=== PATIENT | female | born 1935 | race Caucasian/White ===

== ENCOUNTER 2016-07-06 17:25 | Inpatient (IN) | payer OTHER ==
--- NOTE | 2016-07-06 17:42 | PDOC ---
History of Present Illness - General Chief Complaint: Shortness of Breath Stated Complaint: CARDIAC History Source: Patient Exam Limitations: No Limitations - History of Present Illness Timing/Duration: other (today) Severity: moderate Associated Symptoms: reports: shortness of breath, other (palpitations). denies : chest pain, headaches Past History - Travel Traveled outside of the country in the last 30 days: No Close contact w/someone who was outside of country & ill: No - Past Medical History Allergies/Adverse Reactions: Allergies Allergy/AdvReac Type Severity Reaction Status Date / Time cefuroxime axetil Allergy Verified 05/23/16 09:24 [From Ceftin] nitrofurantoin Allergy Verified 05/23/16 09:24 macrocrystalline [From Macrodantin] shellfish derived Allergy Verified 07/06/16 17:44 sulfamethoxazole Allergy Verified 05/23/16 09:24 [From Bactrim] trimethoprim [From Bactrim] Allergy Verified 05/23/16 09:24 Home Medications: Ambulatory Orders Bacitracin 30 gm TP DAILY 07/06/16 Butenafine HCl [Mentax] 30 gm TP DAILY 07/06/16 Cholecalciferol (Vitamin D3) [Vitamin D3 -] 1,000 unit PO DAILY 07/06/16 Enalapril Maleate [Vasotec] 20 mg PO DAILY 07/06/16 Furosemide [Lasix] 20 mg PO DAILY 07/06/16 Metformin HCl [Metformin HCl ER] 500 mg PO DAILY 07/06/16 Multivitamins [Tab-A-Vit -] 1 tab PO DAILY 07/06/16 Mupirocin 1 gm TP DAILY 07/06/16 Potassium Chloride [K-Tab ER] 8 meq PO BID 07/06/16 Simvastatin [Zocor -] 20 mg PO HS 07/06/16 Tiotropium [place] [Spiriva -] 2 puff IH DAILY PRN 07/06/16 Warfarin Sodium [Coumadin] 5 mg PO DAILY 07/06/16 Asthma: Yes (acute resp failure,acute resp myopathy, hx of mech.vent for 4 months) Cardiac Disorders: Yes (a.fib,flutter,core pulmonale) CVA: Yes (tia,vertigo. inner ear nerve degeneration) CHF: Yes Dementia: No Diabetes: Yes (niddm) Dialysis: No GI Disorders: No Disorders: No HTN: Yes Hypercholesterolemia: Yes HIV: No Kidney Stones: No Liver Disease: No Psychiatric Problems: No Suicide Attempt (Hx): No Seizures: No Lung CA: No - Surgical History Cardiac Surgery: Yes (M.Valve replac.) Lung Surgery: Yes (hx rt chest tube,tracheostomy,lt thoracentesis) - Psycho/Social/Smoking Cessation Hx Anxiety: No Suicidal Ideation: No Smoking History: Never smoked Have you smoked in the past 12 months: No Hx Alcohol Use: Yes (Social ) Review of Systems - Review of Systems Able to Perform ROS?: Yes Is the patient limited Korean proficient: No Constitutional: Yes: Chills, Malaise, Unintentional Wgt. Loss, Unexplained wgt Loss. No: Fever, Weakness, Weight Stable HEENTM: Yes: See HPI Respiratory: Yes: Shortness of Breath, SOB at Rest, Wheezing. No: Productive cough, Hemoptysis Cardiac (ROS): Yes: Irregular Heart Rate, Palpitations. No: Chest Pain, Lightheadedness, Syncope, Chest Tightness ABD/GI: Yes: Diarrhea. No: Abdominal Distended, Blood Streaked Bowels : No: Burning, Dysuria, Discharge Musculoskeletal: No: Back Pain, Gout, Joint Pain, Joint Swelling, Muscle Pain Integumentary: No: Bruising, Change in Color Neurological: No: Headache, Numbness, Paresthesia Psychiatric: No: Anxiety, Depression, Frequent Crying, Stressors, Sleep Pattern Change Endocrine: Yes: Unexplained Weight Loss. No: Excessive Sweating, Flushing, Intolerance to Cold, Intolerance to Heat Hematologic/Lymphatic: No: Anemia, Blood Clots, Easy Bleeding *Physical Exam - Physical Exam General Appearance: Yes: Apparent Distress, Mild Distress HEENT: positive: Normal ENT Inspection, Muffled/Hoarse voice. negative: Pharyngeal Erythema Neck: positive: Trachea midline, Normal Thyroid, Supple. negative: Rigid, Decreased range of motion Respiratory/Chest: positive: Respiratory Distress, Rhonchi, Wheezing. negative : Accessory Muscle Use Cardiovascular: positive: Tachycardia, Irregular Gastrointestinal/Abdominal: positive: Normal Bowel Sounds, Flat, Soft. negative : Tender Lymphatic: negative: Adenopathy, Tenderness Musculoskeletal: negative: CVA Tenderness Extremity: positive: Normal Capillary Refill, Normal Inspection, Normal Range of Motion. negative: Tender Integumentary: positive: Dry, Warm, Pale Neurologic: positive: vice president process II-XII NML intact, Fully Oriented, Alert, Normal Mood/ Affect ED Treatment Course - LABORATORY CBC & Chemistry Diagram: 07/06/16 18:00 07/06/16 18:00 *DC/Admit/Observation/Transfer Diagnosis at time of Disposition: Palpitations, Aortic stenosis, Atrial fibrillation with rapid ventricular response - Discharge Dispostion Condition at time of disposition: Guarded Admit: Yes
[2016-07-06] MEDS ORDERED: dilTIAZem HCL 50 MG/10 ML - 10 ML VIAL IVPUSH ONE (17:51)
[2016-07-06] MEDS ORDERED: ALBUTEROL SO4 0.083% IH SOL 2.5 MG/3 ML VIAL.NEB. NEB ONE (17:53)
[2016-07-06] MEDS ORDERED: dilTIAZem HCL 125 MG/25 ML - 25 ML VIAL ONE (17:54)
[2016-07-06] MEDS ORDERED: SODIUM CHLORIDE 1,000 ML IV SCH (18:00)
[2016-07-06 18:06] LABS: MCHC 31.9 g/dl (32.0-36.0); MEAN CELL VOLUME 81.5 fl (80-96); MEAN PLT VOLUME 10.9 fl (7.5-11.1); PLATELET COUNT 148 K/MM3 (134-434); RDW 16.2 % (11.6-15.6); WHITE BLOOD COUNT 14.8 K/mm3 (4.0-10.0)
[2016-07-06 18:19] LABS: INR 2.94 (0.82-1.09); PROTHROMBIN TIME (PATIENT) 33.1 SEC (9.98-11.88)
[2016-07-06 18:22] LABS: ACTIVATED PTT 37.6 SECONDS (26.9-34.4)
[2016-07-06 18:30] LABS: ALBUMIN 4.2 g/dl (3.4-5.0); ANION GAP 15 (8-16); BILIRUBIN,TOTAL 1.6 mg/dL (0.2-1.0); CALCIUM 9.4 mg/dL (8.5-10.1); CO2 27 mmol/L (21-32); GLUCOSE,RANDOM 222 mg/dL (74-106); MAGNESIUM 1.9 mg/dL (1.8-2.4); SGOT/AST 53 U/L (15-37); SGPT/ALT 29 U/L (12-78); TOT PROT 7.1 g/dl (6.4-8.2)
[2016-07-06 18:33] LABS: ALK PHOS 66 U/L (45-117); TROPONIN I < 0.02 ng/ml (0.00-0.05)
[2016-07-06 18:34] LABS: PLATELET COMMENT2 NO CLOTTING DETECTED; PLATELET ESTIMATE DECREASED (NORMAL)
[2016-07-06] MEDS ORDERED: dilTIAZem HCL 60 MG TABLET (FP) PO ONE (19:07)
[2016-07-06] MEDS ORDERED: dilTIAZem HCL 60 MG TABLET (FP) ONE (19:10)
--- NOTE | 2016-07-06 20:19 | HP ---
CHIEF COMPLAINT: SOB, Palpitations PCP: Dr. Geronimo Wisdom HISTORY OF PRESENT ILLNESS: This is a 81 y/o woman with a past medical history of Asthma- Acute Resp Failure , Acute Resp myopathy (hx mech vent for 4 months), Afib (on Coumadin), Mechanical MVR, CHF, DM, HTN, CVA, TIA, Vertigo, Inner Ear Degeneration. Who presents to the emergency department with SOB, palpitations started this morning , became worse in the afternoon. Patient reports having increased palpitations since her cardiac medications were changed from Digoxin due to toxicity to Metoprolol. Patient reports last admission 05/23-05/25 for Afib with RVR. Patient reports having a dry cough with hoarseness and wheezing that started at 0330 this morning. She now reports this afternoon her cough is productive with white phlegm, she took Prednisone 60mg at home per her diagnostic medical sonographer. Patient reports having chills, diarrhea, a decreased appetite, weakness and fatigue. Patient reports weight loss 40lbs in 4 years which she attributes to worrying about her who is chronically ill. Patient reports having had extensive GI workups - wnl. Patient denies fever, AP, constipation, hematochezia , melena, hematuria, dysuria. 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: Allergies cefuroxime axetil [From Ceftin] Allergy (Verified 05/23/16 09:24) nitrofurantoin macrocrystalline [From Macrodantin] Allergy (Verified 05/23/16 09 :24) shellfish derived Allergy (Verified 07/06/16 17:44) sulfamethoxazole [From Bactrim] Allergy (Verified 05/23/16 09:24) trimethoprim [From Bactrim] Allergy (Verified 05/23/16 09:24) HOME MEDICATIONS: Home Medications Medication Instructions Recorded Bacitracin 30 gm TP DAILY 07/06/16 Butenafine HCl [Mentax] 30 gm TP DAILY 07/06/16 Cholecalciferol (Vitamin D3) 1,000 unit PO DAILY 07/06/16 [Vitamin D3 -] Enalapril Maleate [Vasotec] 20 mg PO DAILY 07/06/16 Furosemide [Lasix] 20 mg PO DAILY 07/06/16 Metformin HCl [Metformin HCl ER] 500 mg PO DAILY 07/06/16 Multivitamins [Tab-A-Vit -] 1 tab PO DAILY 07/06/16 Mupirocin 1 gm TP DAILY 07/06/16 Potassium Chloride [K-Tab ER] 8 meq PO BID 07/06/16 Simvastatin [Zocor -] 20 mg PO HS 07/06/16 Tiotropium [place] [Spiriva -] 2 puff IH DAILY PRN 07/06/16 Warfarin Sodium [Coumadin] 5 mg PO DAILY 07/06/16 REVIEW OF SYSTEMS CONSTITUTIONAL: chills, generalized weakness, loss of appetite, weight change Absent: fever, diaphoresis, malaise HEENT: Absent: rhinorrhea, nasal congestion, throat pain, throat swelling, difficulty swallowing, mouth swelling, ear pain, eye pain, visual changes CARDIOVASCULAR: palpitations Absent: chest pain, syncope, irregular heart rate, lightheadedness, peripheral edema RESPIRATORY: shortness of breath, wheezing Absent: cough, dyspnea with exertion, orthopnea, stridor, hemoptysis GASTROINTESTINAL: diarrhea Absent: abdominal pain, abdominal distension, nausea, vomiting, constipation, melena, hematochezia GENITOURINARY: Absent: dysuria, frequency, urgency, hesitancy, hematuria, flank pain, genital pain MUSCULOSKELETAL: Absent: myalgia, arthralgia, joint swelling, back pain, neck pain SKIN: Absent: rash, itching, pallor HEMATOLOGIC/IMMUNOLOGIC: Absent: easy bleeding, easy bruising, lymphadenopathy, frequent infections ENDOCRINE: Absent: unexplained weight gain, heat intolerance, cold intolerance NEUROLOGIC: Absent: headache, focal weakness or paresthesias, dizziness, unsteady gait, seizure, mental status changes, bladder or bowel incontinence PSYCHIATRIC: Absent: anxiety, depression, suicidal or homicidal ideation, hallucinations. PHYSICAL EXAMINATION Vital Signs - 24 hr 07/06/16 07/06/16 17:41 19:10 Temperature 98.6 F 98.6 F Pulse Rate 171 H Pulse Rate [ 102 H Left] Respiratory 20 18 Rate Blood Pressure 107/92 Blood Pressure 105/48 [Right Arm] O2 Sat by Pulse 88 L 97 Oximetry (%) GENERAL: Awake, alert, and fully oriented, cachectic, in no acute distress. HEAD: Normal with no signs of trauma. FACE: Facial wasting EYES: Pupils equal, round and reactive to light, extraocular movements intact, sclera anicteric, conjunctiva clear. No lid lag. EARS, NOSE, THROAT: Ears normal, nares patent, oropharynx clear without exudates. Moist mucous membranes. NECK: Normal range of motion, supple without lymphadenopathy, JVD, or masses. LUNGS: +Rhonchi and wheeze to right apex. No crackles. No accessory muscle use. HEART: Irregular rate and rhythm, Grade 2 systolic murmur. Normal S1 and S2. rub or gallop. ABDOMEN: Soft, nontender, not distended, normoactive bowel sounds, no guarding, no rebound, no masses. No hepatomegaly or splenomegaly. MUSCULOSKELETAL: Normal range of motion at all joints. No bony deformities or tenderness. No CVA tenderness. UPPER EXTREMITIES: 2+ pulses, warm, well-perfused. Decreased subcutaneous adipose tissue, emaciated. No cyanosis. No clubbing. Cap refill <2 seconds. No peripheral edema. LOWER EXTREMITIES: 2+ pulses, warm, well-perfused. Decreased subcutaneous adipose tissue, emaciated. No calf tenderness. No peripheral edema. NEUROLOGICAL: Cranial nerves II-XII intact. Normal speech. Gait not observed. PSYCHIATRIC: Cooperative. Good eye contact. Appropriate mood and affect. SKIN: Warm, dry, normal turgor, no rashes. bruising to right forearm noted. Laboratory Results - last 24 hr 07/06/16 07/06/16 07/06/16 18:00 18:00 18:00 WBC 14.8 H D RBC 4.68 Hgb 12.2 Hct 38.2 MCV 81.5 MCHC 31.9 L RDW 16.2 H Plt Count 148 MPV 10.9 D Neutrophils % 93.0 H D Lymphocytes % 2.0 L D Monocytes % 5.0 Platelet Estimate Decreased Platelet Comment No clotting detected INR 2.94 H PTT (Actin FS) 37.6 H Sodium 135 L Potassium 4.5 Chloride 93 L Carbon Dioxide 27 Anion Gap 15 BUN 21 H D Creatinine 1.0 D Creat Clearance w eGFR 53.21 Random Glucose 222 H D Calcium 9.4 Magnesium 1.9 Total Bilirubin 1.6 H D AST 53 H ALT 29 Alkaline Phosphatase 66 Creatine Kinase 48 Troponin I < 0.02 B-Natriuretic Peptide 4108.15 H Total Protein 7.1 Albumin 4.2 ASSESSMENT/PLAN: This is a 81 y/o woman with a PMHx of: Asthma, Acute Resp Failure, Resp Myopathy (hx mech vent for 4 months), Afib (on Coumadin), Mechanical MVR, CHF, DM, HTN. Who presents to the ED with SOB and palpitations. Placed on Tele Observation for further evaluation of their emergent condition. Plan: 1. Card: Afib with RVR/ Palpitations/CHF/HTN - Likely Paroxysmal - Tele monitoring - [id number] Score 6 - Cardizem IV given in ED- rate 90s-100s - Appreciate Cardiology Consult - Will restart BB - Continue Coumadin, Vasotec - Monitor INR - BNP 4108, patient appears euvolemic - Continue Lasix - Monitor renal function 2. Pulm: SOB/Asthma, Acute Resp Failure - Likely due to Afib - Albuterol neb given in ED - Appreciate Pulm Consult - O2 - Continue Spiriva - Peak Flow BID 3. Endo: Diabetes Mellitus - Not Controlled 2/2 steroid use - Will hold Metformin for tighter glycemic control - BGMs - ISS - HgbA1c done on 05/24/16: 5.7 4. ID:Leukocytosis - Likely secondary to inflammatory response vs viral - Patient is afebrile - Will not start ABX, will wait and watch, if patient's condition worsens will treat accordingly - Monitor CBC 5. GI: Diarrhea vs Malabsorption - Patient report having loose stools which she attributes to taking her BB - Patient reports having GI workup- results WNl - Will obtain Stool Specimens, if condition worsens - Monitor BMP - f/u with GI in outpatient 6. Cachexia - Likely 2/2 poor appetite vs malabsorption - Patients Albumin is within baseline - RD Consult - PO Supplements - Consider B12 studies 7. Mechanical Mitral Valve Replacement - INR 2.94 - Continue Coumadin - Monitor INRs 8. FEN - PO Fluids - Replete lytes prn - High Calorie, Low Na Diet 9. 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 - [place] (6) Diabetes mellitus Code(s): E11.9 - TYPE 2 DIABETES MELLITUS WITHOUT COMPLICATIONS Qualifiers: (7) History of mitral valve replacement with mechanical valve Code(s): Z95.2 - PRESENCE OF PROSTHETIC HEART VALVE (8) Hypercholesteremia Code(s): E78.0 - PURE HYPERCHOLESTEROLEMIA * DO NOT USE * (9) Hypertension Code(s): I10 - ESSENTIAL (PRIMARY) HYPERTENSION Qualifiers: (10) DVT prophylaxis Code(s): [id number] - Visit type - Emergency Visit Emergency Visit: Yes ED Registration Date: 07/06/16 Care time: The patient presented to the Emergency Department on the above date and was hospitalized for further evaluation of their emergent condition. - New Patient This patient is new to me today: Yes Date on this admission: 07/06/16 - Critical Care Critical Care patient: No
[2016-07-06 21:38] LABS: URINE APPEARANCE SLCLOUDY; URINE BILIRUBIN NEGATIVE (NEGATIVE); URINE COLOR YELLOW; URINE GLUCOSE (UA) 1+ (NEGATIVE); URINE KETONE 1+ (NEGATIVE); URINE LEUK ESTERASE NEGATIVE (NEGATIVE); URINE NITRITE NEGATIVE (NEGATIVE); URINE PROTEIN NEGATIVE (NEGATIVE); URINE UROBILINOGEN NEGATIVE E.U./dl (0.2-1.0)
[2016-07-06 21:39] LABS: URINE BLOOD 2+ (NEGATIVE)
[2016-07-06 21:40] LABS: URINE HYALINE CAST 2 /lpf; URINE MUCUS RARE; URINE RBC 9 /hpf (0-3); URINE WBC 7 /hpf (3-5)
[2016-07-07] MEDS ORDERED: ALBUTEROL SO4 0.083% IH SOL 2.5 MG/3 ML VIAL.NEB. NEB PRN (06:51)
[2016-07-07 06:57] LABS: BASOPHIL 0.1 % (0-2.0); MCH 26.3 pg (25.7-33.7); MCHC 32.2 g/dl (32.0-36.0); MEAN CELL VOLUME 81.7 fl (80-96); MEAN PLT VOLUME 10.1 fl (7.5-11.1); PLATELET COUNT 113 K/MM3 (134-434); RDW 16.2 % (11.6-15.6); WHITE BLOOD COUNT 7.4 K/mm3 (4.0-10.0)
[2016-07-07 07:39] LABS: CALCIUM 9.2 mg/dL (8.5-10.1); CREATININE 0.7 mg/dL (0.55-1.02); MAGNESIUM 2.1 mg/dL (1.8-2.4); PHOSPHOROUS 3.2 mg/dL (2.5-4.9)
[2016-07-07 07:43] LABS: TROPONIN I 0.02 ng/ml (0.00-0.05)
[2016-07-07 08:54] LABS: THYROID STIMULATING HORMONE 0.25 uIU/ml (0.358-3.74)
[2016-07-07] MEDS: FUROSEMIDE 20 MG TABLET (FP) PO SCH (10:00)
[2016-07-07] MEDS: MULTIVITAMINS (DAILY MVI) TABLET (FP) PO SCH (10:00)
[2016-07-07] MEDS ORDERED: ACLIDINIUM BROMIDE 400 MCG/INH AERO.POWD IH SCH (10:00)
[2016-07-07] MEDS ORDERED: METOPROLOL TARTRATE 25 MG TABLET (FP) PO SCH (10:00)
[2016-07-07] MEDS ORDERED: dilTIAZem HCL 30 MG TABLET (FP) PO SCH (10:00)
[2016-07-07] MEDS ORDERED: dilTIAZem HCL 30 MG TABLET (FP) ONE (10:05)
[2016-07-07] MEDS ORDERED: FUROSEMIDE 40 MG/4 ML INJECTABLE VIAL ONE (10:06)
[2016-07-07] MEDS ORDERED: FUROSEMIDE 40 MG TABLET (FP) ONE (10:08)
--- NOTE | 2016-07-07 10:14 | CON.PULM ---
Consult Reason for Consultation:: Dyspnea and Tachycardia - History of Present Illness Chief Complaint: Shortnes of breath and weakneass History of Present Illness: URI for about a week followed by dyspnea and wheezing. Pt called me yesterday and Prednisone 40 mg was started. Pt developed a rapid heart rate several hours later and came to the ER. She denies purulent sputum production, hemoptysis, chest pain or syncope. Past history significant for MVR and chronic atrial fibrillation, anticoagulation with Warfarin, aortic stenosis. In addition, she has mild bronchial asthma. PMH NIDDM Underweight (less than 90 lbs for years) MVR Aortic Stenosis Bronchial Asthma Respiratory failure approx. 20 years ago secondary to neuromuscular disease ( the exact etiology never determined)-required respirator support for about 2 months - History Source History Provided By: Patient, Medical Record Limitations to Obtaining History: No Limitations - Past Medical History Cardio/Vascular: Yes: Aortic Stenosis, Mitral Stenosis Pulmonary: Yes: Asthma - Past Surgical History Past Surgical History: Yes: Valve Replacement (mitral) - Alcohol/Substance Use Hx Alcohol Use: Yes (Social ) - Smoking History Smoking history: Never smoked Have you smoked in the past 12 months: No - Social History Usual Living Arrangement: With Spouse 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: No Home Medications - Allergies Allergies/Adverse Reactions: Allergies Allergy/AdvReac Type Severity Reaction Status Date / Time cefuroxime axetil Allergy Verified 05/23/16 09:24 [From Ceftin] nitrofurantoin Allergy Verified 05/23/16 09:24 macrocrystalline [From Macrodantin] shellfish derived Allergy Verified 07/06/16 17:44 sulfamethoxazole Allergy Verified 05/23/16 09:24 [From Bactrim] trimethoprim [From Bactrim] Allergy Verified 05/23/16 09:24 - Home Medications Home Medications: Ambulatory Orders Bacitracin 30 gm TP DAILY 07/06/16 Butenafine HCl [Mentax] 30 gm TP DAILY 07/06/16 Cholecalciferol (Vitamin D3) [Vitamin D3 -] 1,000 unit PO DAILY 07/06/16 Enalapril Maleate [Vasotec] 20 mg PO DAILY 07/06/16 Furosemide [Lasix] 20 mg PO DAILY 07/06/16 Metformin HCl [Metformin HCl ER] 500 mg PO DAILY 07/06/16 Multivitamins [Tab-A-Vit -] 1 tab PO DAILY 07/06/16 Mupirocin 1 gm TP DAILY 07/06/16 Potassium Chloride [K-Tab ER] 8 meq PO BID 07/06/16 Simvastatin [Zocor -] 20 mg PO HS 07/06/16 Tiotropium [place] [Spiriva -] 2 puff IH DAILY PRN 07/06/16 Warfarin Sodium [Coumadin] 5 mg PO DAILY 07/06/16 Review of Systems - Review of Systems Constitutional: denies: Chills, Fever Cardiovascular: reports: Palpitations, Shortness of Breath. denies: Chest Pain , Edema Respiratory: reports: Cough, Exercise Intolerance, SOB on Exertion, Wheezing. denies: Hemoptysis Gastrointestinal: denies: Abdominal Pain, Rectal Bleeding, Vomiting Blood Neurological: reports: No Symptoms Physical Exam Vital Sings: Vital Signs Temperature 97.5 F L 07/07/16 06:09 Pulse Rate 100 H 07/07/16 06:09 Respiratory Rate 16 07/07/16 06:09 Blood Pressure 122/67 07/07/16 06:09 O2 Sat by Pulse Oximetry (%) 97 07/07/16 06:09 Constitutional: Yes: No Distress Eyes: No: Sclera Icterus HENT: Yes: Atraumatic, Normocephalic Neck: Yes: Supple, Trachea Midline Cardiovascular: Yes: Pulse Irregular (ventricular rate about 110-120), JVD Respiratory: Yes: CTA Bilaterally ...Percussion: No: Dullnes, Hyperresonance ...Clubbing: No Gastrointestinal: Yes: Soft. No: Hepatomegaly, Splenomegaly, Tenderness Edema: No Neurological: Yes: Alert, Oriented Labs: CBC, BMP 07/07/16 06:10 07/07/16 06:10 Imaging - Results Chest X-ray: Report Reviewed, Image Reviewed (GEO, Cm, Valve replacement) Problem List - Problems (1) Atrial fibrillation with rapid ventricular response Code(s): I48.91 - UNSPECIFIED ATRIAL FIBRILLATION (2) Bronchial asthma Code(s): J45.909 - UNSPECIFIED ASTHMA, UNCOMPLICATED Qualifiers: Asthma severity: mild intermittent (3) History of mitral valve replacement with mechanical valve Code(s): Z95.2 - PRESENCE OF PROSTHETIC HEART VALVE (4) Aortic stenosis Code(s): I35.0 - NONRHEUMATIC AORTIC (VALVE) STENOSIS Qualifiers: (5) Diabetes mellitus Code(s): E11.9 - TYPE 2 DIABETES MELLITUS WITHOUT COMPLICATIONS Qualifiers: Diabetes mellitus type: type 2 Assessment/Plan Chronic Atrial fibrillation-Vent rate still relatively rapid. Acute Exacerbation of Bronchial Asthma-respiratory status stable. Beta blockers could be contributing to asthma exacerbation. Mechanical MVR-INR therapeutic Aortic Stenosis- cardiology evaluation pending NIDDM-stable. Sugars mildly increased secondary to steroids Suggest: Spiriva Albuterol PRN O2 to maintain SaO2>90 Inhaled corticosteroid Monitor sugars Cardizem Cardiology evaluation in progress Thank you for referring this patient for consultation.
--- NOTE | 2016-07-07 10:27 | CON.CARD ---
Consult Consult Specialty:: Cardiology Referred by:: Geronimo Wisdom MD Reason for Consultation:: Rapid afib - History of Present Illness Chief Complaint: Palpitations, dyspnea History of Present Illness: 81 year old female with pmh of HTN, permanent AFIB, Rheumatic heart disease, aortic valve stenosis, mechanical mitral valve replacement, CVA, diabetes, asthma (spiriva two puffs twice weekly), basal cell carcinoma (left nose), inner ear nerve degeneration, and vertigo presented increased palpitations, non- productive cough and bronchodilator-responsive dyspnea, started on prednisione, she denies true syncope, chest pain, orthopnea, PND or LE edema. She reports medication compliance with Lopressor which she reports has caused her diarrhea, rate-controlled with Cardizem. 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 Home Medications - Allergies Allergies/Adverse Reactions: Allergies Allergy/AdvReac Type Severity Reaction Status Date / Time cefuroxime axetil Allergy Verified 05/23/16 09:24 [From Ceftin] nitrofurantoin Allergy Verified 05/23/16 09:24 macrocrystalline [From Macrodantin] shellfish derived Allergy Verified 07/06/16 17:44 sulfamethoxazole Allergy Verified 05/23/16 09:24 [From Bactrim] trimethoprim [From Bactrim] Allergy Verified 05/23/16 09:24 - Home Medications Home Medications: Ambulatory Orders Bacitracin 30 gm TP DAILY 07/06/16 Butenafine HCl [Mentax] 30 gm TP DAILY 07/06/16 Cholecalciferol (Vitamin D3) [Vitamin D3 -] 1,000 unit PO DAILY 07/06/16 Enalapril Maleate [Vasotec] 20 mg PO DAILY 07/06/16 Furosemide [Lasix] 20 mg PO DAILY 07/06/16 Metformin HCl [Metformin HCl ER] 500 mg PO DAILY 07/06/16 Multivitamins [Tab-A-Vit -] 1 tab PO DAILY 07/06/16 Mupirocin 1 gm TP DAILY 07/06/16 Potassium Chloride [K-Tab ER] 8 meq PO BID 07/06/16 Simvastatin [Zocor -] 20 mg PO HS 07/06/16 Tiotropium [place] [Spiriva -] 2 puff IH DAILY PRN 07/06/16 Warfarin Sodium [Coumadin] 5 mg PO DAILY 07/06/16 Review of Systems - Review of Systems Cardiovascular: reports: Palpitations, Shortness of Breath Vital Signs: Vital Signs Temperature 97.5 F L 07/07/16 06:09 Pulse Rate 100 H 07/07/16 06:09 Respiratory Rate 16 07/07/16 06:09 Blood Pressure 122/67 07/07/16 06:09 O2 Sat by Pulse Oximetry (%) 97 07/07/16 06:09 Constitutional: Yes: No Distress, Calm, Thin Neck: Yes: Supple Respiratory: Yes: Regular, Diminished, SOB Gastrointestinal: Yes: Normal Bowel Sounds, Soft Cardiovascular: Yes: Tachycardia, Pulse Irregular JVD: No Carotid Bruit: No Heart Sounds: Yes: S1, S2 Murmur: Yes: Systolic Murmur, Grade 2 ([place] mechanical valve sounds) Edema: No - Other Data Labs, Other Data: CBC, BMP 07/07/16 06:10 07/07/16 06:10 INR, PTT INR 2.94 (0.82-1.09) H 07/06/16 18:00 Troponin, BNP 07/07/16 07/07/16 00:25 06:10 Troponin I 0.02 0.02 Troponin, BNP 07/07/16 07/07/16 00:25 06:10 Troponin I 0.02 0.02 Rapid afib @ 104 LAD, anteroseptal infarct Echo: Report Reviewed Prior Cardiac Procedures: Valve Surgery Ejection Fraction %: LVEF > or = 40 % Problem List - Problems (1) Atrial fibrillation with rapid ventricular response Code(s): I48.91 - UNSPECIFIED ATRIAL FIBRILLATION (2) Palpitations Code(s): R00.2 - PALPITATIONS (3) Bronchial asthma Code(s): J45.909 - UNSPECIFIED ASTHMA, UNCOMPLICATED Qualifiers: Asthma severity: mild intermittent (4) Diabetes mellitus Code(s): E11.9 - TYPE 2 DIABETES MELLITUS WITHOUT COMPLICATIONS Qualifiers: Diabetes mellitus type: type 2 (5) History of mitral valve replacement with mechanical valve Code(s): Z95.2 - PRESENCE OF PROSTHETIC HEART VALVE (6) Hypercholesteremia Code(s): E78.0 - PURE HYPERCHOLESTEROLEMIA * DO NOT USE * (7) Hypertension Code(s): I10 - ESSENTIAL (PRIMARY) HYPERTENSION Qualifiers: Hypertension type: essential hypertension Qualified Code(s): I10 - Essential (primary) hypertension (8) Premature ventricular contraction Code(s): I49.3 - VENTRICULAR PREMATURE DEPOLARIZATION Assessment/Plan 05/23/2016 Echo: Normal LV size with mildly decreased LV fxn, mech MV replacement, mild TR RVSP 30-40 mmHg, AV not well seen 1. Palpitations referable to rapid atrial fibrillation and PVC 2. Permanent atrial fibrillation with rapid ventricular response 3. Post mechanical MVR, cannot exclude sig aortic stenosis 4. Diastolic dysfunction, euvolemic 5. Bronchial asthma exacerbated by lopressor (with bronchodilator-responsive dyspnea suggestive of bronchospasm) 6. HTN/HCVD 7. Hyperlipidemia 6. Type 2 DM PLAN: 1. Change Lopressor 100 mg BID to Cardizem 30 q6 with uptitration as tolerated 2. Continue Vasotec 20 mg QD, Lipitor 10 mg QHS and Lasix 20 mg QD 3. Resume Coumadin per INR 3.0-3.5 4. BD, short steroid course per Dr. Wisdom 5. Repeat TTE, may benefit from KRISTI as outpatient to assess severity of aortic stenosis 6. Thank you for consultative opportunity
--- NOTE | 2016-07-07 11:10 | EKG ---
Test Reason : Blood Pressure : / mmHG Vent. Rate : 104 BPM Atrial Rate : 085 BPM P-R Int : 000 ms QRS Dur : 084 ms QT Int : 354 ms P-R-T Axes : 000 -53 071 degrees QTc Int : 465 ms ATRIAL FIBRILLATION WITH RAPID VENTRICULAR RESPONSE LEFT AXIS DEVIATION CANNOT RULE OUT ANTEROSEPTAL INFARCT , AGE UNDETERMINED INCOMPLETE RBBB ABNORMAL ECG Confirmed by FARRAH FALK MD ([id number]) on 07/07/2016 11:09:26 AM Referred By: Confirmed By:FARRAH FALK MD
[2016-07-07] MEDS: CHOLECALCIFEROL (VITAMIN D3) 1,000 UNIT TABLET (FP) PO SCH (12:27)
--- NOTE | 2016-07-07 14:32 | PN ---
Physical Exam: SUBJECTIVE: Patient seen and examined. She states her palpitations are gone and SOB improved w/ breathing treatment. She really wants her HR under control, her lopressor aggravates her asthma OBJECTIVE: Vital Signs Period Temp Pulse Resp BP Sys/Gold Pulse Ox Last 24 Hr 97.5 F-98.8 F 84-100 16-16 97-122/59-67 97-100 PE Gen: pleasant, conversational, thin Neuro: alert, awake, cn 2-12intact Pulm: diminished, clear, no SOB CV: s1 s2 irregular rate, rhythm 3/6 systolic murmur, + MV clicking Abd: s nt nd + bs Ext: warm, no le edema Laboratory Results - last 24 hr 07/07/16 07/07/16 06:10 06:10 WBC 7.4 D RBC 4.41 Hgb 11.6 Hct 36.1 MCV 81.7 MCHC 32.2 RDW 16.2 H Plt Count 113 L D MPV 10.1 Neutrophils % 86.0 H Lymphocytes % 5.3 L D Monocytes % 8.6 Eosinophils % 0.0 D Basophils % 0.1 Sodium 137 Potassium 4.1 Chloride 99 Carbon Dioxide 31 Anion Gap 7 L BUN 18 Creatinine 0.7 D Random Glucose 127 H D Calcium 9.2 Phosphorus 3.2 Magnesium 2.1 Troponin I 0.02 TSH 0.25 L D Urine Color Urine Appearance Urine pH Ur Specific [place] Urine Protein Urine Glucose (UA) Urine Ketones Urine Blood Urine Nitrite Urine Bilirubin Urine Urobilinogen Ur Leukocyte Esterase Urine RBC Urine WBC Ur Epithelial Cells Hyaline Casts Urine Mucus Active Medications Generic Name Dose Route Start Last Admin Trade Name Freq PRN Reason Stop Dose Admin Aclidinium [place] 1 puff 07/07/16 10:00 07/07/16 12:27 Tudorza - IH 1 puff BID [facility] Administration Albuterol Sulfate 1 amp 07/07/16 06:51 Ventolin 0.083% Nebulizer Soln - NEB Q6H PRN SHORT OF BREATH/WHEEZING Atorvastatin Calcium 10 mg 07/07/16 22:00 Lipitor - PO HS [facility] Cholecalciferol 1,000 unit 07/07/16 10:00 07/07/16 12:27 Vitamin D3 - PO 1,000 unit DAILY [facility] Administration Diltiazem HCl 120 mg 07/07/16 13:00 Cardizem Cd - PO DAILY [facility] Furosemide 20 mg 07/07/16 10:00 07/07/16 10:00 Lasix - PO 20 mg DAILY [facility] Administration Multivitamins/Minerals/Vitamin C 1 tab 07/07/16 10:00 07/07/16 10:00 Tab-A-Vit - PO 1 tab DAILY [facility] Administration Non-Formulary Medication 20 mg 07/07/16 14:30 Enalapril Maleate [Vasotec] PO DAILY [facility] Warfarin Sodium 5 mg 07/07/16 18:00 Coumadin - PO DAILY@1800 [facility] Imaging: - 05/23/2016 Echo: Normal LV size with mildly decreased LV fxn, mech MV replacement, mild TR RVSP 30-40 mmHg, AV not well seen Assessment: 81 year old female with a PMHx of HTN, permanent A fib, Rheumatic heart disease, aortic valve stenosis, mechanical MV replacement, CVA, DM II, asthma, vertigo, inner ear nerve degeneration, basal cell carcinoma (left nares ) admitted with palpitations and associated SOB and non productive cough. Plan: 1. 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 SOB/Asthma - Exacerbated by BB as per pt - Improved with albuterol nebs, continue PRN - Continue Spiriva - Continue Tudorza 3. DM II - Hold metformin - ISS, BGM ACHS - 5.7 Hgb a1c 04/2016 4. Weight loss - Has been worked up extensively without any findings 5. Mechanical Mitral Valve Replacement - Goal INR 2.5-3.5 - Continue Coumadin 5mg HS - Daily INRs 6. Leukocytosis - Resolved, likely reactive 7. DVT Prophylaxis - Continue Coumadin Visit type - Emergency Visit Emergency Visit: Yes ED Registration Date: 07/06/16 Care time: The patient presented to the Emergency Department on the above date and was hospitalized for further evaluation of their emergent condition. - New Patient This patient is new to me today: Yes Date on this admission: 07/07/16 - Critical Care Critical Care patient: No
[2016-07-07 15:59] LABS: FREE T4 1.34 ng/dl (0.76-1.46)
[2016-07-07] MEDS: ENALAPRIL MALEATE 10 MG TABLET (FP) PO SCH (16:00)
[2016-07-07] MEDS ORDERED: dilTIAZem HCL 60 MG TABLET (FP) ONE (16:15)
[2016-07-07] MEDS ORDERED: dilTIAZem HCL 125 MG/25 ML - 25 ML VIAL ONE (16:20)
[2016-07-07] MEDS ORDERED: dilTIAZem HCL 50 MG/10 ML - 10 ML VIAL IVPUSH PRN (17:14)
[2016-07-07] MEDS: dilTIAZem HCL 60 MG TABLET (FP) PO SCH (18:07)
[2016-07-07] MEDS: ACETAMINOPHEN 325 MG TABLET (FP) PO PRN (18:08)
[2016-07-07] MEDS: WARFARIN NA 5 MG TABLET (UD) PO SCH (18:08)
[2016-07-07] MEDS ORDERED: ACETAMINOPHEN 325 MG TABLET (FP) ONE (18:11)
[2016-07-07] MEDS ORDERED: WARFARIN NA 5 MG TABLET (UD) ONE (18:11)
[2016-07-07] MEDS ORDERED: SODIUM CHLORIDE 1,000 ML IV SCH (20:00)
[2016-07-07] MEDS: ATORVASTATIN CA 10 MG TABLET (FP) PO SCH (21:49)
[2016-07-08] MEDS: dilTIAZem HCL 60 MG TABLET (FP) PO SCH ×4 (00:12→17:20)
[2016-07-08 02:01] VITALS: BMI 12.4
[2016-07-08] MEDS: ACETAMINOPHEN 325 MG TABLET (FP) PO PRN ×2 (06:20→16:21)
[2016-07-08 07:50] LABS: MCHC 33.7 g/dl (32.0-36.0); MEAN CELL VOLUME 80.1 fl (80-96); WHITE BLOOD COUNT 7.8 K/mm3 (4.0-10.0)
[2016-07-08 07:51] LABS: BASOPHIL 0.2 % (0-2.0); MEAN PLT VOLUME 10.1 fl (7.5-11.1); NEUTROPHILS 82.7 % (42.8-82.8); PLATELET COUNT 105 K/MM3 (134-434); RDW 16.3 % (11.6-15.6)
[2016-07-08 08:09] LABS: INR 1.66 (0.82-1.09); PROTHROMBIN TIME (PATIENT) 18.5 SEC (9.98-11.88)
[2016-07-08 08:35] LABS: ALBUMIN 3.4 g/dl (3.4-5.0); ALK PHOS 53 U/L (45-117); ANION GAP 10 (8-16); BILIRUBIN,TOTAL 1.5 mg/dL (0.2-1.0); CALCIUM 8.4 mg/dL (8.5-10.1); CO2 29 mmol/L (21-32); CREATININE 0.5 mg/dL (0.55-1.02); GLUCOSE,RANDOM 94 mg/dL (74-106); SGOT/AST 65 U/L (15-37); SGPT/ALT 29 U/L (12-78); TOT PROT 5.7 g/dl (6.4-8.2)
[2016-07-08] MEDS ORDERED: ENOXAPARIN NA (PORCINE) 30 MG/0.3 ML DISP.SYRIN SQ SCH (09:15)
[2016-07-08] MEDS: ENALAPRIL MALEATE 10 MG TABLET (FP) PO SCH (09:44)
[2016-07-08] MEDS: CHOLECALCIFEROL (VITAMIN D3) 1,000 UNIT TABLET (FP) PO SCH (09:44)
[2016-07-08] MEDS: MULTIVITAMINS (DAILY MVI) TABLET (FP) PO SCH (09:44)
[2016-07-08] MEDS: TIOTROPIUM BROMIDE 18 MCG/INH (DEVICE W/ 5 CAPSULES) IH SCH (09:44)
[2016-07-08] MEDS: FUROSEMIDE 20 MG TABLET (FP) PO SCH (09:44)
[2016-07-08] MEDS ORDERED: BUDESONIDE 0.5 MG/2 ML INH SUSP VIAL NEB SCH (10:00)
[2016-07-08] MEDS: MOMETASONE FUROATE 220 MCG/IH INHALER IH SCH (10:44)
--- NOTE | 2016-07-08 11:37 | PN ---
Physical Exam: SUBJECTIVE: Patient seen and examined on tele. She was coughing all night. She does feel better overall thought. Denies chest tightness, SOB, wheezing. OBJECTIVE: Vital Signs Period Temp Pulse Resp BP Sys/Gold Pulse Ox Last 24 Hr 98.7 F-101.2 F 102-200 17-20 108-153/61-76 96-100 PE Neuro: alert, awake, cn 2-12intact Pulm: diminished, scattered bilateral basilar crackles CV: s1 s2 irregular rate, rhythm 3/6 systolic murmur, + MV clicking Abd: s nt nd + bs Ext: warm, +1pedal edema b/l Laboratory Results - last 24 hr 07/07/16 07/07/16 07/07/16 06:10 18:00 20:40 WBC RBC Hgb Hct MCV MCHC RDW Plt Count MPV Neutrophils % Lymphocytes % Monocytes % Eosinophils % Basophils % INR Sodium Potassium Chloride Carbon Dioxide Anion Gap BUN Creatinine Creat Clearance w eGFR Random Glucose Lactic Acid 2.321 H* 2.111 H* Calcium Total Bilirubin AST ALT Alkaline Phosphatase Total Protein Albumin Free T4 1.34 07/08/16 07/08/16 07/08/16 03:20 06:00 06:00 WBC 7.8 RBC 4.05 Hgb 10.9 Hct 32.4 MCV 80.1 MCHC 33.7 RDW 16.3 H Plt Count 105 L MPV 10.1 Neutrophils % 82.7 Lymphocytes % 7.1 L D Monocytes % 10.0 Eosinophils % 0.0 Basophils % 0.2 INR 1.66 H D Sodium Potassium Chloride Carbon Dioxide Anion Gap BUN Creatinine Creat Clearance w eGFR Random Glucose Lactic Acid 0.856 Calcium Total Bilirubin AST ALT Alkaline Phosphatase Total Protein Albumin Free T4 07/08/16 07/08/16 06:00 06:00 WBC RBC Hgb Hct MCV MCHC RDW Plt Count MPV Neutrophils % Lymphocytes % Monocytes % Eosinophils % Basophils % INR Sodium 136 Potassium 3.6 Chloride 97 L Carbon Dioxide 29 Anion Gap 10 BUN 14 D Creatinine 0.5 L D Creat Clearance w eGFR > 60 Random Glucose 94 D Lactic Acid 0.881 Calcium 8.4 L Total Bilirubin 1.5 H AST 65 H D ALT 29 Alkaline Phosphatase 53 Total Protein 5.7 L Albumin 3.4 Free T4 Active Medications Generic Name Dose Route Start Last Admin Trade Name Freq PRN Reason Stop Dose Admin Acetaminophen 650 mg 02/10/17 17:15 07/08/16 06:20 Tylenol - PO 650 mg Q4H PRN Administration FEVER OR PAIN Albuterol Sulfate 1 amp 07/07/16 06:51 Ventolin 0.083% Nebulizer Soln - NEB Q6H PRN SHORT OF BREATH/WHEEZING Atorvastatin Calcium 10 mg 07/07/16 22:00 07/07/16 21:49 Lipitor - PO 10 mg HS [facility] Administration Cholecalciferol 1,000 unit 07/07/16 10:00 07/08/16 09:44 Vitamin D3 - PO 1,000 unit DAILY [facility] Administration Diltiazem HCl 5 mg 07/07/16 17:14 Cardizem Injection - IVPUSH Q4H PRN TACHYCARDIA Diltiazem HCl 60 mg 07/07/16 18:00 07/08/16 06:21 Cardizem - PO 60 mg Q6HPO [facility] Administration Enalapril Maleate 20 mg 07/07/16 14:30 07/08/16 09:44 Vasotec - PO 20 mg DAILY [facility] Administration Enoxaparin Sodium 30 mg 07/08/16 09:15 07/08/16 09:43 Lovenox - SQ 30 mg Q12H [facility] Administration Furosemide 20 mg 07/07/16 10:00 07/08/16 09:44 Lasix - PO 20 mg DAILY [facility] Administration Mometasone Furoate 1 puff 07/08/16 10:00 07/08/16 10:44 Asmanex 220mcg - IH 1 puff DAILY [facility] Administration Multivitamins/Minerals/Vitamin C 1 tab 07/07/16 10:00 07/08/16 09:44 Tab-A-Vit - PO 1 tab DAILY [facility] Administration Tiotropium [place] 1 puff 07/08/16 10:00 07/08/16 09:44 Spiriva - IH 1 puff DAILY [facility] Administration Warfarin Sodium 5 mg 07/07/16 18:00 07/07/16 18:08 Coumadin - PO 5 mg DAILY@1800 [facility] Administration Imaging: - 05/23/2016 Echo: Normal LV size with mildly decreased LV fxn, mech MV replacement, mild TR RVSP 30-40 mmHg, AV not well seen Assessment: 81 year old female with a PMHx of HTN, permanent A fib, Rheumatic heart disease, aortic valve stenosis, mechanical MV replacement, CVA, DM II, asthma, vertigo, inner ear nerve degeneration, basal cell carcinoma (left nares ) admitted with palpitations and associated SOB and non productive cough. Plan: 1. Rapid A fib with RVR/palpitations - Cardizem changed to 60mg 6h, no further episodes of Rapid Afib - ECHO Sunday for AV measurements - Continue Enalapril 20mg daily - T3 pending for decreased TSH level - D/w above with cardiology 2. SOB/Bronchitis vs possible evolving pna/ hx of Asthma - Currently, no wheezing, or sob, BS are appreciable however diminished with crackles, will observe at this time before starting abx and repeat cxr - Increase albuterol nebs q6 standing - Continue Spiriva - Continue Tudorza - CXR in AM 3. Elevated lactate - Improved s/p 1Lfluids - No fevers overnight - Repeat Urine cx, species c/w contaminate 4. Mechanical Mitral Valve Replacement - INR sub therapeutic - Start full dose lovenox - Continue Coumadin 5mg HS - Goal INR 3-3.5 - Daily INRs 5. DM II - Hold metformin - ISS, BGM ACHS - 5.7 Hgb a1c 04/2016 6. Weight loss - Has been worked up extensively without any findings 7. Leukocytosis - Resolved, likely reactive 8. DVT Prophylaxis - Continue Coumadin Visit type - Emergency Visit Emergency Visit: Yes ED Registration Date: 07/06/16 Care time: The patient presented to the Emergency Department on the above date and was hospitalized for further evaluation of their emergent condition. - New Patient This patient is new to me today: No - Critical Care Critical Care patient: No
--- NOTE | 2016-07-08 12:03 | PN ---
Progress Note (short form) - Note Progress Note: Chief Complaint: Events noted, notes reviewed, continue to report intermittent palpitations, dyspnea persists and reporting cough productive of discolored sputum History of Present Illness: Seen and examined on telemetry. Events noted, notes reviewed, continue to report intermittent palpitations, dyspnea persists and reporting cough productive of discolored sputum Echocardiography performed 05/23/2016 revealed Normal LV size with mildly decreased LV function, mechanical MV replacement, mild TR with RVSP 30-40 mmHg Repeat Echocardiography performed yesterday revealed Normal LV size and function , mechanical MV replacement, mild to moderate TR with RVSP 30-40 mmHg aortic valve not assessed (will attempt to reassess on Sunday) Medications: Current Medications Acetaminophen (Tylenol -) 650 mg PO Q4H PRN PRN Reason: FEVER OR PAIN Last Admin: 07/08/16 06:20 Dose: 650 mg Albuterol Sulfate (Ventolin 0.083% Nebulizer Soln -) 1 amp NEB Q6H PRN PRN Reason: SHORT OF BREATH/WHEEZING Atorvastatin Calcium (Lipitor -) 10 mg PO HS [facility] Last Admin: 07/07/16 21:49 Dose: 10 mg Cholecalciferol (Vitamin D3 -) 1,000 unit PO DAILY [facility] Last Admin: 07/08/16 09:44 Dose: 1,000 unit Diltiazem HCl (Cardizem Injection -) 5 mg IVPUSH Q4H PRN PRN Reason: TACHYCARDIA Diltiazem HCl (Cardizem -) 60 mg PO Q6HPO [facility] Last Admin: 07/08/16 06:21 Dose: 60 mg Enalapril Maleate (Vasotec -) 20 mg PO DAILY [facility] Last Admin: 07/08/16 09:44 Dose: 20 mg Enoxaparin Sodium (Lovenox -) 30 mg SQ Q12H [facility] Last Admin: 07/08/16 09:43 Dose: 30 mg Furosemide (Lasix -) 20 mg PO DAILY [facility] Last Admin: 07/08/16 09:44 Dose: 20 mg Mometasone Furoate (Asmanex 220mcg -) 1 puff IH DAILY [facility] Last Admin: 07/08/16 10:44 Dose: 1 puff Multivitamins/Minerals/Vitamin C (Tab-A-Vit -) 1 tab PO DAILY [facility] Last Admin: 07/08/16 09:44 Dose: 1 tab Tiotropium [place] (Spiriva -) 1 puff IH DAILY [facility] Last Admin: 07/08/16 09:44 Dose: 1 puff Warfarin Sodium (Coumadin -) 5 mg PO DAILY@1800 [facility] Last Admin: 07/07/16 18:08 Dose: 5 mg Review of Systems Cardiovascular: As noted above Respiratory: denies: As noted above Gastrointestinal: denies: Nausea, Vomiting, Diarrhea, Constipation or Abdominal Discomfort Musculoskeletal: No Symptoms Reported Endocrine: No Symptoms Reported - Objective Vital Signs: Last Vital Signs Temp Pulse Resp BP Pulse Ox 100.4 F H 120 H 20 153/76 96 07/08/16 06:00 07/08/16 06:00 07/08/16 06:00 07/08/16 06:00 07/08/16 04:05 Constitutional: No Distress, Calm, Thin Neck: Supple Negative JVD No Bruit Cardiovascular: Mechanical Click Irregularly Irregular Grade 3/6 HETAL Respiratory: Diminished Breath sounds at the Bases with Bilateral Scattered Rhonchi Gastrointestinal: Soft Benign Normal Bowel Sounds Ext: No Edema Labs: INR, PTT INR 1.66 (0.82-1.09) H D 07/08/16 06:00 CBC, BMP 07/08/16 06:00 07/08/16 06:00 Assessment/Plan ASSESSMENT: 1. Palpitations referable to rapid atrial fibrillation in a patient with known history of permanent atrial fibrillation on A/C therapy 2. Post mechanical MVR 3. Probable significant aortic valve stenosis cannot be excluded (repeat study on Sunday) 4. Diastolic LV dysfunction with chronic class I NYHA classification LV failure , euvolemic 5. Probable bronchitis, possible broncho-pneumonia 6. HTN 7. DM 8. Hyperlipidemia PLAN: 1. Continue Cardizem 2. Continue Vasotec 3. Continue Lipitor 4. Continue Lasix 5. Continue Coumadin as per INR maintain 3.0-3.5 6. Antibiotics, bronchodilators and steroids as per the primary and pulmonary teams 7. Repeat TTE Sunday to assess AV pathology Adithya Evans MD
[2016-07-08] MEDS ORDERED: guaiFENesin/D-M SUGAR-FREE/ACLHOL-FREE 118 ML BOTTLE PO PRN (13:17)
[2016-07-08] MEDS ORDERED: ALBUTEROL SO4 2.5/IPRATROPIUM 0.5 INH SOL 3 ML VIAL.NEB. NEB ONE (13:57)
[2016-07-08] MEDS ORDERED: IPRATROPIUM BR 0.02% 0.5 MG/2.5 ML VIAL.NEB. NEB ONE (13:57)
[2016-07-08] MEDS: ALBUTEROL SO4 0.083% IH SOL 2.5 MG/3 ML VIAL.NEB. NEB SCH ×3 (14:08→23:15)
[2016-07-08] MEDS ORDERED: HEPARIN NA (PORCINE) 5,000 UNITS/ML 1ML VIAL IVPUSH PRN ×4 (16:22→16:59)
[2016-07-08] MEDS ORDERED: AZITHROMYCIN 250 MG TABLET (FP) PO SCH (16:30)
[2016-07-08] MEDS ORDERED: HEPARIN - 25,000 UNIT in SODIUM CHLORIDE 495 ML IV SCH (16:30)
[2016-07-08] MEDS ORDERED: HEPARIN INFUSION - 500 ML IVPB SCH (17:00)
[2016-07-08] MEDS: WARFARIN NA 5 MG TABLET (UD) PO SCH (17:20)
[2016-07-08] MEDS ORDERED: AZTREONAM 2 GM in DEXTROSE 5%-WATER - 50 ML IVPB ONE (18:00)
[2016-07-08] MEDS ORDERED: VANCOMYCIN 1 GRAM (PRE-DOCKED) 1,000 MG/250 ML BAG IVPB ONE (18:15)
[2016-07-08] MEDS: ATORVASTATIN CA 10 MG TABLET (FP) PO SCH (22:14)
[2016-07-09] MEDS: dilTIAZem HCL 60 MG TABLET (FP) PO SCH ×4 (00:08→17:35)
--- NOTE | 2016-07-09 01:10 | HOSP ---
Subjective - Review of Symptoms Subjective: Asked to see patient for thrush in mouth Patient states her mouth is dry and she feels like it is thrush. She also reports having constipation x 2 days General- in nad, alert Hent- at/nc, lazaro, small white plaque in back of mouth, mild pharyngeal erythema RESP- +cough, no accessory muscle use Psych- Alert and oriented A/P 81 year old female with a PMHx of HTN, permanent A fib, Rheumatic heart disease , aortic valve stenosis, mechanical MV replacement, CVA, DM II, asthma, vertigo , inner ear nerve degeneration, basal cell carcinoma (left nares) seen for dry mouth and suspected elke. 1. ?Oral elke Will give Nystatin suspension 2. Constipation Prn Colace Physical Examination Vital Signs: Vital Signs Temperature 99 F 07/08/16 10:00 Pulse Rate 114 H 07/08/16 14:10 Respiratory Rate 20 07/08/16 14:10 Blood Pressure 111/69 07/08/16 14:10 O2 Sat by Pulse Oximetry (%) 98 07/08/16 13:23 Constitutional: Yes: Well Nourished, No Distress, Calm Eyes: Yes: WNL, Conjunctiva Clear, EOM Intact HENT: Yes: WNL, Atraumatic, Normocephalic Neck: Yes: WNL, Supple, Trachea Midline Labs: CBC, BMP 07/08/16 06:00 07/08/16 06:00
[2016-07-09] MEDS: NYSTATIN 500,000 UNITS/5 ML SUSPENSION PO SCH ×4 (02:15→17:35)
[2016-07-09] MEDS: ALBUTEROL SO4 0.083% IH SOL 2.5 MG/3 ML VIAL.NEB. NEB SCH (06:30)
[2016-07-09 07:34] LABS: BASOPHIL 0.3 % (0-2.0); MCH 26.3 pg (25.7-33.7); MCHC 32.8 g/dl (32.0-36.0); MEAN CELL VOLUME 80.1 fl (80-96); MEAN PLT VOLUME 9.8 fl (7.5-11.1); NEUTROPHILS 83.8 % (42.8-82.8); PLATELET COUNT 98 K/MM3 (134-434); WHITE BLOOD COUNT 9.8 K/mm3 (4.0-10.0)
--- NOTE | 2016-07-09 07:47 | PN ---
Progress Note (short form) - Note Progress Note: ID Full note dictated Intermittent fever chills couph productive sputum several days Selected Entries 07/07/16 07/07/16 07/08/16 17:26 22:00 06:00 Temperature 101.2 F H 100.2 F H 100.4 F H Pulse Rate Respiratory Rate Blood Pressure 07/09/16 07/09/16 02:00 05:44 Temperature 100.2 F H 99.4 F Pulse Rate 118 H Respiratory 20 Rate Blood Pressure 113/68 HEENT no petechiae Lung Rales LLL Cor Tachycardic Grad 4/6 systolic murmum LSB apex Irreg Abd Soft Ext Pedal edema Microbiology 07/08/16 17:00 Nasopharyngeal Swab Influenza Types A,B Antigen (WINNIE) - Final 07/08/16 17:00 Nasopharyngeal Swab - Final 07/08/16 12:00 Sputum - Expectorated Gram Stain - Final 07/06/16 21:33 Urine - Urine Clean Catch Urine Culture - Final Lactobacillus Species 07/07/16 17:30 Blood - Peripheral Venous Blood Culture - Preliminary NO GROWTH OBTAINED AFTER 24 HOURS, INCUBATION TO CONTINUE FOR 4 DAYS. 07/07/16 17:30 Blood - Peripheral Venous Blood Culture - Preliminary NO GROWTH OBTAINED AFTER 24 HOURS, INCUBATION TO CONTINUE FOR 4 DAYS. Laboratory Tests 07/06/16 07/06/16 07/07/16 18:00 21:33 20:40 WBC 14.8 H D Hgb Hct Plt Count INR BUN Creatinine Creat Clearance w eGFR Lactic Acid 2.111 H* Total Bilirubin AST ALT Alkaline Phosphatase Ur Leukocyte Esterase Negative Urine RBC 9 Urine WBC 7 07/08/16 07/08/16 07/08/16 03:20 06:00 06:00 WBC Hgb Hct Plt Count INR BUN 14 D Creatinine 0.5 L D Creat Clearance w eGFR > 60 Lactic Acid 0.856 0.881 Total Bilirubin 1.5 H AST 65 H D ALT 29 Alkaline Phosphatase 53 Ur Leukocyte Esterase Urine RBC Urine WBC 07/09/16 07/09/16 05:35 05:35 WBC 9.8 Hgb 10.4 L Hct 31.6 L Plt Count 98 L INR Pending BUN Creatinine Creat Clearance w eGFR Lactic Acid Total Bilirubin AST ALT Alkaline Phosphatase Ur Leukocyte Esterase Urine RBC Urine WBC Assessment Most likely fever and chills related influenza Sounds like could have a pneumonia She is frail and I would cover her with antibiotics in addition to Tamiflu at least until we repeat the chest xray IF chest xray neg can stop antibiotics Vanco and Aztreonam Nystatin for thrus glossal Isolate [facility] Problem List - Problems (1) Atrial fibrillation with rapid ventricular response Code(s): I48.91 - UNSPECIFIED ATRIAL FIBRILLATION (2) Pneumonia due to virus Code(s): J12.9 - VIRAL PNEUMONIA, UNSPECIFIED (3) Influenza A Code(s): J10.1 - FLU DUE TO OTH IDENT INFLUENZA VIRUS W OTH RESP MANIFEST
[2016-07-09 08:05] LABS: INR 2.3 (0.82-1.09); PROTHROMBIN TIME (PATIENT) 25.7 SEC (9.98-11.88)
[2016-07-09 08:31] LABS: CREATININE 0.5 mg/dL (0.55-1.02)
--- NOTE | 2016-07-09 08:40 | PN ---
Progress Note (short form) - Note Progress Note: David Blackwell's note appreciated (pt positive for influenza A) and plans for: isolation, repeat CXR, Tamiflu and antibiotics-till pneumonia ruled out-agreed with. Problem List - Problems (1) Atrial fibrillation with rapid ventricular response Code(s): I48.91 - UNSPECIFIED ATRIAL FIBRILLATION (2) Bronchial asthma Code(s): J45.909 - UNSPECIFIED ASTHMA, UNCOMPLICATED Qualifiers: Asthma severity: mild intermittent (3) History of mitral valve replacement with mechanical valve Code(s): Z95.2 - PRESENCE OF PROSTHETIC HEART VALVE (4) Aortic stenosis Code(s): I35.0 - NONRHEUMATIC AORTIC (VALVE) STENOSIS Qualifiers: (5) Diabetes mellitus Code(s): E11.9 - TYPE 2 DIABETES MELLITUS WITHOUT COMPLICATIONS Qualifiers: Diabetes mellitus type: type 2
[2016-07-09] MEDS ORDERED: PT OWN MED DRAWER 7, Y5N ONE (08:46)
--- NOTE | 2016-07-09 09:52 | PN ---
Progress Note (short form) - Note Progress Note: Chief Complaint: Events noted, notes reviewed, continue to report intermittent palpitations, dyspnea persists and continues to report cough productive of discolored sputum, diagnosed with Influenza A and being transferred to an isolation room History of Present Illness: Seen and examined on telemetry. Events noted, notes reviewed, continue to report intermittent palpitations, dyspnea persists and continues to report cough productive of discolored sputum, diagnosed with Influenza A and being transferred to an isolation room Echocardiography performed 05/23/2016 revealed Normal LV size with mildly decreased LV function, mechanical MV replacement, mild TR with RVSP 30-40 mmHg Repeat Echocardiography performed 07/07/16 revealed Normal LV size and function, mechanical MV replacement, mild to moderate TR with RVSP 30-40 mmHg, aortic valve not assessed (will attempt to reassess on Sunday) Medications: Current Medications Acetaminophen (Tylenol -) 650 mg PO Q4H PRN PRN Reason: FEVER OR PAIN Last Admin: 07/08/16 16:21 Dose: 650 mg Albuterol Sulfate (Ventolin 0.083% Nebulizer Soln -) 1 amp NEB Q6HPO [facility] Last Admin: 07/09/16 06:30 Dose: 1 amp Atorvastatin Calcium (Lipitor -) 10 mg PO HS [facility] Last Admin: 07/08/16 22:14 Dose: 10 mg Cholecalciferol (Vitamin D3 -) 1,000 unit PO DAILY [facility] Last Admin: 07/08/16 09:44 Dose: 1,000 unit Diltiazem HCl (Cardizem Injection -) 5 mg IVPUSH Q4H PRN PRN Reason: TACHYCARDIA Diltiazem HCl (Cardizem -) 60 mg PO Q6HPO [facility] Last Admin: 07/09/16 05:42 Dose: 60 mg Docusate Sodium (Colace -) 100 mg PO BID PRN PRN Reason: CONSTIPATION Enalapril Maleate (Vasotec -) 20 mg PO DAILY [facility] Last Admin: 07/08/16 09:44 Dose: 20 mg Furosemide (Lasix -) 20 mg PO DAILY [facility] Last Admin: 07/08/16 09:44 Dose: 20 mg Guaifenesin (Diabetic Tussin Dm -) 5 ml PO Q6H PRN PRN Reason: COUGH Heparin Sodium (Porcine) (Heparin -) 1,000 unit IVPUSH PRN PRN PRN Reason: Heparin Heparin Sodium (Porcine) (Heparin -) 5,000 unit IVPUSH PRN PRN PRN Reason: Heparin Heparin Sodium/Dextrose (Heparin Infusion -) 500 mls @ 16 mls/hr IVPB TITR [facility] ; 800 UNITS/HR PRN Reason: Protocol Last Titration: 07/09/16 01:15 Dose: 650 units/hr Vancomycin HCl (Vancomycin (Pre-Docked)) 250 mls @ 166.667 mls/hr IVPB DAILY@ 1800 [facility] Aztreonam 1 gm/ Dextrose 50 mls @ 100 mls/hr IVPB Q8H-IV [facility] PRN Reason: Protocol Mometasone Furoate (Asmanex 220mcg -) 1 puff IH DAILY [facility] Last Admin: 07/08/16 10:44 Dose: 1 puff Multivitamins/Minerals/Vitamin C (Tab-A-Vit -) 1 tab PO DAILY [facility] Last Admin: 07/08/16 09:44 Dose: 1 tab Nystatin (Nystatin Oral Suspension -) 500,000 units PO Q6HPO [facility] Stop: 07/14/16 23:59 Last Admin: 07/09/16 05:42 Dose: Not Given Oseltamivir Phosphate (Tamiflu -) 30 mg PO BID [facility] Stop: 07/14/16 09:59 Tiotropium [place] (Spiriva -) 1 puff IH DAILY [facility] Last Admin: 07/08/16 09:44 Dose: 1 puff Warfarin Sodium (Coumadin -) 5 mg PO DAILY@1800 [facility] Last Admin: 07/08/16 17:20 Dose: 5 mg Review of Systems Cardiovascular: As noted above Respiratory: denies: As noted above Gastrointestinal: denies: Nausea, Vomiting, Diarrhea, Constipation or Abdominal Discomfort Musculoskeletal: No Symptoms Reported Endocrine: No Symptoms Reported - Objective Vital Signs: Last Vital Signs Temp Pulse Resp BP Pulse Ox 99.4 F 118 H 20 113/68 97 07/09/16 05:44 07/09/16 05:44 07/09/16 05:44 07/09/16 05:44 07/08/16 21:00 Constitutional: No Distress, Calm, Thin Neck: Supple Negative JVD No Bruit Cardiovascular: Mechanical Click Irregularly Irregular Grade 3/6 HETAL Respiratory: Diminished Breath sounds at the Bases with Bilateral Scattered Rhonchi Gastrointestinal: Soft Benign Normal Bowel Sounds Ext: No Edema Labs: CBC, BMP 07/09/16 05:35 07/09/16 05:35 Assessment/Plan ASSESSMENT: 1. Palpitations referable to rapid atrial fibrillation in a patient with known history of permanent atrial fibrillation on A/C therapy 2. Post mechanical MVR 3. Probable significant aortic valve stenosis cannot be excluded (repeat study on Sunday) 4. Diastolic LV dysfunction with chronic class I NYHA classification LV failure , euvolemic 5. Probable bronchitis, possible broncho-pneumonia, Influenza A 6. HTN 7. DM 8. Hyperlipidemia 9. Anemia & Thrombocytopenia PLAN: 1. Continue Cardizem 2. Continue Vasotec 3. Continue Lipitor 4. Continue Lasix 5. Continue Coumadin as per INR maintain 3.0-3.5, with caution considering the above noted Anemia and Thrombocytopenia 6. Antibiotics, bronchodilators and steroids as per the primary and pulmonary teams 7. Tamiflu as per ID service 8. Repeat TTE Sunday to assess AV pathology Above was reviewed in detail with the patient Adithya Evans MD
[2016-07-09] MEDS ORDERED: AZTREONAM 1 GM in DEXTROSE 5%-WATER - 50 ML IVPB SCH (10:00)
[2016-07-09] MEDS ORDERED: OSELTAMIVIR PHOSPHATE 75 MG CAPSULE PO SCH (10:00)
[2016-07-09] MEDS ORDERED: HEPARIN NA (PORCINE) 5,000 UNITS/ML 1ML VIAL IVPUSH PRN ×2 (10:14)
[2016-07-09] MEDS: HEPARIN - 25,000 UNIT in SODIUM CHLORIDE 495 ML IV SCH (10:15)
--- NOTE | 2016-07-09 10:27 | EKG ---
Test Reason : Blood Pressure : / mmHG Vent. Rate : 083 BPM Atrial Rate : 082 BPM P-R Int : 000 ms QRS Dur : 084 ms QT Int : 392 ms P-R-T Axes : 000 -51 074 degrees QTc Int : 460 ms ATRIAL FIBRILLATION LEFT AXIS DEVIATION ANTEROSEPTAL INFARCT (CITED ON OR BEFORE 06-JUL-2016) NONSPECIFIC ST ABNORMALITY ABNORMAL ECG WHEN COMPARED WITH ECG OF 06-JUL-2016 18:58, NO SIGNIFICANT CHANGE WAS FOUND Confirmed by FARRAH FALK MD ([id number]) on 07/09/2016 10:26:51 AM Referred By: Confirmed By:FARRAH FALK MD
[2016-07-09] MEDS: MULTIVITAMINS (DAILY MVI) TABLET (FP) PO SCH (10:38)
[2016-07-09] MEDS: FUROSEMIDE 20 MG TABLET (FP) PO SCH (10:38)
[2016-07-09] MEDS: CHOLECALCIFEROL (VITAMIN D3) 1,000 UNIT TABLET (FP) PO SCH (10:38)
[2016-07-09] MEDS: ENALAPRIL MALEATE 10 MG TABLET (FP) PO SCH (10:39)
[2016-07-09] MEDS: MOMETASONE FUROATE 220 MCG/IH INHALER IH SCH (10:41)
[2016-07-09] MEDS: TIOTROPIUM BROMIDE 18 MCG/INH (DEVICE W/ 5 CAPSULES) IH SCH (10:41)
[2016-07-09] MEDS: OSELTAMIVIR PHOSPHATE 30 MG CAPSULE PO SCH ×2 (10:50→21:19)
--- NOTE | 2016-07-09 10:59 | PN ---
Physical Exam: SUBJECTIVE: Patient seen and examined on tele. Overall she states she is feeling much better, she does not have an overwhelming sense of "oppression" anymore. Events: low grade fever overnight Rapid A fib w/ ambulation + influenza A, transferred to isolation room OBJECTIVE: Last Vital Signs Temp Pulse Resp BP Pulse Ox 99.4 F 118 H 20 113/68 97 07/09/16 05:44 07/09/16 05:44 07/09/16 05:44 07/09/16 05:44 07/08/16 21:00 PE Neuro: alert, awake, cn 2-12intact HEENT: oral thrush Pulm: diminished, scattered bilateral basilar crackles CV: s1 s2 irregular rate, rhythm 3/6 systolic murmur, + MV clicking Abd: s nt nd + bs Ext: warm, no le edema CBCD WBC 9.8 K/mm3 (4.0-10.0) 07/09/16 05:35 RBC 3.95 M/mm3 (3.60-5.2) 07/09/16 05:35 Hgb 10.4 GM/dL (10.7-15.3) L 07/09/16 05:35 Hct 31.6 % (32.4-45.2) L 07/09/16 05:35 MCV 80.1 fl (80-96) 07/09/16 05:35 MCHC 32.8 g/dl (32.0-36.0) 07/09/16 05:35 RDW 16.0 % (11.6-15.6) H 07/09/16 05:35 Plt Count 98 K/MM3 (134-434) L 07/09/16 05:35 MPV 9.8 fl (7.5-11.1) 07/09/16 05:35 CMP Sodium 135 mmol/L (136-145) L 07/09/16 05:35 Potassium 3.4 mmol/L (3.5-5.1) L 07/09/16 05:35 Chloride 94 mmol/L (98-107) L 07/09/16 05:35 Carbon Dioxide 29 mmol/L (21-32) 07/09/16 05:35 Anion Gap 12 (8-16) 07/09/16 05:35 BUN 9 mg/dL (7-18) D 07/09/16 05:35 Creatinine 0.5 mg/dL (0.55-1.02) L 07/09/16 05:35 Creat Clearance w eGFR > 60 (>60) 07/08/16 06:00 Calcium 8.0 mg/dL (8.5-10.1) L 07/09/16 05:35 Total Bilirubin 1.5 mg/dL (0.2-1.0) H 07/08/16 06:00 AST 65 U/L (15-37) H D 07/08/16 06:00 ALT 29 U/L (12-78) 07/08/16 06:00 Alkaline Phosphatase 53 U/L (45-117) 07/08/16 06:00 Total Protein 5.7 g/dl (6.4-8.2) L 07/08/16 06:00 Albumin 3.4 g/dl (3.4-5.0) 07/08/16 06:00 07/07/16 07/09/16 07/09/16 20:40 05:35 08:01 ESR INR 2.30 H D PTT (Actin FS) 111.3 H Lactic Acid Free T3 1.8 L 07/09/16 07/09/16 08:15 08:15 ESR 15 INR PTT (Actin FS) Lactic Acid 1.863 Free T3 Active Medications Generic Name Dose Route Start Last Admin Trade Name Freq PRN Reason Stop Dose Admin Acetaminophen 650 mg 07/07/16 17:15 07/08/16 16:21 Tylenol - PO 650 mg Q4H PRN Administration FEVER OR PAIN Albuterol Sulfate 1 amp 07/08/16 13:30 07/09/16 06:30 Ventolin 0.083% Nebulizer Soln - NEB 1 amp Q6HPO DARWIN Administration Atorvastatin Calcium 10 mg 07/07/16 22:00 07/08/16 22:14 Lipitor - PO 10 mg HS DARWIN Administration Cholecalciferol 1,000 unit 07/07/16 10:00 07/09/16 10:38 Vitamin D3 - PO 1,000 unit DAILY DARWIN Administration Diltiazem HCl 5 mg 07/07/16 17:14 Cardizem Injection - IVPUSH Q4H PRN TACHYCARDIA Diltiazem HCl 60 mg 07/07/16 18:00 07/09/16 05:42 Cardizem - PO 60 mg Q6HPO DARWIN Administration Docusate Sodium 100 mg 07/09/16 01:05 Colace - PO BID PRN CONSTIPATION Enalapril Maleate 20 mg 07/07/16 14:30 07/09/16 10:39 Vasotec - PO 20 mg DAILY DARWIN Administration Furosemide 20 mg 07/07/16 10:00 07/09/16 10:38 Lasix - PO 20 mg DAILY DARWIN Administration Guaifenesin 5 ml 07/08/16 13:17 Diabetic Tussin Dm - PO Q6H PRN COUGH Heparin Sodium (Porcine) 1,000 unit 07/09/16 10:14 Heparin - IVPUSH PRN PRN Heparin Heparin Sodium (Porcine) 5,000 unit 07/09/16 10:14 Heparin - IVPUSH PRN PRN Heparin Heparin Sodium (Porcine) 25, 500 mls @ 16 mls/hr 07/09/16 10:15 000 unit/ Sodium Chloride IV TITR DARWIN Protocol 800 UNIT/HR Mometasone Furoate 1 puff 07/08/16 10:00 07/09/16 10:41 Asmanex 220mcg - IH 1 puff DAILY DARWIN Administration Multivitamins/Minerals/Vitamin C 1 tab 07/07/16 10:00 07/09/16 10:38 Tab-A-Vit - PO 1 tab DAILY DARWIN Administration Nystatin 500,000 units 07/09/16 02:00 07/09/16 05:42 Nystatin Oral Suspension - PO 07/14/16 23:59 Not Given Q6HPO DARWIN Oseltamivir Phosphate 30 mg 07/09/16 10:00 07/09/16 10:50 Tamiflu - PO 07/14/16 09:59 30 mg BID DARWIN Administration Potassium Chloride 40 meq 07/09/16 11:00 Kcl Oral Solution - PO 07/09/16 11:01 ONCE ONE Tiotropium [place] 1 puff 07/08/16 10:00 07/09/16 10:41 Spiriva - IH 1 puff DAILY DARWIN Administration Warfarin Sodium 5 mg 07/07/16 18:00 07/08/16 17:20 Coumadin - PO 5 mg DAILY@1800 DARWIN Administration Microbiology 07/08/16 12:00 Gram Stain - Final Sputum - Expectorated Sputum Culture - Preliminary NORMAL RESPIRATORY NOAH 07/08/16 10:45 Urine Culture - Final Urine - Urine Clean Catch NO GROWTH OBTAINED 07/08/16 17:00 Influenza Types A,B Antigen (WINNIE) - Final Nasopharyngeal Swab - Final 07/07/16 17:30 Blood Culture - Preliminary Blood - Peripheral Venous NO GROWTH OBTAINED AFTER 24 HOURS, INCUBATION TO CONTINUE FOR 4 DAYS. 07/07/16 17:30 Blood Culture - Preliminary Blood - Peripheral Venous NO GROWTH OBTAINED AFTER 24 HOURS, INCUBATION TO CONTINUE FOR 4 DAYS. 07/06/16 21:33 Urine Culture - Final Urine - Urine Clean Catch Lactobacillus Species Imaging: - 05/23/2016 ECHO: Normal LV size with mildly decreased LV fxn, mech MV replacement, mild TR RVSP 30-40 mmHg, AV not well seen Assessment: 81 year old female with a PMHx of HTN, permanent A fib, Rheumatic heart disease, aortic valve stenosis, mechanical MV replacement, CVA, DM II, asthma, vertigo, inner ear nerve degeneration, basal cell carcinoma (left nares ) admitted with palpitations and associated SOB and non productive cough. Plan: 1. Rapid A fib with RVR/palpitations and SOB (BB induced) - Continue current dose cardizem 60mg q6 - ECHO tomorrow for AV measurements, may be difficult d/t body habits - Continue Enalapril 20mg daily 2. Influenza A - Start Tamiflu 30mg BID (renally dosed cr cl 45) - Will stop aztreonam and vanco cxr negative for infiltrate - Discussed above with ID, appreciate consult 3. Asthma - Continue Spiriva - Continue Tudorza - Will change albuterol nebs prn 4. Elevated lactate - WNL - BC and urine cx NGTD 5. Mechanical Mitral Valve Replacement - INR sub therapeutic - Will change heparin gtt solution to NS for hyponatremia - Coumadin 5mg HS - Goal INR 3-3.5 - Daily INRs 6. DM II - Hold metformin - ISS, BGM ACHS - 5.7 Hgb a1c 04/2016 7. Weight loss - Has been worked up extensively without any findings 8. Leukocytosis - Resolved, likely reactive 9. Hypokalemia - Replete 40meq x1 potassium 10. DVT Prophylaxis - Continue Coumadin Visit type - Emergency Visit Emergency Visit: Yes ED Registration Date: 07/09/16 Care time: The patient presented to the Emergency Department on the above date and was hospitalized for further evaluation of their emergent condition. - New Patient This patient is new to me today: No - Critical Care Critical Care patient: No
[2016-07-09] MEDS ORDERED: POTASSIUM CHLORIDE 40 MEQ/30 ML UNIT DOSE CUP PO ONE (11:00)
--- NOTE | 2016-07-09 11:12 | CONS ---
DATE OF CONSULTATION: DATE OF DICTATION: 07/09/2016 This is one of several admissions for this 81-year-old female initially admitted through the emergency room because of a rapid heart rate. The patient notes that, for several days, she has had cough productive of purulent sputum associated with fever and chills. She has a history of multiple comorbidities, including a mitral valve replacement, malnutrition, severe aortic stenosis, endobronchial asthma, and noninsulin-dependent diabetes mellitus. Cultures were obtained of blood and these were found to be no growth. Yesterday, I was notified by the Hospitalist that the patient, once again, was having fever and chills. I suggested that she be empirically treated for the possibility of bacterial endocarditis and, given multiple drug allergies, we elected to use vancomycin and aztreonam, which she has tolerated in the past. She states she has had pneumonia in the past. She does not smoke and lives at home with her , leading a somewhat active life involved around [place] and home. There is no history of travel, exposure to pets, or unusual hobbies. She has not had any dental work recently. Simultaneous with the time I finished evaluating her, I was notified of a positive influenza A screen, which had been suggested yesterday when I spoke to the Hospitalist. The patient has been vaccinated for the flu this season. The patient has been recently treated by Dr. Wisdom with a short course of steroids. PAST MEDICAL HISTORY: As noted above. MEDICATIONS: Vasotec, Lasix, metformin, simvastatin, Spiriva, and Coumadin. ALLERGIES: CEFUROXIME, NITROFURANTOIN, and BACTRIM. SOCIAL HISTORY: Nonsmoker, living at home. No alcohol use. Retired RN. FAMILY HISTORY: Reviewed and noncontributory. REVIEW OF SYSTEMS: Respiratory: No shortness of breath, but cough with sputum production. No hemoptysis. Cardiac: No chest pain, palpitations, syncope. Rapid atrial fibrillation by history. Gastrointestinal: No nausea, vomiting, abdominal pain. Low weight, appetite poor. Genitourinary: No dysuria, hematuria, urinary frequency. PHYSICAL EXAMINATION: General: She was a thin-appearing woman, weighing approximately 72 pounds. Vital Signs: The temperature was 99.4, pulse 118, blood pressure 113/68, respirations 20. HEENT: Temporal wasting, glossal thrush. Neck: Supple. No adenopathy. Lungs: Rales noted in the left lower lobe. Heart: S1, S2, tachycardic, loud 4/6 systolic murmur heard across the precordium. Abdomen: Soft, nontender without organomegaly. Extremities: Without cyanosis. Positive pedal edema. The white count was 9.8, hemoglobin 10.4, platelets of 98,000. INR 1.66. BUN 14, creatinine 0.5, lactic acid on admission 2.1. Liver enzymes normal. Urinalysis with 9 RBCs, 7 WBCs. Two sets of blood cultures dated July 07 negative. Urine culture with lactobacillus. Repeat blood cultures pending. ASSESSMENT: An 81-year-old female with respiratory complaints and history of asthma presents with fever and rapid atrial fibrillation, now noted to have an influenza A. Possibility of pneumonia considered based on her physical examination. She has glossal thrush, possibly related to recent steroids and malnutrition. PLAN: Await final cultures of blood and sputum. Would, given her frail clinical status, empirically treat her for possible secondary bacterial pneumonia vancomycin and aztreonam based on history of multiple drug allergies. We will start Tamiflu 75 mg p.o. b.i.d. Await blood and sputum cultures, CRP. Repeat chest x-ray pending from today. Nystatin for thrush. Case was discussed with nurse practitioner at length. ARMEN GAVIRIA M.D. [id number]
[2016-07-09] MEDS: WARFARIN NA 5 MG TABLET (UD) PO SCH (17:34)
[2016-07-09] MEDS ORDERED: VANCOMYCIN 1 GRAM (PRE-DOCKED) 250 ML IVPB SCH (18:00)
[2016-07-09] MEDS: MAG HYDROX/AL HYDROX/SIMETH 30 ML UNIT-DOSE CUP PO PRN (21:19)
[2016-07-09] MEDS: ATORVASTATIN CA 10 MG TABLET (FP) PO SCH (21:19)
[2016-07-09] MEDS: ALBUTEROL SO4 0.083% IH SOL 2.5 MG/3 ML VIAL.NEB. NEB PRN (21:55)
[2016-07-10] MEDS: NYSTATIN 500,000 UNITS/5 ML SUSPENSION PO SCH ×4 (00:27→17:18)
[2016-07-10] MEDS: dilTIAZem HCL 60 MG TABLET (FP) PO SCH ×5 (00:27→23:15)
[2016-07-10] MEDS: ALBUTEROL SO4 0.083% IH SOL 2.5 MG/3 ML VIAL.NEB. NEB PRN (05:40)
[2016-07-10 07:21] LABS: MCH 26.4 pg (25.7-33.7); MCHC 32.9 g/dl (32.0-36.0); MEAN CELL VOLUME 80.2 fl (80-96); MEAN PLT VOLUME 9.9 fl (7.5-11.1); PLATELET COUNT 115 K/MM3 (134-434); RDW 16.3 % (11.6-15.6); WHITE BLOOD COUNT 12.3 K/mm3 (4.0-10.0)
--- NOTE | 2016-07-10 07:33 | PN ---
Physical Exam: SUBJECTIVE: Patient seen and examined OBJECTIVE: Vital Signs Period Temp Pulse Resp BP Sys/Gold Pulse Ox Last 24 Hr 98.2 F-100.8 F 110-120 18-20 102-125/54-72 98 GENERAL: The patient is awake, alert, and fully oriented, in no acute distress. HEAD: Normal with no signs of trauma. EYES: PERRL, extraocular movements intact, sclera anicteric, conjunctiva clear. No ptosis. LUNGS: Diffuse rhonchi, wheezing HEART: Irregular, S1, S2 ABDOMEN: Soft, nontender, nondistended, normoactive bowel sounds, no guarding, no rebound EXTREMITIES: 2+ pulses, warm, well-perfused, no edema. NEUROLOGICAL: Cranial nerves II through XII grossly intact. Normal speech, gait not observed. Laboratory Results - last 24 hr 07/09/16 07/10/16 16:30 05:35 WBC 12.3 H RBC 4.01 Hgb 10.6 L Hct 32.1 L MCV 80.2 MCHC 32.9 RDW 16.3 H Plt Count 115 L MPV 9.9 PTT (Actin FS) 85.5 H Active Medications Generic Name Dose Route Start Last Admin Trade Name Freq PRN Reason Stop Dose Admin Acetaminophen 650 mg 07/07/16 17:15 07/08/16 16:21 Tylenol - PO 650 mg Q4H PRN Administration FEVER OR PAIN Al Hydroxide/Mg Hydroxide 30 ml 07/09/16 20:39 07/09/16 21:19 Mylanta Oral Suspension - PO 30 ml Q12H PRN Administration DYSPEPSIA Albuterol Sulfate 1 amp 07/09/16 11:40 07/10/16 05:40 Ventolin 0.083% Nebulizer Soln - NEB 1 amp Q6HPO PRN Administration SHORT OF BREATH/WHEEZING Atorvastatin Calcium 10 mg 07/07/16 22:00 07/09/16 21:19 Lipitor - PO 10 mg HS DARWIN Administration Cholecalciferol 1,000 unit 07/07/16 10:00 07/09/16 10:38 Vitamin D3 - PO 1,000 unit DAILY DARWIN Administration Diltiazem HCl 5 mg 07/07/16 17:14 Cardizem Injection - IVPUSH Q4H PRN TACHYCARDIA Diltiazem HCl 60 mg 07/07/16 18:00 07/10/16 06:28 Cardizem - PO 60 mg Q6HPO DARWIN Administration Docusate Sodium 100 mg 07/09/16 01:05 Colace - PO BID PRN CONSTIPATION Enalapril Maleate 20 mg 07/07/16 14:30 07/09/16 10:39 Vasotec - PO 20 mg DAILY DARWIN Administration Furosemide 20 mg 07/07/16 10:00 07/09/16 10:38 Lasix - PO 20 mg DAILY DARWIN Administration Guaifenesin 5 ml 07/08/16 13:17 07/09/16 16:33 Diabetic Tussin Dm - PO 5 unit Q6H PRN Administration COUGH Heparin Sodium (Porcine) 1,000 unit 07/09/16 10:14 Heparin - IVPUSH PRN PRN Heparin Heparin Sodium (Porcine) 5,000 unit 07/09/16 10:14 Heparin - IVPUSH PRN PRN Heparin Heparin Sodium (Porcine) 25, 500 mls @ 16 mls/hr 07/09/16 10:15 07/09/16 10:15 000 unit/ Sodium Chloride IV 10 mls/hr TITR DARWIN Administration Protocol 800 UNIT/HR Mometasone Furoate 1 puff 07/08/16 10:00 07/09/16 10:41 Asmanex 220mcg - IH 1 puff DAILY DARWIN Administration Multivitamins/Minerals/Vitamin C 1 tab 07/07/16 10:00 07/09/16 10:38 Tab-A-Vit - PO 1 tab DAILY DARWIN Administration Nystatin 500,000 units 07/09/16 02:00 07/10/16 06:28 Nystatin Oral Suspension - PO 07/14/16 23:59 500,000 units Q6HPO DARWIN Administration Oseltamivir Phosphate 30 mg 07/09/16 10:00 07/09/16 21:19 Tamiflu - PO 07/14/16 09:59 30 mg BID DARWIN Administration Tiotropium [place] 1 puff 07/08/16 10:00 07/09/16 10:41 Spiriva - IH 1 puff DAILY DARWIN Administration Warfarin Sodium 5 mg 07/07/16 18:00 07/09/16 17:34 Coumadin - PO 5 mg DAILY@1800 DARWIN Administration Imagin05/23/2016 Echo: Normal LV size with mildly decreased LV fxn, mech MV replacement, mild TR, RVSP 30-40 mmHg, AV not well seen 07/07/2016 Echo: Normal LV size and function, mechanical MV replacement, mild to moderate TR, RSVP 30-40mmHg, aortic valve not assessed ASSESSMENT/PLAN: 81 year-old female with a PMH of HTN, permanent A fib, rheumatic heart disease, aortic valve stenosis, mechanical MV replacement, CVA, DM II, asthma, vertigo, inner ear nerve degeneration, and basal cell carcinoma (left nares) admitted for afib with RVR and found to have Influenza A. Afib with RVR --rate in 100s, BP stable --continue cardizem --INR 2.99, heparin d/c'd by Dr. Mejia; dose coumadin 5mg tonight --will need outpatient followup KRISTI to assess AV pathology Diastolic heart failure --continue enalapril, cardizem, lasix Influenza A --continue Tamiflu (day #2) renally dosed --per ID, antibiotics stopped 07/09 Asthma --continue nebs, inhalers Lactic acidosis, resolved NIDDM --insulin sliding scale coverage Oral thrush --nystatin s&s F/E/N Fluids: PO intake adequate Electrolytes: replete as indicated Nutrition: low sodium, diabetic, lactose free + Ensure BID DVT Prophylaxis: INR therapeutic on coumadin Rehab PT eval Daily PT Dispo: continues to require inpatient care. Full Code. Visit type - Emergency Visit Emergency Visit: Yes ED Registration Date: 07/09/16 Care time: The patient presented to the Emergency Department on the above date and was hospitalized for further evaluation of their emergent condition. - New Patient This patient is new to me today: Yes Date on this admission: 07/10/16 - Critical Care Critical Care patient: No
[2016-07-10 07:41] LABS: INR 2.99 (0.82-1.09); PROTHROMBIN TIME (PATIENT) 33.6 SEC (9.98-11.88)
[2016-07-10 07:45] LABS: CALCIUM 8.4 mg/dL (8.5-10.1); CREATININE 0.5 mg/dL (0.55-1.02)
[2016-07-10] MEDS ORDERED: PT OWN MED DRAWER 7, Y5N ONE ×2 (08:32→22:39)
[2016-07-10] MEDS: MULTIVITAMINS (DAILY MVI) TABLET (FP) PO SCH (09:06)
[2016-07-10] MEDS: ENALAPRIL MALEATE 10 MG TABLET (FP) PO SCH (09:06)
[2016-07-10] MEDS: OSELTAMIVIR PHOSPHATE 30 MG CAPSULE PO SCH ×3 (09:07→23:05)
[2016-07-10] MEDS: TIOTROPIUM BROMIDE 18 MCG/INH (DEVICE W/ 5 CAPSULES) IH SCH ×2 (09:07→09:53)
[2016-07-10] MEDS: FUROSEMIDE 20 MG TABLET (FP) PO SCH (09:07)
[2016-07-10] MEDS: MOMETASONE FUROATE 220 MCG/IH INHALER IH SCH ×2 (09:07→09:53)
[2016-07-10] MEDS: CHOLECALCIFEROL (VITAMIN D3) 1,000 UNIT TABLET (FP) PO SCH (09:07)
[2016-07-10] MEDS: HEPARIN - 25,000 UNIT in SODIUM CHLORIDE 495 ML IV SCH (09:08)
--- NOTE | 2016-07-10 09:58 | PN ---
Progress Note, Physician History of Present Illness: No further palpitations, dyspnea persists and continues to report cough productive of discolored sputum, diagnosed with Influenza A and treated with Tamiflu and abx. Now afebrile. - Current Medication List Current Medications: Active Medications Acetaminophen (Tylenol -) 650 mg PO Q4H PRN PRN Reason: FEVER OR PAIN Last Admin: 07/08/16 16:21 Dose: 650 mg Al Hydroxide/Mg Hydroxide (Mylanta Oral Suspension -) 30 ml PO Q12H PRN PRN Reason: DYSPEPSIA Last Admin: 07/09/16 21:19 Dose: 30 ml Albuterol Sulfate (Ventolin 0.083% Nebulizer Soln -) 1 amp NEB Q6HPO PRN PRN Reason: SHORT OF BREATH/WHEEZING Last Admin: 07/10/16 05:40 Dose: 1 amp Atorvastatin Calcium (Lipitor -) 10 mg PO HS DARWIN Last Admin: 07/09/16 21:19 Dose: 10 mg Cholecalciferol (Vitamin D3 -) 1,000 unit PO DAILY DARWIN Last Admin: 07/10/16 09:07 Dose: 1,000 unit Diltiazem HCl (Cardizem Injection -) 5 mg IVPUSH Q4H PRN PRN Reason: TACHYCARDIA Diltiazem HCl (Cardizem -) 60 mg PO Q6HPO DARWIN Last Admin: 07/10/16 06:28 Dose: 60 mg Docusate Sodium (Colace -) 100 mg PO BID PRN PRN Reason: CONSTIPATION Enalapril Maleate (Vasotec -) 20 mg PO DAILY [facility] Last Admin: 07/10/16 09:06 Dose: 20 mg Furosemide (Lasix -) 20 mg PO DAILY DARWIN Last Admin: 07/10/16 09:07 Dose: 20 mg Guaifenesin (Diabetic Tussin Dm -) 5 ml PO Q6H PRN PRN Reason: COUGH Last Admin: 07/09/16 16:33 Dose: 5 unit Heparin Sodium (Porcine) (Heparin -) 1,000 unit IVPUSH PRN PRN PRN Reason: Heparin Heparin Sodium (Porcine) (Heparin -) 5,000 unit IVPUSH PRN PRN PRN Reason: Heparin Heparin Sodium (Porcine) 25, (000 unit/ Sodium Chloride) 500 mls @ 16 mls/hr IV TITR DARWIN; 800 UNIT/HR PRN Reason: Protocol Last Admin: 07/10/16 09:08 Dose: 8 mls/hr Mometasone Furoate (Asmanex 220mcg -) 1 puff IH DAILY [facility] Last Admin: 07/10/16 09:53 Dose: 1 puff Multivitamins/Minerals/Vitamin C (Tab-A-Vit -) 1 tab PO DAILY [facility] Last Admin: 07/10/16 09:06 Dose: 1 tab Nystatin (Nystatin Oral Suspension -) 500,000 units PO Q6HPO [facility] Stop: 07/14/16 23:59 Last Admin: 07/10/16 06:28 Dose: 500,000 units Oseltamivir Phosphate (Tamiflu -) 30 mg PO BID [facility] Stop: 07/14/16 09:59 Last Admin: 07/10/16 09:07 Dose: Not Given Tiotropium [place] (Spiriva -) 1 puff IH DAILY [facility] Last Admin: 07/10/16 09:53 Dose: 1 puff Warfarin Sodium (Coumadin -) 5 mg PO DAILY@1800 [facility] Last Admin: 07/09/16 17:34 Dose: 5 mg - Objective Vital Signs: Vital Signs Temperature 98.4 F 07/10/16 06:00 Pulse Rate 116 H 07/10/16 06:00 Respiratory Rate 18 07/10/16 06:00 Blood Pressure 120/72 07/10/16 06:00 O2 Sat by Pulse Oximetry (%) 98 07/09/16 21:00 Constitutional: Yes: No Distress, Calm Neck: Yes: Supple Cardiovascular: Yes: Pulse Irregular, Murmur (3/6 SM), Other ([place] mechanical valve sounds) Respiratory: Yes: Regular, Diminished Gastrointestinal: Yes: Normal Bowel Sounds, Soft Edema: No Labs: CBC, BMP 07/10/16 05:35 07/10/16 05:35 INR, PTT INR 2.99 (0.82-1.09) H 07/10/16 05:35 - ....Imaging EKG: Report Reviewed (Tele: Afib with RVR) Problem List - Problems (1) Atrial fibrillation with rapid ventricular response Code(s): I48.91 - UNSPECIFIED ATRIAL FIBRILLATION (2) Palpitations Code(s): R00.2 - PALPITATIONS (3) Bronchial asthma Code(s): J45.909 - UNSPECIFIED ASTHMA, UNCOMPLICATED Qualifiers: Asthma severity: mild intermittent (4) Diabetes mellitus Code(s): E11.9 - TYPE 2 DIABETES MELLITUS WITHOUT COMPLICATIONS Qualifiers: Diabetes mellitus type: type 2 (5) History of mitral valve replacement with mechanical valve Code(s): Z95.2 - PRESENCE OF PROSTHETIC HEART VALVE (6) Hypercholesteremia Code(s): E78.0 - PURE HYPERCHOLESTEROLEMIA * DO NOT USE * (7) Hypertension Code(s): I10 - ESSENTIAL (PRIMARY) HYPERTENSION Qualifiers: Hypertension type: essential hypertension Qualified Code(s): I10 - Essential (primary) hypertension (8) Premature ventricular contraction Code(s): I49.3 - VENTRICULAR PREMATURE DEPOLARIZATION Assessment/Plan 05/23/2016 Echo: Normal LV size with mildly decreased LV fxn, mech MV replacement, mild TR RVSP 30-40 mmHg, AV not well seen Repeat Echocardiography performed 07/07/16 revealed Normal LV size and function, mechanical MV replacement, mild to moderate TR with RVSP 30-40 mmHg, aortic valve not assessed 1. Palpitations referable to rapid atrial fibrillation and PVC 2. Permanent atrial fibrillation with rapid ventricular response 3. Post mechanical MVR, cannot exclude sig aortic stenosis 4. Diastolic dysfunction, euvolemic 5. Acute on chronic bronchitis, possible broncho-pneumonia, Influenza A 6. HTN/HCVD 7. Hyperlipidemia 8. Type 2 DM 9. Anemia. thrombocytopenia PLAN: 1. Continue Cardizem 60 q6 with uptitration as tolerated 2. Continue Vasotec 20 mg QD, Lipitor 10 mg QHS and Lasix 20 mg QD 3. Continue Coumadin per INR 3.0-3.5, d/c heparin gtt 4. BD, IV steroid, abx, Tamiflu and O2 5. May benefit from KRISTI as outpatient to assess severity of aortic stenosis
--- NOTE | 2016-07-10 10:08 | PN ---
Progress Note, Physician History of Present Illness: Pt has cough and wheezing-especially at night - Current Medication List Current Medications: Active Medications Acetaminophen (Tylenol -) 650 mg PO Q4H PRN PRN Reason: FEVER OR PAIN Last Admin: 07/08/16 16:21 Dose: 650 mg Al Hydroxide/Mg Hydroxide (Mylanta Oral Suspension -) 30 ml PO Q12H PRN PRN Reason: DYSPEPSIA Last Admin: 07/09/16 21:19 Dose: 30 ml Albuterol Sulfate (Ventolin 0.083% Nebulizer Soln -) 1 amp NEB Q6HPO PRN PRN Reason: SHORT OF BREATH/WHEEZING Last Admin: 07/10/16 05:40 Dose: 1 amp Atorvastatin Calcium (Lipitor -) 10 mg PO HS [facility] Last Admin: 07/09/16 21:19 Dose: 10 mg Cholecalciferol (Vitamin D3 -) 1,000 unit PO DAILY [facility] Last Admin: 07/10/16 09:07 Dose: 1,000 unit Diltiazem HCl (Cardizem Injection -) 5 mg IVPUSH Q4H PRN PRN Reason: TACHYCARDIA Diltiazem HCl (Cardizem -) 60 mg PO Q6HPO [facility] Last Admin: 07/10/16 06:28 Dose: 60 mg Docusate Sodium (Colace -) 100 mg PO BID PRN PRN Reason: CONSTIPATION Enalapril Maleate (Vasotec -) 20 mg PO DAILY [facility] Last Admin: 07/10/16 09:06 Dose: 20 mg Furosemide (Lasix -) 20 mg PO DAILY [facility] Last Admin: 07/10/16 09:07 Dose: 20 mg Guaifenesin (Diabetic Tussin Dm -) 5 ml PO Q6H PRN PRN Reason: COUGH Last Admin: 07/09/16 16:33 Dose: 5 unit Heparin Sodium (Porcine) (Heparin -) 1,000 unit IVPUSH PRN PRN PRN Reason: Heparin Heparin Sodium (Porcine) (Heparin -) 5,000 unit IVPUSH PRN PRN PRN Reason: Heparin Heparin Sodium (Porcine) 25, (000 unit/ Sodium Chloride) 500 mls @ 16 mls/hr IV TITR DARWIN; 800 UNIT/HR PRN Reason: Protocol Last Admin: 07/10/16 09:08 Dose: 8 mls/hr Mometasone Furoate (Asmanex 220mcg -) 1 puff IH DAILY [facility] Last Admin: 07/10/16 09:53 Dose: 1 puff Multivitamins/Minerals/Vitamin C (Tab-A-Vit -) 1 tab PO DAILY [facility] Last Admin: 07/10/16 09:06 Dose: 1 tab Nystatin (Nystatin Oral Suspension -) 500,000 units PO Q6HPO [facility] Stop: 07/14/16 23:59 Last Admin: 07/10/16 06:28 Dose: 500,000 units Oseltamivir Phosphate (Tamiflu -) 30 mg PO BID [facility] Stop: 07/14/16 09:59 Last Admin: 07/10/16 09:07 Dose: Not Given Tiotropium [place] (Spiriva -) 1 puff IH DAILY [facility] Last Admin: 07/10/16 09:53 Dose: 1 puff Warfarin Sodium (Coumadin -) 5 mg PO DAILY@1800 [facility] Last Admin: 07/09/16 17:34 Dose: 5 mg - Objective Vital Signs: Vital Signs Temperature 98.4 F 07/10/16 06:00 Pulse Rate 116 H 07/10/16 06:00 Respiratory Rate 18 07/10/16 06:00 Blood Pressure 120/72 07/10/16 06:00 O2 Sat by Pulse Oximetry (%) 98 07/09/16 21:00 Constitutional: Yes: No Distress Eyes: No: Sclera Icterus HENT: Yes: Atraumatic, Normocephalic Neck: Yes: Supple, Trachea Midline Cardiovascular: Yes: Pulse Irregular, JVD, Murmur Respiratory: Yes: Rhonchi, Wheezes Gastrointestinal: Yes: Soft. No: Tenderness Extremities: No: Calf Tenderness Edema: No Neurological: Yes: Alert, Oriented Labs: CBC, BMP 07/10/16 05:35 07/10/16 05:35 INR, PTT INR 2.99 (0.82-1.09) H 07/10/16 05:35 - ....Imaging Chest X-ray: Report Reviewed, Image Reviewed (CM. Mechanical heart valve. GEO) Problem List - Problems (1) Atrial fibrillation with rapid ventricular response Code(s): I48.91 - UNSPECIFIED ATRIAL FIBRILLATION (2) Bronchial asthma Code(s): J45.909 - UNSPECIFIED ASTHMA, UNCOMPLICATED Qualifiers: Asthma severity: mild intermittent (3) History of mitral valve replacement with mechanical valve Code(s): Z95.2 - PRESENCE OF PROSTHETIC HEART VALVE (4) Aortic stenosis Code(s): I35.0 - NONRHEUMATIC AORTIC (VALVE) STENOSIS Qualifiers: (5) Diabetes mellitus Code(s): E11.9 - TYPE 2 DIABETES MELLITUS WITHOUT COMPLICATIONS Qualifiers: Diabetes mellitus type: type 2 Assessment/Plan Influenza A Chronic Atrial fibrillation-Vent rate still relatively rapid at times Acute Exacerbation of Bronchial Asthma-still has dyspnea and wheezing:will add brief course IV steroids Mechanical MVR-INR therapeutic Aortic Stenosis- would hold off KRISTI for several days till respiratory status more stable NIDDM-stable. Suggest: Solumedrol 40 mg Q 24 hours Spiriva Albuterol PRN O2 to maintain SaO2>90 Inhaled corticosteroid Monitor sugars Cardizem Cardiology evaluation in progress-case was discussed with DR. Mejia
--- NOTE | 2016-07-10 11:23 | PN ---
Progress Note, Physician Chief Complaint: ID Still couphing but no acute distress Tamiflu day 1 - Current Medication List Current Medications: Active Medications Acetaminophen (Tylenol -) 650 mg PO Q4H PRN PRN Reason: FEVER OR PAIN Last Admin: 07/08/16 16:21 Dose: 650 mg Al Hydroxide/Mg Hydroxide (Mylanta Oral Suspension -) 30 ml PO Q12H PRN PRN Reason: DYSPEPSIA Last Admin: 07/09/16 21:19 Dose: 30 ml Albuterol Sulfate (Ventolin 0.083% Nebulizer Soln -) 1 amp NEB Q6HPO PRN PRN Reason: SHORT OF BREATH/WHEEZING Last Admin: 07/10/16 05:40 Dose: 1 amp Atorvastatin Calcium (Lipitor -) 10 mg PO HS [facility] Last Admin: 07/09/16 21:19 Dose: 10 mg Cholecalciferol (Vitamin D3 -) 1,000 unit PO DAILY [facility] Last Admin: 07/10/16 09:07 Dose: 1,000 unit Diltiazem HCl (Cardizem Injection -) 5 mg IVPUSH Q4H PRN PRN Reason: TACHYCARDIA Diltiazem HCl (Cardizem -) 60 mg PO Q6HPO [facility] Last Admin: 07/10/16 06:28 Dose: 60 mg Docusate Sodium (Colace -) 100 mg PO BID PRN PRN Reason: CONSTIPATION Enalapril Maleate (Vasotec -) 20 mg PO DAILY [facility] Last Admin: 07/10/16 09:06 Dose: 20 mg Furosemide (Lasix -) 20 mg PO DAILY [facility] Last Admin: 07/10/16 09:07 Dose: 20 mg Guaifenesin (Diabetic Tussin Dm -) 5 ml PO Q6H PRN PRN Reason: COUGH Last Admin: 07/09/16 16:33 Dose: 5 unit Methylprednisolone Sodium Succinate (Solu-Medrol -) 40 mg IVPB DAILY [facility] Mometasone Furoate (Asmanex 220mcg -) 1 puff IH DAILY [facility] Last Admin: 07/10/16 09:53 Dose: 1 puff Multivitamins/Minerals/Vitamin C (Tab-A-Vit -) 1 tab PO DAILY [facility] Last Admin: 07/10/16 09:06 Dose: 1 tab Nystatin (Nystatin Oral Suspension -) 500,000 units PO Q6HPO [facility] Stop: 07/14/16 23:59 Last Admin: 07/10/16 06:28 Dose: 500,000 units Oseltamivir Phosphate (Tamiflu -) 30 mg PO BID [facility] Stop: 07/14/16 09:59 Last Admin: 07/10/16 09:07 Dose: Not Given Tiotropium [place] (Spiriva -) 1 puff IH DAILY [facility] Last Admin: 07/10/16 09:53 Dose: 1 puff Warfarin Sodium (Coumadin -) 5 mg PO DAILY@1800 [facility] Last Admin: 07/09/16 17:34 Dose: 5 mg - Objective Vital Signs: Vital Signs Temperature 98.4 F 07/10/16 06:00 Pulse Rate 116 H 07/10/16 06:00 Respiratory Rate 18 07/10/16 06:00 Blood Pressure 120/72 07/10/16 06:00 O2 Sat by Pulse Oximetry (%) 98 07/09/16 21:00 Constitutional: Yes: Thin Neck: Yes: WNL, Supple Cardiovascular: Yes: Tachycardia, S1, S2 Respiratory: Yes: Rales Gastrointestinal: Yes: Soft. No: Tenderness Edema: No Labs: CBC, BMP 07/10/16 05:35 07/10/16 05:35 INR, PTT INR 2.99 (0.82-1.09) H 07/10/16 05:35 Problem List - Problems (1) Atrial fibrillation with rapid ventricular response Code(s): I48.91 - UNSPECIFIED ATRIAL FIBRILLATION (2) Pneumonia due to virus Code(s): J12.9 - VIRAL PNEUMONIA, UNSPECIFIED (3) Influenza A Code(s): J10.1 - FLU DUE TO OTH IDENT INFLUENZA VIRUS W OTH RESP MANIFEST Assessment/Plan Laboratory Tests 07/10/16 07/10/16 05:35 05:35 WBC 12.3 H Hgb 10.6 L Hct 32.1 L Plt Count 115 L BUN 10 Microbiology 07/08/16 17:00 Nasopharyngeal Swab Influenza Types A,B Antigen (WINNIE) - Final 07/08/16 17:00 Nasopharyngeal Swab - Final 07/08/16 17:10 Blood - Peripheral Venous Blood Culture - Preliminary NO GROWTH OBTAINED AFTER 24 HOURS, INCUBATION TO CONTINUE FOR 4 DAYS. 07/08/16 17:10 Blood - Peripheral Venous Blood Culture - Preliminary NO GROWTH OBTAINED AFTER 24 HOURS, INCUBATION TO CONTINUE FOR 4 DAYS. Assessment Influenza A Plan Isolate Oseltamavir x 5 days Antibiotics stopped as chest xray was negative
[2016-07-10] MEDS: MAG HYDROX/AL HYDROX/SIMETH 30 ML UNIT-DOSE CUP PO PRN (13:09)
[2016-07-10] MEDS: WARFARIN NA 5 MG TABLET (UD) PO SCH (17:18)
[2016-07-10] MEDS: ALBUTEROL SO4 0.083% IH SOL 2.5 MG/3 ML VIAL.NEB. NEB SCH (19:03)
[2016-07-10] MEDS: ATORVASTATIN CA 10 MG TABLET (FP) PO SCH (23:05)
[2016-07-11] MEDS: ALBUTEROL SO4 0.083% IH SOL 2.5 MG/3 ML VIAL.NEB. NEB SCH ×4 (00:16→17:12)
[2016-07-11] MEDS: NYSTATIN 500,000 UNITS/5 ML SUSPENSION PO SCH ×5 (00:56→23:23)
[2016-07-11] MEDS: dilTIAZem HCL 60 MG TABLET (FP) PO SCH (07:04)
[2016-07-11 08:27] LABS: BASOPHIL 0.1 % (0-2.0); EOSINOPHIL 0.1 % (0-4.5); MCH 26.5 pg (25.7-33.7); MCHC 32.8 g/dl (32.0-36.0); MEAN CELL VOLUME 80.9 fl (80-96); MEAN PLT VOLUME 9.2 fl (7.5-11.1); NEUTROPHILS 84.7 % (42.8-82.8); PLATELET COUNT 117 K/MM3 (134-434); RDW 16.8 % (11.6-15.6); WHITE BLOOD COUNT 10.9 K/mm3 (4.0-10.0)
[2016-07-11 08:43] LABS: ALBUMIN 3.3 g/dl (3.4-5.0); ANION GAP 8 (8-16); CALCIUM 8.6 mg/dL (8.5-10.1); CO2 33 mmol/L (21-32); CREATININE 0.4 mg/dL (0.55-1.02); GLUCOSE,RANDOM 133 mg/dL (74-106); MAGNESIUM 2.2 mg/dL (1.8-2.4); SGOT/AST 84 U/L (15-37); SGPT/ALT 40 U/L (12-78)
[2016-07-11 08:44] LABS: ALK PHOS 70 U/L (45-117); BILIRUBIN,TOTAL 1.2 mg/dL (0.2-1.0); TOT PROT 5.8 g/dl (6.4-8.2)
[2016-07-11 08:56] LABS: PROTHROMBIN TIME (PATIENT) 48.5 SEC (9.98-11.88)
[2016-07-11 09:01] LABS: INR 4.28 (0.82-1.09)
[2016-07-11] MEDS ORDERED: PT OWN MED DRAWER 7, Y5N ONE (10:14)
[2016-07-11] MEDS: FUROSEMIDE 20 MG TABLET (FP) PO SCH (10:17)
[2016-07-11] MEDS: MULTIVITAMINS (DAILY MVI) TABLET (FP) PO SCH (10:17)
[2016-07-11] MEDS: CHOLECALCIFEROL (VITAMIN D3) 1,000 UNIT TABLET (FP) PO SCH (10:17)
[2016-07-11] MEDS: ENALAPRIL MALEATE 10 MG TABLET (FP) PO SCH (10:17)
[2016-07-11] MEDS: OSELTAMIVIR PHOSPHATE 30 MG CAPSULE PO SCH ×2 (10:17→23:22)
[2016-07-11] MEDS: MOMETASONE FUROATE 220 MCG/IH INHALER IH SCH (10:18)
[2016-07-11] MEDS: TIOTROPIUM BROMIDE 18 MCG/INH (DEVICE W/ 5 CAPSULES) IH SCH (10:18)
[2016-07-11] MEDS: methylPREDNISolone NA SUCC 40 MG/1 ML VIAL IVPB SCH ×2 (10:30→13:47)
--- NOTE | 2016-07-11 11:41 | PN ---
Progress Note (short form) - Note Progress Note: Chief Complaint: Events noted, notes reviewed, continue to report persistent dyspnea productive of discolored sputum, intermittent palpitations persists History of Present Illness: Seen and examined on telemetry. Events noted, notes reviewed, continue to report persistent dyspnea productive of discolored sputum, intermittent palpitations persists Atrial fibrillation is persistent with periods of rapid ventricular response Echocardiography performed 05/23/2016 revealed Normal LV size with mildly decreased LV function, mechanical MV replacement, mild TR with RVSP 30-40 mmHg Repeat Echocardiography performed 07/07/16 revealed Normal LV size and function, mechanical MV replacement, mild to moderate TR with RVSP 30-40 mmHg, aortic valve not assessed (will attempt to reassess on Sunday) Medications: Current Medications Acetaminophen (Tylenol -) 650 mg PO Q4H PRN PRN Reason: FEVER OR PAIN Last Admin: 07/08/16 16:21 Dose: 650 mg Al Hydroxide/Mg Hydroxide (Mylanta Oral Suspension -) 30 ml PO Q12H PRN PRN Reason: DYSPEPSIA Last Admin: 07/10/16 13:09 Dose: 30 ml Albuterol Sulfate (Ventolin 0.083% Nebulizer Soln -) 1 amp NEB QIDR [facility] Last Admin: 07/11/16 11:07 Dose: 1 amp Atorvastatin Calcium (Lipitor -) 10 mg PO HS [facility] Last Admin: 07/10/16 23:05 Dose: 10 mg Cholecalciferol (Vitamin D3 -) 1,000 unit PO DAILY [facility] Last Admin: 07/11/16 10:17 Dose: 1,000 unit Diltiazem HCl (Cardizem Injection -) 5 mg IVPUSH Q4H PRN PRN Reason: TACHYCARDIA Diltiazem HCl (Cardizem -) 60 mg PO Q6HPO [facility] Last Admin: 07/11/16 07:04 Dose: 60 mg Docusate Sodium (Colace -) 100 mg PO BID PRN PRN Reason: CONSTIPATION Enalapril Maleate (Vasotec -) 20 mg PO DAILY [facility] Last Admin: 07/11/16 10:17 Dose: 20 mg Furosemide (Lasix -) 20 mg PO DAILY [facility] Last Admin: 07/11/16 10:17 Dose: 20 mg Guaifenesin (Diabetic Tussin Dm -) 5 ml PO Q6H PRN PRN Reason: COUGH Last Admin: 07/09/16 16:33 Dose: 5 unit Methylprednisolone Sodium Succinate (Solu-Medrol -) 40 mg IVPB DAILY [facility] Last Admin: 07/11/16 10:30 Dose: Not Given Mometasone Furoate (Asmanex 220mcg -) 1 puff IH DAILY [facility] Last Admin: 07/11/16 10:18 Dose: 1 puff Multivitamins/Minerals/Vitamin C (Tab-A-Vit -) 1 tab PO DAILY [facility] Last Admin: 07/11/16 10:17 Dose: 1 tab Nystatin (Nystatin Oral Suspension -) 500,000 units PO Q6HPO [facility] Stop: 07/14/16 23:59 Last Admin: 07/11/16 07:04 Dose: 500,000 units Oseltamivir Phosphate (Tamiflu -) 30 mg PO BID [facility] Stop: 07/14/16 09:59 Last Admin: 07/11/16 10:17 Dose: 30 mg Tiotropium [place] (Spiriva -) 1 puff IH DAILY [facility] Last Admin: 07/11/16 10:18 Dose: 1 puff Warfarin Sodium (Coumadin -) 5 mg PO DAILY@1800 [facility] Last Admin: 07/10/16 17:18 Dose: 5 mg Review of Systems Cardiovascular: As noted above Respiratory: denies: As noted above Gastrointestinal: denies: Nausea, Vomiting, Diarrhea, Constipation or Abdominal Discomfort Musculoskeletal: No Symptoms Reported Endocrine: No Symptoms Reported - Objective Vital Signs: Last Vital Signs Temp Pulse Resp BP Pulse Ox 98.2 F 111 H 18 122/62 98 07/11/16 09:54 07/11/16 11:07 07/11/16 09:54 07/11/16 09:54 07/11/16 11:07 Constitutional: No Distress, Calm, Thin Neck: Supple Negative JVD No Bruit Cardiovascular: Mechanical Click Irregularly Irregular Grade 3/6 HETAL Respiratory: Diminished Breath sounds at the Bases with Bilateral Scattered Rhonchi Gastrointestinal: Soft Benign Normal Bowel Sounds Ext: No Edema Labs: CBC, BMP 07/11/16 05:45 07/11/16 05:45 INR, PTT INR 4.28 (0.82-1.09) H* D 07/11/16 05:45 Assessment/Plan ASSESSMENT: 1. Palpitations referable to rapid atrial fibrillation in a patient with known history of permanent atrial fibrillation on A/C therapy, supra-therapeutic INR 2. Post mechanical MVR 3. Probable significant aortic valve stenosis cannot be excluded (repeat study on Sunday) 4. Diastolic LV dysfunction with chronic class I NYHA classification LV failure , euvolemic 5. Probable bronchitis, possible broncho-pneumonia, Influenza A 6. HTN 7. DM 8. Hyperlipidemia 9. Anemia & Thrombocytopenia PLAN: 1. Continue Cardizem and titrate dosage 2. Continue Vasotec 3. Continue Lipitor 4. Continue Lasix 5. Continue Coumadin as per INR maintain 3.0-3.5, with caution considering the above noted Anemia and Thrombocytopenia 6. Antibiotics, bronchodilators and steroids as per the primary and pulmonary teams Adithya Evans MD
[2016-07-11] MEDS: dilTIAZem HCL 30 MG TABLET (FP) PO SCH ×3 (12:09→23:22)
[2016-07-11] MEDS: MAG HYDROX/AL HYDROX/SIMETH 30 ML UNIT-DOSE CUP PO PRN (12:09)
--- NOTE | 2016-07-11 13:22 | PN ---
Progress Note, Physician History of Present Illness: Pt has cough and wheezing-still SOB with minimal exertion - Current Medication List Current Medications: Active Medications Acetaminophen (Tylenol -) 650 mg PO Q4H PRN PRN Reason: FEVER OR PAIN Last Admin: 07/08/16 16:21 Dose: 650 mg Al Hydroxide/Mg Hydroxide (Mylanta Oral Suspension -) 30 ml PO Q12H PRN PRN Reason: DYSPEPSIA Last Admin: 07/11/16 12:09 Dose: 30 ml Albuterol Sulfate (Ventolin 0.083% Nebulizer Soln -) 1 amp NEB QIDR [facility] Last Admin: 07/11/16 11:07 Dose: 1 amp Atorvastatin Calcium (Lipitor -) 10 mg PO HS [facility] Last Admin: 07/10/16 23:05 Dose: 10 mg Cholecalciferol (Vitamin D3 -) 1,000 unit PO DAILY [facility] Last Admin: 07/11/16 10:17 Dose: 1,000 unit Diltiazem HCl (Cardizem Injection -) 5 mg IVPUSH Q4H PRN PRN Reason: TACHYCARDIA Diltiazem HCl (Cardizem -) 90 mg PO Q6HPO [facility] Last Admin: 07/11/16 12:09 Dose: 90 mg Docusate Sodium (Colace -) 100 mg PO BID PRN PRN Reason: CONSTIPATION Enalapril Maleate (Vasotec -) 20 mg PO DAILY [facility] Last Admin: 07/11/16 10:17 Dose: 20 mg Furosemide (Lasix -) 20 mg PO DAILY [facility] Last Admin: 07/11/16 10:17 Dose: 20 mg Guaifenesin (Diabetic Tussin Dm -) 5 ml PO Q6H PRN PRN Reason: COUGH Last Admin: 07/09/16 16:33 Dose: 5 unit Methylprednisolone Sodium Succinate (Solu-Medrol -) 40 mg IVPB DAILY [facility] Last Admin: 07/11/16 10:30 Dose: Not Given Mometasone Furoate (Asmanex 220mcg -) 1 puff IH DAILY [facility] Last Admin: 07/11/16 10:18 Dose: 1 puff Multivitamins/Minerals/Vitamin C (Tab-A-Vit -) 1 tab PO DAILY [facility] Last Admin: 07/11/16 10:17 Dose: 1 tab Nystatin (Nystatin Oral Suspension -) 500,000 units PO Q6HPO [facility] Stop: 07/14/16 23:59 Last Admin: 07/11/16 12:09 Dose: 500,000 units Oseltamivir Phosphate (Tamiflu -) 30 mg PO BID [facility] Stop: 07/14/16 09:59 Last Admin: 07/11/16 10:17 Dose: 30 mg Tiotropium [place] (Spiriva -) 1 puff IH DAILY [facility] Last Admin: 07/11/16 10:18 Dose: 1 puff Warfarin Sodium (Coumadin -) 5 mg PO DAILY@1800 [facility] Last Admin: 07/10/16 17:18 Dose: 5 mg - Objective Vital Signs: Vital Signs Temperature 98.2 F 07/11/16 09:54 Pulse Rate 111 H 07/11/16 11:07 Respiratory Rate 18 07/11/16 09:54 Blood Pressure 122/62 07/11/16 09:54 O2 Sat by Pulse Oximetry (%) 98 07/11/16 11:07 Constitutional: Yes: No Distress Eyes: No: Sclera Icterus HENT: Yes: Atraumatic, Normocephalic, Other Neck: Yes: Supple Cardiovascular: Yes: Pulse Irregular. No: JVD Respiratory: Yes: Rhonchi (bilateral), Wheezes Gastrointestinal: Yes: Soft Edema: Yes Edema: LLE: 2+, RLE: 2+ Neurological: Yes: Alert, Oriented Labs: CBC, BMP 07/11/16 05:45 07/11/16 05:45 INR, PTT INR 4.28 (0.82-1.09) H* D 07/11/16 05:45 Problem List - Problems (1) Atrial fibrillation with rapid ventricular response Code(s): I48.91 - UNSPECIFIED ATRIAL FIBRILLATION (2) Bronchial asthma Code(s): J45.909 - UNSPECIFIED ASTHMA, UNCOMPLICATED Qualifiers: Asthma severity: mild intermittent (3) History of mitral valve replacement with mechanical valve Code(s): Z95.2 - PRESENCE OF PROSTHETIC HEART VALVE (4) Aortic stenosis Code(s): I35.0 - NONRHEUMATIC AORTIC (VALVE) STENOSIS Qualifiers: (5) Diabetes mellitus Code(s): E11.9 - TYPE 2 DIABETES MELLITUS WITHOUT COMPLICATIONS Qualifiers: Diabetes mellitus type: type 2 Assessment/Plan Influenza A- on Tamiflu Chronic Atrial fibrillation-Vent rate still relatively rapid at times Acute Exacerbation of Bronchial Asthma:wheezing, and shortness of breath on minimal exertion-walking 10 feet to bathroom-will continue systemic steroids and try to switch to oral Prednisone tomorrow. Mechanical MVR-INR therapeutic Aortic Stenosis- would hold off KRISTI for several days till respiratory status more stable NIDDM-stable. Suggest: Solumedrol 40 mg Q 24 hours Spiriva Albuterol PRN O2 to maintain SaO2>90 Inhaled corticosteroid Monitor sugars Cardizem
--- NOTE | 2016-07-11 15:09 | PN ---
Physical Exam: SUBJECTIVE: Patient seen and examined at bedside. OBJECTIVE: Vital Signs Period Temp Pulse Resp BP Sys/Gold Pulse Ox Last 24 Hr 97.0 F-98.2 F 111-122 18-22 120-133/53-74 95-99 GENERAL: The patient is awake, alert, and fully oriented, in no acute distress. HEAD: Normal with no signs of trauma. EYES: PERRL, extraocular movements intact, sclera anicteric, conjunctiva clear. No ptosis. LUNGS: Diffuse rhonchi, wheezing HEART: Irregular, S1, S2 ABDOMEN: Soft, nontender, nondistended, normoactive bowel sounds, no guarding, no rebound EXTREMITIES: 2+ pulses, warm, well-perfused, no edema. NEUROLOGICAL: Cranial nerves II through XII grossly intact. Normal speech, gait not observed. Laboratory Results - last 24 hr 07/11/16 07/11/16 07/11/16 05:45 05:45 05:45 WBC 10.9 H RBC 3.91 Hgb 10.4 L Hct 31.6 L MCV 80.9 MCHC 32.8 RDW 16.8 H Plt Count 117 L MPV 9.2 Neutrophils % 84.7 H Lymphocytes % 6.1 L Monocytes % 9.0 Eosinophils % 0.1 D Basophils % 0.1 INR 4.28 H* D Sodium 133 L Potassium 4.6 Chloride 92 L Carbon Dioxide 33 H Anion Gap 8 BUN 12 Creatinine 0.4 L Creat Clearance w eGFR > 60 Random Glucose 133 H Calcium 8.6 Magnesium 2.2 Total Bilirubin 1.2 H AST 84 H D ALT 40 D Alkaline Phosphatase 70 D Total Protein 5.8 L Albumin 3.3 L Active Medications Generic Name Dose Route Start Last Admin Trade Name Freq PRN Reason Stop Dose Admin Acetaminophen 650 mg 07/07/16 17:15 07/08/16 16:21 Tylenol - PO 650 mg Q4H PRN Administration FEVER OR PAIN Al Hydroxide/Mg Hydroxide 30 ml 07/09/16 20:39 07/11/16 12:09 Mylanta Oral Suspension - PO 30 ml Q12H PRN Administration DYSPEPSIA Albuterol Sulfate 1 amp 07/10/16 18:00 07/11/16 11:07 Ventolin 0.083% Nebulizer Soln - NEB 1 amp QIDR [facility] Administration Atorvastatin Calcium 10 mg 07/07/16 22:00 07/10/16 23:05 Lipitor - PO 10 mg HS [facility] Administration Cholecalciferol 1,000 unit 07/07/16 10:00 07/11/16 10:17 Vitamin D3 - PO 1,000 unit DAILY [facility] Administration Diltiazem HCl 5 mg 07/07/16 17:14 Cardizem Injection - IVPUSH Q4H PRN TACHYCARDIA Diltiazem HCl 90 mg 07/11/16 12:00 07/11/16 12:09 Cardizem - PO 90 mg Q6HPO [facility] Administration Docusate Sodium 100 mg 07/09/16 01:05 Colace - PO BID PRN CONSTIPATION Enalapril Maleate 20 mg 07/07/16 14:30 07/11/16 10:17 Vasotec - PO 20 mg DAILY [facility] Administration Furosemide 20 mg 07/07/16 10:00 07/11/16 10:17 Lasix - PO 20 mg DAILY [facility] Administration Guaifenesin 5 ml 07/08/16 13:17 07/09/16 16:33 Diabetic Tussin Dm - PO 5 unit Q6H PRN Administration COUGH Methylprednisolone Sodium Succinate 40 mg 07/11/16 10:00 07/11/16 13:47 Solu-Medrol - IVPB 40 mg DAILY [facility] Administration Mometasone Furoate 1 puff 07/08/16 10:00 07/11/16 10:18 Asmanex 220mcg - IH 1 puff DAILY [facility] Administration Multivitamins/Minerals/Vitamin C 1 tab 07/07/16 10:00 07/11/16 10:17 Tab-A-Vit - PO 1 tab DAILY [facility] Administration Nystatin 500,000 units 07/09/16 02:00 07/11/16 12:09 Nystatin Oral Suspension - PO 07/14/16 23:59 500,000 units Q6HPO [facility] Administration Oseltamivir Phosphate 30 mg 07/09/16 10:00 07/11/16 10:17 Tamiflu - PO 07/14/16 09:59 30 mg BID [facility] Administration Tiotropium [place] 1 puff 07/08/16 10:00 07/11/16 10:18 Spiriva - IH 1 puff DAILY [facility] Administration Warfarin Sodium 5 mg 07/07/16 18:00 07/10/16 17:18 Coumadin - PO 5 mg DAILY@1800 [facility] Administration Imagin05/23/2016 Echo: Normal LV size with mildly decreased LV fxn, mech MV replacement, mild TR, RVSP 30-40 mmHg, AV not well seen 07/07/2016 Echo: Normal LV size and function, mechanical MV replacement, mild to moderate TR, RSVP 30-40mmHg, aortic valve not assessed ASSESSMENT/PLAN: 81 year-old female with a PMH of HTN, permanent A fib, rheumatic heart disease, aortic valve stenosis, mechanical MV replacement, CVA, DM II, asthma, vertigo, inner ear nerve degeneration, and basal cell carcinoma (left nares) admitted for afib with RVR and found to have Influenza A. Afib with RVR Mechanical MV --rate to 120s with ambulation, BP stable --increase cardizem to 90mg q6h --INR supratherapeutic 4.28 today; hold coumadin dose tonight; goal 3.0-->3.5 --will need outpatient followup KRISTI to assess AV pathology Diastolic heart failure --continue enalapril, cardizem, lasix Influenza A --continue Tamiflu (day #3) renally dosed --per ID, antibiotics stopped 07/09 Asthma --continue nebs, inhalers --per pulm, IV steroids started today Lactic acidosis, resolved NIDDM --insulin sliding scale coverage Oral thrush --nystatin s&s F/E/N Fluids: PO intake adequate Electrolytes: replete as indicated Nutrition: low sodium, diabetic, lactose free + Ensure BID DVT Prophylaxis: INR supratherapeutic, hold coumadin tonight Rehab PT eval Daily PT Dispo: continues to require inpatient care. Full Code. Visit type - Emergency Visit Emergency Visit: Yes ED Registration Date: 07/09/16 Care time: The patient presented to the Emergency Department on the above date and was hospitalized for further evaluation of their emergent condition. - New Patient This patient is new to me today: No - Critical Care Critical Care patient: No
[2016-07-11] MEDS: DOCUSATE SODIUM 100 MG CAPSULE (FP) PO PRN (18:38)
[2016-07-11] MEDS: ATORVASTATIN CA 10 MG TABLET (FP) PO SCH (23:22)
[2016-07-12] MEDS: ALBUTEROL SO4 0.083% IH SOL 2.5 MG/3 ML VIAL.NEB. NEB SCH ×4 (00:05→17:20)
[2016-07-12] MEDS: dilTIAZem HCL 30 MG TABLET (FP) PO SCH ×3 (06:21→18:24)
[2016-07-12] MEDS: NYSTATIN 500,000 UNITS/5 ML SUSPENSION PO SCH ×3 (06:22→18:24)
[2016-07-12 07:21] LABS: MCH 26.4 pg (25.7-33.7); MCHC 32.7 g/dl (32.0-36.0); MEAN CELL VOLUME 80.6 fl (80-96); MEAN PLT VOLUME 9.4 fl (7.5-11.1); NEUTROPHILS 91.5 % (42.8-82.8); PLATELET COUNT 153 K/MM3 (134-434); RDW 16.3 % (11.6-15.6); WHITE BLOOD COUNT 13.1 K/mm3 (4.0-10.0)
[2016-07-12 07:43] LABS: PROTHROMBIN TIME (PATIENT) 69.6 SEC (9.98-11.88)
[2016-07-12] MEDS ORDERED: PT OWN MED DRAWER 7, Y5N ONE ×2 (07:53→21:40)
[2016-07-12 08:02] LABS: INR 6.1 (0.82-1.09)
[2016-07-12 08:05] LABS: ALBUMIN 3.5 g/dl (3.4-5.0); ALK PHOS 80 U/L (45-117); ANION GAP 13 (8-16); BILIRUBIN,TOTAL 1.4 mg/dL (0.2-1.0); CALCIUM 8.7 mg/dL (8.5-10.1); CO2 30 mmol/L (21-32); CREATININE 0.5 mg/dL (0.55-1.02); GLUCOSE,RANDOM 204 mg/dL (74-106); MAGNESIUM 2.4 mg/dL (1.8-2.4); SGOT/AST 98 U/L (15-37); SGPT/ALT 57 U/L (12-78); TOT PROT 6.2 g/dl (6.4-8.2)
[2016-07-12] MEDS: MOMETASONE FUROATE 220 MCG/IH INHALER IH SCH (10:01)
[2016-07-12] MEDS: ENALAPRIL MALEATE 10 MG TABLET (FP) PO SCH (10:02)
[2016-07-12] MEDS: CHOLECALCIFEROL (VITAMIN D3) 1,000 UNIT TABLET (FP) PO SCH (10:02)
[2016-07-12] MEDS: MULTIVITAMINS (DAILY MVI) TABLET (FP) PO SCH (10:02)
[2016-07-12] MEDS: OSELTAMIVIR PHOSPHATE 30 MG CAPSULE PO SCH ×2 (10:03→21:56)
[2016-07-12] MEDS: FUROSEMIDE 20 MG TABLET (FP) PO SCH (10:03)
[2016-07-12] MEDS: TIOTROPIUM BROMIDE 18 MCG/INH (DEVICE W/ 5 CAPSULES) IH SCH (10:04)
--- NOTE | 2016-07-12 10:07 | PN ---
Progress Note (short form) - Note Progress Note: S: 81 year old female, with history of rheumatic heart disease with mitral stenosis, s/p mechanical mitral valve replacement, permanent atrial fibrillation , diabetes mellitus, bronchial asthma, hypertension, hypercholesterolemia and recent influenza. Patient still has dyspnea and intermittent cough, also has recurrent palpitations, related to atrial fibrillation with rapid ventricular response. No chills or fever reported. No history of lightheadedness or dizziness. Active Medications Generic Name Dose Route Start Last Admin Trade Name Freq PRN Reason Stop Dose Admin Acetaminophen 650 mg 07/07/16 17:15 07/08/16 16:21 Tylenol - PO 650 mg Q4H PRN Administration FEVER OR PAIN Al Hydroxide/Mg Hydroxide 30 ml 07/09/16 20:39 07/11/16 12:09 Mylanta Oral Suspension - PO 30 ml Q12H PRN Administration DYSPEPSIA Albuterol Sulfate 1 amp 07/10/16 18:00 07/12/16 06:57 Ventolin 0.083% Nebulizer Soln - NEB 1 amp QIDR DARWIN Administration Atorvastatin Calcium 10 mg 07/07/16 22:00 07/11/16 23:22 Lipitor - PO 10 mg HS DARWIN Administration Cholecalciferol 1,000 unit 07/07/16 10:00 07/11/16 10:17 Vitamin D3 - PO 1,000 unit DAILY DARWIN Administration Diltiazem HCl 5 mg 07/07/16 17:14 Cardizem Injection - IVPUSH Q4H PRN TACHYCARDIA Diltiazem HCl 90 mg 07/11/16 12:00 07/12/16 06:21 Cardizem - PO 90 mg Q6HPO DARWIN Administration Docusate Sodium 100 mg 07/09/16 01:05 07/11/16 18:38 Colace - PO 100 mg BID PRN Administration CONSTIPATION Enalapril Maleate 20 mg 07/07/16 14:30 07/11/16 10:17 Vasotec - PO 20 mg DAILY DARWIN Administration Furosemide 20 mg 07/07/16 10:00 07/11/16 10:17 Lasix - PO 20 mg DAILY DARWIN Administration Guaifenesin 5 ml 07/08/16 13:17 07/09/16 16:33 Diabetic Tussin Dm - PO 5 unit Q6H PRN Administration COUGH Methylprednisolone Sodium Succinate 40 mg 07/11/16 10:00 07/11/16 13:47 Solu-Medrol - IVPB 40 mg DAILY DARWIN Administration Mometasone Furoate 1 puff 07/08/16 10:00 07/11/16 10:18 Asmanex 220mcg - IH 1 puff DAILY DARWIN Administration Multivitamins/Minerals/Vitamin C 1 tab 07/07/16 10:00 07/11/16 10:17 Tab-A-Vit - PO 1 tab DAILY DARWIN Administration Nystatin 500,000 units 07/09/16 02:00 07/12/16 06:22 Nystatin Oral Suspension - PO 07/14/16 23:59 500,000 units Q6HPO DARWIN Administration Oseltamivir Phosphate 30 mg 07/09/16 10:00 07/11/16 23:22 Tamiflu - PO 07/14/16 09:59 30 mg BID DARWIN Administration Tiotropium [place] 1 puff 07/08/16 10:00 07/11/16 10:18 Spiriva - IH 1 puff DAILY DARWIN Administration O: 81 year old cachectic female, was in no acute distress, no pallor, cyanosis, clubbing, or jaundice. Last Vital Signs Temp Pulse Resp BP Pulse Ox 98.4 F 100 Irregularly irregular 20 120/65 99 07/12/16 09:34 07/12/16 09:34 07/12/16 09:34 07/12/16 09:34 07/12/16 09:00 Neck: Supple, no JVD, positive HJR, carotids were equal and upstrokes were normal, bilateral radiation of murmur versus bruits, no thyromegaly appreciated. Heart: PMI was in the 5th intercostal space, apical heave, no thrills, crisp prosthetic sounds, ejection systolic murmur grade II-III/ heard at the secoind right intercoastal space ending in late systole. Murmur was also heard over the left sternal wall and apex. No diastolic murmur or gallops were appreciated. Lungs: Bibasilar crepitations and scattered expiratory wheezing. Abdomen: Soft, nontender, no hepatosplenomegaly appreciated, and no palpable masses were felt. Extremities: No calf tenderness. 2+ bilateral pedal edema. CBC, BMP 07/12/16 05:35 07/12/16 05:35 Laboratory Results - last 24 hr 07/12/16 07/12/16 07/12/16 05:35 05:35 05:35 WBC 13.1 H RBC 4.01 Hgb 10.6 L Hct 32.3 L MCV 80.6 MCHC 32.7 RDW 16.3 H Plt Count 153 D MPV 9.4 Neutrophils % 91.5 H Lymphocytes % 2.8 L D Monocytes % 5.7 Eosinophils % 0.0 D Basophils % 0.0 INR 6.10 H* D Sodium 131 L Potassium 4.5 Chloride 88 L Carbon Dioxide 30 Anion Gap 13 BUN 17 D Creatinine 0.5 L D Creat Clearance w eGFR > 60 Random Glucose 204 H D Calcium 8.7 Magnesium 2.4 Total Bilirubin 1.4 H AST 98 H ALT 57 D Alkaline Phosphatase 80 Total Protein 6.2 L Albumin 3.5 Impression: (1) Rheumatic heart disease s/p mechanical mitral valve replacement for mitral stenosis Code(s): Z95.2 - PRESENCE OF PROSTHETIC HEART VALVE (2) Ausculatory findings consistent with aortic stenosis (severe) Code(s): I35.0 - NONRHEUMATIC AORTIC (VALVE) STENOSIS Qualifiers: (3) Atrial fibrillation with rapid ventricular response Code(s): I48.91 - UNSPECIFIED ATRIAL FIBRILLATION (4) Palpitations secondary to #3 Code(s): R00.2 - PALPITATIONS (5) Bronchial asthma Code(s): J45.909 - UNSPECIFIED ASTHMA, UNCOMPLICATED Qualifiers: Asthma severity: mild intermittent (6) Diabetes mellitus Code(s): E11.9 - TYPE 2 DIABETES MELLITUS WITHOUT COMPLICATIONS Qualifiers: Diabetes mellitus type: type 2 (7) Hypercholesteremia Code(s): E78.0 - PURE HYPERCHOLESTEROLEMIA * DO NOT USE * (8) Hypertension Code(s): I10 - ESSENTIAL (PRIMARY) HYPERTENSION Qualifiers: Hypertension type: essential hypertension Qualified Code(s): I10 - Essential (primary) hypertension (9) History of Premature ventricular contraction Code(s): I49.3 - VENTRICULAR PREMATURE DEPOLARIZATION (10) Tricuspid regurgitation Code(s): I07.1 - RHEUMATIC TRICUSPID INSUFFICIENCY (11) Congestive heart failure Code(s): I50.9 - HEART FAILURE, UNSPECIFIED Recommendations: 1. Continue current treatment. 2. Control of blood sugar. 3. Close follow up of INR. 4. Dose of Lasix may need to be increased if edema and shortness of breath persist. 5. Once patient has fully recovered she will need further evaluation of aortic stenosis and if necessary TAVR. Prognosis: Critical Attestation: Documentation prepared by Danilo Breen, acting as medical affairs leader for Morris Murray MD.
[2016-07-12] MEDS ORDERED: FUROSEMIDE 40 MG/4 ML INJECTABLE VIAL IVPUSH ONE (14:40)
--- NOTE | 2016-07-12 15:04 | PN ---
Physical Exam: SUBJECTIVE: Patient seen and examined. She is very overwhelmed, she gags when she swallows her medication. She is very dyspnic at rest with frequent cough OBJECTIVE: Vital Signs Period Temp Pulse Resp BP Sys/Gold Pulse Ox Last 24 Hr 96.6 F-98.8 F 89-122 18-20 110-134/59-83 96-99 PE Gen: appears anxious HEENT: no thrush noted Pulm: Bi basilar crackles, + wet cough + NC, + dyspnea CV: irregular rhythm 3/6 systolic murmur, + MV clicking Abd: s nt nd + bs Ext: + 3 b/l pitting edema Laboratory Results - last 24 hr 07/12/16 07/12/16 07/12/16 05:35 05:35 05:35 WBC 13.1 H RBC 4.01 Hgb 10.6 L Hct 32.3 L MCV 80.6 MCHC 32.7 RDW 16.3 H Plt Count 153 D MPV 9.4 Neutrophils % 91.5 H Lymphocytes % 2.8 L D Monocytes % 5.7 Eosinophils % 0.0 D Basophils % 0.0 INR 6.10 H* D Sodium 131 L Potassium 4.5 Chloride 88 L Carbon Dioxide 30 Anion Gap 13 BUN 17 D Creatinine 0.5 L D Creat Clearance w eGFR > 60 Random Glucose 204 H D Calcium 8.7 Magnesium 2.4 Total Bilirubin 1.4 H AST 98 H ALT 57 D Alkaline Phosphatase 80 Total Protein 6.2 L Albumin 3.5 Active Medications Generic Name Dose Route Start Last Admin Trade Name Freq PRN Reason Stop Dose Admin Acetaminophen 650 mg 07/07/16 17:15 07/08/16 16:21 Tylenol - PO 650 mg Q4H PRN Administration FEVER OR PAIN Al Hydroxide/Mg Hydroxide 30 ml 07/09/16 20:39 07/11/16 12:09 Mylanta Oral Suspension - PO 30 ml Q12H PRN Administration DYSPEPSIA Albuterol Sulfate 1 amp 07/10/16 18:00 07/12/16 11:14 Ventolin 0.083% Nebulizer Soln - NEB 1 amp QIDR DARWIN Administration Atorvastatin Calcium 10 mg 07/07/16 22:00 07/11/16 23:22 Lipitor - PO 10 mg HS DARWIN Administration Cholecalciferol 1,000 unit 07/07/16 10:00 07/12/16 10:02 Vitamin D3 - PO 1,000 unit DAILY DARWIN Administration Diltiazem HCl 5 mg 07/07/16 17:14 Cardizem Injection - IVPUSH Q4H PRN TACHYCARDIA Diltiazem HCl 90 mg 07/11/16 12:00 07/12/16 12:06 Cardizem - PO 90 mg Q6HPO DARWIN Administration Docusate Sodium 100 mg 07/09/16 01:05 07/11/16 18:38 Colace - PO 100 mg BID PRN Administration CONSTIPATION Enalapril Maleate 20 mg 07/07/16 14:30 07/12/16 10:02 Vasotec - PO 20 mg DAILY DARWIN Administration Furosemide 20 mg 07/07/16 10:00 07/12/16 10:03 Lasix - PO 20 mg DAILY DARWIN Administration Furosemide 40 mg 07/12/16 14:40 Lasix Injection - IVPUSH 07/12/16 14:41 ONCE ONE Guaifenesin 5 ml 07/08/16 13:17 07/09/16 16:33 Diabetic Tussin Dm - PO 5 unit Q6H PRN Administration COUGH Methylprednisolone Sodium Succinate 40 mg 07/11/16 10:00 07/11/16 13:47 Solu-Medrol - IVPB 40 mg DAILY DARWIN Administration Mometasone Furoate 1 puff 07/08/16 10:00 07/12/16 10:01 Asmanex 220mcg - IH 1 puff DAILY DARWIN Administration Multivitamins/Minerals/Vitamin C 1 tab 07/07/16 10:00 07/12/16 10:02 Tab-A-Vit - PO 1 tab DAILY DARWIN Administration Nystatin 500,000 units 07/09/16 02:00 07/12/16 06:22 Nystatin Oral Suspension - PO 07/14/16 23:59 500,000 units Q6HPO DARWIN Administration Oseltamivir Phosphate 30 mg 07/09/16 10:00 07/12/16 10:03 Tamiflu - PO 07/14/16 09:59 30 mg BID DARWIN Administration Tiotropium [place] 1 puff 07/08/16 10:00 07/12/16 10:04 Spiriva - IH 1 puff DAILY DARWIN Administration Imagin05/23/2016 Echo: Normal LV size with mildly decreased LV fxn, mech MV replacement, mild TR, RVSP 30-40 mmHg, AV not well seen 07/07/2016 Echo: Normal LV size and function, mechanical MV replacement, mild to moderate TR, RSVP 30-40mmHg, aortic valve not assessed Assessment: 81 year old female with a PMH of HTN, permanent A fib, rheumatic heart disease, aortic valve stenosis, mechanical MV replacement, CVA, DM II, asthma, vertigo, inner ear nerve degeneration, and basal cell carcinoma (left nares) admitted for A fib with RVR and found to have Influenza A. Plan: 1. A Fib with RVR - Supra therapeutic today - Hold coumadin tonight - Continue Cardizem 90mg q6hr - Will need outpatient followup KRISTI to assess AV pathology 2. Acute Diastolic heart failure - Lasix 40mg IV x1 - CXR now, will follow - Continue Enalapril 20mg daily - Caution with over diuresis, pt with severe 3. Influenza A - Continue Tamiflu (day 4) renally dosed - Per ID, antibiotics stopped 07/09 4. Asthma - Continue spirivia - Continue albuterol nebs - Stop Steroids cause can potentiate INR - Discussed with Pulm, may start low dose oral steroids 5. DM II - ISS, BGM ACHS 6. Oral Thrush - Will change nystatin to swish and swallow (started 07/09) - Re eval throat pain tomorrow 7. Lactic acidosis, resolved 8. DVT PPX - INR supratherapeutic, hold coumadin tonight Visit type - Emergency Visit Emergency Visit: Yes ED Registration Date: 07/09/16 Care time: The patient presented to the Emergency Department on the above date and was hospitalized for further evaluation of their emergent condition. - New Patient This patient is new to me today: No - Critical Care Critical Care patient: No
--- NOTE | 2016-07-12 16:57 | PN ---
Progress Note, Physician History of Present Illness: Pt developed increased dyspnea today-now better after dose of Furosemide. - Current Medication List Current Medications: Active Medications Acetaminophen (Tylenol -) 650 mg PO Q4H PRN PRN Reason: FEVER OR PAIN Last Admin: 07/08/16 16:21 Dose: 650 mg Al Hydroxide/Mg Hydroxide (Mylanta Oral Suspension -) 30 ml PO Q12H PRN PRN Reason: DYSPEPSIA Last Admin: 07/11/16 12:09 Dose: 30 ml Albuterol Sulfate (Ventolin 0.083% Nebulizer Soln -) 1 amp NEB QIDR [facility] Last Admin: 07/12/16 11:14 Dose: 1 amp Atorvastatin Calcium (Lipitor -) 10 mg PO HS [facility] Last Admin: 07/11/16 23:22 Dose: 10 mg Cholecalciferol (Vitamin D3 -) 1,000 unit PO DAILY [facility] Last Admin: 07/12/16 10:02 Dose: 1,000 unit Diltiazem HCl (Cardizem Injection -) 5 mg IVPUSH Q4H PRN PRN Reason: TACHYCARDIA Diltiazem HCl (Cardizem -) 90 mg PO Q6HPO [facility] Last Admin: 07/12/16 12:06 Dose: 90 mg Docusate Sodium (Colace -) 100 mg PO BID PRN PRN Reason: CONSTIPATION Last Admin: 07/11/16 18:38 Dose: 100 mg Enalapril Maleate (Vasotec -) 20 mg PO DAILY [facility] Last Admin: 07/12/16 10:02 Dose: 20 mg Furosemide (Lasix -) 20 mg PO DAILY [facility] Last Admin: 07/12/16 10:03 Dose: 20 mg Guaifenesin (Diabetic Tussin Dm -) 5 ml PO Q6H PRN PRN Reason: COUGH Last Admin: 07/09/16 16:33 Dose: 5 unit Mometasone Furoate (Asmanex 220mcg -) 1 puff IH DAILY [facility] Last Admin: 07/12/16 10:01 Dose: 1 puff Multivitamins/Minerals/Vitamin C (Tab-A-Vit -) 1 tab PO DAILY [facility] Last Admin: 07/12/16 10:02 Dose: 1 tab Nystatin (Nystatin Oral Suspension -) 500,000 units PO Q6HPO [facility] Stop: 07/14/16 23:59 Oseltamivir Phosphate (Tamiflu -) 30 mg PO BID [facility] Stop: 07/14/16 09:59 Last Admin: 07/12/16 10:03 Dose: 30 mg Ranitidine HCl (Zantac -) 150 mg PO BID [facility] Tiotropium [place] (Spiriva -) 1 puff IH DAILY [facility] Last Admin: 07/12/16 10:04 Dose: 1 puff - Objective Vital Signs: Vital Signs Temperature 96.8 F L 07/12/16 15:29 Pulse Rate 84 07/12/16 15:29 Respiratory Rate 20 07/12/16 15:29 Blood Pressure 115/63 07/12/16 15:29 O2 Sat by Pulse Oximetry (%) 96 07/12/16 11:13 Constitutional: No: No Distress Eyes: No: Sclera Icterus HENT: Yes: Atraumatic, Normocephalic Neck: Yes: Trachea Midline Cardiovascular: Yes: Pulse Irregular. No: JVD Respiratory: Yes: CTA Bilaterally Gastrointestinal: Yes: Soft. No: Tenderness Edema: No Neurological: Yes: Alert, Oriented Labs: CBC, BMP 07/12/16 05:35 07/12/16 05:35 INR, PTT INR 6.10 (0.82-1.09) H* D 07/12/16 05:35 - ....Imaging Chest X-ray: Report Reviewed, Image Reviewed (CM, increased bibasilar markings, especially right lower lung field compared to cxr 07/07/16) Problem List - Problems (1) Atrial fibrillation with rapid ventricular response Code(s): I48.91 - UNSPECIFIED ATRIAL FIBRILLATION (2) Bronchial asthma Code(s): J45.909 - UNSPECIFIED ASTHMA, UNCOMPLICATED (3) History of mitral valve replacement with mechanical valve Code(s): Z95.2 - PRESENCE OF PROSTHETIC HEART VALVE (4) Aortic stenosis Code(s): I35.0 - NONRHEUMATIC AORTIC (VALVE) STENOSIS Qualifiers: (5) Diabetes mellitus Code(s): E11.9 - TYPE 2 DIABETES MELLITUS WITHOUT COMPLICATIONS Assessment/Plan Influenza A- on Tamiflu CHF- pt developed increased dyspnea and pedal edema and CXR with increased congestion. Pt improved post tx with Furosemide. Cased discussed with VAIBHAV Jean and her evaluation and tx agreed with and appreciated. Chronic Atrial fibrillation-Vent rate still relatively rapid at times Acute Exacerbation of Bronchial Asthma:improved Mechanical MVR-INR 6- Warfarin being held. Aortic Stenosis- would hold off KRISTI till patient is out of hospital NIDDM-stable. Difficulty swallowing: developed recently-pt had similar symptoms post pneumonia two years ago that responded to Zantac and Nystatin Suggest: Spiriva Albuterol PRN O2 to maintain SaO2>90 Inhaled corticosteroid Monitor sugars Cardizem Nystatin Ranitidine
[2016-07-12] MEDS ORDERED: PANTOPRAZOLE 20 MG TABLET (FP) PO SCH (17:00)
[2016-07-12] MEDS: ATORVASTATIN CA 10 MG TABLET (FP) PO SCH (21:56)
[2016-07-12] MEDS: RANITIDINE HCL 150 MG TABLET (FP) PO SCH (21:56)
[2016-07-13] MEDS: ALBUTEROL SO4 0.083% IH SOL 2.5 MG/3 ML VIAL.NEB. NEB SCH ×2 (00:04→07:29)
[2016-07-13] MEDS: dilTIAZem HCL 30 MG TABLET (FP) PO SCH ×4 (00:30→17:22)
[2016-07-13] MEDS: NYSTATIN 500,000 UNITS/5 ML SUSPENSION PO SCH ×4 (00:30→17:22)
[2016-07-13 06:56] LABS: BASOPHIL 0.1 % (0-2.0); MCH 26.2 pg (25.7-33.7); MCHC 32.9 g/dl (32.0-36.0); MEAN CELL VOLUME 79.8 fl (80-96); NEUTROPHILS 90.2 % (42.8-82.8); PLATELET COUNT 182 K/MM3 (134-434); WHITE BLOOD COUNT 15.8 K/mm3 (4.0-10.0)
[2016-07-13 07:24] LABS: ALBUMIN 3.2 g/dl (3.4-5.0); ANION GAP 10 (8-16); CALCIUM 8.8 mg/dL (8.5-10.1); CO2 34 mmol/L (21-32); GLUCOSE,RANDOM 216 mg/dL (74-106); MAGNESIUM 2.3 mg/dL (1.8-2.4)
[2016-07-13 07:27] LABS: ALK PHOS 72 U/L (45-117); BILIRUBIN,TOTAL 1.4 mg/dL (0.2-1.0); CREATININE 0.5 mg/dL (0.55-1.02); PHOSPHOROUS 2.3 mg/dL (2.5-4.9); SGOT/AST 61 U/L (15-37); SGPT/ALT 50 U/L (12-78); TOT PROT 5.9 g/dl (6.4-8.2)
[2016-07-13] MEDS: ENALAPRIL MALEATE 10 MG TABLET (FP) PO SCH (10:03)
[2016-07-13] MEDS: MULTIVITAMINS (DAILY MVI) TABLET (FP) PO SCH (10:03)
[2016-07-13] MEDS: RANITIDINE HCL 150 MG TABLET (FP) PO SCH ×2 (10:04→21:37)
[2016-07-13] MEDS: CHOLECALCIFEROL (VITAMIN D3) 1,000 UNIT TABLET (FP) PO SCH (10:04)
[2016-07-13] MEDS: FUROSEMIDE 20 MG TABLET (FP) PO SCH (10:04)
[2016-07-13] MEDS: OSELTAMIVIR PHOSPHATE 30 MG CAPSULE PO SCH ×2 (10:04→21:36)
[2016-07-13] MEDS: TIOTROPIUM BROMIDE 18 MCG/INH (DEVICE W/ 5 CAPSULES) IH SCH (10:05)
[2016-07-13] MEDS: MOMETASONE FUROATE 220 MCG/IH INHALER IH SCH (10:05)
[2016-07-13] MEDS: DOCUSATE SODIUM 100 MG CAPSULE (FP) PO PRN (10:08)
[2016-07-13] MEDS: MAG HYDROX/AL HYDROX/SIMETH 30 ML UNIT-DOSE CUP PO PRN (10:08)
[2016-07-13] MEDS ORDERED: BISACODYL 10 MG SUPP.RECT RC ONE (11:11)
[2016-07-13] MEDS ORDERED: FUROSEMIDE 40 MG/4 ML INJECTABLE VIAL IVPUSH ONE ×2 (11:15→12:23)
--- NOTE | 2016-07-13 11:29 | CONSULT ---
Admitting History and Physical - Primary Care Physician PCP: Jillian Jean - Admission History of Present Illness: Influenza (+). Cough,congestion. o x 3. Anxious "I'm dying. They are going to move me to ICU and put me on the ventilator. I have heart failure." Reports that her swallowing requires more effort to generate at this time. She is being treated for oral/ esophageal(?) candidiasis. Knowns to me from tx 20 years ago following intubation. O x 3. Speaking fast. o2 sat 89-90. On nasal o2. 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[employer] History of Recent Travel: No History - Admission Reason For Visit: ATRIAL FIRILATION - Diagnostics X-ray: Report Reviewed - General Mental Status: Alert and Oriented, Awake and Alert, Able to Follow Commands, Anxious Attention: Intact Ability to Follow Directions: Excellent Head/Neck Control: WFL - Hearing Hearing: Normal Hearing Aide: No With Patient: No Speech Evaluation - Communication Primary Language: JORDANIAN Communication: Yes: Within Normal Limits - Speech Production Able to Make Needs Known: Yes: WNL Intelligibility: Yes: WNL - Speech Characteristics Voice Loudness: Mildly Soft/Quiet Voice Pitch: Yes: Normal Voice Phonatory-based Quality: Yes: Hoarse (mild) Speech Clarity: < 100% Nasal Resonance: Normal Articulation: Yes: Precise Rate of Speech: Too Fast Voice, Other Observations: Yes: Progressively Weak Voice - Language/Auditory Comprehension Follows: Yes: 2 Stage Simple Commands - Language/Verbal Expression Able to Respond to Simple Queries: Yes: WNL Able to Communicate Wants and Needs: Yes: WNL Functional Communication Status: Yes: WNL - Memory/Perception joint terminal attack controller Memory: Yes: WNL Short Term Memory: Yes: WNL - Swallow Evaluation/Bedside Assessment Current Nutritional Intake: Regular, Thin Liquids Oral Secretions: Yes: Dryness Dentition: Yes: Adequate Facial Symmetry at Rest: Symmetrical Facial Symmetry on Retraction: Symmetrical Facial Movement: Controlled Sensation: Normal Jaw Position: Open at Rest Against Resistance Opening: Normal Against Resistance Closing: Normal Pucker Lips: Normal Smile: Normal Lingual Movement: Normal, Symmetric Lingual Speed of Movement: Normal Lingual Movement Strgth Against Opposition: Normal Lingual Movement Characteristics: Normal Velopharyngeal Movement: Normal Laryngeal Movement: Labored,delay initiation, Reduced Velocity Rate of Intake: WFL Bolus Size: Small Labial Seal: WFL Oral Prep Time: WFL A-P Transit: WFL Pocketing: None Timing of Swallow: Delayed Coughing/Throat Clear: Yes (with and without po intake) Recommendations - Speech Evaluation, Impression/Plan Impression: pt reports labored swallow initiation, needing to be very careful with thin liquids. Tolerated ensure compact well for. Seemed more comfortable with it's nectar thickness. Readily agreed to nectar thick liquids. Pt reports limited appetite, feeling "awful." - Dysphagia Impressions/Plan Swallowing Skills: Impaired Dysphagia Impressions: Mild Impairment, Risk of Aspiration, Ongoing Evaluation *Silent aspiration: cannot be R/O at bedside Dysphagia Treatment Plan: Small Bites, Chin Tuck/Down, 1/2 tsp. at a time, Elevate HOB during feed Recommendations: Modified Barium Swallow (if difficulty persists or aspiration is suspected.), Other (mouth care.) - Recommendations Diet Consistency: Other (Regular, chopped, moist cohesive foods :pureed soups, lasagne, icecream,quiche,mac and cheese,fish with gravy.) Medication Administration: Crushed with applesauce (followed by nectar thick liquid) Liquids: [place] Thick, Other (allow careful sips of water b/n meals, as desired. ) Supplement: Magic Cup, Other (Ensure compact)
[2016-07-13] MEDS ORDERED: morphine CARPU-JECT 2 MG/1 ML DISP.SYRIN IVPUSH ONE ×2 (11:31→13:19)
--- NOTE | 2016-07-13 11:52 | PN ---
Physical Exam: SUBJECTIVE: Patient seen and examined. She is acutely sob, with wet cough, states herself she feels air hunger, however able to maintain conversation. OBJECTIVE: Vital Signs Period Temp Pulse Resp BP Sys/Gold Pulse Ox Last 24 Hr 96.8 F-98.6 F 84-118 18-20 110-142/60-86 94 PE Gen: appears anxious HEENT: no thrush noted Pulm: Bi basilar crackles, + wet cough + NC, + dyspnea CV: irregular rhythm 3/6 systolic murmur, + MV clicking Abd: s nt nd + bs Ext: + 3 R, L +2 pitting edema- overall improved from yesterday Laboratory Results - last 24 hr 07/13/16 07/13/16 05:35 05:35 WBC 15.8 H RBC 3.89 Hgb 10.2 L Hct 31.0 L MCV 79.8 L MCHC 32.9 RDW 16.0 H Plt Count 182 MPV 9.0 Neutrophils % 90.2 H Lymphocytes % 2.4 L Monocytes % 7.3 Eosinophils % 0.0 Basophils % 0.1 D Sodium 131 L Potassium 4.6 Chloride 87 L Carbon Dioxide 34 H Anion Gap 10 BUN 20 H Creatinine 0.5 L Creat Clearance w eGFR > 60 Random Glucose 216 H Calcium 8.8 Phosphorus 2.3 L D Magnesium 2.3 Total Bilirubin 1.4 H AST 61 H D ALT 50 Alkaline Phosphatase 72 Total Protein 5.9 L Albumin 3.2 L Active Medications Generic Name Dose Route Start Last Admin Trade Name Freq PRN Reason Stop Dose Admin Acetaminophen 650 mg 07/07/16 17:15 07/08/16 16:21 Tylenol - PO 650 mg Q4H PRN Administration FEVER OR PAIN Al Hydroxide/Mg Hydroxide 30 ml 07/09/16 20:39 07/13/16 10:08 Mylanta Oral Suspension - PO 30 ml Q12H PRN Administration DYSPEPSIA Albuterol Sulfate 1 amp 07/10/16 18:00 07/13/16 07:29 Ventolin 0.083% Nebulizer Soln - NEB 1 amp QIDR DARWIN Administration Atorvastatin Calcium 10 mg 07/07/16 22:00 07/12/16 21:56 Lipitor - PO 10 mg HS DARWIN Administration Cholecalciferol 1,000 unit 07/07/16 10:00 07/13/16 10:04 Vitamin D3 - PO 1,000 unit DAILY D[facility]WIN Administration Diltiazem HCl 5 mg 07/07/16 17:14 Cardizem Injection - IVPUSH Q4H PRN TACHYCARDIA Diltiazem HCl 90 mg 07/11/16 12:00 07/13/16 05:51 Cardizem - PO 90 mg Q6HPO DARWIN Administration Enalapril Maleate 20 mg 07/07/16 14:30 07/13/16 10:03 Vasotec - PO 20 mg DAILY DARWIN Administration Guaifenesin 5 ml 07/08/16 13:17 07/09/16 16:33 Diabetic Tussin Dm - PO 5 unit Q6H PRN Administration COUGH Mometasone Furoate 1 puff 07/08/16 10:00 07/13/16 10:05 Asmanex 220mcg - IH 1 puff DAILY [facility] Administration Multivitamins/Minerals/Vitamin C 1 tab 07/07/16 10:00 07/13/16 10:03 Tab-A-Vit - PO 1 tab DAILY [facility] Administration Nystatin 500,000 units 07/12/16 16:31 07/13/16 05:51 Nystatin Oral Suspension - PO 07/14/16 23:59 500,000 units Q6HPO DARWIN Administration Oseltamivir Phosphate 30 mg 07/09/16 10:00 07/13/16 10:04 Tamiflu - PO 07/14/16 09:59 30 mg BID DARWIN Administration Ranitidine HCl 150 mg 07/12/16 22:00 07/13/16 10:04 Zantac - PO 150 mg BID DARWIN Administration Tiotropium [place] 1 puff 07/08/16 10:00 07/13/16 10:05 Spiriva - IH 1 puff DAILY [facility] Administration Imagin07/07/2016 Echo: Normal LV size and function, mechanical MV replacement, mild to moderate TR, RSVP 30-40mmHg, aortic valve not assessed Assessment: 81 year old female with a PMH of HTN, permanent A fib, rheumatic heart disease, aortic valve stenosis, mechanical MV replacement, CVA, DM II, asthma, vertigo, inner ear nerve degeneration, and basal cell carcinoma (left nares) admitted for A fib with RVR and found to have Influenza A. Plan: 1. Dyspnea 2/2 acute on chronic exacerbation of diastolic HF and acute exacerbation of COPD - Additional lasix 40mg IV now, received daily 20mg this AM - Repeat CXR now - Continue Enalapril 20mg daily - Continue Spirivia - Continue Albuterol nebs - If worsens will give Medrol 60mg - Start venti mask 2. A Fib with RVR - Awaiting AM INR for Coumadin dose - Continue Cardizem 90mg q6hr - Will need outpatient followup KRISTI to assess AV pathology 4. Influenza A - Continue Tamiflu (day 5) final dose tonight - CXR negative for acute infectious pathology 5. Hyponatremia - Corrected sodium 132.9 6. DM II - Elevated sugars, will consider levemir, hgb a1c 05/11 ~5 - ISS, BGM ACHS 7. Unspecified severe protein calorie malnutrition - Previous work up with undeterminable etiology - Ensure compact cups 8. Oral Thrush - Will change nystatin to swish and swallow (started 07/09) - Deysi Rich notes mild impairment, possible risk of aspiration if worsens changed diet to chopped 9. Lactic acidosis, resolved 10. DVT PPX - On Coumadin Visit type - Emergency Visit Emergency Visit: Yes ED Registration Date: 07/09/16 Care time: The patient presented to the Emergency Department on the above date and was hospitalized for further evaluation of their emergent condition. - New Patient This patient is new to me today: No - Critical Care Critical Care patient: No
[2016-07-13 12:19] LABS: PROTHROMBIN TIME (PATIENT) 75.4 SEC (9.98-11.88)
[2016-07-13] MEDS ORDERED: NITROGLYCERIN SUBLINGUAL 1/150 0.4 MG TAB SL ONE (12:23)
--- NOTE | 2016-07-13 12:36 | PN ---
Progress Note, Physician History of Present Illness: Transferred to ICU for acute hypoxic respiratory failure requiring NIPPV. - Current Medication List Current Medications: Active Medications Acetaminophen (Tylenol -) 650 mg PO Q4H PRN PRN Reason: FEVER OR PAIN Last Admin: 07/08/16 16:21 Dose: 650 mg Al Hydroxide/Mg Hydroxide (Mylanta Oral Suspension -) 30 ml PO Q12H PRN PRN Reason: DYSPEPSIA Last Admin: 07/13/16 10:08 Dose: 30 ml Albuterol Sulfate (Ventolin 0.083% Nebulizer Soln -) 1 amp NEB QIDR [facility] Last Admin: 07/13/16 07:29 Dose: 1 amp Atorvastatin Calcium (Lipitor -) 10 mg PO HS [facility] Last Admin: 07/12/16 21:56 Dose: 10 mg Cholecalciferol (Vitamin D3 -) 1,000 unit PO DAILY [facility] Last Admin: 07/13/16 10:04 Dose: 1,000 unit Diltiazem HCl (Cardizem Injection -) 5 mg IVPUSH Q4H PRN PRN Reason: TACHYCARDIA Diltiazem HCl (Cardizem -) 90 mg PO Q6HPO [facility] Last Admin: 07/13/16 05:51 Dose: 90 mg Enalapril Maleate (Vasotec -) 20 mg PO DAILY [facility] Last Admin: 07/13/16 10:03 Dose: 20 mg Furosemide (Lasix Injection -) 80 mg IVPUSH ONCE ONE Stop: 07/13/16 12:24 Guaifenesin (Diabetic Tussin Dm -) 5 ml PO Q6H PRN PRN Reason: COUGH Last Admin: 07/09/16 16:33 Dose: 5 unit Insulin Aspart (Novolog Vial Sliding Scale -) 1 vial SQ ACHS [facility] PRN Reason: Protocol Mometasone Furoate (Asmanex 220mcg -) 1 puff IH DAILY [facility] Last Admin: 07/13/16 10:05 Dose: 1 puff Multivitamins/Minerals/Vitamin C (Tab-A-Vit -) 1 tab PO DAILY [facility] Last Admin: 07/13/16 10:03 Dose: 1 tab Nitroglycerin (Nitrostat -) 0.4 mg SL ONCE ONE Stop: 07/13/16 12:24 Nystatin (Nystatin Oral Suspension -) 500,000 units PO Q6HPO [facility] Stop: 07/14/16 23:59 Last Admin: 07/13/16 05:51 Dose: 500,000 units Oseltamivir Phosphate (Tamiflu -) 30 mg PO BID [facility] Stop: 07/14/16 09:59 Last Admin: 07/13/16 10:04 Dose: 30 mg Ranitidine HCl (Zantac -) 150 mg PO BID [facility] Last Admin: 07/13/16 10:04 Dose: 150 mg Tiotropium [place] (Spiriva -) 1 puff IH DAILY [facility] Last Admin: 07/13/16 10:05 Dose: 1 puff - Objective Vital Signs: Vital Signs Temperature 97.9 F 07/13/16 02:00 Pulse Rate 118 H 07/13/16 06:00 Respiratory Rate 20 07/13/16 06:00 Blood Pressure 142/64 07/13/16 06:00 O2 Sat by Pulse Oximetry (%) 94 L 07/12/16 21:00 Constitutional: Yes: Moderate Distress Cardiovascular: Yes: Tachycardia, Pulse Irregular, Murmur (2/6 SM), Other ( [place] mechanical valve sounds) Respiratory: Yes: Regular, Diminished, On BiPap Gastrointestinal: Yes: Normal Bowel Sounds, Soft Edema: No Labs: CBC, BMP 07/13/16 05:35 07/13/16 05:35 INR, PTT INR 6.10 (0.82-1.09) H* D 07/12/16 05:35 - ....Imaging Chest X-ray: Report Reviewed (Right sided infiltrate with effusion, COPD) EKG: Report Reviewed (Tele: Rapid afib) Problem List - Problems (1) Atrial fibrillation with rapid ventricular response Code(s): I48.91 - UNSPECIFIED ATRIAL FIBRILLATION (2) Palpitations Code(s): R00.2 - PALPITATIONS (3) Bronchial asthma Code(s): J45.909 - UNSPECIFIED ASTHMA, UNCOMPLICATED Qualifiers: Asthma severity: mild intermittent (4) Diabetes mellitus Code(s): E11.9 - TYPE 2 DIABETES MELLITUS WITHOUT COMPLICATIONS Qualifiers: Diabetes mellitus type: type 2 (5) History of mitral valve replacement with mechanical valve Code(s): Z95.2 - PRESENCE OF PROSTHETIC HEART VALVE (6) Hypercholesteremia Code(s): E78.0 - PURE HYPERCHOLESTEROLEMIA * DO NOT USE * (7) Hypertension Code(s): I10 - ESSENTIAL (PRIMARY) HYPERTENSION Qualifiers: Hypertension type: essential hypertension Qualified Code(s): I10 - Essential (primary) hypertension (8) Premature ventricular contraction Code(s): I49.3 - VENTRICULAR PREMATURE DEPOLARIZATION (9) Acute on chronic diastolic (congestive) heart failure Code(s): I50.33 - ACUTE ON CHRONIC DIASTOLIC (CONGESTIVE) HEART FAILURE Assessment/Plan 05/23/2016 Echo: Normal LV size with mildly decreased LV fxn, mech MV replacement, mild TR RVSP 30-40 mmHg, AV not well seen Repeat Echocardiography performed 07/07/16 revealed Normal LV size and function, mechanical MV replacement, mild to moderate TR with RVSP 30-40 mmHg, aortic valve not assessed 1. Acute on chronic diastolic failure 2. Influenza A, RLL PNA 3. Palpitations referable to rapid atrial fibrillation in a patient with known history of permanent atrial fibrillation on A/C therapy, supratherapeutic INR 4. Post mechanical MVR 5. Probable significant aortic valve stenosis cannot be excluded 7. DM 8. Hyperlipidemia 9. Anemia & Thrombocytopenia PLAN: 1. Continue Cardizem with uptitrate dosage as tolerated 2. Continue Vasotec 20 qd 3. Continue Lipitor 10 qhs 4. Continue Lasix with monitor diuretic response, renal fxn and electrolytes 5. Continue Coumadin as per INR maintain 3.0-3.5, with caution considering the above noted Anemia and Thrombocytopenia 6. Bipap, Antibiotics, Tamiflu and bronchodilators as per the primary and pulmonary teams
[2016-07-13 12:40] LABS: INR 6.6 (0.82-1.09)
[2016-07-13] MEDS ORDERED: dilTIAZem HCL 125 MG/25 ML - 5 ML VIAL ONE (13:17)
[2016-07-13] MEDS ORDERED: dilTIAZem HCL 50 MG/10 ML - 10 ML VIAL IVPUSH ONE ×2 (13:19)
[2016-07-13] MEDS: DILTIAZEM INJECTION 125 MG in DEXTROSE 5%-WATER - 100 ML IVPB SCH (13:36)
--- NOTE | 2016-07-13 13:41 | CONSULT ---
Consultation: HISTORY OF PRESENT ILLNESS: Patient is an 81 year old with PMH of HTN, permanent A fib, rheumatic heart disease, aortic valve stenosis, mechanical MV replacement, CVA, DM II, asthma, vertigo, inner ear nerve degeneration, and basal cell carcinoma (left nares) who was admitted from ED 1 week ago for Atrial Fibrillation with RVR. She was also found to be dyspneic, attributed to exacerbation of chronic diastolic heart failure & COPD. Patient was started on Cardizem, as per cardiology & was treated for COPD exacerbation, alongside (+) Influenza A, by pulmonology. Today, patient reported shortness of breath, stating she felt "hungry for air". Her ooxygen saturation was found to be 81% on nonrebreather mask. CXR was ordered and showed: increased pleural disease/atelectasis in LLL & increased RLL infiltrate/pleural effusion. Patient was given Lasix IV 80mg bolus, SL Nitro & transferred to ICU for NIPPV. REVIEW OF SYSTEMS: CONSTITUTIONAL: (+)chills, diaphoresis, generalized weakness, Absent: fever, malaise, loss of appetite, weight change HEENT: Absent: rhinorrhea, nasal congestion, throat pain, throat swelling, difficulty swallowing, mouth swelling, ear pain, eye pain, visual changes CARDIOVASCULAR: (+)palpitations, Absent: chest pain, syncope, irregular heart rate, lightheadedness, peripheral edema RESPIRATORY: (+)shortness of breath, dyspnea with exertion, Absent: cough, stridor, hemoptysis GASTROINTESTINAL: Absent: abdominal pain, abdominal distension, nausea, vomiting, diarrhea, constipation, melena, hematochezia GENITOURINARY: Absent: dysuria, frequency, urgency, hesitancy, hematuria, flank pain, genital pain MUSCULOSKELETAL: Absent: myalgia, arthralgia, joint swelling, back pain, neck pain SKIN: Absent: rash, itching, pallor HEMATOLOGIC/IMMUNOLOGIC: Absent: easy bleeding, easy bruising, lymphadenopathy, frequent infections ENDOCRINE: Absent: unexplained weight gain, unexplained weight loss, heat intolerance, cold intolerance NEUROLOGIC: Absent: headache, focal weakness or paresthesias, dizziness, unsteady gait, seizure, mental status changes, bladder or bowel incontinence PSYCHIATRIC: Absent: anxiety, depression, suicidal or homicidal ideation, hallucinations. PHYSICAL EXAMINATION Vital Signs - 24 hr 07/12/16 07/12/16 07/12/16 15:29 17:00 21:00 Temperature 96.8 F L 97.0 F L Pulse Rate 84 90 Respiratory 20 18 Rate Blood Pressure 115/63 110/60 O2 Sat by Pulse 94 L Oximetry (%) 07/12/16 07/13/16 07/13/16 22:00 02:00 06:00 Temperature 98.6 F 97.9 F Pulse Rate 88 106 H 118 H Respiratory 20 18 20 Rate Blood Pressure 131/78 127/86 142/64 O2 Sat by Pulse Oximetry (%) 07/13/16 07/13/16 08:00 13:36 Temperature 98.1 F Pulse Rate 115 H 125 H Respiratory 20 Rate Blood Pressure 133/66 122/45 O2 Sat by Pulse 88 L Oximetry (%) GENERAL: Awake, alert, and fully oriented, in no acute distress but mildly anxious. Cachectic. HEENT: Atraumatic, EOMI, PERRLA, No lymphadenopathy noted. Dry mucous membranes. LUNGS: Crackles noted at bilateral lung bases. No wheezing or stridor noted. HEART: Irregular, tachycardic to 130, Grade 3/6 systolic murmur. Notable MV "Click". ABDOMEN: Soft, nontender, not distended, normoactive bowel sounds EXTREMITIES: 2+ pulses, warm, well-perfused. No peripheral edema. Moderate upper and lower extremity muscle atrophy. NEUROLOGICAL: Cranial nerves II-XII intact. Normal speech, but dyspneic. Normal gait. PSYCHIATRIC: Cooperative. Good eye contact. Appropriate mood and affect. SKIN: Warm, dry, normal turgor, no rashes or lesions noted. Laboratory Results - last 24 hr 07/13/16 07/13/16 07/13/16 05:35 05:35 11:15 WBC 15.8 H RBC 3.89 Hgb 10.2 L Hct 31.0 L MCV 79.8 L MCHC 32.9 RDW 16.0 H Plt Count 182 MPV 9.0 Neutrophils % 90.2 H Lymphocytes % 2.4 L Monocytes % 7.3 Eosinophils % 0.0 Basophils % 0.1 D INR 6.60 H* Sodium 131 L Potassium 4.6 Chloride 87 L Carbon Dioxide 34 H Anion Gap 10 BUN 20 H Creatinine 0.5 L Creat Clearance w eGFR > 60 Random Glucose 216 H Calcium 8.8 Phosphorus 2.3 L D Magnesium 2.3 Total Bilirubin 1.4 H AST 61 H D ALT 50 Alkaline Phosphatase 72 Total Protein 5.9 L Albumin 3.2 L Active Medications Generic Name Dose Route Start Last Admin Trade Name Corrina PRN Reason Stop Dose Admin Acetaminophen 650 mg 07/07/16 17:15 07/08/16 16:21 Tylenol - PO 650 mg Q4H PRN Administration FEVER OR PAIN Al Hydroxide/Mg Hydroxide 30 ml 07/09/16 20:39 07/13/16 10:08 Mylanta Oral Suspension - PO 30 ml Q12H PRN Administration DYSPEPSIA Albuterol Sulfate 1 amp 07/10/16 18:00 07/13/16 07:29 Ventolin 0.083% Nebulizer Soln - NEB 1 amp QIDR [facility] Administration Atorvastatin Calcium 10 mg 07/07/16 22:00 07/12/16 21:56 Lipitor - PO 10 mg HS [facility] Administration Cholecalciferol 1,000 unit 07/07/16 10:00 07/13/16 10:04 Vitamin D3 - PO 1,000 unit DAILY [facility] Administration Diltiazem HCl 5 mg 07/07/16 17:14 Cardizem Injection - IVPUSH Q4H PRN TACHYCARDIA Diltiazem HCl 90 mg 07/11/16 12:00 07/13/16 12:15 Cardizem - PO 90 mg Q6HPO [facility] Administration Diltiazem HCl 10 mg 07/13/16 13:19 07/13/16 13:00 Cardizem Injection - IVPUSH 07/13/16 13:20 10 mg ONCE ONE Administration Diltiazem HCl 10 mg 07/13/16 13:19 07/13/16 13:20 Cardizem Injection - IVPUSH 07/13/16 13:20 10 mg ONCE ONE Administration Enalapril Maleate 20 mg 07/07/16 14:30 07/13/16 10:03 Vasotec - PO 20 mg DAILY [facility] Administration Guaifenesin 5 ml 07/08/16 13:17 07/09/16 16:33 Diabetic Tussin Dm - PO 5 unit Q6H PRN Administration COUGH Diltiazem HCl 125 mg/ Dextrose 125 mls @ 5 mls/hr 07/13/16 13:30 07/13/16 13:36 IVPB 10 mls/hr TITR [facility] Administration Protocol 5 MG/HR Insulin Aspart 1 vial 07/13/16 16:30 Novolog Vial Sliding Scale - SQ ACHS [facility] Protocol Mometasone Furoate 1 puff 07/08/16 10:00 07/13/16 10:05 Asmanex 220mcg - IH 1 puff DAILY [facility] Administration Morphine Sulfate 2 mg 07/13/16 13:19 Morphine Injection - IVPUSH 07/13/16 13:20 ONCE ONE Multivitamins/Minerals/Vitamin C 1 tab 07/07/16 10:00 07/13/16 10:03 Tab-A-Vit - PO 1 tab DAILY [facility] Administration Nystatin 500,000 units 07/12/16 16:31 07/13/16 12:55 Nystatin Oral Suspension - PO 07/14/16 23:59 Not Given Q6HPO [facility] Oseltamivir Phosphate 30 mg 07/09/16 10:00 07/13/16 10:04 Tamiflu - PO 07/14/16 09:59 30 mg BID [facility] Administration Ranitidine HCl 150 mg 07/12/16 22:00 07/13/16 10:04 Zantac - PO 150 mg BID [facility] Administration Tiotropium [place] 1 puff 07/08/16 10:00 07/13/16 10:05 Spiriva - IH 1 puff DAILY [facility] Administration Echocardiography performed 07/07/16 revealed Normal LV size and function, mechanical MV replacement, mild to moderate TR with RVSP 30-40 mmHg, aortic valve not assessed ASSESSMENT/PLAN: 81 year old female with significant PMH of A-Fib, HTN, Rheumatic HD, Aortic stenosis, MV replacement, CVA, COPD who was admitted for A-Fib with RVR. Also found in have (+) Influenza A in setting of Acute COPD exacerbation. Presented to ICU for acute hypoxic respiratory failure requiring BiPAP. #Acute Hypoxic Respiratory Failure in setting of Influenza A, COPD exacerbation , Acute on Chronic diastolic CHF exacerbation -started on BiPAP in ICU. ABG shows respiratory acidosis with increasing fatigue. Discussed elective intubation, patient consented. Also discussed case with her son, Clifford. -given Lasix 40mg, 80mg IV pushes today to help diurese; will give as needed -Tamiflu day 5 today (last dose tonight) -Continue Spiriva, Asmanex, Robitussin, Albuterol QIDR -Solumedrol 40mg q6h -vancomycin/aztreonam for ?RLL Pneumonia -ID following -Pulmonary following #Acute on Chronic Diastolic Heart Failure -Continue Enalapril 20qd -strict I & O -daily weights -f/u CXR in AM #Atrial Fibrillation, with RVR -Cardizem drip started, uptitrate dosage as tolerated -continuous cardiac monitoring #Supratherapeutic INR, post-mechanical MV -holding coumadin -ideally maintain 3.0-3.5 #Diabetes -Insulin sliding scale -BGM ACHS #Oral Thrush -Continue Nystatin swish & swallow -improved today FEN/Prophylaxis -SCD, Zantac -Holding IVF, Will monitor electrolytes, Nutrition Discussed case with sonClifford. Visit type - Emergency Visit Emergency Visit: Yes ED Registration Date: 07/09/16 Care time: The patient presented to the Emergency Department on the above date and was hospitalized for further evaluation of their emergent condition. - New Patient This patient is new to me today: Yes Date on this admission: 07/14/16 - Critical Care Critical Care patient: Yes Total Critical Care Time (in minutes): 45 Critical Care Statement: The care of this patient involved high complexity decision making to prevent further life threatening deterioration of the patient 's condition and/or to evalute & treat vital organ system(s) failure or risk of failure.
[2016-07-13 14:19] LABS: ARTERIAL BLD GAS O2 SATURATION 92.3 % (90-98.9); ARTERIAL BLOOD GAS BASE EXCESS 4.7 meq/l (-2-2); ARTERIAL BLOOD GAS PO2 78.7 mmHg (68-100)
[2016-07-13 14:21] LABS: ALLENS TEST POSITIVE; ART PUNCT SITE RIGHT RADIAL; LPM/O2% 100%; MECH. VENT. BIPAP; PT. ON O2? YES; TYPE OF O2 BIPAP; VENT RATE 14; VT/PRESS IPAP 15/ EPAP 8
[2016-07-13 14:23] LABS: ARTERIAL BLOOD GAS pH 7.26 (7.35-7.45)
[2016-07-13 14:28] LABS: URINE APPEARANCE CLEAR; URINE BILIRUBIN NEGATIVE (NEGATIVE); URINE BLOOD 2+ (NEGATIVE); URINE COLOR YELLOW; URINE GLUCOSE (UA) 3+ (NEGATIVE); URINE KETONE TRACE (NEGATIVE); URINE LEUK ESTERASE NEGATIVE (NEGATIVE); URINE NITRITE NEGATIVE (NEGATIVE); URINE PROTEIN NEGATIVE (NEGATIVE); URINE UROBILINOGEN NEGATIVE E.U./dl (0.2-1.0)
[2016-07-13 14:36] LABS: GRANULAR CASTS 4 /lpf; URINE HYALINE CAST 18 /lpf; URINE MUCUS RARE; URINE RBC <1 /hpf (0-3); URINE WBC 1 /hpf (3-5)
--- NOTE | 2016-07-13 14:37 | PN ---
Teaching Attending Note Name of Resident: Josh Singh ATTENDING PHYSICIAN STATEMENT I saw and evaluated the patient. I reviewed the resident's note and discussed the case with the resident. I agree with the resident's findings and plan as documented. SUBJECTIVE: Pt seen and examined in the ICU. Briefly, 81yo female with h/o LV diastolic dysfunction, atrial fibrillation, DM, h/o mech MVR, aortic stenosis, hyperlipidemia, asthma/COPD who was admitted with worsening shortness of breath , found to have influenza A, started on tamiflu, steroids, became supratherapeutic with her INR. Today became more acutely short of breath and found to be hypoxic to 60s, transferred to the ICU for further monitoring. Placed on cardizem gtt for rate control, BiPAP to assist in work of breathing. ABG done on BiPAP showing acute on chronic respiratory acidosis. OBJECTIVE: Last Vital Signs Temp Pulse Resp BP Pulse Ox 97.5 F L 125 H 20 125/55 94 L 07/13/16 13:43 07/13/16 13:43 07/13/16 13:43 07/13/16 13:43 07/13/16 13:10 Intake & Output 07/10/16 07/11/16 07/12/16 07/13/16 23:59 23:59 23:59 23:59 Intake Total 1685 550 360 Output Total 200 Balance 1685 550 160 Weight 74 lb 4 oz 72 lb 6 oz Gen: tachypneic on BiPAP Heart: tachycardic, irregular, mech click at base Lung: distant breath sounds, bronchial breath sounds right base Abd: soft, nontender Ext: no edema CBC, BMP 07/13/16 05:35 07/13/16 05:35 ABG Results ABG pH 7.26 (7.35-7.45) L 07/13/16 14:15 ABG pCO2 at Pt Temp 75.7 mmHg (35-45) H* 07/13/16 14:15 ABG pO2 at Pt Temp 78.7 mmHg (68-100) 07/13/16 14:15 ABG HCO3 33.0 meq/L (22-26) H 07/13/16 14:15 ABG O2 Sat (Measured) 92.3 % (90-98.9) 07/13/16 14:15 ABG O2 Content 13.3 % vol (15-22) L 07/13/16 14:15 ABG Base Excess 4.7 meq/l (-2-2) H 07/13/16 14:15 CXR: RLL consolidation, effusion Active Medications Acetaminophen (Tylenol -) 650 mg PO Q4H PRN PRN Reason: FEVER OR PAIN Last Admin: 07/08/16 16:21 Dose: 650 mg Al Hydroxide/Mg Hydroxide (Mylanta Oral Suspension -) 30 ml PO Q12H PRN PRN Reason: DYSPEPSIA Last Admin: 07/13/16 10:08 Dose: 30 ml Albuterol Sulfate (Ventolin 0.083% Nebulizer Soln -) 1 amp NEB QIDR [facility] Last Admin: 07/13/16 07:29 Dose: 1 amp Atorvastatin Calcium (Lipitor -) 10 mg PO HS [facility] Last Admin: 07/12/16 21:56 Dose: 10 mg Cholecalciferol (Vitamin D3 -) 1,000 unit PO DAILY [facility] Last Admin: 07/13/16 10:04 Dose: 1,000 unit Diltiazem HCl (Cardizem Injection -) 5 mg IVPUSH Q4H PRN PRN Reason: TACHYCARDIA Diltiazem HCl (Cardizem -) 90 mg PO Q6HPO [facility] Last Admin: 07/13/16 12:15 Dose: 90 mg Enalapril Maleate (Vasotec -) 20 mg PO DAILY [facility] Last Admin: 07/13/16 10:03 Dose: 20 mg Guaifenesin (Diabetic Tussin Dm -) 5 ml PO Q6H PRN PRN Reason: COUGH Last Admin: 07/09/16 16:33 Dose: 5 unit Diltiazem HCl 125 mg/ Dextrose 125 mls @ 5 mls/hr IVPB TITR [facility]; 5 MG/HR PRN Reason: Protocol Last Admin: 07/13/16 13:36 Dose: 10 mls/hr Insulin Aspart (Novolog Vial Sliding Scale -) 1 vial SQ ACHS [facility] PRN Reason: Protocol Mometasone Furoate (Asmanex 220mcg -) 1 puff IH DAILY [facility] Last Admin: 07/13/16 10:05 Dose: 1 puff Multivitamins/Minerals/Vitamin C (Tab-A-Vit -) 1 tab PO DAILY [facility] Last Admin: 02/16/17 10:03 Dose: 1 tab Nystatin (Nystatin Oral Suspension -) 500,000 units PO Q6HPO [facility] Stop: 07/14/16 23:59 Last Admin: 07/13/16 12:55 Dose: Not Given Oseltamivir Phosphate (Tamiflu -) 30 mg PO BID [facility] Stop: 07/14/16 09:59 Last Admin: 07/13/16 10:04 Dose: 30 mg Ranitidine HCl (Zantac -) 150 mg PO BID [facility] Last Admin: 07/13/16 10:04 Dose: 150 mg Tiotropium [place] (Spiriva -) 1 puff IH DAILY [facility] Last Admin: 07/13/16 10:05 Dose: 1 puff ASSESSMENT AND PLAN: Acute on Chronic Hypoxic and Hypercapneic Respiratory Failure Acute on Chronic LV Diastolic Heart Failure Influenza A Pneumonia Atrial Fibrillation with RVR s/p mech MVR Aortic Stenosis Pulmonary HTN Acute COPD Exacerbation - although pt arousable with above respiratory acidosis, she reports fatigue and increasing weakness, discussed elective intubation and she agrees - bedside ultrasound showing minimal pleural fluid on right base but rather consolidated lung - will consider CT chest noncontrast when stable - antibiotics to cover health care acquired organisms - complete tamiflu - f/u cultures, send sputum culture when intubated - IV medrol - inhaled bronchodilators - O2 to keep SpO2 >90% - rate control with cardizem gtt - anticoagulation to keep INR 3-3.5 - lasix as needed - enteral feeds when intubated - DVT/GI prophylaxis - ICU monitoring Thank you for this consult Raleigh Sims MD
[2016-07-13] MEDS ORDERED: PROPOFOL 100 ML ONE (14:42)
[2016-07-13] MEDS ORDERED: MIDAZOLAM HCL 5 MG/1 ML Single Dose Vial ONE (14:43)
[2016-07-13] MEDS ORDERED: ALBUTEROL SO4 0.083% IH SOL 2.5 MG/3 ML VIAL.NEB. NEB PRN (14:51)
[2016-07-13] MEDS: PIPERACILLIN/TAZOB 3.375 GM/50 ML PRE-DOCKED IVPB SCH ×2 (14:53→15:33)
[2016-07-13] MEDS: methylPREDNISolone NA SUCC 40 MG/1 ML VIAL IVPB SCH ×2 (14:53→21:20)
[2016-07-13] MEDS ORDERED: ALBUTEROL SO4 0.083% IH SOL 2.5 MG/3 ML VIAL.NEB. NEB ONE (15:24)
--- NOTE | 2016-07-13 15:40 | PROC ---
<Josh Singh - Last Filed: 07/13/16 15:39> Intubation - Intubation Reason for Intubation: Respiratory Failure Time of Intubation: 15:30 Intubation Method: orotracheal Blade used: Glidescope (3 BLADE) Tube Size (cm): 7.5 Tube position @ lip (cm): 21 Tube position confirmed by: Direct visualization, CO2 detector, Chest x-ray, Breath sounds Breath Sounds after Intubation: equal Post Intubation Xray: Yes <Raleigh Sims MD - Last Filed: 07/14/16 10:00> Procedure Note Procedure: I supervised and was present during the entire procedure. Raleigh Sims MD
--- NOTE | 2016-07-13 16:01 | EKG ---
Test Reason : Blood Pressure : / mmHG Vent. Rate : 119 BPM Atrial Rate : 115 BPM P-R Int : 000 ms QRS Dur : 082 ms QT Int : 328 ms P-R-T Axes : 000 -33 105 degrees QTc Int : 461 ms ATRIAL FIBRILLATION WITH RAPID VENTRICULAR RESPONSE LEFT AXIS DEVIATION MINIMAL VOLTAGE CRITERIA FOR LVH, MAY BE NORMAL VARIANT SEPTAL INFARCT (CITED ON OR BEFORE 06-JUL-2016) ABNORMAL ECG WHEN COMPARED WITH ECG OF 06-JUL-2016 23:49, SERIAL CHANGES OF SEPTAL INFARCT PRESENT Confirmed by UMESH IVEY MD ([id number]) on 07/13/2016 4:00:41 PM Referred By: Confirmed By:UMESH IVEY MD
--- NOTE | 2016-07-13 16:08 | PN ---
Progress Note, Physician History of Present Illness: Pt developed right mid and lower lung pneumonia and respiratory failure: transferred to ICU and intubated and placed on Zosyn. - Current Medication List Current Medications: Active Medications Acetaminophen (Tylenol -) 650 mg PO Q4H PRN PRN Reason: FEVER OR PAIN Last Admin: 07/08/16 16:21 Dose: 650 mg Al Hydroxide/Mg Hydroxide (Mylanta Oral Suspension -) 30 ml PO Q12H PRN PRN Reason: DYSPEPSIA Last Admin: 07/13/16 10:08 Dose: 30 ml Albuterol Sulfate (Ventolin 0.083% Nebulizer Soln -) 1 amp NEB Q4H PRN PRN Reason: SHORT OF BREATH/WHEEZING Last Admin: 07/13/16 15:45 Dose: 1 amp Albuterol/Ipratropium (Duoneb -) 1 amp NEB QIDR DARWIN Atorvastatin Calcium (Lipitor -) 10 mg PO HS DARWIN Last Admin: 07/12/16 21:56 Dose: 10 mg Cholecalciferol (Vitamin D3 -) 1,000 unit PO DAILY DARWIN Last Admin: 07/13/16 10:04 Dose: 1,000 unit Diltiazem HCl (Cardizem Injection -) 5 mg IVPUSH Q4H PRN PRN Reason: TACHYCARDIA Diltiazem HCl (Cardizem -) 90 mg PO Q6HPO DARWIN Last Admin: 07/13/16 12:15 Dose: 90 mg Enalapril Maleate (Vasotec -) 20 mg PO DAILY DARWIN Last Admin: 07/13/16 10:03 Dose: 20 mg Guaifenesin (Diabetic Tussin Dm -) 5 ml PO Q6H PRN PRN Reason: COUGH Last Admin: 07/09/16 16:33 Dose: 5 unit Diltiazem HCl 125 mg/ Dextrose 125 mls @ 5 mls/hr IVPB TITR DARWIN; 5 MG/HR PRN Reason: Protocol Last Admin: 07/13/16 13:36 Dose: 10 mls/hr Insulin Aspart (Novolog Vial Sliding Scale -) 1 vial SQ ACHS DARWIN PRN Reason: Protocol Methylprednisolone Sodium Succinate (Solu-Medrol -) 40 mg IVPB Q6H-IV DARWIN Last Admin: 07/13/16 14:53 Dose: 40 mg Mometasone Furoate (Asmanex 220mcg -) 1 puff IH DAILY [facility] Last Admin: 07/13/16 10:05 Dose: 1 puff Multivitamins/Minerals/Vitamin C (Tab-A-Vit -) 1 tab PO DAILY [facility] Last Admin: 07/13/16 10:03 Dose: 1 tab Nystatin (Nystatin Oral Suspension -) 500,000 units PO Q6HPO [facility] Stop: 07/14/16 23:59 Last Admin: 07/13/16 12:55 Dose: Not Given Oseltamivir Phosphate (Tamiflu -) 30 mg PO BID [facility] Stop: 07/14/16 09:59 Last Admin: 07/13/16 10:04 Dose: 30 mg Piperacillin Sod/Tazobactam Sod (Zosyn 3.375gm Ivpb (Pre-Docked)) 3.375 gm IVPB Q8H-IV DARWIN PRN Reason: Protocol Last Admin: 07/13/16 15:33 Dose: 3.375 gm Ranitidine HCl (Zantac -) 150 mg PO BID [facility] Last Admin: 07/13/16 10:04 Dose: 150 mg - Objective Vital Signs: Vital Signs Temperature 97.5 F L 07/13/16 13:43 Pulse Rate 125 H 07/13/16 13:43 Respiratory Rate 20 07/13/16 15:47 Blood Pressure 125/55 07/13/16 13:43 O2 Sat by Pulse Oximetry (%) 95 07/13/16 14:05 Constitutional: Yes: Other (sedated on respirator) HENT: Yes: Atraumatic, Normocephalic Neck: Yes: Supple, Trachea Midline Cardiovascular: Yes: Pulse Irregular, Murmur. No: JVD Respiratory: Yes: Diminished Gastrointestinal: Yes: Soft. No: Tenderness Edema: No Neurological: Yes: Other (sedated) Labs: CBC, BMP 07/13/16 05:35 07/13/16 05:35 INR, PTT INR 6.60 (0.82-1.09) H* 07/13/16 11:15 - ....Imaging Chest X-ray: Report Reviewed, Image Reviewed (right mid and lower lung consolidation) Problem List - Problems (1) Respiratory failure Code(s): J96.90 - RESPIRATORY FAILURE, UNSP, UNSP W HYPOXIA OR HYPERCAPNIA (2) Pneumonia and influenza Code(s): J11.00 - FLU DUE TO UNIDENTIFIED FLU VIRUS W UNSP TYPE OF PNEUMONIA (3) Atrial fibrillation with rapid ventricular response Code(s): I48.91 - UNSPECIFIED ATRIAL FIBRILLATION (4) Bronchial asthma Code(s): J45.909 - UNSPECIFIED ASTHMA, UNCOMPLICATED Qualifiers: Asthma severity: mild intermittent (5) History of mitral valve replacement with mechanical valve Code(s): Z95.2 - PRESENCE OF PROSTHETIC HEART VALVE (6) Aortic stenosis Code(s): I35.0 - NONRHEUMATIC AORTIC (VALVE) STENOSIS Qualifiers: (7) Diabetes mellitus Code(s): E11.9 - TYPE 2 DIABETES MELLITUS WITHOUT COMPLICATIONS Qualifiers: Diabetes mellitus type: type 2 Assessment/Plan Respiratory Failure: pt intubated and placed on respirator Development of pneumonia (HAP) post influenza. Need to cover Staph (in light of hx mitral valve dx and influenza) and other hospital associated organisms CHF Chronic Atrial fibrillation Bronchial Asthma Mechanical MVR Aortic Stenosis NIDDM- INR elevated Suggest: Respirator support Antibiotics Solumedrol Inhaled bronchodilators O2 to maintain SaO2>90 Cardizem Furosemide PRN Monitor INR
[2016-07-13 16:50] LABS: ARTERIAL BLOOD GAS HCO3 29.4 meq/L (22-26)
[2016-07-13 16:51] LABS: ARTERIAL BLOOD GAS pH 7.49 (7.35-7.45)
[2016-07-13 16:52] LABS: ALLENS TEST POSITIVE; ART PUNCT SITE RIGHT RADIAL; LPM/O2% 100; MECH. VENT. ESPRIT; PT. ON O2? YES; TYPE OF O2 OT; VENT RATE 20; VT/PRESS 300
--- NOTE | 2016-07-13 16:52 | PN ---
Progress Note, Physician History of Present Illness: Transferred to ICU with worsening dyspnea Now intubated Afebrile WBC remains elevated CXR shows increasing R basilar infiltrate - Current Medication List Current Medications: Active Medications Acetaminophen (Tylenol -) 650 mg PO Q4H PRN PRN Reason: FEVER OR PAIN Last Admin: 07/08/16 16:21 Dose: 650 mg Al Hydroxide/Mg Hydroxide (Mylanta Oral Suspension -) 30 ml PO Q12H PRN PRN Reason: DYSPEPSIA Last Admin: 07/13/16 10:08 Dose: 30 ml Albuterol Sulfate (Ventolin 0.083% Nebulizer Soln -) 1 amp NEB Q4H PRN PRN Reason: SHORT OF BREATH/WHEEZING Last Admin: 07/13/16 15:45 Dose: 1 amp Albuterol/Ipratropium (Duoneb -) 1 amp NEB QIDR DARWIN Atorvastatin Calcium (Lipitor -) 10 mg PO HS DARWIN Last Admin: 07/12/16 21:56 Dose: 10 mg Cholecalciferol (Vitamin D3 -) 1,000 unit PO DAILY [facility] Last Admin: 07/13/16 10:04 Dose: 1,000 unit Diltiazem HCl (Cardizem Injection -) 5 mg IVPUSH Q4H PRN PRN Reason: TACHYCARDIA Diltiazem HCl (Cardizem -) 90 mg PO Q6HPO [facility]ARWIN Last Admin: 07/13/16 12:15 Dose: 90 mg Enalapril Maleate (Vasotec -) 20 mg PO DAILY [facility] Last Admin: 07/13/16 10:03 Dose: 20 mg Guaifenesin (Diabetic Tussin Dm -) 5 ml PO Q6H PRN PRN Reason: COUGH Last Admin: 07/09/16 16:33 Dose: 5 unit Diltiazem HCl 125 mg/ Dextrose 125 mls @ 5 mls/hr IVPB TITR DARWIN; 5 MG/HR PRN Reason: Protocol Last Admin: 07/13/16 13:36 Dose: 10 mls/hr Vancomycin HCl 1,000 mg/ (Dextrose) 250 mls @ 250 mls/hr IVPB BID DARWIN PRN Reason: Protocol Insulin Aspart (Novolog Vial Sliding Scale -) 1 vial SQ ACHS DARWIN PRN Reason: Protocol Methylprednisolone Sodium Succinate (Solu-Medrol -) 40 mg IVPB Q6H-IV DARWIN Last Admin: 07/13/16 14:53 Dose: 40 mg Mometasone Furoate (Asmanex 220mcg -) 1 puff IH DAILY [facility] Last Admin: 07/13/16 10:05 Dose: 1 puff Multivitamins/Minerals/Vitamin C (Tab-A-Vit -) 1 tab PO DAILY [facility] Last Admin: 07/13/16 10:03 Dose: 1 tab Nystatin (Nystatin Oral Suspension -) 500,000 units PO Q6HPO [facility] Stop: 07/14/16 23:59 Last Admin: 07/13/16 12:55 Dose: Not Given Oseltamivir Phosphate (Tamiflu -) 30 mg PO BID [facility] Stop: 07/14/16 09:59 Last Admin: 07/13/16 10:04 Dose: 30 mg Ranitidine HCl (Zantac -) 150 mg PO BID [facility] Last Admin: 07/13/16 10:04 Dose: 150 mg - Objective Vital Signs: Vital Signs Temperature 97.5 F L 07/13/16 13:43 Pulse Rate 125 H 07/13/16 13:43 Respiratory Rate 20 07/13/16 15:47 Blood Pressure 125/55 07/13/16 13:43 O2 Sat by Pulse Oximetry (%) 95 07/13/16 14:05 Constitutional: Yes: No Distress, Cachectic Eyes: Yes: Conjunctiva Clear Cardiovascular: Yes: Regular Rate and Rhythm, S1, S2 Respiratory: Yes: Mechanically Ventilated Gastrointestinal: Yes: Normal Bowel Sounds, Soft. No: Tenderness Edema: No Labs: CBC, BMP 07/13/16 05:35 07/13/16 05:35 INR, PTT INR 6.60 (0.82-1.09) H* 07/13/16 11:15 Assessment/Plan Respiratory failure Worsening RLL infiltrate Possible post-influenza (possible staph pneumonia) Leukocytosis PCN allergy Reculture Empiric vancomycin/ aztreonam Ventilatory support
[2016-07-13] MEDS: INSULIN SLIDING SCALE (NOVOLOG) 1 VIAL SQ SCH ×2 (17:21→21:38)
[2016-07-13] MEDS: ALBUTEROL SO4 2.5/IPRATROPIUM 0.5 INH SOL 3 ML VIAL.NEB. NEB SCH ×2 (17:30→23:41)
[2016-07-13] MEDS: AZTREONAM 1 GM in DEXTROSE 5%-WATER - 50 ML IVPB SCH (18:21)
[2016-07-13] MEDS ORDERED: dilTIAZem HCL 50 MG/10 ML - 10 ML VIAL IVPUSH PRN (19:01)
[2016-07-13] MEDS ORDERED: MIDAZOLAM HCL 5 MG/1 ML Single Dose Vial IVPUSH ONE (19:07)
[2016-07-13] MEDS ORDERED: PROPOFOL 200 MG/20 ML VIAL IVPUSH ONE (19:07)
[2016-07-13] MEDS: ATORVASTATIN CA 10 MG TABLET (FP) PO SCH (21:36)
[2016-07-13] MEDS ORDERED: VANCOMYCIN 1 GRAM (PRE-DOCKED) 250 ML IVPB SCH (22:00)
[2016-07-14] MEDS: dilTIAZem HCL 30 MG TABLET (FP) PO SCH ×4 (00:24→17:12)
[2016-07-14] MEDS: AZTREONAM 1 GM in DEXTROSE 5%-WATER - 50 ML IVPB SCH ×3 (01:25→17:14)
[2016-07-14] MEDS: methylPREDNISolone NA SUCC 40 MG/1 ML VIAL IVPB SCH ×4 (02:59→21:22)
[2016-07-14] MEDS: ALBUTEROL SO4 2.5/IPRATROPIUM 0.5 INH SOL 3 ML VIAL.NEB. NEB SCH ×3 (06:15→18:51)
[2016-07-14] MEDS: NYSTATIN 500,000 UNITS/5 ML SUSPENSION PO SCH ×4 (06:39→17:13)
[2016-07-14 06:41] LABS: MCH 26.1 pg (25.7-33.7); MCHC 32.7 g/dl (32.0-36.0); MEAN CELL VOLUME 79.8 fl (80-96); MEAN PLT VOLUME 9.1 fl (7.5-11.1); NEUTROPHILS 91.2 % (42.8-82.8); PLATELET COUNT 151 K/MM3 (134-434); RDW 16.2 % (11.6-15.6); WHITE BLOOD COUNT 11.4 K/mm3 (4.0-10.0)
[2016-07-14 07:00] LABS: PROTHROMBIN TIME (PATIENT) 52.9 SEC (9.98-11.88)
[2016-07-14 07:02] LABS: ACTIVATED PTT 46.2 SECONDS (26.9-34.4)
[2016-07-14] MEDS: INSULIN SLIDING SCALE (NOVOLOG) 1 VIAL SQ SCH ×4 (07:05→21:31)
[2016-07-14 07:09] LABS: ALBUMIN 2.3 g/dl (3.4-5.0); ALK PHOS 59 U/L (45-117); ANION GAP 9 (8-16); BILIRUBIN,TOTAL 1.5 mg/dL (0.2-1.0); CALCIUM 7.7 mg/dL (8.5-10.1); CO2 33 mmol/L (21-32); CREATININE 0.7 mg/dL (0.55-1.02); GLUCOSE,RANDOM 189 mg/dL (74-106); PHOSPHOROUS 2.4 mg/dL (2.5-4.9); SGOT/AST 32 U/L (15-37); SGPT/ALT 34 U/L (12-78); TOT PROT 4.7 g/dl (6.4-8.2)
--- NOTE | 2016-07-14 07:42 | PN ---
Physical Exam: SUBJECTIVE: Patient seen and examined at bedside in ICU. Intubated. Patient is fully awake and communicating in writing. Complains of mouth pain. OBJECTIVE: Vital Signs Period Temp Pulse Resp BP Sys/Gold Pulse Ox Last 24 Hr 97.5 F-99.0 F 63-125 14-20 86-133/43-67 88-100 GENERAL: The patient is awake, alert, and fully oriented, in no acute distress. Intubated, communicating clearly in writing. HEAD: Normal with no signs of trauma. EYES: PERRL, extraocular movements intact, sclera anicteric, conjunctiva clear. No ptosis. LUNGS: Anterior breath sounds CTA. HEART: Irregular. + murmur ABDOMEN: Soft, nontender, nondistended, normoactive bowel sounds, no guarding, no rebound EXTREMITIES: 2+ pulses, warm, well-perfused, no edema. NEUROLOGICAL: Cranial nerves II through XII grossly intact. Laboratory Results - last 24 hr 07/13/16 07/13/16 07/13/16 11:00 11:15 14:15 WBC RBC Hgb Hct MCV MCHC RDW Plt Count MPV Neutrophils % Lymphocytes % Monocytes % Eosinophils % Basophils % INR 6.60 H* Puncture Site Right radial ABG pH 7.26 L ABG pCO2 at Pt Temp 75.7 H* ABG pO2 at Pt Temp 78.7 ABG HCO3 33.0 H ABG O2 Sat (Measured) 92.3 ABG O2 Content 13.3 L ABG Base Excess 4.7 H Raciel Test Positive O2 Delivery Device Bipap Oxygen Flow Rate 100% Vent Mode S/t Vent Rate 14 Mechanical Rate Bipap PEEP 0.0 Pressure Support Vent Ipap 15/ epap 8 Sodium Potassium Chloride Carbon Dioxide Anion Gap BUN Creatinine Creat Clearance w eGFR Random Glucose Calcium Phosphorus Magnesium Total Bilirubin AST ALT Alkaline Phosphatase Total Protein Albumin Urine Color Yellow Urine Appearance Clear Urine pH 5.0 Ur Specific [place] 1.013 Urine Protein Negative Urine Glucose (UA) 3+ H D Urine Ketones Trace H Urine Blood 2+ H Urine Nitrite Negative Urine Bilirubin Negative Urine Urobilinogen Negative Ur Leukocyte Esterase Negative Urine RBC <1 Urine WBC 1 Hyaline Casts 18 Granular Casts 4 Urine Mucus Rare 07/13/16 07/14/16 07/14/16 16:40 05:35 05:35 WBC 11.4 H RBC 3.37 L Hgb 8.8 L D Hct 26.9 L MCV 79.8 L MCHC 32.7 RDW 16.2 H Plt Count 151 MPV 9.1 Neutrophils % 91.2 H Lymphocytes % 3.8 L D Monocytes % 5.0 Eosinophils % 0.0 Basophils % 0.0 INR Puncture Site Right radial ABG pH 7.49 H D ABG pCO2 at Pt Temp 38.7 D ABG pO2 at Pt Temp 346.0 H* D ABG HCO3 29.4 H ABG O2 Sat (Measured) 100.0 H* ABG O2 Content 12.3 L ABG Base Excess 6.0 H Raciel Test Positive O2 Delivery Device Ot Oxygen Flow Rate 100 Vent Mode Ac Vent Rate 20 Mechanical Rate Esprit PEEP 0.0 Pressure Support Vent 300 Sodium 137 Potassium 3.7 Chloride 95 L Carbon Dioxide 33 H Anion Gap 9 BUN 26 H D Creatinine 0.7 D Creat Clearance w eGFR > 60 Random Glucose 189 H Calcium 7.7 L Phosphorus 2.4 L Magnesium 2.0 Total Bilirubin 1.5 H AST 32 D ALT 34 D Alkaline Phosphatase 59 Total Protein 4.7 L D Albumin 2.3 L D Urine Color Urine Appearance Urine pH Ur Specific [place] Urine Protein Urine Glucose (UA) Urine Ketones Urine Blood Urine Nitrite Urine Bilirubin Urine Urobilinogen Ur Leukocyte Esterase Urine RBC Urine WBC Hyaline Casts Granular Casts Urine Mucus Active Medications Generic Name Dose Route Start Last Admin Trade Name Freq PRN Reason Stop Dose Admin Acetaminophen 650 mg 07/07/16 17:15 07/08/16 16:21 Tylenol - PO 650 mg Q4H PRN Administration FEVER OR PAIN Al Hydroxide/Mg Hydroxide 30 ml 07/09/16 20:39 07/13/16 10:08 Mylanta Oral Suspension - PO 30 ml Q12H PRN Administration DYSPEPSIA Albuterol Sulfate 1 amp 07/13/16 14:51 07/13/16 15:45 Ventolin 0.083% Nebulizer Soln - NEB 1 amp Q4H PRN Administration SHORT OF BREATH/WHEEZING Albuterol/Ipratropium 1 amp 07/13/16 18:00 07/14/16 06:15 Duoneb - NEB 1 amp QIDR DARWIN Administration Atorvastatin Calcium 10 mg 07/07/16 22:00 07/13/16 21:36 Lipitor - PO 10 mg HS DARWIN Administration Cholecalciferol 1,000 unit 07/07/16 10:00 07/13/16 10:04 Vitamin D3 - PO 1,000 unit DAILY DARWIN Administration Diltiazem HCl 90 mg 07/11/16 12:00 07/14/16 06:39 Cardizem - PO Not Given Q6HPO DARWIN Diltiazem HCl 10 mg 07/13/16 19:01 Cardizem Injection - IVPUSH Q4H PRN TACHYCARDIA Enalapril Maleate 20 mg 07/07/16 14:30 07/13/16 10:03 Vasotec - PO 20 mg DAILY DARWIN Administration Guaifenesin 5 ml 07/08/16 13:17 07/09/16 16:33 Diabetic Tussin Dm - PO 5 unit Q6H PRN Administration COUGH Diltiazem HCl 125 mg/ Dextrose 125 mls @ 5 mls/hr 07/13/16 13:30 07/13/16 13:36 IVPB 10 mls/hr TITR DARWIN Administration Protocol 5 MG/HR Vancomycin HCl 250 mls @ 250 mls/hr 07/13/16 22:00 07/13/16 21:20 Vancomycin (Pre-Docked) IVPB 250 mls/hr BID DARWIN Administration Protocol Aztreonam 1 gm/ Dextrose 50 mls @ 100 mls/hr 07/13/16 18:00 07/14/16 01:25 IVPB 100 mls/hr Q8H-IV DARWIN Administration Protocol Insulin Aspart 1 vial 07/13/16 16:30 07/14/16 07:05 Novolog Vial Sliding Scale - SQ 4 units ACHS DARWIN Administration Protocol Methylprednisolone Sodium Succinate 40 mg 07/13/16 15:00 07/14/16 02:59 Solu-Medrol - IVPB 40 mg Q6H-IV DARWIN Administration Mometasone Furoate 1 puff 07/08/16 10:00 07/13/16 10:05 Asmanex 220mcg - IH 1 puff DAILY DARWIN Administration Multivitamins/Minerals/Vitamin C 1 tab 07/07/16 10:00 07/13/16 10:03 Tab-A-Vit - PO 1 tab DAILY DARWIN Administration Nystatin 500,000 units 07/12/16 16:31 07/14/16 06:39 Nystatin Oral Suspension - PO 07/14/16 23:59 500,000 units Q6HPO DARWIN Administration Ranitidine HCl 150 mg 07/12/16 22:00 07/13/16 21:37 Zantac - PO 150 mg BID DARWIN Administration ASSESSMENT/PLAN: Imagin05/23/2016 Echo: Normal LV size with mildly decreased LV fxn, mech MV replacement, mild TR, RVSP 30-40 mmHg, AV not well seen 07/07/2016 Echo: Normal LV size and function, mechanical MV replacement, mild to moderate TR, RSVP 30-40mmHg, aortic valve not assessed ASSESSMENT/PLAN: 81 year-old female with a PMH of HTN, permanent A fib, rheumatic heart disease, aortic valve stenosis, mechanical MV replacement, CVA, DM II, asthma, vertigo, inner ear nerve degeneration, and basal cell carcinoma (left nares) admitted for afib with RVR and found to have Influenza A. Hospital course complicated by acute hypoxic and hypercapnic respiratory failure requiring intubation and HAP. Acute hypoxic and hypercapnic respiratory failure --weaning trials Influenza A --completed course of Tamiflu Hospital acquired pneumonia --continue aztreonam (day #2) and vanc (day #2) --sputum culture ordered Afib with RVR Mechanical MV --rate to 100s --lopressor BID started --wean diltiazem drip --INR supratherapeutic 4.66; hold coumadin dose tonight; goal 3.0-->3.5 --will need outpatient followup KRISTI to assess AV pathology Diastolic heart failure --continue enalapril, cardizem, lasix Asthma --continue nebs, inhalers --per pulm, continue IV steroids Lactic acidosis, resolved NIDDM --insulin sliding scale coverage Oral thrush --nystatin s&s Severe malnutrition in the context of chronic illness --prolonged inadequate nutrient intake, as evidenced by 60% low end DBW --observed clavicular muscle wasting --temporal muscle wasting --prominent brow with hollow/sunken eyes F/E/N Electrolytes: replete as indicated Nutrition: start Vital 1.2 @ 20cc/hr, increase 10cc q12h to goal 40cc/hr DVT Prophylaxis: INR supratherapeutic, continue to hold coumadin Rehab PT eval Daily PT Dispo: continues to require inpatient care. Full Code. Visit type - Emergency Visit Emergency Visit: Yes ED Registration Date: 07/09/16 Care time: The patient presented to the Emergency Department on the above date and was hospitalized for further evaluation of their emergent condition. - New Patient This patient is new to me today: No - Critical Care Critical Care patient: Yes Total Critical Care Time (in minutes): 45 Critical Care Statement: The care of this patient involved high complexity decision making to prevent further life threatening deterioration of the patient 's condition and/or to evalute & treat vital organ system(s) failure or risk of failure.
--- NOTE | 2016-07-14 08:11 | PN ---
Progress Note, Physician Chief Complaint: ID Intubated after refent influenza illness Vancomcyin Aztreonam due to allergy history day 1 Rx - Current Medication List Current Medications: Active Medications Acetaminophen (Tylenol -) 650 mg PO Q4H PRN PRN Reason: FEVER OR PAIN Last Admin: 07/08/16 16:21 Dose: 650 mg Al Hydroxide/Mg Hydroxide (Mylanta Oral Suspension -) 30 ml PO Q12H PRN PRN Reason: DYSPEPSIA Last Admin: 07/13/16 10:08 Dose: 30 ml Albuterol Sulfate (Ventolin 0.083% Nebulizer Soln -) 1 amp NEB Q4H PRN PRN Reason: SHORT OF BREATH/WHEEZING Last Admin: 07/13/16 15:45 Dose: 1 amp Albuterol/Ipratropium (Duoneb -) 1 amp NEB QIDR DARWIN Last Admin: 07/14/16 06:15 Dose: 1 amp Atorvastatin Calcium (Lipitor -) 10 mg PO HS DARWIN Last Admin: 07/13/16 21:36 Dose: 10 mg Cholecalciferol (Vitamin D3 -) 1,000 unit PO DAILY [facility] Last Admin: 07/13/16 10:04 Dose: 1,000 unit Diltiazem HCl (Cardizem -) 90 mg PO Q6HPO [facility]WIN Last Admin: 07/14/16 06:39 Dose: Not Given Diltiazem HCl (Cardizem Injection -) 10 mg IVPUSH Q4H PRN PRN Reason: TACHYCARDIA Enalapril Maleate (Vasotec -) 20 mg PO DAILY [facility] Last Admin: 07/13/16 10:03 Dose: 20 mg Guaifenesin (Diabetic Tussin Dm -) 5 ml PO Q6H PRN PRN Reason: COUGH Last Admin: 07/09/16 16:33 Dose: 5 unit Diltiazem HCl 125 mg/ Dextrose 125 mls @ 5 mls/hr IVPB TITR DARWIN; 5 MG/HR PRN Reason: Protocol Last Admin: 07/13/16 13:36 Dose: 10 mls/hr Vancomycin HCl (Vancomycin (Pre-Docked)) 250 mls @ 250 mls/hr IVPB BID DARWIN PRN Reason: Protocol Last Admin: 07/13/16 21:20 Dose: 250 mls/hr Aztreonam 1 gm/ Dextrose 50 mls @ 100 mls/hr IVPB Q8H-IV DARWIN PRN Reason: Protocol Last Admin: 07/14/16 01:25 Dose: 100 mls/hr Insulin Aspart (Novolog Vial Sliding Scale -) 1 vial SQ ACHS DARWIN PRN Reason: Protocol Last Admin: 07/14/16 07:05 Dose: 4 units Methylprednisolone Sodium Succinate (Solu-Medrol -) 40 mg IVPB Q6H-IV [facility]ARWIN Last Admin: 07/14/16 02:59 Dose: 40 mg Mometasone Furoate (Asmanex 220mcg -) 1 puff IH DAILY [facility] Last Admin: 07/13/16 10:05 Dose: 1 puff Multivitamins/Minerals/Vitamin C (Tab-A-Vit -) 1 tab PO DAILY [facility] Last Admin: 07/13/16 10:03 Dose: 1 tab Nystatin (Nystatin Oral Suspension -) 500,000 units PO Q6HPO [facility] Stop: 07/14/16 23:59 Last Admin: 07/14/16 06:39 Dose: 500,000 units Ranitidine HCl (Zantac -) 150 mg PO BID [facility] Last Admin: 07/13/16 21:37 Dose: 150 mg - Objective Vital Signs: Vital Signs Temperature 99.0 F 07/14/16 06:00 Pulse Rate 109 H 07/14/16 06:00 Respiratory Rate 17 07/14/16 06:00 Blood Pressure 111/55 07/14/16 06:00 O2 Sat by Pulse Oximetry (%) 100 07/13/16 21:00 Constitutional: Yes: Thin, Other (INtubated) Cardiovascular: Yes: Pulse Irregular, S1, S2 Respiratory: Yes: Rales, Rhonchi Gastrointestinal: Yes: WNL, Normal Bowel Sounds, Soft Edema: No Labs: CBC, BMP 07/14/16 05:35 07/14/16 05:35 INR, PTT INR 6.60 (0.82-1.09) H* 07/13/16 11:15 Problem List - Problems (1) Atrial fibrillation with rapid ventricular response Code(s): I48.91 - UNSPECIFIED ATRIAL FIBRILLATION (2) Pneumonia due to virus Code(s): J12.9 - VIRAL PNEUMONIA, UNSPECIFIED (3) Influenza A Code(s): J10.1 - FLU DUE TO OTH IDENT INFLUENZA VIRUS W OTH RESP MANIFEST (4) H/O mitral valve replacement Code(s): Z95.2 - PRESENCE OF PROSTHETIC HEART VALVE Assessment/Plan Microbiology 07/08/16 17:10 Blood - Peripheral Venous Blood Culture - Final NO GROWTH AFTER 5 DAYS INCUBATION 07/08/16 17:10 Blood - Peripheral Venous Blood Culture - Final NO GROWTH AFTER 5 DAYS INCUBATION 07/08/16 17:00 Nasopharyngeal Swab Influenza Types A,B Antigen (WINNIE) - Final 07/08/16 17:00 Nasopharyngeal Swab - Final Laboratory Tests 07/13/16 07/13/16 07/14/16 05:35 11:15 05:35 WBC 15.8 H 11.4 H Hgb 8.8 L D Hct 26.9 L Plt Count 151 INR 6.60 H* Creatinine 07/14/16 05:35 WBC Hgb Hct Plt Count INR Creatinine 0.7 D Assessment Respiratory Failure Pneumonia following hospitalization for the FLU ? secondary bacterial PNA vs HAP Mechanical mitral vlave for Mitral stenosis Atrial fibrillation Plan Continue vanco and aztreonam but lower the vanco dose 750 daily Sputum c/s Stop Isolation Clarisa [facility]
[2016-07-14 08:19] LABS: INR 4.66 (0.82-1.09)
[2016-07-14] MEDS: RANITIDINE HCL 150 MG TABLET (FP) PO SCH ×2 (09:33→21:22)
[2016-07-14] MEDS: CHOLECALCIFEROL (VITAMIN D3) 1,000 UNIT TABLET (FP) PO SCH (09:33)
[2016-07-14] MEDS: ENALAPRIL MALEATE 10 MG TABLET (FP) PO SCH (09:33)
[2016-07-14] MEDS: MULTIVITAMINS (DAILY MVI) TABLET (FP) PO SCH (09:36)
[2016-07-14] MEDS: VANCOMYCIN 750 MG in DEXTROSE 5%-WATER - 250 ML IVPB SCH (10:37)
--- NOTE | 2016-07-14 10:51 | PN ---
Progress Note, MANAGER NIGHT - Note Progress Note: Respiratory failure, now intubated. Awake, calm, o x 3. right mid and lower lung pneumonia c/o dysphagia, diet had been downgraded yesterday. Offered pt communication board but she has been writing and is communicating well. REC: Once extubated, may need MBS to further assess swallowing function. Hospital holiday on Sunday. Bedside evaluation can be done Sunday, but MBS availability in Radiology not until Sunday. My concern was thin liquid tolerance yesterday.
[2016-07-14] MEDS: MOMETASONE FUROATE 220 MCG/IH INHALER IH SCH (11:44)
--- NOTE | 2016-07-14 12:46 | PN ---
Teaching Attending Note Name of Resident: Josh Singh ATTENDING PHYSICIAN STATEMENT I saw and evaluated the patient. I reviewed the resident's note and discussed the case with the resident. I agree with the resident's findings and plan as documented. SUBJECTIVE: Patient seen and examined in the ICU. Awake and alert on AC mode of vent 60% FiO2. No pressors. Rapid AFib Intake & Output 07/11/16 07/12/16 07/13/16 07/14/16 23:59 23:59 23:59 23:59 Intake Total 550 1690 80 Output Total 1400 300 Balance 550 290 -220 Weight 72 lb 6 oz 69 lb 6 oz Last Vital Signs Temp Pulse Resp BP Pulse Ox 97.8 F 111 H 18 108/53 100 07/14/16 10:00 07/14/16 12:00 07/14/16 12:00 07/14/16 12:00 07/14/16 09:00 Active Medications Acetaminophen (Tylenol -) 650 mg PO Q4H PRN PRN Reason: FEVER OR PAIN Last Admin: 07/08/16 16:21 Dose: 650 mg Al Hydroxide/Mg Hydroxide (Mylanta Oral Suspension -) 30 ml PO Q12H PRN PRN Reason: DYSPEPSIA Last Admin: 07/13/16 10:08 Dose: 30 ml Albuterol Sulfate (Ventolin 0.083% Nebulizer Soln -) 1 amp NEB Q4H PRN PRN Reason: SHORT OF BREATH/WHEEZING Last Admin: 07/13/16 15:45 Dose: 1 amp Albuterol/Ipratropium (Duoneb -) 1 amp NEB QIDR [facility] Last Admin: 07/14/16 11:43 Dose: 1 amp Atorvastatin Calcium (Lipitor -) 10 mg PO HS [facility] Last Admin: 07/13/16 21:36 Dose: 10 mg Cholecalciferol (Vitamin D3 -) 1,000 unit PO DAILY [facility] Last Admin: 07/14/16 09:33 Dose: 1,000 unit Diltiazem HCl (Cardizem -) 90 mg PO Q6HPO [facility] Last Admin: 07/14/16 11:47 Dose: Not Given Diltiazem HCl (Cardizem Injection -) 10 mg IVPUSH Q4H PRN PRN Reason: TACHYCARDIA Enalapril Maleate (Vasotec -) 20 mg PO DAILY [facility] Last Admin: 07/14/16 09:33 Dose: 20 mg Guaifenesin (Diabetic Tussin Dm -) 5 ml PO Q6H PRN PRN Reason: COUGH Last Admin: 07/09/16 16:33 Dose: 5 unit Diltiazem HCl 125 mg/ Dextrose 125 mls @ 5 mls/hr IVPB TITR [facility]; 5 MG/HR PRN Reason: Protocol Last Titration: 07/14/16 11:45 Dose: 5 mg/hr Aztreonam 1 gm/ Dextrose 50 mls @ 100 mls/hr IVPB Q8H-IV [facility] PRN Reason: Protocol Last Admin: 07/14/16 09:34 Dose: 100 mls/hr Vancomycin HCl 750 mg/ (Dextrose) 250 mls @ 250 mls/hr IVPB DAILY [facility] PRN Reason: Protocol Last Admin: 07/14/16 10:37 Dose: 250 mls/hr Insulin Aspart (Novolog Vial Sliding Scale -) 1 vial SQ ACHS [facility] PRN Reason: Protocol Last Admin: 07/14/16 11:40 Dose: 4 units Methylprednisolone Sodium Succinate (Solu-Medrol -) 40 mg IVPB Q6H-IV [facility] Last Admin: 07/14/16 09:33 Dose: 40 mg Mometasone Furoate (Asmanex 220mcg -) 1 puff IH DAILY [facility] Last Admin: 07/14/16 11:44 Dose: Not Given Multivitamins/Minerals/Vitamin C (Tab-A-Vit -) 1 tab PO DAILY [facility] Last Admin: 07/14/16 09:36 Dose: 1 tab Nystatin (Nystatin Oral Suspension -) 500,000 units PO Q6HPO [facility] Stop: 07/14/16 23:59 Last Admin: 07/14/16 11:50 Dose: 500,000 units Ranitidine HCl (Zantac -) 150 mg PO BID [facility] Last Admin: 07/14/16 09:33 Dose: 150 mg Gen:Awake on AC Mode Heart: tachycardic, irregular, mech click at base Lung: distant breath sounds, bronchial breath sounds right base Abd: soft, nontender Ext: no edema Laboratory Results - last 24 hr 07/13/16 07/13/16 07/13/16 11:00 14:15 16:40 WBC RBC Hgb Hct MCV MCHC RDW Plt Count MPV Neutrophils % Lymphocytes % Monocytes % Eosinophils % Basophils % INR PTT (Actin FS) Puncture Site Right radial Right radial ABG pH 7.26 L 7.49 H D ABG pCO2 at Pt Temp 75.7 H* 38.7 D ABG pO2 at Pt Temp 78.7 346.0 H* D ABG HCO3 33.0 H 29.4 H ABG O2 Sat (Measured) 92.3 100.0 H* ABG O2 Content 13.3 L 12.3 L ABG Base Excess 4.7 H 6.0 H Raciel Test Positive Positive O2 Delivery Device Bipap Ot Oxygen Flow Rate 100% 100 Vent Mode S/t Ac Vent Rate 14 20 Mechanical Rate Bipap Esprit PEEP 0.0 0.0 Pressure Support Vent Ipap 15/ epap 8 300 Sodium Potassium Chloride Carbon Dioxide Anion Gap BUN Creatinine Creat Clearance w eGFR Random Glucose Calcium Phosphorus Magnesium Total Bilirubin AST ALT Alkaline Phosphatase Total Protein Albumin Urine Color Yellow Urine Appearance Clear Urine pH 5.0 Ur Specific [place] 1.013 Urine Protein Negative Urine Glucose (UA) 3+ H D Urine Ketones Trace H Urine Blood 2+ H Urine Nitrite Negative Urine Bilirubin Negative Urine Urobilinogen Negative Ur Leukocyte Esterase Negative Urine RBC <1 Urine WBC 1 Hyaline Casts 18 Granular Casts 4 Urine Mucus Rare 07/14/16 07/14/16 07/14/16 05:35 05:35 05:35 WBC 11.4 H RBC 3.37 L Hgb 8.8 L D Hct 26.9 L MCV 79.8 L MCHC 32.7 RDW 16.2 H Plt Count 151 MPV 9.1 Neutrophils % 91.2 H Lymphocytes % 3.8 L D Monocytes % 5.0 Eosinophils % 0.0 Basophils % 0.0 INR 4.66 H* PTT (Actin FS) 46.2 H D Puncture Site ABG pH ABG pCO2 at Pt Temp ABG pO2 at Pt Temp ABG HCO3 ABG O2 Sat (Measured) ABG O2 Content ABG Base Excess Raciel Test O2 Delivery Device Oxygen Flow Rate Vent Mode Vent Rate Mechanical Rate PEEP Pressure Support Vent Sodium 137 Potassium 3.7 Chloride 95 L Carbon Dioxide 33 H Anion Gap 9 BUN 26 H D Creatinine 0.7 D Creat Clearance w eGFR > 60 Random Glucose 189 H Calcium 7.7 L Phosphorus 2.4 L Magnesium 2.0 Total Bilirubin 1.5 H AST 32 D ALT 34 D Alkaline Phosphatase 59 Total Protein 4.7 L D Albumin 2.3 L D Urine Color Urine Appearance Urine pH Ur Specific [place] Urine Protein Urine Glucose (UA) Urine Ketones Urine Blood Urine Nitrite Urine Bilirubin Urine Urobilinogen Ur Leukocyte Esterase Urine RBC Urine WBC Hyaline Casts Granular Casts Urine Mucus CXR: Improving RLL ASSESSMENT AND PLAN: Acute on Chronic Hypoxic and Hypercapneic Respiratory Failure Acute on Chronic LV Diastolic Heart Failure Influenza A Pneumonia Atrial Fibrillation with RVR s/p mech MVR Aortic Stenosis Pulmonary HTN Acute COPD Exacerbation - Wean trials as tolerated - antibiotics to cover health care acquired organisms - complete tamiflu - IV medrol - inhaled bronchodilators - O2 to keep SpO2 >90% - Needs better rate control -> Will D/W cardiology - anticoagulation to keep INR 3-3.5 - lasix as needed - enteral feeds when intubated - DVT/GI prophylaxis - ICU monitoring Dr Alegria CCTime 35"
[2016-07-14] MEDS: METOPROLOL TARTRATE 50 MG TABLET (FP) PO SCH ×2 (12:54→21:22)
--- NOTE | 2016-07-14 13:26 | PN ---
Physical Exam: SUBJECTIVE: Patient seen and examined at bedside in ICU. AAO and communicated via pen & paper. States she is feeling well but is uncomfortable with the tube in her throat. Afebrile overnight with stable blood pressure without fluids or pressors. Hearty rate irregular and elevated to 120's. Failed weaning trial this afternoon, RR up to low 40's with poor tidal volumes. OBJECTIVE: Vital Signs Period Temp Pulse Resp BP Sys/Gold Pulse Ox Last 24 Hr 97.5 F-99.0 F 63-125 14-21 50-125/30-67 94-100 GENERAL: Intubated but not sedated. Resting comfortably in bed. Cachectic HEENT: Atraumatic, EOMI, PERRLA, No lymphadenopathy noted. Dry mucous membranes. LUNGS: Crackles noted at bilateral lung bases. No wheezing or stridor noted. HEART: Irregular, tachycardic to 130, Grade 3/6 systolic murmur. Notable MV "Click". ABDOMEN: Soft, nontender, not distended, normoactive bowel sounds EXTREMITIES: 2+ pulses, warm, well-perfused. No peripheral edema. Moderate upper and lower extremity muscle atrophy. PSYCHIATRIC: Cooperative. Good eye contact. Appropriate mood and affect. SKIN: Warm, dry, normal turgor, no rashes or lesions noted. Laboratory Results - last 24 hr 07/13/16 07/13/16 07/13/16 11:00 14:15 16:40 WBC RBC Hgb Hct MCV MCHC RDW Plt Count MPV Neutrophils % Lymphocytes % Monocytes % Eosinophils % Basophils % INR PTT (Actin FS) Puncture Site Right radial Right radial ABG pH 7.26 L 7.49 H D ABG pCO2 at Pt Temp 75.7 H* 38.7 D ABG pO2 at Pt Temp 78.7 346.0 H* D ABG HCO3 33.0 H 29.4 H ABG O2 Sat (Measured) 92.3 100.0 H* ABG O2 Content 13.3 L 12.3 L ABG Base Excess 4.7 H 6.0 H Raciel Test Positive Positive O2 Delivery Device Bipap Ot Oxygen Flow Rate 100% 100 Vent Mode S/t Ac Vent Rate 14 20 Mechanical Rate Bipap Esprit PEEP 0.0 0.0 Pressure Support Vent Ipap 15/ epap 8 300 Sodium Potassium Chloride Carbon Dioxide Anion Gap BUN Creatinine Creat Clearance w eGFR Random Glucose Calcium Phosphorus Magnesium Total Bilirubin AST ALT Alkaline Phosphatase Total Protein Albumin Urine Color Yellow Urine Appearance Clear Urine pH 5.0 Ur Specific [place] 1.013 Urine Protein Negative Urine Glucose (UA) 3+ H D Urine Ketones Trace H Urine Blood 2+ H Urine Nitrite Negative Urine Bilirubin Negative Urine Urobilinogen Negative Ur Leukocyte Esterase Negative Urine RBC <1 Urine WBC 1 Hyaline Casts 18 Granular Casts 4 Urine Mucus Rare 07/14/16 07/14/16 07/14/16 05:35 05:35 05:35 WBC 11.4 H RBC 3.37 L Hgb 8.8 L D Hct 26.9 L MCV 79.8 L MCHC 32.7 RDW 16.2 H Plt Count 151 MPV 9.1 Neutrophils % 91.2 H Lymphocytes % 3.8 L D Monocytes % 5.0 Eosinophils % 0.0 Basophils % 0.0 INR 4.66 H* PTT (Actin FS) 46.2 H D Puncture Site ABG pH ABG pCO2 at Pt Temp ABG pO2 at Pt Temp ABG HCO3 ABG O2 Sat (Measured) ABG O2 Content ABG Base Excess Raciel Test O2 Delivery Device Oxygen Flow Rate Vent Mode Vent Rate Mechanical Rate PEEP Pressure Support Vent Sodium 137 Potassium 3.7 Chloride 95 L Carbon Dioxide 33 H Anion Gap 9 BUN 26 H D Creatinine 0.7 D Creat Clearance w eGFR > 60 Random Glucose 189 H Calcium 7.7 L Phosphorus 2.4 L Magnesium 2.0 Total Bilirubin 1.5 H AST 32 D ALT 34 D Alkaline Phosphatase 59 Total Protein 4.7 L D Albumin 2.3 L D Urine Color Urine Appearance Urine pH Ur Specific [place] Urine Protein Urine Glucose (UA) Urine Ketones Urine Blood Urine Nitrite Urine Bilirubin Urine Urobilinogen Ur Leukocyte Esterase Urine RBC Urine WBC Hyaline Casts Granular Casts Urine Mucus Active Medications Generic Name Dose Route Start Last Admin Trade Name Freq PRN Reason Stop Dose Admin Acetaminophen 650 mg 07/07/16 17:15 07/08/16 16:21 Tylenol - PO 650 mg Q4H PRN Administration FEVER OR PAIN Al Hydroxide/Mg Hydroxide 30 ml 07/09/16 20:39 07/13/16 10:08 Mylanta Oral Suspension - PO 30 ml Q12H PRN Administration DYSPEPSIA Albuterol Sulfate 1 amp 07/13/16 14:51 07/13/16 15:45 Ventolin 0.083% Nebulizer Soln - NEB 1 amp Q4H PRN Administration SHORT OF BREATH/WHEEZING Albuterol/Ipratropium 1 amp 07/13/16 18:00 07/14/16 11:43 Duoneb - NEB 1 amp QIDR [facility] Administration Atorvastatin Calcium 10 mg 07/07/16 22:00 07/13/16 21:36 Lipitor - PO 10 mg HS [facility] Administration Cholecalciferol 1,000 unit 07/07/16 10:00 07/14/16 09:33 Vitamin D3 - PO 1,000 unit DAILY [facility] Administration Diltiazem HCl 90 mg 07/11/16 12:00 07/14/16 11:47 Cardizem - PO Not Given Q6HPO [facility] Diltiazem HCl 10 mg 07/13/16 19:01 Cardizem Injection - IVPUSH Q4H PRN TACHYCARDIA Enalapril Maleate 20 mg 07/07/16 14:30 07/14/16 09:33 Vasotec - PO 20 mg DAILY [facility] Administration Guaifenesin 5 ml 07/08/16 13:17 07/09/16 16:33 Diabetic Tussin Dm - PO 5 unit Q6H PRN Administration COUGH Diltiazem HCl 125 mg/ Dextrose 125 mls @ 5 mls/hr 07/13/16 13:30 07/14/16 11:45 IVPB 5 mg/hr TITR [facility] Titration Protocol 5 MG/HR Aztreonam 1 gm/ Dextrose 50 mls @ 100 mls/hr 07/13/16 18:00 07/14/16 09:34 IVPB 100 mls/hr Q8H-IV [facility] Administration Protocol Vancomycin HCl 750 mg/ 250 mls @ 250 mls/hr 07/14/16 10:00 07/14/16 10:37 Dextrose IVPB 250 mls/hr DAILY [facility] Administration Protocol Insulin Aspart 1 vial 07/13/16 16:30 07/14/16 11:40 Novolog Vial Sliding Scale - SQ 4 units ACHS [facility] Administration Protocol Methylprednisolone Sodium Succinate 40 mg 07/13/16 15:00 07/14/16 09:33 Solu-Medrol - IVPB 40 mg Q6H-IV [facility] Administration Metoprolol Tartrate 50 mg 07/14/16 13:00 07/14/16 12:54 Lopressor - PO 50 mg BID [facility] Administration Mometasone Furoate 1 puff 07/08/16 10:00 07/14/16 11:44 Asmanex 220mcg - IH Not Given DAILY [facility] Multivitamins/Minerals/Vitamin C 1 tab 07/07/16 10:00 07/14/16 09:36 Tab-A-Vit - PO 1 tab DAILY [facility] Administration Nystatin 500,000 units 07/12/16 16:31 07/14/16 11:50 Nystatin Oral Suspension - PO 07/14/16 23:59 500,000 units Q6HPO [facility] Administration Ranitidine HCl 150 mg 07/12/16 22:00 07/14/16 09:33 Zantac - PO 150 mg BID [facility] Administration ASSESSMENT/PLAN: 81 year old female with significant PMH of A-Fib, HTN, Rheumatic HD, Aortic stenosis, MV replacement, CVA, COPD who was admitted for A-Fib with RVR. Also found in have (+) Influenza A in setting of Acute COPD exacerbation. Presented to ICU for acute hypoxic respiratory failure requiring BiPAP. #Acute Hypoxic Respiratory Failure in setting of Influenza A, COPD exacerbation , Acute on Chronic diastolic CHF exacerbation -intubated but not sedated -weaning trial again tomorrow -Continue Spiriva, Asmanex, Robitussin, Duonebs, Albuterol -Solumedrol 40mg q6h -vancomycin/aztreonam for RLL Pneumonia (post-influenza strep?) -ID following -Pulmonary following #Acute on Chronic Diastolic Heart Failure -Continue Enalapril 20qd -strict I & O -daily weights -f/u CXR in AM (improved right airspace disease on today's CXR) #Atrial Fibrillation, with RVR -restarted Lopressor 50mg BID -Cardizem drip 2.5 mls/hr, can downtitrate as needed -continuous cardiac monitoring #Malnutrition -patient would benefit from tubefeeding for a short course -discussed options with Inter Com Installer Eunice and discussed with patient, who is amenable to plan #Supratherapeutic INR, post-mechanical MV -INR today 4.66 -holding coumadin -ideally maintain 3.0-3.5 #Diabetes -Insulin sliding scale -BGM ACHS #Oral Thrush -Continue Nystatin swish & swallow -improved today FEN/Prophylaxis -SCD, Zantac -Holding IVF, Will monitor electrolytes, npo AT PRESENT Visit type - Emergency Visit Emergency Visit: Yes ED Registration Date: 07/09/16 Care time: The patient presented to the Emergency Department on the above date and was hospitalized for further evaluation of their emergent condition. - New Patient This patient is new to me today: No - Critical Care Critical Care patient: Yes Total Critical Care Time (in minutes): 40 Critical Care Statement: The care of this patient involved high complexity decision making to prevent further life threatening deterioration of the patient 's condition and/or to evalute & treat vital organ system(s) failure or risk of failure.
--- NOTE | 2016-07-14 14:08 | PN ---
Progress Note, Physician History of Present Illness: Awake on ventilator, rate-controlled improved with metoprolol. - Current Medication List Current Medications: Active Medications Acetaminophen (Tylenol -) 650 mg PO Q4H PRN PRN Reason: FEVER OR PAIN Last Admin: 07/08/16 16:21 Dose: 650 mg Al Hydroxide/Mg Hydroxide (Mylanta Oral Suspension -) 30 ml PO Q12H PRN PRN Reason: DYSPEPSIA Last Admin: 07/13/16 10:08 Dose: 30 ml Albuterol Sulfate (Ventolin 0.083% Nebulizer Soln -) 1 amp NEB Q4H PRN PRN Reason: SHORT OF BREATH/WHEEZING Last Admin: 07/13/16 15:45 Dose: 1 amp Albuterol/Ipratropium (Duoneb -) 1 amp NEB QIDR [facility] Last Admin: 07/14/16 11:43 Dose: 1 amp Atorvastatin Calcium (Lipitor -) 10 mg PO HS [facility] Last Admin: 07/13/16 21:36 Dose: 10 mg Cholecalciferol (Vitamin D3 -) 1,000 unit PO DAILY [facility] Last Admin: 07/14/16 09:33 Dose: 1,000 unit Diltiazem HCl (Cardizem -) 90 mg PO Q6HPO [facility] Last Admin: 07/14/16 11:47 Dose: Not Given Diltiazem HCl (Cardizem Injection -) 10 mg IVPUSH Q4H PRN PRN Reason: TACHYCARDIA Enalapril Maleate (Vasotec -) 20 mg PO DAILY [facility] Last Admin: 07/14/16 09:33 Dose: 20 mg Guaifenesin (Diabetic Tussin Dm -) 5 ml PO Q6H PRN PRN Reason: COUGH Last Admin: 07/09/16 16:33 Dose: 5 unit Diltiazem HCl 125 mg/ Dextrose 125 mls @ 5 mls/hr IVPB TITR [facility]; 5 MG/HR PRN Reason: Protocol Last Titration: 07/14/16 11:45 Dose: 5 mg/hr Aztreonam 1 gm/ Dextrose 50 mls @ 100 mls/hr IVPB Q8H-IV [facility] PRN Reason: Protocol Last Admin: 07/14/16 09:34 Dose: 100 mls/hr Vancomycin HCl 750 mg/ (Dextrose) 250 mls @ 250 mls/hr IVPB DAILY [facility] PRN Reason: Protocol Last Admin: 07/14/16 10:37 Dose: 250 mls/hr Insulin Aspart (Novolog Vial Sliding Scale -) 1 vial SQ ACHS [facility] PRN Reason: Protocol Last Admin: 07/14/16 11:40 Dose: 4 units Methylprednisolone Sodium Succinate (Solu-Medrol -) 40 mg IVPB Q6H-IV [facility] Last Admin: 07/14/16 09:33 Dose: 40 mg Metoprolol Tartrate (Lopressor -) 50 mg PO BID [facility] Last Admin: 07/14/16 12:54 Dose: 50 mg Mometasone Furoate (Asmanex 220mcg -) 1 puff IH DAILY [facility] Last Admin: 07/14/16 11:44 Dose: Not Given Multivitamins/Minerals/Vitamin C (Tab-A-Vit -) 1 tab PO DAILY [facility] Last Admin: 07/14/16 09:36 Dose: 1 tab Nystatin (Nystatin Oral Suspension -) 500,000 units PO Q6HPO [facility] Stop: 07/14/16 23:59 Last Admin: 07/14/16 11:50 Dose: 500,000 units Ranitidine HCl (Zantac -) 150 mg PO BID [facility] Last Admin: 07/14/16 09:33 Dose: 150 mg - Objective Vital Signs: Vital Signs Temperature 97.8 F 07/14/16 10:00 Pulse Rate 111 H 07/14/16 12:00 Respiratory Rate 14 07/14/16 13:52 Blood Pressure 108/53 07/14/16 12:00 O2 Sat by Pulse Oximetry (%) 100 07/14/16 09:00 Constitutional: Yes: No Distress, Calm Neck: Yes: Supple Cardiovascular: Yes: Pulse Irregular, Other ([place] mechanical valve sounds with 2/6 SM) Respiratory: Yes: Intubated, Mechanically Ventilated, Rhonchi Gastrointestinal: Yes: Normal Bowel Sounds, Soft Edema: No Labs: CBC, BMP 07/14/16 05:35 07/14/16 05:35 INR, PTT INR 4.66 (0.82-1.09) H* 07/14/16 05:35 - ....Imaging Chest X-ray: Report Reviewed (Improved RLL infiltrate) Problem List - Problems (1) Atrial fibrillation with rapid ventricular response Code(s): I48.91 - UNSPECIFIED ATRIAL FIBRILLATION (2) Palpitations Code(s): R00.2 - PALPITATIONS (3) Bronchial asthma Code(s): J45.909 - UNSPECIFIED ASTHMA, UNCOMPLICATED Qualifiers: Asthma severity: mild intermittent (4) Diabetes mellitus Code(s): E11.9 - TYPE 2 DIABETES MELLITUS WITHOUT COMPLICATIONS Qualifiers: Diabetes mellitus type: type 2 (5) History of mitral valve replacement with mechanical valve Code(s): Z95.2 - PRESENCE OF PROSTHETIC HEART VALVE (6) Hypercholesteremia Code(s): E78.0 - PURE HYPERCHOLESTEROLEMIA * DO NOT USE * (7) Hypertension Code(s): I10 - ESSENTIAL (PRIMARY) HYPERTENSION Qualifiers: Hypertension type: essential hypertension Qualified Code(s): I10 - Essential (primary) hypertension (8) Premature ventricular contraction Code(s): I49.3 - VENTRICULAR PREMATURE DEPOLARIZATION (9) Acute on chronic diastolic (congestive) heart failure Code(s): I50.33 - ACUTE ON CHRONIC DIASTOLIC (CONGESTIVE) HEART FAILURE Assessment/Plan 05/23/2016 Echo: Normal LV size with mildly decreased LV fxn, mech MV replacement, mild TR RVSP 30-40 mmHg, AV not well seen Repeat Echocardiography performed 07/07/16 revealed Normal LV size and function, mechanical MV replacement, mild to moderate TR with RVSP 30-40 mmHg, aortic valve not assessed 1. Acute on chronic hypoxic and hypercapneic respiratory failure referable to 2. Influenza A, RLL hospitalized acquired PNA 3. Acute on chronic diastolic failure 4. Palpitations referable to rapid atrial fibrillation in a patient with known history of permanent atrial fibrillation on A/C therapy, supratherapeutic INR 5. Post mechanical MVR 6. Probable significant aortic valve stenosis cannot be excluded 7. DM 8. Hyperlipidemia 9. Anemia & Thrombocytopenia PLAN: 1. Agree with re-challenge Lopressor 50 bid, wean Cardizem gtt as tolerated 2. Continue Vasotec 20 qd 3. Continue Lipitor 10 qhs 4. Continue Lasix as needed with monitor diuretic response, renal fxn and electrolytes 5. Continue Coumadin as per INR maintain 3.0-3.5, with caution considering the above noted Anemia and Thrombocytopenia 6. Vent wean as tolerated, antibiotics course to cover HCAP, Tamiflu, IV steroids and bronchodilators as per the primary and pulmonary teams 7. Enteral feeds, GI prophylaxis
--- NOTE | 2016-07-14 16:57 | PN ---
Progress Note, Physician History of Present Illness: Pt. awake and alert on respirator - Current Medication List Current Medications: Active Medications Acetaminophen (Tylenol -) 650 mg PO Q4H PRN PRN Reason: FEVER OR PAIN Last Admin: 07/08/16 16:21 Dose: 650 mg Al Hydroxide/Mg Hydroxide (Mylanta Oral Suspension -) 30 ml PO Q12H PRN PRN Reason: DYSPEPSIA Last Admin: 07/13/16 10:08 Dose: 30 ml Albuterol Sulfate (Ventolin 0.083% Nebulizer Soln -) 1 amp NEB Q4H PRN PRN Reason: SHORT OF BREATH/WHEEZING Last Admin: 07/13/16 15:45 Dose: 1 amp Albuterol/Ipratropium (Duoneb -) 1 amp NEB QIDR [facility] Last Admin: 07/14/16 11:43 Dose: 1 amp Atorvastatin Calcium (Lipitor -) 10 mg PO HS [facility] Last Admin: 07/13/16 21:36 Dose: 10 mg Cholecalciferol (Vitamin D3 -) 1,000 unit PO DAILY [facility] Last Admin: 07/14/16 09:33 Dose: 1,000 unit Diltiazem HCl (Cardizem -) 90 mg PO Q6HPO [facility] Last Admin: 07/14/16 11:47 Dose: Not Given Diltiazem HCl (Cardizem Injection -) 10 mg IVPUSH Q4H PRN PRN Reason: TACHYCARDIA Enalapril Maleate (Vasotec -) 20 mg PO DAILY [facility] Last Admin: 07/14/16 09:33 Dose: 20 mg Guaifenesin (Diabetic Tussin Dm -) 5 ml PO Q6H PRN PRN Reason: COUGH Last Admin: 07/09/16 16:33 Dose: 5 unit Diltiazem HCl 125 mg/ Dextrose 125 mls @ 5 mls/hr IVPB TITR [facility]; 5 MG/HR PRN Reason: Protocol Last Titration: 07/14/16 11:45 Dose: 5 mg/hr Aztreonam 1 gm/ Dextrose 50 mls @ 100 mls/hr IVPB Q8H-IV [facility] PRN Reason: Protocol Last Admin: 07/14/16 09:34 Dose: 100 mls/hr Vancomycin HCl 750 mg/ (Dextrose) 250 mls @ 250 mls/hr IVPB DAILY [facility] PRN Reason: Protocol Last Admin: 07/14/16 10:37 Dose: 250 mls/hr Insulin Aspart (Novolog Vial Sliding Scale -) 1 vial SQ ACHS [facility] PRN Reason: Protocol Last Admin: 07/14/16 11:40 Dose: 4 units Methylprednisolone Sodium Succinate (Solu-Medrol -) 40 mg IVPB Q6H-IV [facility] Last Admin: 07/14/16 15:29 Dose: 40 mg Metoprolol Tartrate (Lopressor -) 50 mg PO BID [facility] Last Admin: 07/14/16 12:54 Dose: 50 mg Mometasone Furoate (Asmanex 220mcg -) 1 puff IH DAILY [facility] Last Admin: 07/14/16 11:44 Dose: Not Given Multivitamins/Minerals/Vitamin C (Tab-A-Vit -) 1 tab PO DAILY [facility] Last Admin: 07/14/16 09:36 Dose: 1 tab Nystatin (Nystatin Oral Suspension -) 500,000 units PO Q6HPO [facility] Stop: 07/14/16 23:59 Last Admin: 07/14/16 11:50 Dose: 500,000 units Ranitidine HCl (Zantac -) 150 mg PO BID [facility] Last Admin: 07/14/16 09:33 Dose: 150 mg - Objective Vital Signs: Vital Signs Temperature 98 F 07/14/16 16:00 Pulse Rate 90 07/14/16 16:00 Respiratory Rate 18 07/14/16 16:17 Blood Pressure 114/59 07/14/16 16:00 O2 Sat by Pulse Oximetry (%) 100 07/14/16 09:00 Constitutional: Yes: No Distress Eyes: No: Sclera Icterus HENT: Yes: Atraumatic, Normocephalic Neck: Yes: Supple, Trachea Midline Cardiovascular: Yes: Pulse Irregular. No: JVD Respiratory: Yes: Diminished Gastrointestinal: Yes: Soft. No: Tenderness Extremities: No: Calf Tenderness Edema: No Neurological: Yes: Alert, Oriented Labs: CBC, BMP 07/14/16 05:35 07/14/16 05:35 INR, PTT INR 4.66 (0.82-1.09) H* 07/14/16 05:35 - ....Imaging Chest X-ray: Report Reviewed, Image Reviewed Problem List - Problems (1) Respiratory failure Code(s): J96.90 - RESPIRATORY FAILURE, UNSP, UNSP W HYPOXIA OR HYPERCAPNIA (2) Pneumonia and influenza Code(s): J11.00 - FLU DUE TO UNIDENTIFIED FLU VIRUS W UNSP TYPE OF PNEUMONIA (3) Atrial fibrillation with rapid ventricular response Code(s): I48.91 - UNSPECIFIED ATRIAL FIBRILLATION (4) Bronchial asthma Code(s): J45.909 - UNSPECIFIED ASTHMA, UNCOMPLICATED Qualifiers: Asthma severity: mild intermittent (5) History of mitral valve replacement with mechanical valve Code(s): Z95.2 - PRESENCE OF PROSTHETIC HEART VALVE (6) Aortic stenosis Code(s): I35.0 - NONRHEUMATIC AORTIC (VALVE) STENOSIS Qualifiers: (7) Diabetes mellitus Code(s): E11.9 - TYPE 2 DIABETES MELLITUS WITHOUT COMPLICATIONS Qualifiers: Diabetes mellitus type: type 2 Assessment/Plan Respiratory Failure: pt intubated and placed on respirator; respiratory status improved. Pt awake and alert without dyspnea Development of pneumonia (HAP) post influenza. Need to cover Staph (in light of hx mitral valve dx and influenza) and other hospital associated organisms CHF-the rapid development and then improvement in the right lung consolidation suggestive that CHF was a significant factor in pt's deterioration Chronic Atrial fibrillation- I agree with plan to reintroduce Metoprolol because pt's bronchial asthma has been rather mild over the years and she needs to have her ventricular rate controlled Bronchial Asthma-stable Mechanical MVR Aortic Stenosis NIDDM- INR elevated but improving Suggest: Respirator support-attempts at weaning planned Antibiotics Solumedrol Inhaled bronchodilators O2 to maintain SaO2>90 Metoprolol Furosemide PRN Monitor INR
[2016-07-14] MEDS ORDERED: INSULIN (NOVOLOG) ASPART 100 UNITS/ML 10ML VIAL ONE (17:11)
[2016-07-14] MEDS: DILTIAZEM INJECTION 125 MG in DEXTROSE 5%-WATER - 100 ML IVPB SCH (17:12)
[2016-07-14] MEDS ORDERED: PT OWN MED DRAWER 7, Y5N ONE (17:14)
[2016-07-14] MEDS: ATORVASTATIN CA 10 MG TABLET (FP) PO SCH (21:22)
[2016-07-15] MEDS: methylPREDNISolone NA SUCC 40 MG/1 ML VIAL IVPB SCH ×4 (02:49→21:33)
[2016-07-15] MEDS: AZTREONAM 1 GM in DEXTROSE 5%-WATER - 50 ML IVPB SCH ×3 (02:49→17:42)
[2016-07-15] MEDS ORDERED: dilTIAZem HCL 125 MG/25 ML - 5 ML VIAL ONE ×2 (05:48→22:28)
[2016-07-15] MEDS: ALBUTEROL SO4 2.5/IPRATROPIUM 0.5 INH SOL 3 ML VIAL.NEB. NEB SCH ×4 (05:58→18:31)
[2016-07-15 06:09] LABS: MCH 26.2 pg (25.7-33.7); MCHC 33.2 g/dl (32.0-36.0); MEAN PLT VOLUME 9.3 fl (7.5-11.1); PLATELET COUNT 198 K/MM3 (134-434); RDW 16.2 % (11.6-15.6); WHITE BLOOD COUNT 13.1 K/mm3 (4.0-10.0)
[2016-07-15] MEDS: INSULIN SLIDING SCALE (NOVOLOG) 1 VIAL SQ SCH ×4 (06:19→22:41)
[2016-07-15] MEDS: DILTIAZEM INJECTION 125 MG in DEXTROSE 5%-WATER - 100 ML IVPB SCH ×2 (06:20→15:47)
[2016-07-15 06:21] LABS: INR 1.73 (0.82-1.09); PROTHROMBIN TIME (PATIENT) 19.3 SEC (9.98-11.88)
[2016-07-15 06:33] LABS: ALBUMIN 2.2 g/dl (3.4-5.0); ALK PHOS 73 U/L (45-117); ANION GAP 10 (8-16); BILIRUBIN,TOTAL 1.1 mg/dL (0.2-1.0); CALCIUM 7.9 mg/dL (8.5-10.1); CO2 32 mmol/L (21-32); CREATININE 0.5 mg/dL (0.55-1.02); GLUCOSE,RANDOM 242 mg/dL (74-106); MAGNESIUM 2.3 mg/dL (1.8-2.4); PHOSPHOROUS 2.3 mg/dL (2.5-4.9); SGOT/AST 42 U/L (15-37); SGPT/ALT 36 U/L (12-78); TOT PROT 4.6 g/dl (6.4-8.2)
--- NOTE | 2016-07-15 09:14 | PN ---
Progress Note (short form) - Note Progress Note: awake and alert intubated following commands Vital Signs Period Temp Pulse Resp BP Sys/Gold Pulse Ox Last 24 Hr 97.8 F-98.9 F 85-123 14-23 96-124/52-76 100-100 cor-rrr lungs decreased bs at bases abd soft,nt ext no edema CBC, BMP 07/15/16 05:00 07/15/16 05:00 Microbiology 07/13/16 17:00 Blood - Peripheral Venous Blood Culture - Preliminary NO GROWTH OBTAINED AFTER 24 HOURS, INCUBATION TO CONTINUE FOR 4 DAYS. 07/13/16 17:00 Blood - Peripheral Venous Blood Culture - Preliminary NO GROWTH OBTAINED AFTER 24 HOURS, INCUBATION TO CONTINUE FOR 4 DAYS. 07/13/16 17:30 Urine For Antigen Detection Legionella Antigen - Final 07/13/16 17:30 Urine For Antigen Detection Streptococcus pneumoniae Antigen (M - Final 07/13/16 11:00 Urine - Urine Magana Urine Culture - Final NO GROWTH OBTAINED a/p respiratory failure pneumonia s/p influenza MVR afib multiple antibiotic allergies continue vancomycin/azactam f/u cultures
[2016-07-15] MEDS: CHOLECALCIFEROL (VITAMIN D3) 1,000 UNIT TABLET (FP) PO SCH (09:57)
[2016-07-15] MEDS: ENALAPRIL MALEATE 10 MG TABLET (FP) PO SCH (09:58)
[2016-07-15] MEDS: METOPROLOL TARTRATE 50 MG TABLET (FP) PO SCH ×2 (09:58→21:33)
[2016-07-15] MEDS ORDERED: FUROSEMIDE 20 MG TABLET (FP) PO SCH (10:00)
--- NOTE | 2016-07-15 10:17 | PN ---
Progress Note (short form) - Note Progress Note: Patient seen and examined in the ICU. Awake and alert on AC mode of vent 45% FiO2. No pressors. Rapid AFib on Cardizem drip. Intake & Output 07/12/16 07/13/16 07/14/16 07/15/16 23:59 23:59 23:59 23:59 Intake Total 550 1690 765 345 Output Total 1400 850 200 Balance 550 290 -85 145 Weight 72 lb 6 oz 69 lb 6 oz 69 lb 8 oz Last Vital Signs Temp Pulse Resp BP Pulse Ox 98.9 F 100 H 27 H 109/54 100 07/15/16 06:00 07/15/16 08:00 07/15/16 09:20 07/15/16 08:00 07/15/16 09:00 Active Medications Acetaminophen (Tylenol -) 650 mg PO Q4H PRN PRN Reason: FEVER OR PAIN Last Admin: 07/08/16 16:21 Dose: 650 mg Al Hydroxide/Mg Hydroxide (Mylanta Oral Suspension -) 30 ml PO Q12H PRN PRN Reason: DYSPEPSIA Last Admin: 07/13/16 10:08 Dose: 30 ml Albuterol Sulfate (Ventolin 0.083% Nebulizer Soln -) 1 amp NEB Q4H PRN PRN Reason: SHORT OF BREATH/WHEEZING Last Admin: 07/13/16 15:45 Dose: 1 amp Albuterol/Ipratropium (Duoneb -) 1 amp NEB QIDR [facility] Last Admin: 07/15/16 05:58 Dose: 1 amp Atorvastatin Calcium (Lipitor -) 10 mg PO HS [facility] Last Admin: 07/14/16 21:22 Dose: 10 mg Cholecalciferol (Vitamin D3 -) 1,000 unit PO DAILY [facility] Last Admin: 07/15/16 09:57 Dose: 1,000 unit Diltiazem HCl (Cardizem Injection -) 10 mg IVPUSH Q4H PRN PRN Reason: TACHYCARDIA Enalapril Maleate (Vasotec -) 20 mg PO DAILY [facility] Last Admin: 07/15/16 09:58 Dose: 20 mg Fentanyl (Sublimaze Injection -) 25 mcg IVPUSH Q1H PRN PRN Reason: PAIN LEVEL 1-5 Stop: 07/15/16 21:44 Last Admin: 07/15/16 02:49 Dose: 25 mcg Furosemide (Lasix -) 20 mg PO DAILY [facility] Last Admin: 07/15/16 09:58 Dose: 20 mg Guaifenesin (Diabetic Tussin Dm -) 5 ml PO Q6H PRN PRN Reason: COUGH Last Admin: 07/09/16 16:33 Dose: 5 unit Diltiazem HCl 125 mg/ Dextrose 125 mls @ 5 mls/hr IVPB TITR [facility]; 5 MG/HR PRN Reason: Protocol Last Admin: 07/15/16 06:20 Dose: 5 mls/hr Aztreonam 1 gm/ Dextrose 50 mls @ 100 mls/hr IVPB Q8H-IV [facility] PRN Reason: Protocol Last Admin: 07/15/16 02:49 Dose: 100 mls/hr Vancomycin HCl 750 mg/ (Dextrose) 250 mls @ 250 mls/hr IVPB DAILY [facility] PRN Reason: Protocol Last Admin: 07/14/16 10:37 Dose: 250 mls/hr Insulin Aspart (Novolog Vial Sliding Scale -) 1 vial SQ ACHS [facility] PRN Reason: Protocol Last Admin: 07/15/16 06:19 Dose: 8 units Methylprednisolone Sodium Succinate (Solu-Medrol -) 40 mg IVPB Q6H-IV [facility] Last Admin: 07/15/16 02:49 Dose: 40 mg Metoprolol Tartrate (Lopressor -) 50 mg PO BID [facility] Last Admin: 07/15/16 09:58 Dose: 50 mg Mometasone Furoate (Asmanex 220mcg -) 1 puff IH DAILY [facility] Last Admin: 07/14/16 11:44 Dose: Not Given Multivitamins/Minerals/Vitamin C (Tab-A-Vit -) 1 tab PO DAILY [facility] Last Admin: 07/14/16 09:36 Dose: 1 tab Ranitidine HCl (Zantac -) 150 mg PO BID [facility] Last Admin: 07/14/16 21:22 Dose: 150 mg Gen:Awake on AC Mode Heart: tachycardic, irregular, mech click at base Lung: distant breath sounds, bronchial breath sounds at the bases Abd: soft, nontender Ext: no edema Laboratory Results - last 24 hr 07/13/16 07/13/16 07/14/16 16:49 21:25 06:05 WBC RBC Hgb Hct MCV MCHC RDW Plt Count MPV Neutrophils % Lymphocytes % Monocytes % INR Sodium Potassium Chloride Carbon Dioxide Anion Gap BUN Creatinine Creat Clearance w eGFR POC Glucometer 241.41750 256.85966 240.57447 Random Glucose Lactic Acid Calcium Phosphorus Magnesium Total Bilirubin AST ALT Alkaline Phosphatase Total Protein Albumin 07/14/16 07/14/16 07/14/16 11:32 17:07 21:14 WBC RBC Hgb Hct MCV MCHC RDW Plt Count MPV Neutrophils % Lymphocytes % Monocytes % INR Sodium Potassium Chloride Carbon Dioxide Anion Gap BUN Creatinine Creat Clearance w eGFR POC Glucometer 219.57844 191.56870 [phone] Random Glucose Lactic Acid Calcium Phosphorus Magnesium Total Bilirubin AST ALT Alkaline Phosphatase Total Protein Albumin 07/15/16 07/15/16 07/15/16 05:00 05:00 05:00 WBC 13.1 H RBC 3.25 L Hgb 8.5 L Hct 25.7 L MCV 79.0 L MCHC 33.2 RDW 16.2 H Plt Count 198 D MPV 9.3 Neutrophils % 98.0 H Lymphocytes % 1.0 L D Monocytes % 1.0 L INR 1.73 H D Sodium 136 Potassium 4.0 Chloride 94 L Carbon Dioxide 32 Anion Gap 10 BUN 27 H Creatinine 0.5 L D Creat Clearance w eGFR > 60 POC Glucometer Random Glucose 242 H D Lactic Acid Calcium 7.9 L Phosphorus 2.3 L Magnesium 2.3 Total Bilirubin 1.1 H D AST 42 H D ALT 36 Alkaline Phosphatase 73 D Total Protein 4.6 L Albumin 2.2 L 07/15/16 05:00 WBC RBC Hgb Hct MCV MCHC RDW Plt Count MPV Neutrophils % Lymphocytes % Monocytes % INR Sodium Potassium Chloride Carbon Dioxide Anion Gap BUN Creatinine Creat Clearance w eGFR POC Glucometer Random Glucose Lactic Acid 0.914 Calcium Phosphorus Magnesium Total Bilirubin AST ALT Alkaline Phosphatase Total Protein Albumin ASSESSMENT AND PLAN: Acute on Chronic Hypoxic and Hypercapneic Respiratory Failure Acute on Chronic LV Diastolic Heart Failure Influenza A Pneumonia Atrial Fibrillation with RVR s/p mech MVR Aortic Stenosis Pulmonary HTN Acute COPD Exacerbation - Wean trial with hopes of extubation - ABX - completed tamiflu - IV medrol taper - inhaled bronchodilators - O2 to keep SpO2 >90% - Cardizem drip - IV Heparin - lasix as needed - DVT/GI prophylaxis Dr Alegria CCTime 35"
[2016-07-15] MEDS ORDERED: HEPARIN NA (PORCINE) 5,000 UNITS/ML 1ML VIAL IVPUSH PRN ×2 (10:21)
[2016-07-15] MEDS ORDERED: PT OWN MED DRAWER 7, Y5N ONE ×4 (11:19→15:59)
[2016-07-15] MEDS: HEPARIN - 25,000 UNIT in SODIUM CHLORIDE 495 ML IV SCH (11:23)
--- NOTE | 2016-07-15 14:15 | PN ---
Progress Note, Physician Chief Complaint: Events noted Awake on mechanical ventilator History of Present Illness: Patient was seen and examined. Awake on vent. AF with rapid ventricular response intermittently. Currently on Cardizem drip. Chart was reviewed - Current Medication List Current Medications: Active Medications Acetaminophen (Tylenol -) 650 mg PO Q4H PRN PRN Reason: FEVER OR PAIN Last Admin: 07/08/16 16:21 Dose: 650 mg Al Hydroxide/Mg Hydroxide (Mylanta Oral Suspension -) 30 ml PO Q12H PRN PRN Reason: DYSPEPSIA Last Admin: 07/13/16 10:08 Dose: 30 ml Albuterol Sulfate (Ventolin 0.083% Nebulizer Soln -) 1 amp NEB Q4H PRN PRN Reason: SHORT OF BREATH/WHEEZING Last Admin: 07/13/16 15:45 Dose: 1 amp Albuterol/Ipratropium (Duoneb -) 1 amp NEB QIDR [facility] Last Admin: 07/15/16 12:53 Dose: 1 amp Atorvastatin Calcium (Lipitor -) 10 mg PO HS [facility] Last Admin: 07/14/16 21:22 Dose: 10 mg Cholecalciferol (Vitamin D3 -) 1,000 unit PO DAILY [facility] Last Admin: 07/15/16 09:57 Dose: 1,000 unit Diltiazem HCl (Cardizem Injection -) 10 mg IVPUSH Q4H PRN PRN Reason: TACHYCARDIA Enalapril Maleate (Vasotec -) 20 mg PO DAILY [facility] Last Admin: 07/15/16 09:58 Dose: 20 mg Fentanyl (Sublimaze Injection -) 25 mcg IVPUSH Q1H PRN PRN Reason: PAIN LEVEL 1-5 Stop: 07/15/16 21:44 Last Admin: 07/15/16 02:49 Dose: 25 mcg Furosemide (Lasix -) 20 mg PO DAILY [facility] Last Admin: 07/15/16 09:58 Dose: 20 mg Guaifenesin (Diabetic Tussin Dm -) 5 ml PO Q6H PRN PRN Reason: COUGH Last Admin: 07/09/16 16:33 Dose: 5 unit Heparin Sodium (Porcine) (Heparin -) 1,000 unit IVPUSH PRN PRN PRN Reason: Heparin Heparin Sodium (Porcine) (Heparin -) 5,000 unit IVPUSH PRN PRN PRN Reason: Heparin Diltiazem HCl 125 mg/ Dextrose 125 mls @ 5 mls/hr IVPB TITR [facility]; 5 MG/HR PRN Reason: Protocol Last Admin: 07/15/16 06:20 Dose: 5 mls/hr Aztreonam 1 gm/ Dextrose 50 mls @ 100 mls/hr IVPB Q8H-IV [facility] PRN Reason: Protocol Last Admin: 07/15/16 11:20 Dose: 100 mls/hr Vancomycin HCl 750 mg/ (Dextrose) 250 mls @ 250 mls/hr IVPB DAILY [facility] PRN Reason: Protocol Last Admin: 07/14/16 10:37 Dose: 250 mls/hr Heparin Sodium (Porcine) 25, (000 unit/ Sodium Chloride) 500 mls @ 16 mls/hr IV TITR [facility]; 800 UNIT/HR PRN Reason: Protocol Last Admin: 07/15/16 11:23 Dose: 16 mls/hr Insulin Aspart (Novolog Vial Sliding Scale -) 1 vial SQ ACHS [facility] PRN Reason: Protocol Last Admin: 07/15/16 13:06 Dose: 6 units Methylprednisolone Sodium Succinate (Solu-Medrol -) 40 mg IVPB Q6H-IV [facility] Last Admin: 07/15/16 11:20 Dose: 40 mg Metoprolol Tartrate (Lopressor -) 50 mg PO BID [facility] Last Admin: 07/15/16 09:58 Dose: 50 mg Mometasone Furoate (Asmanex 220mcg -) 1 puff IH DAILY [facility] Last Admin: 07/14/16 11:44 Dose: Not Given Multivitamins/Minerals/Vitamin C (Tab-A-Vit -) 1 tab PO DAILY [facility] Last Admin: 07/14/16 09:36 Dose: 1 tab Ranitidine HCl (Zantac -) 150 mg PO BID [facility] Last Admin: 07/14/16 21:22 Dose: 150 mg - Objective Vital Signs: Vital Signs Temperature 98.9 F 07/15/16 06:00 Pulse Rate 96 H 07/15/16 10:00 Respiratory Rate 26 H 07/15/16 10:00 Blood Pressure 138/73 07/15/16 10:00 O2 Sat by Pulse Oximetry (%) 100 07/15/16 10:27 Neck: Yes: Supple Cardiovascular: Yes: Pulse Irregular, Murmur (2/6 SM and mechanical click), S1, S2 Respiratory: Yes: Diminished, Mechanically Ventilated Gastrointestinal: Yes: Normal Bowel Sounds, Soft. No: Tenderness Edema: No Labs: CBC, BMP 07/15/16 05:00 07/15/16 05:00 INR, PTT INR 1.73 (0.82-1.09) H D 07/15/16 05:00 Problem List - Problems (1) Acute on chronic diastolic (congestive) heart failure Code(s): I50.33 - ACUTE ON CHRONIC DIASTOLIC (CONGESTIVE) HEART FAILURE (2) Atrial fibrillation with rapid ventricular response Code(s): I48.91 - UNSPECIFIED ATRIAL FIBRILLATION (3) Influenza A Code(s): J10.1 - FLU DUE TO OTH IDENT INFLUENZA VIRUS W OTH RESP MANIFEST (4) Pneumonia and influenza Code(s): J11.00 - FLU DUE TO UNIDENTIFIED FLU VIRUS W UNSP TYPE OF PNEUMONIA (5) Respiratory failure Code(s): J96.90 - RESPIRATORY FAILURE, UNSP, UNSP W HYPOXIA OR HYPERCAPNIA Qualifiers: Chronicity: acute Respiratory failure complication: hypoxia and hypercapnia Qualified Code(s): J96.01 - Acute respiratory failure with hypoxia; J96.02 - Acute respiratory failure with hypercapnia (6) Diabetes mellitus Code(s): E11.9 - TYPE 2 DIABETES MELLITUS WITHOUT COMPLICATIONS Qualifiers: Diabetes mellitus type: type 2 Diabetes mellitus complication status: without complication Diabetes mellitus local intermodal truck driver insulin use: without local intermodal truck driver use Qualified Code(s): E11.9 - Type 2 diabetes mellitus without complications (7) History of mitral valve replacement with mechanical valve Code(s): Z95.2 - PRESENCE OF PROSTHETIC HEART VALVE (8) Hypercholesteremia Code(s): E78.0 - PURE HYPERCHOLESTEROLEMIA * DO NOT USE * (9) Hypertension Code(s): I10 - ESSENTIAL (PRIMARY) HYPERTENSION Qualifiers: Hypertension type: essential hypertension Qualified Code(s): I10 - Essential (primary) hypertension Assessment/Plan 1. Acute on chronic hypoxic and hypercapneic respiratory failure currently on mechanical ventilator 2. Influenza A and RLL hospital acquired pneumonia 3. Acute on chronic diastolic failure 4. Permanent atrial fibrillation with RVR 5. Post mechanical MVR 6. Possible aortic valve disease 7. DM 8. Hyperlipidemia 9. Anemia & thrombocytopenia PLAN: 1. Cardizem drip for rate control in addition to Metoprolol 2. Continue Vasotec 3. Continue Lipitor 4. Continue Lasix as needed with monitoring renal function and electrolytes 5. Continue Coumadin as per INR maintain 3.0-3.5, with caution considering the above noted anemia and thrombocytopenia. Agree to start Heparin for now since INR is less than 2.0 6. Wean vent as tolerated 7. Continue antibiotics course, Tamiflu, IV steroids and bronchodilators as tolerated 8. GI prophylaxis Guarded Further plans are to follow Leon Esquivel MD
--- NOTE | 2016-07-15 15:39 | PN ---
Physical Exam: SUBJECTIVE: Patient seen and examined at bedside. Extubated. States feels much better. OBJECTIVE: Vital Signs Period Temp Pulse Resp BP Sys/Gold Pulse Ox Last 24 Hr 98 F-98.9 F 85-100 15-27 99-138/52-73 100-100 GENERAL: The patient is awake, alert, and fully oriented, in no acute distress. HEAD: Normal with no signs of trauma. EYES: PERRL, extraocular movements intact, sclera anicteric, conjunctiva clear. No ptosis. LUNGS: Coarse breath sounds. HEART: Irregular. + murmur ABDOMEN: Soft, nontender, nondistended, normoactive bowel sounds, no guarding, no rebound EXTREMITIES: 2+ pulses, warm, well-perfused, no edema. NEUROLOGICAL: Cranial nerves II through XII grossly intact. Laboratory Results - last 24 hr 07/13/16 07/13/16 07/14/16 16:49 21:25 06:05 WBC RBC Hgb Hct MCV MCHC RDW Plt Count MPV Neutrophils % Lymphocytes % Monocytes % INR Sodium Potassium Chloride Carbon Dioxide Anion Gap BUN Creatinine Creat Clearance w eGFR POC Glucometer [phone] Random Glucose Lactic Acid Calcium Phosphorus Magnesium Total Bilirubin AST ALT Alkaline Phosphatase Total Protein Albumin 07/14/16 07/14/16 07/14/16 11:32 17:07 21:14 WBC RBC Hgb Hct MCV MCHC RDW Plt Count MPV Neutrophils % Lymphocytes % Monocytes % INR Sodium Potassium Chloride Carbon Dioxide Anion Gap BUN Creatinine Creat Clearance w eGFR POC Glucometer [phone] Random Glucose Lactic Acid Calcium Phosphorus Magnesium Total Bilirubin AST ALT Alkaline Phosphatase Total Protein Albumin 07/15/16 07/15/16 07/15/16 05:00 05:00 05:00 WBC 13.1 H RBC 3.25 L Hgb 8.5 L Hct 25.7 L MCV 79.0 L MCHC 33.2 RDW 16.2 H Plt Count 198 D MPV 9.3 Neutrophils % 98.0 H Lymphocytes % 1.0 L D Monocytes % 1.0 L INR 1.73 H D Sodium 136 Potassium 4.0 Chloride 94 L Carbon Dioxide 32 Anion Gap 10 BUN 27 H Creatinine 0.5 L D Creat Clearance w eGFR > 60 POC Glucometer Random Glucose 242 H D Lactic Acid Calcium 7.9 L Phosphorus 2.3 L Magnesium 2.3 Total Bilirubin 1.1 H D AST 42 H D ALT 36 Alkaline Phosphatase 73 D Total Protein 4.6 L Albumin 2.2 L 07/15/16 05:00 WBC RBC Hgb Hct MCV MCHC RDW Plt Count MPV Neutrophils % Lymphocytes % Monocytes % INR Sodium Potassium Chloride Carbon Dioxide Anion Gap BUN Creatinine Creat Clearance w eGFR POC Glucometer Random Glucose Lactic Acid 0.914 Calcium Phosphorus Magnesium Total Bilirubin AST ALT Alkaline Phosphatase Total Protein Albumin Active Medications Generic Name Dose Route Start Last Admin Trade Name Freq PRN Reason Stop Dose Admin Acetaminophen 650 mg 07/07/16 17:15 07/08/16 16:21 Tylenol - PO 650 mg Q4H PRN Administration FEVER OR PAIN Al Hydroxide/Mg Hydroxide 30 ml 07/09/16 20:39 07/13/16 10:08 Mylanta Oral Suspension - PO 30 ml Q12H PRN Administration DYSPEPSIA Albuterol Sulfate 1 amp 07/13/16 14:51 07/13/16 15:45 Ventolin 0.083% Nebulizer Soln - NEB 1 amp Q4H PRN Administration SHORT OF BREATH/WHEEZING Albuterol/Ipratropium 1 amp 07/13/16 18:00 07/15/16 12:53 Duoneb - NEB 1 amp QIDR DARWIN Administration Atorvastatin Calcium 10 mg 07/07/16 22:00 07/14/16 21:22 Lipitor - PO 10 mg HS DARWIN Administration Cholecalciferol 1,000 unit 07/07/16 10:00 07/15/16 09:57 Vitamin D3 - PO 1,000 unit DAILY DARWIN Administration Diltiazem HCl 10 mg 07/13/16 19:01 Cardizem Injection - IVPUSH Q4H PRN TACHYCARDIA Enalapril Maleate 20 mg 07/07/16 14:30 07/15/16 09:58 Vasotec - PO 20 mg DAILY DARWIN Administration Fentanyl 25 mcg 07/14/16 21:45 07/15/16 02:49 Sublimaze Injection - IVPUSH 07/15/16 21:44 25 mcg Q1H PRN Administration PAIN LEVEL 1-5 Furosemide 20 mg 07/15/16 10:00 07/15/16 09:58 Lasix - PO 20 mg DAILY DARWIN Administration Guaifenesin 5 ml 07/08/16 13:17 07/09/16 16:33 Diabetic Tussin Dm - PO 5 unit Q6H PRN Administration COUGH Heparin Sodium (Porcine) 1,000 unit 07/15/16 10:21 Heparin - IVPUSH PRN PRN Heparin Heparin Sodium (Porcine) 5,000 unit 07/15/16 10:21 Heparin - IVPUSH PRN PRN Heparin Diltiazem HCl 125 mg/ Dextrose 125 mls @ 5 mls/hr 07/13/16 13:30 07/15/16 06:20 IVPB 5 mls/hr TITR DARWIN Administration Protocol 5 MG/HR Aztreonam 1 gm/ Dextrose 50 mls @ 100 mls/hr 07/13/16 18:00 07/15/16 11:20 IVPB 100 mls/hr Q8H-IV DARWIN Administration Protocol Vancomycin HCl 750 mg/ 250 mls @ 250 mls/hr 07/14/16 10:00 07/14/16 10:37 Dextrose IVPB 250 mls/hr DAILY DARWIN Administration Protocol Heparin Sodium (Porcine) 25, 500 mls @ 16 mls/hr 07/15/16 10:30 07/15/16 11:23 000 unit/ Sodium Chloride IV 16 mls/hr TITR DARWIN Administration Protocol 800 UNIT/HR Insulin Aspart 1 vial 07/13/16 16:30 07/15/16 13:06 Novolog Vial Sliding Scale - SQ 6 units ACHS DARWIN Administration Protocol Methylprednisolone Sodium Succinate 40 mg 07/13/16 15:00 07/15/16 11:20 Solu-Medrol - IVPB 40 mg Q6H-IV DARWIN Administration Metoprolol Tartrate 50 mg 07/14/16 13:00 07/15/16 09:58 Lopressor - PO 50 mg BID DARWIN Administration Mometasone Furoate 1 puff 07/08/16 10:00 07/14/16 11:44 Asmanex 220mcg - IH Not Given DAILY DARWIN Multivitamins/Minerals/Vitamin C 1 tab 07/07/16 10:00 07/14/16 09:36 Tab-A-Vit - PO 1 tab DAILY DARWIN Administration Ranitidine HCl 150 mg 07/12/16 22:00 07/14/16 21:22 Zantac - PO 150 mg BID DARWIN Administration ASSESSMENT/PLAN: Imagin05/23/2016 Echo: Normal LV size with mildly decreased LV fxn, mech MV replacement, mild TR, RVSP 30-40 mmHg, AV not well seen 07/07/2016 Echo: Normal LV size and function, mechanical MV replacement, mild to moderate TR, RSVP 30-40mmHg, aortic valve not assessed ASSESSMENT/PLAN: 81 year-old female with a PMH of HTN, permanent A fib, rheumatic heart disease, aortic valve stenosis, mechanical MV replacement, CVA, DM II, asthma, vertigo, inner ear nerve degeneration, and basal cell carcinoma (left nares) admitted for afib with RVR and found to have Influenza A. Hospital course complicated by acute hypoxic and hypercapnic respiratory failure requiring intubation and HAP. Acute hypoxic and hypercapnic respiratory failure, improved --extubated today Influenza A --completed course of Tamiflu Hospital acquired pneumonia --continue aztreonam (day #3) and vanc (day #3) --sputum culture ordered Afib with RVR Mechanical MV --rate to low 100s --continue lopressor, diltiazem drip --INR dropped to 1.73, started heparin drip Diastolic heart failure --continue enalapril, cardizem, lasix Asthma --continue nebs, inhalers --per pulm, continue IV steroids Lactic acidosis, resolved NIDDM --insulin sliding scale coverage Oral thrush, resolved Severe malnutrition in the context of chronic illness --prolonged inadequate nutrient intake, as evidenced by 60% low end DBW --observed clavicular muscle wasting --temporal muscle wasting --prominent brow with hollow/sunken eyes F/E/N Fluids: PO intake adequate Electrolytes: replete as indicated Nutrition: full liquids diabetic DVT Prophylaxis: INR now subtherapeutic, heparin drip started Rehab PT eval Daily PT Dispo: continues to require inpatient care. Full Code. Visit type - Emergency Visit Emergency Visit: Yes ED Registration Date: 07/09/16 Care time: The patient presented to the Emergency Department on the above date and was hospitalized for further evaluation of their emergent condition. - New Patient This patient is new to me today: No - Critical Care Critical Care patient: Yes Total Critical Care Time (in minutes): 35 Critical Care Statement: The care of this patient involved high complexity decision making to prevent further life threatening deterioration of the patient 's condition and/or to evalute & treat vital organ system(s) failure or risk of failure.
[2016-07-15] MEDS: VANCOMYCIN 750 MG in DEXTROSE 5%-WATER - 250 ML IVPB SCH (15:41)
[2016-07-15] MEDS: MOMETASONE FUROATE 220 MCG/IH INHALER IH SCH (15:50)
[2016-07-15] MEDS: MULTIVITAMINS (DAILY MVI) TABLET (FP) PO SCH (17:40)
[2016-07-15] MEDS: RANITIDINE HCL 150 MG TABLET (FP) PO SCH ×2 (17:41→21:33)
[2016-07-15] MEDS ORDERED: INSULIN (NOVOLOG) ASPART 100 UNITS/ML 10ML VIAL ONE (17:47)
[2016-07-15] MEDS ORDERED: WARFARIN NA 5 MG TABLET (UD) PO ONE (21:29)
[2016-07-15] MEDS: ATORVASTATIN CA 10 MG TABLET (FP) PO SCH (21:33)
[2016-07-16] MEDS: AZTREONAM 1 GM in DEXTROSE 5%-WATER - 50 ML IVPB SCH ×3 (02:10→18:31)
[2016-07-16] MEDS: methylPREDNISolone NA SUCC 40 MG/1 ML VIAL IVPB SCH ×3 (04:00→18:48)
[2016-07-16] MEDS ORDERED: PT OWN MED DRAWER 7, Y5N ONE ×2 (04:07→17:12)
[2016-07-16] MEDS: ALBUTEROL SO4 2.5/IPRATROPIUM 0.5 INH SOL 3 ML VIAL.NEB. NEB SCH ×4 (05:45→18:49)
[2016-07-16 06:10] LABS: MCH 26.2 pg (25.7-33.7); MCHC 32.6 g/dl (32.0-36.0); MEAN CELL VOLUME 80.3 fl (80-96); MEAN PLT VOLUME 8.5 fl (7.5-11.1); PLATELET COUNT 262 K/MM3 (134-434); RDW 16.1 % (11.6-15.6); WHITE BLOOD COUNT 14.3 K/mm3 (4.0-10.0)
[2016-07-16] MEDS: INSULIN SLIDING SCALE (NOVOLOG) 1 VIAL SQ SCH ×4 (06:13→22:16)
[2016-07-16 06:22] LABS: INR 1.49 (0.82-1.09); PROTHROMBIN TIME (PATIENT) 16.5 SEC (9.98-11.88)
[2016-07-16 07:20] LABS: ALBUMIN 2.4 g/dl (3.4-5.0); ALK PHOS 82 U/L (45-117); ANION GAP 7 (8-16); BILIRUBIN,TOTAL 1.3 mg/dL (0.2-1.0); CALCIUM 8.4 mg/dL (8.5-10.1); CO2 36 mmol/L (21-32); CREATININE 0.4 mg/dL (0.55-1.02); GLUCOSE,RANDOM 161 mg/dL (74-106); MAGNESIUM 2.2 mg/dL (1.8-2.4); SGOT/AST 36 U/L (15-37); SGPT/ALT 43 U/L (12-78); TOT PROT 5.2 g/dl (6.4-8.2)
--- NOTE | 2016-07-16 07:32 | PN ---
Physical Exam: SUBJECTIVE: Patient seen and examined. Is feeling very anxious because HR is up. Denies chest pain, palpitations. Just knowing the number makes her nervous. OBJECTIVE: Vital Signs Period Temp Pulse Resp BP Sys/Gold Pulse Ox Last 24 Hr 97.7 F-98.2 F 77-130 16-27 109-147/51-75 95-100 GENERAL: The patient is awake, alert, and fully oriented, in no acute distress. Anxious. HEAD: Normal with no signs of trauma. EYES: PERRL, extraocular movements intact, sclera anicteric, conjunctiva clear. No ptosis. LUNGS: Poor air movement, rhonchi. HEART: Irregular. + murmur ABDOMEN: Soft, nontender, nondistended, normoactive bowel sounds, no guarding, no rebound EXTREMITIES: 2+ pulses, warm, well-perfused, no edema. NEUROLOGICAL: Cranial nerves II through XII grossly intact. Laboratory Results - last 24 hr 07/15/16 07/15/16 07/15/16 05:00 06:03 12:55 WBC RBC Hgb Hct MCV MCHC RDW Plt Count MPV Neutrophils % 98.0 H Lymphocytes % 1.0 L D Monocytes % 1.0 L INR PTT (Actin FS) POC Glucometer [phone] 07/15/16 07/15/16 07/15/16 16:53 18:45 22:41 WBC RBC Hgb Hct MCV MCHC RDW Plt Count MPV Neutrophils % Lymphocytes % Monocytes % INR PTT (Actin FS) 59.8 H POC Glucometer [phone] 07/16/16 07/16/16 07/16/16 05:00 05:00 05:00 WBC 14.3 H RBC 3.62 Hgb 9.5 L D Hct 29.1 L MCV 80.3 MCHC 32.6 RDW 16.1 H Plt Count 262 D MPV 8.5 Neutrophils % Lymphocytes % Monocytes % INR 1.49 H PTT (Actin FS) 73.4 H POC Glucometer Active Medications Generic Name Dose Route Start Last Admin Trade Name Freq PRN Reason Stop Dose Admin Acetaminophen 650 mg 07/07/16 17:15 07/08/16 16:21 Tylenol - PO 650 mg Q4H PRN Administration FEVER OR PAIN Al Hydroxide/Mg Hydroxide 30 ml 07/09/16 20:39 07/13/16 10:08 Mylanta Oral Suspension - PO 30 ml Q12H PRN Administration DYSPEPSIA Albuterol Sulfate 1 amp 07/13/16 14:51 07/13/16 15:45 Ventolin 0.083% Nebulizer Soln - NEB 1 amp Q4H PRN Administration SHORT OF BREATH/WHEEZING Albuterol/Ipratropium 1 amp 07/13/16 18:00 07/16/16 05:45 Duoneb - NEB 1 amp QIDR DARWIN Administration Atorvastatin Calcium 10 mg 07/07/16 22:00 07/15/16 21:33 Lipitor - PO 10 mg HS DARWIN Administration Cholecalciferol 1,000 unit 07/07/16 10:00 07/15/16 09:57 Vitamin D3 - PO 1,000 unit DAILY DARWIN Administration Diltiazem HCl 10 mg 07/13/16 19:01 Cardizem Injection - IVPUSH Q4H PRN TACHYCARDIA Enalapril Maleate 20 mg 07/07/16 14:30 07/15/16 09:58 Vasotec - PO 20 mg DAILY DARWIN Administration Furosemide 20 mg 07/15/16 10:00 07/15/16 09:58 Lasix - PO 20 mg DAILY DARWIN Administration Guaifenesin 5 ml 07/08/16 13:17 07/09/16 16:33 Diabetic Tussin Dm - PO 5 unit Q6H PRN Administration COUGH Heparin Sodium (Porcine) 1,000 unit 07/15/16 10:21 Heparin - IVPUSH PRN PRN Heparin Heparin Sodium (Porcine) 5,000 unit 07/15/16 10:21 Heparin - IVPUSH PRN PRN Heparin Diltiazem HCl 125 mg/ Dextrose 125 mls @ 5 mls/hr 07/13/16 13:30 07/15/16 18:22 IVPB 10 mg/hr TITR DARWIN Titration Protocol 5 MG/HR Aztreonam 1 gm/ Dextrose 50 mls @ 100 mls/hr 07/13/16 18:00 07/16/16 02:10 IVPB 100 mls/hr Q8H-IV DARWIN Administration Protocol Vancomycin HCl 750 mg/ 250 mls @ 250 mls/hr 07/14/16 10:00 07/15/16 15:41 Dextrose IVPB 250 mls/hr DAILY DARWIN Administration Protocol Heparin Sodium (Porcine) 25, 500 mls @ 16 mls/hr 07/15/16 10:30 07/15/16 11:23 000 unit/ Sodium Chloride IV 16 mls/hr TITR DARWIN Administration Protocol 800 UNIT/HR Insulin Aspart 1 vial 07/13/16 16:30 07/16/16 06:13 Novolog Vial Sliding Scale - SQ 2 units ACHS DARWIN Administration Protocol Methylprednisolone Sodium Succinate 40 mg 07/16/16 10:00 Solu-Medrol - IVPB Q8H-IV DARWIN Metoprolol Tartrate 50 mg 07/14/16 13:00 07/15/16 21:33 Lopressor - PO 50 mg BID DARWIN Administration Mometasone Furoate 1 puff 07/08/16 10:00 07/15/16 15:50 Asmanex 220mcg - IH 1 puff DAILY DARWIN Administration Multivitamins/Minerals/Vitamin C 1 tab 07/07/16 10:00 07/15/16 17:40 Tab-A-Vit - PO 1 tab DAILY DARWIN Administration Ranitidine HCl 150 mg 07/12/16 22:00 07/15/16 21:33 Zantac - PO 150 mg BID DARWIN Administration Warfarin Sodium 5 mg 07/16/16 18:00 Coumadin - PO DAILY@1800 DARWIN Imagin05/23/2016 Echo: Normal LV size with mildly decreased LV fxn, mech MV replacement, mild TR, RVSP 30-40 mmHg, AV not well seen 07/07/2016 Echo: Normal LV size and function, mechanical MV replacement, mild to moderate TR, RSVP 30-40mmHg, aortic valve not assessed ASSESSMENT/PLAN: 81 year-old female with a PMH of HTN, permanent A fib, rheumatic heart disease, aortic valve stenosis, mechanical MV replacement, CVA, DM II, asthma, vertigo, inner ear nerve degeneration, and basal cell carcinoma (left nares) admitted for afib with RVR and found to have Influenza A. Hospital course complicated by acute hypoxic and hypercapnic respiratory failure requiring intubation and HAP. Acute hypoxic and hypercapnic respiratory failure, improved --extubated 07/15 Influenza A --completed course of Tamiflu GNB pneumonia --07/14 and 07/15 sputums growing LFGNB --continue aztreonam (day #4) and vanc (day #4) Afib with RVR Mechanical MV --rate to low 120s --continue lopressor, diltiazem drip --INR 1.46, on heparin drip, started coumadin last night, dose again tonight Diastolic heart failure --continue enalapril, cardizem, lasix Asthma --continue nebs, inhalers --per pulm, start solumedrol taper 40mg q8h Lactic acidosis, resolved NIDDM --insulin sliding scale coverage Oral thrush, resolved Severe malnutrition in the context of chronic illness --prolonged inadequate nutrient intake, as evidenced by 60% low end DBW --observed clavicular muscle wasting --temporal muscle wasting --prominent brow with hollow/sunken eyes F/E/N Fluids: PO intake adequate Electrolytes: replete as indicated Nutrition: full liquids diabetic DVT Prophylaxis: INR now subtherapeutic, heparin drip; bridging to coumadin Rehab PT eval Daily PT Dispo: continues to require inpatient care. Full Code. Visit type - Emergency Visit Emergency Visit: Yes ED Registration Date: 07/09/16 Care time: The patient presented to the Emergency Department on the above date and was hospitalized for further evaluation of their emergent condition. - New Patient This patient is new to me today: No - Critical Care Critical Care patient: Yes Total Critical Care Time (in minutes): 35 Critical Care Statement: The care of this patient involved high complexity decision making to prevent further life threatening deterioration of the patient 's condition and/or to evalute & treat vital organ system(s) failure or risk of failure.
--- NOTE | 2016-07-16 08:49 | PN ---
Progress Note, Physician Chief Complaint: Events noted Awake extubated yesterday AF with periods of rapid ventricular response History of Present Illness: Patient was seen and examined. Awake and alert. AF with rapid ventricular response intermittently. Currently on Cardizem drip. Chart was reviewed - Current Medication List Current Medications: Active Medications Acetaminophen (Tylenol -) 650 mg PO Q4H PRN PRN Reason: FEVER OR PAIN Last Admin: 07/08/16 16:21 Dose: 650 mg Al Hydroxide/Mg Hydroxide (Mylanta Oral Suspension -) 30 ml PO Q12H PRN PRN Reason: DYSPEPSIA Last Admin: 07/13/16 10:08 Dose: 30 ml Albuterol Sulfate (Ventolin 0.083% Nebulizer Soln -) 1 amp NEB Q4H PRN PRN Reason: SHORT OF BREATH/WHEEZING Last Admin: 07/13/16 15:45 Dose: 1 amp Albuterol/Ipratropium (Duoneb -) 1 amp NEB QIDR DARWIN Last Admin: 07/16/16 05:45 Dose: 1 amp Atorvastatin Calcium (Lipitor -) 10 mg PO HS [facility] Last Admin: 07/15/16 21:33 Dose: 10 mg Cholecalciferol (Vitamin D3 -) 1,000 unit PO DAILY DARWIN Last Admin: 07/15/16 09:57 Dose: 1,000 unit Diltiazem HCl (Cardizem Injection -) 10 mg IVPUSH Q4H PRN PRN Reason: TACHYCARDIA Enalapril Maleate (Vasotec -) 20 mg PO DAILY [facility] Last Admin: 07/15/16 09:58 Dose: 20 mg Furosemide (Lasix -) 20 mg PO DAILY [facility] Last Admin: 07/15/16 09:58 Dose: 20 mg Guaifenesin (Diabetic Tussin Dm -) 5 ml PO Q6H PRN PRN Reason: COUGH Last Admin: 07/09/16 16:33 Dose: 5 unit Heparin Sodium (Porcine) (Heparin -) 1,000 unit IVPUSH PRN PRN PRN Reason: Heparin Heparin Sodium (Porcine) (Heparin -) 5,000 unit IVPUSH PRN PRN PRN Reason: Heparin Diltiazem HCl 125 mg/ Dextrose 125 mls @ 5 mls/hr IVPB TITR DARWIN; 5 MG/HR PRN Reason: Protocol Last Titration: 07/15/16 18:22 Dose: 10 mg/hr Aztreonam 1 gm/ Dextrose 50 mls @ 100 mls/hr IVPB Q8H-IV DARWIN PRN Reason: Protocol Last Admin: 07/16/16 02:10 Dose: 100 mls/hr Vancomycin HCl 750 mg/ (Dextrose) 250 mls @ 250 mls/hr IVPB DAILY DARWIN PRN Reason: Protocol Last Admin: 07/15/16 15:41 Dose: 250 mls/hr Heparin Sodium (Porcine) 25, (000 unit/ Sodium Chloride) 500 mls @ 16 mls/hr IV TITR DARWIN; 800 UNIT/HR PRN Reason: Protocol Last Admin: 07/15/16 11:23 Dose: 16 mls/hr Insulin Aspart (Novolog Vial Sliding Scale -) 1 vial SQ ACHS DARWIN PRN Reason: Protocol Last Admin: 07/16/16 06:13 Dose: 2 units Methylprednisolone Sodium Succinate (Solu-Medrol -) 40 mg IVPB Q8H-IV DARWIN Mometasone Furoate (Asmanex 220mcg -) 1 puff IH DAILY [facility] Last Admin: 07/15/16 15:50 Dose: 1 puff Multivitamins/Minerals/Vitamin C (Tab-A-Vit -) 1 tab PO DAILY [facility] Last Admin: 07/15/16 17:40 Dose: 1 tab Ranitidine HCl (Zantac -) 150 mg PO BID [facility] Last Admin: 07/15/16 21:33 Dose: 150 mg Warfarin Sodium (Coumadin -) 5 mg PO DAILY@1800 [facility] - Objective Vital Signs: Vital Signs Temperature 98.0 F 07/16/16 06:00 Pulse Rate 101 H 07/16/16 06:00 Respiratory Rate 18 07/16/16 06:00 Blood Pressure 147/67 07/16/16 06:00 O2 Sat by Pulse Oximetry (%) 96 07/15/16 20:21 Neck: Yes: Supple Cardiovascular: Yes: Pulse Irregular, Murmur (2/6 SM, mechanical click), S1, S2 Respiratory: Yes: Diminished Gastrointestinal: Yes: Normal Bowel Sounds, Soft. No: Tenderness Edema: No Additional Findings/Remarks: - Review of Systems Constitutional: denies: Chills, Fever Cardiovascular: denies: Chest Pain, Palpitations, Shortness of Breath Respiratory: denies: SOB. denies: Cough, Hemoptysis, Orthopnea, PND Gastrointestinal: denies: Abdominal Pain, Constipation, Diarrhea, Melena, Nausea , Rectal Bleeding, Vomiting Musculoskeletal: denies: Joint Pain Neurological: denies: Numbness. denies: Dizziness, Headache, Seizure, Syncope Labs: CBC, BMP 07/16/16 05:00 07/16/16 05:00 INR, PTT INR 1.49 (0.82-1.09) H 07/16/16 05:00 Problem List - Problems (1) Acute on chronic diastolic (congestive) heart failure Code(s): I50.33 - ACUTE ON CHRONIC DIASTOLIC (CONGESTIVE) HEART FAILURE (2) Atrial fibrillation with rapid ventricular response Code(s): I48.91 - UNSPECIFIED ATRIAL FIBRILLATION (3) Influenza A Code(s): J10.1 - FLU DUE TO OTH IDENT INFLUENZA VIRUS W OTH RESP MANIFEST (4) Pneumonia and influenza Code(s): J11.00 - FLU DUE TO UNIDENTIFIED FLU VIRUS W UNSP TYPE OF PNEUMONIA (5) Respiratory failure Code(s): J96.90 - RESPIRATORY FAILURE, UNSP, UNSP W HYPOXIA OR HYPERCAPNIA Qualifiers: Chronicity: acute Respiratory failure complication: hypoxia and hypercapnia Qualified Code(s): J96.01 - Acute respiratory failure with hypoxia (6) Diabetes mellitus Code(s): E11.9 - TYPE 2 DIABETES MELLITUS WITHOUT COMPLICATIONS Qualifiers: Diabetes mellitus type: type 2 Diabetes mellitus complication status: without complication Diabetes mellitus termite control servicer insulin use: without residential use Qualified Code(s): E11.9 - Type 2 diabetes mellitus without complications (7) History of mitral valve replacement with mechanical valve Code(s): Z95.2 - PRESENCE OF PROSTHETIC HEART VALVE (8) Hypercholesteremia Code(s): E78.0 - PURE HYPERCHOLESTEROLEMIA * DO NOT USE * (9) Hypertension Code(s): I10 - ESSENTIAL (PRIMARY) HYPERTENSION Qualifiers: Hypertension type: essential hypertension Qualified Code(s): I10 - Essential (primary) hypertension Assessment/Plan 1. Acute on chronic hypoxic and hypercapneic respiratory failure now extubated 2. Influenza A and RLL hospital acquired pneumonia 3. Acute on chronic diastolic failure 4. Permanent atrial fibrillation with RVR 5. Post mechanical MVR 6. Possible aortic valve disease 7. DM 8. Hyperlipidemia 9. Anemia & thrombocytopenia PLAN: 1. Cardizem drip for rate control in addition to Metoprolol (titrate dose) 2. Continue Vasotec 3. Continue Lipitor 4. Continue Lasix as needed with monitoring renal function and electrolytes 5. Continue Coumadin as per INR maintain 3.0-3.5, with caution considering the above noted anemia and thrombocytopenia. Continue Heparin drip since INR is less than 2.0 6. Continue antibiotics course, Tamiflu, IV steroids and bronchodilators as tolerated 7. GI prophylaxis Further plans are to follow Leon Esquivel MD
[2016-07-16] MEDS: VANCOMYCIN 750 MG in DEXTROSE 5%-WATER - 250 ML IVPB SCH (10:36)
[2016-07-16] MEDS: ENALAPRIL MALEATE 10 MG TABLET (FP) PO SCH (10:36)
[2016-07-16] MEDS: RANITIDINE HCL 150 MG TABLET (FP) PO SCH ×2 (10:37→22:16)
--- NOTE | 2016-07-16 10:37 | PN ---
Progress Note (short form) - Note Progress Note: Patient seen and examined in the ICU. Remains extubated. Awake and alert. Congested cough. Still with Rapid AFib on Cardizem drip. No CP. CXR: Increased bilateral congestive changes. Intake & Output 07/13/16 07/14/16 07/15/16 07/16/16 23:59 23:59 23:59 23:59 Intake Total 9325 099 8529 347 Output Total 1327 931 7902 300 Balance 290 -85 -245 47 Weight 69 lb 6 oz 69 lb 8 oz 70 lb 2 oz Last Vital Signs Temp Pulse Resp BP Pulse Ox 98.0 F 101 H 18 147/67 96 07/16/16 06:00 07/16/16 06:00 07/16/16 09:00 07/16/16 06:00 07/16/16 09:00 Active Medications Acetaminophen (Tylenol -) 650 mg PO Q4H PRN PRN Reason: FEVER OR PAIN Last Admin: 07/08/16 16:21 Dose: 650 mg Al Hydroxide/Mg Hydroxide (Mylanta Oral Suspension -) 30 ml PO Q12H PRN PRN Reason: DYSPEPSIA Last Admin: 07/13/16 10:08 Dose: 30 ml Albuterol Sulfate (Ventolin 0.083% Nebulizer Soln -) 1 amp NEB Q4H PRN PRN Reason: SHORT OF BREATH/WHEEZING Last Admin: 07/13/16 15:45 Dose: 1 amp Albuterol/Ipratropium (Duoneb -) 1 amp NEB QIDR [facility] Last Admin: 07/16/16 05:45 Dose: 1 amp Atorvastatin Calcium (Lipitor -) 10 mg PO HS [facility] Last Admin: 07/15/16 21:33 Dose: 10 mg Cholecalciferol (Vitamin D3 -) 1,000 unit PO DAILY [facility] Last Admin: 07/15/16 09:57 Dose: 1,000 unit Diltiazem HCl (Cardizem Injection -) 10 mg IVPUSH Q4H PRN PRN Reason: TACHYCARDIA Enalapril Maleate (Vasotec -) 20 mg PO DAILY [facility] Last Admin: 07/15/16 09:58 Dose: 20 mg Furosemide (Lasix -) 20 mg PO DAILY [facility] Last Admin: 07/15/16 09:58 Dose: 20 mg Guaifenesin (Diabetic Tussin Dm -) 5 ml PO Q6H PRN PRN Reason: COUGH Last Admin: 07/09/16 16:33 Dose: 5 unit Heparin Sodium (Porcine) (Heparin -) 1,000 unit IVPUSH PRN PRN PRN Reason: Heparin Heparin Sodium (Porcine) (Heparin -) 5,000 unit IVPUSH PRN PRN PRN Reason: Heparin Diltiazem HCl 125 mg/ Dextrose 125 mls @ 5 mls/hr IVPB TITR [facility]; 5 MG/HR PRN Reason: Protocol Last Titration: 07/15/16 18:22 Dose: 10 mg/hr Aztreonam 1 gm/ Dextrose 50 mls @ 100 mls/hr IVPB Q8H-IV [facility] PRN Reason: Protocol Last Admin: 07/16/16 02:10 Dose: 100 mls/hr Vancomycin HCl 750 mg/ (Dextrose) 250 mls @ 250 mls/hr IVPB DAILY [facility] PRN Reason: Protocol Last Admin: 07/15/16 15:41 Dose: 250 mls/hr Heparin Sodium (Porcine) 25, (000 unit/ Sodium Chloride) 500 mls @ 16 mls/hr IV TITR [facility]; 800 UNIT/HR PRN Reason: Protocol Last Admin: 07/15/16 11:23 Dose: 16 mls/hr Insulin Aspart (Novolog Vial Sliding Scale -) 1 vial SQ ACHS [facility] PRN Reason: Protocol Last Admin: 07/16/16 06:13 Dose: 2 units Methylprednisolone Sodium Succinate (Solu-Medrol -) 40 mg IVPB Q8H-IV [facility] Metoprolol Tartrate (Lopressor -) 50 mg PO TID [facility] Mometasone Furoate (Asmanex 220mcg -) 1 puff IH DAILY [facility] Last Admin: 07/15/16 15:50 Dose: 1 puff Multivitamins/Minerals/Vitamin C (Tab-A-Vit -) 1 tab PO DAILY [facility] Last Admin: 07/15/16 17:40 Dose: 1 tab Ranitidine HCl (Zantac -) 150 mg PO BID [facility] Last Admin: 07/15/16 21:33 Dose: 150 mg Warfarin Sodium (Coumadin -) 5 mg PO DAILY@1800 [facility] Gen:Awake on AC Mode Heart: tachycardic, irregular, mech click at base Lung: Basilar rales / bronchial breath sounds at the bases Abd: soft, nontender Ext: no edema Laboratory Results - last 24 hr 07/15/16 07/15/16 07/15/16 06:03 12:55 16:53 WBC RBC Hgb Hct MCV MCHC RDW Plt Count MPV INR PTT (Actin FS) Sodium Potassium Chloride Carbon Dioxide Anion Gap BUN Creatinine Creat Clearance w eGFR POC Glucometer [phone] 202.04663 Random Glucose Calcium Phosphorus Magnesium Total Bilirubin AST ALT Alkaline Phosphatase Total Protein Albumin 07/15/16 07/15/16 07/16/16 18:45 22:41 05:00 WBC 14.3 H RBC 3.62 Hgb 9.5 L D Hct 29.1 L MCV 80.3 MCHC 32.6 RDW 16.1 H Plt Count 262 D MPV 8.5 INR PTT (Actin FS) 59.8 H Sodium Potassium Chloride Carbon Dioxide Anion Gap BUN Creatinine Creat Clearance w eGFR POC Glucometer [phone] Random Glucose Calcium Phosphorus Magnesium Total Bilirubin AST ALT Alkaline Phosphatase Total Protein Albumin 07/16/16 07/16/16 07/16/16 05:00 05:00 05:00 WBC RBC Hgb Hct MCV MCHC RDW Plt Count MPV INR 1.49 H PTT (Actin FS) 73.4 H Sodium 139 Potassium 4.4 Chloride 96 L Carbon Dioxide 36 H Anion Gap 7 L BUN 24 H Creatinine 0.4 L Creat Clearance w eGFR > 60 POC Glucometer Random Glucose 161 H D Calcium 8.4 L Phosphorus 3.0 D Magnesium 2.2 Total Bilirubin 1.3 H AST 36 ALT 43 Alkaline Phosphatase 82 Total Protein 5.2 L Albumin 2.4 L ASSESSMENT AND PLAN: Acute on Chronic Hypoxic and Hypercapneic Respiratory Failure Acute on Chronic LV Diastolic Heart Failure Influenza A Pneumonia Atrial Fibrillation with RVR s/p [facility] MVR Aortic Stenosis Pulmonary HTN Acute COPD Exacerbation - O2 as needed - ABX - completed tamiflu - IV medrol taper - inhaled bronchodilators - O2 to keep SpO2 >90% - Cardizem drip / rate control per Cardiology - IV Heparin - IV Lasix daily - DVT/GI prophylaxis Dr Alegria CCTime 35"
[2016-07-16] MEDS: MULTIVITAMINS (DAILY MVI) TABLET (FP) PO SCH (10:38)
[2016-07-16] MEDS: FUROSEMIDE 40 MG/4 ML INJECTABLE VIAL IVPUSH SCH (11:00)
--- NOTE | 2016-07-16 11:44 | PN ---
Progress Note (short form) - Note Progress Note: awake and alert extubated following commands Vital Signs Period Temp Pulse Resp BP Sys/Gold Pulse Ox Last 24 Hr 97.7 F-98.2 F 77-130 16-26 114-147/51-75 95-100 cor-rrr lungs decreased bs at bases abd soft,nt ext no edema CBC, BMP 07/16/16 05:00 07/16/16 05:00 Microbiology 07/15/16 09:40 Sputum - Endotrachea Suction/Ventilator Gram Stain - Final 07/15/16 09:40 Sputum - Endotrachea Suction/Ventilator Sputum Culture - Preliminary Lactose Fermenting Neg Bacilli 07/14/16 22:00 Sputum - Endotrachea Suction/Ventilator Gram Stain - Final 07/14/16 22:00 Sputum - Endotrachea Suction/Ventilator Sputum Culture - Preliminary Lactose Fermenting Neg Bacilli 07/13/16 17:00 Blood - Peripheral Venous Blood Culture - Preliminary NO GROWTH OBTAINED AFTER 48 HOURS, INCUBATION TO CONTINUE FOR 3 DAYS. 07/13/16 17:00 Blood - Peripheral Venous Blood Culture - Preliminary NO GROWTH OBTAINED AFTER 48 HOURS, INCUBATION TO CONTINUE FOR 3 DAYS. 07/13/16 17:30 Urine For Antigen Detection Legionella Antigen - Final 07/13/16 17:30 Urine For Antigen Detection Streptococcus pneumoniae Antigen (M - Final 07/13/16 11:00 Urine - Urine Magana Urine Culture - Final NO GROWTH OBTAINED 07/08/16 17:10 Blood - Peripheral Venous Blood Culture - Final NO GROWTH AFTER 5 DAYS INCUBATION 07/08/16 17:10 Blood - Peripheral Venous Blood Culture - Final NO GROWTH AFTER 5 DAYS INCUBATION 07/07/16 17:30 Blood - Peripheral Venous Blood Culture - Final NO GROWTH AFTER 5 DAYS INCUBATION 07/07/16 17:30 Blood - Peripheral Venous Blood Culture - Final NO GROWTH AFTER 5 DAYS INCUBATION 07/08/16 17:00 Nasopharyngeal Swab Respiratory Virus Panel - Preliminary 07/08/16 12:00 Sputum - Expectorated Gram Stain - Final 07/08/16 12:00 Sputum - Expectorated Sputum Culture - Final NORMAL RESPIRATORY NOAH 07/08/16 10:45 Urine - Urine Clean Catch Urine Culture - Final NO GROWTH OBTAINED 07/08/16 17:00 Nasopharyngeal Swab Influenza Types A,B Antigen (WINNIE) - Final 07/08/16 17:00 Nasopharyngeal Swab - Final 07/06/16 21:33 Urine - Urine Clean Catch Urine Culture - Final Lactobacillus Species a/p respiratory failure pneumonia s/p influenza MVR afib multiple antibiotic allergies continue vancomycin/azactam f/u cultures
[2016-07-16] MEDS: MOMETASONE FUROATE 220 MCG/IH INHALER IH SCH (12:45)
[2016-07-16] MEDS: HEPARIN - 25,000 UNIT in SODIUM CHLORIDE 495 ML IV SCH (12:46)
[2016-07-16] MEDS: METOPROLOL TARTRATE 50 MG TABLET (FP) PO SCH ×2 (15:42→22:16)
[2016-07-16] MEDS: DILTIAZEM INJECTION 125 MG in DEXTROSE 5%-WATER - 100 ML IVPB SCH (15:48)
[2016-07-16] MEDS: CHOLECALCIFEROL (VITAMIN D3) 1,000 UNIT TABLET (FP) PO SCH (15:56)
[2016-07-16] MEDS: WARFARIN NA 5 MG TABLET (UD) PO SCH (18:44)
[2016-07-16] MEDS ORDERED: morphine CARPU-JECT 2 MG/1 ML DISP.SYRIN IVPUSH ONE (20:45)
[2016-07-16] MEDS ORDERED: morphine CARPU-JECT 2 MG/1 ML DISP.SYRIN ONE (20:46)
[2016-07-16] MEDS: ATORVASTATIN CA 10 MG TABLET (FP) PO SCH (22:26)
[2016-07-17] MEDS: ALBUTEROL SO4 2.5/IPRATROPIUM 0.5 INH SOL 3 ML VIAL.NEB. NEB SCH ×5 (00:12→23:39)
[2016-07-17] MEDS ORDERED: dilTIAZem HCL 125 MG/25 ML - 5 ML VIAL ONE ×2 (00:51→14:40)
[2016-07-17] MEDS: methylPREDNISolone NA SUCC 40 MG/1 ML VIAL IVPB SCH ×2 (01:52→09:52)
[2016-07-17] MEDS: AZTREONAM 1 GM in DEXTROSE 5%-WATER - 50 ML IVPB SCH ×3 (01:53→18:13)
[2016-07-17] MEDS ORDERED: ALPRAZolam 0.25 MG TABLET PO ONE (03:37)
[2016-07-17] MEDS: INSULIN SLIDING SCALE (NOVOLOG) 1 VIAL SQ SCH ×4 (06:08→21:44)
[2016-07-17] MEDS: METOPROLOL TARTRATE 50 MG TABLET (FP) PO SCH ×3 (06:09→21:12)
[2016-07-17 06:15] LABS: MCHC 32.6 g/dl (32.0-36.0); MEAN CELL VOLUME 79.7 fl (80-96); MEAN PLT VOLUME 8.5 fl (7.5-11.1); PLATELET COUNT 344 K/MM3 (134-434); RDW 16.1 % (11.6-15.6); WHITE BLOOD COUNT 22.9 K/mm3 (4.0-10.0)
[2016-07-17 06:35] LABS: INR 2.35 (0.82-1.09); PROTHROMBIN TIME (PATIENT) 26.3 SEC (9.98-11.88)
[2016-07-17 07:21] LABS: ALBUMIN 2.9 g/dl (3.4-5.0); ALK PHOS 102 U/L (45-117); ANION GAP 8 (8-16); BILIRUBIN,TOTAL 1.3 mg/dL (0.2-1.0); CALCIUM 8.7 mg/dL (8.5-10.1); CO2 36 mmol/L (21-32); CREATININE 0.5 mg/dL (0.55-1.02); GLUCOSE,RANDOM 185 mg/dL (74-106); MAGNESIUM 2.3 mg/dL (1.8-2.4); SGOT/AST 39 U/L (15-37); SGPT/ALT 54 U/L (12-78); TOT PROT 5.9 g/dl (6.4-8.2)
--- NOTE | 2016-07-17 07:28 | PN ---
Progress Note, Physician Chief Complaint: ID Since my last visit she has been extubated Appears dyspneic and very weak. Antibiotics as before Vancomycin and Aztreonam day 4 therapy - Current Medication List Current Medications: Active Medications Acetaminophen (Tylenol -) 650 mg PO Q4H PRN PRN Reason: FEVER OR PAIN Last Admin: 07/08/16 16:21 Dose: 650 mg Al Hydroxide/Mg Hydroxide (Mylanta Oral Suspension -) 30 ml PO Q12H PRN PRN Reason: DYSPEPSIA Last Admin: 07/13/16 10:08 Dose: 30 ml Albuterol Sulfate (Ventolin 0.083% Nebulizer Soln -) 1 amp NEB Q4H PRN PRN Reason: SHORT OF BREATH/WHEEZING Last Admin: 07/13/16 15:45 Dose: 1 amp Albuterol/Ipratropium (Duoneb -) 1 amp NEB QIDR [facility] Last Admin: 07/17/16 06:11 Dose: 1 amp Atorvastatin Calcium (Lipitor -) 10 mg PO HS [facility] Last Admin: 07/16/16 22:26 Dose: 10 mg Cholecalciferol (Vitamin D3 -) 1,000 unit PO DAILY [facility] Last Admin: 07/16/16 15:56 Dose: 1,000 unit Diltiazem HCl (Cardizem Injection -) 10 mg IVPUSH Q4H PRN PRN Reason: TACHYCARDIA Enalapril Maleate (Vasotec -) 20 mg PO DAILY [facility] Last Admin: 07/16/16 10:36 Dose: 20 mg Furosemide (Lasix Injection -) 40 mg IVPUSH DAILY [facility] Last Admin: 07/16/16 11:00 Dose: 40 mg Guaifenesin (Diabetic Tussin Dm -) 5 ml PO Q6H PRN PRN Reason: COUGH Last Admin: 07/09/16 16:33 Dose: 5 unit Heparin Sodium (Porcine) (Heparin -) 1,000 unit IVPUSH PRN PRN PRN Reason: Heparin Heparin Sodium (Porcine) (Heparin -) 5,000 unit IVPUSH PRN PRN PRN Reason: Heparin Diltiazem HCl 125 mg/ Dextrose 125 mls @ 5 mls/hr IVPB TITR [facility]; 5 MG/HR PRN Reason: Protocol Last Admin: 07/16/16 15:48 Dose: 10 mls/hr Aztreonam 1 gm/ Dextrose 50 mls @ 100 mls/hr IVPB Q8H-IV [facility] PRN Reason: Protocol Last Admin: 07/17/16 01:53 Dose: 100 mls/hr Vancomycin HCl 750 mg/ (Dextrose) 250 mls @ 250 mls/hr IVPB DAILY [facility] PRN Reason: Protocol Last Admin: 07/16/16 10:36 Dose: 250 mls/hr Heparin Sodium (Porcine) 25, (000 unit/ Sodium Chloride) 500 mls @ 16 mls/hr IV TITR [facility]; 800 UNIT/HR PRN Reason: Protocol Last Admin: 07/16/16 12:46 Dose: 16 mls/hr Insulin Aspart (Novolog Vial Sliding Scale -) 1 vial SQ ACHS [facility] PRN Reason: Protocol Last Admin: 07/17/16 06:08 Dose: 4 units Methylprednisolone Sodium Succinate (Solu-Medrol -) 40 mg IVPB Q8H-IV [facility] Last Admin: 07/17/16 01:52 Dose: 40 mg Metoprolol Tartrate (Lopressor -) 50 mg PO TID [facility] Last Admin: 07/17/16 06:09 Dose: 50 mg Mometasone Furoate (Asmanex 220mcg -) 1 puff IH DAILY [facility] Last Admin: 07/16/16 12:45 Dose: 1 puff Multivitamins/Minerals/Vitamin C (Tab-A-Vit -) 1 tab PO DAILY [facility] Last Admin: 07/16/16 10:38 Dose: 1 tab Ranitidine HCl (Zantac -) 150 mg PO BID [facility] Last Admin: 07/16/16 22:16 Dose: 150 mg Warfarin Sodium (Coumadin -) 5 mg PO DAILY@1800 [facility] Last Admin: 07/16/16 18:44 Dose: 5 mg - Objective Vital Signs: Vital Signs Temperature 98.3 F 07/17/16 06:00 Pulse Rate 83 07/17/16 06:00 Respiratory Rate 20 07/17/16 06:00 Blood Pressure 102/53 07/17/16 06:00 O2 Sat by Pulse Oximetry (%) 96 07/16/16 21:00 Constitutional: Yes: Moderate Distress, Other (Weak) Neck: Yes: WNL, Supple Cardiovascular: Yes: Regular Rate and Rhythm, S1, S2 Respiratory: Yes: Diminished. No: Rales, Rhonchi Gastrointestinal: Yes: WNL, Normal Bowel Sounds, Soft. No: Tenderness, Tenderness, Rebound Extremities: No: Cold, Cool, Erythema Edema: No Labs: CBC, BMP 07/17/16 05:00 INR, PTT INR 2.35 (0.82-1.09) H D 07/17/16 05:00 Problem List - Problems (1) Atrial fibrillation with rapid ventricular response Code(s): I48.91 - UNSPECIFIED ATRIAL FIBRILLATION (2) Pneumonia due to virus Code(s): J12.9 - VIRAL PNEUMONIA, UNSPECIFIED (3) Influenza A Code(s): J10.1 - FLU DUE TO OTH IDENT INFLUENZA VIRUS W OTH RESP MANIFEST (4) H/O mitral valve replacement Code(s): Z95.2 - PRESENCE OF PROSTHETIC HEART VALVE Assessment/Plan Microbiology 07/15/16 09:40 Sputum - Endotrachea Suction/Ventilator Gram Stain - Final 07/14/16 22:00 Sputum - Endotrachea Suction/Ventilator Gram Stain - Final 07/13/16 17:30 Urine For Antigen Detection Legionella Antigen - Final 07/13/16 17:30 Urine For Antigen Detection Streptococcus pneumoniae Antigen (M - Final 07/15/16 09:40 Sputum - Endotrachea Suction/Ventilator Sputum Culture - Preliminary Lactose Fermenting Neg Bacilli 07/14/16 22:00 Sputum - Endotrachea Suction/Ventilator Sputum Culture - Preliminary Lactose Fermenting Neg Bacilli Laboratory Tests 07/17/16 07/17/16 07/17/16 05:00 05:00 05:00 WBC 22.9 H D Hgb 10.0 L Hct 30.7 L Plt Count 344 D INR 2.35 H D BUN 33 H D Creatinine 0.5 L D Creat Clearance w eGFR > 60 Total Bilirubin 1.3 H AST 39 H ALT 54 D Alkaline Phosphatase 102 D Assessment Respiratory failure post extubation Bilateral pneumonitis due to GNB ( HAP ) Recent Influenza Mechanical valve replacement Elevated WBC from steroids Plan Stop Vancomycin Continue Aztreonam Await sensitivity on GNB Clar[facility]
[2016-07-17 07:35] LABS: ARTERIAL BLOOD GAS BASE EXCESS 8.7 meq/l (-2-2); ARTERIAL BLOOD GAS HCO3 35.9 meq/L (22-26); ARTERIAL BLOOD GAS PO2 71.6 mmHg (68-100); ARTERIAL BLOOD GAS pH 7.34 (7.35-7.45)
[2016-07-17 07:38] LABS: ALLENS TEST POSITIVE; ART PUNCT SITE LEFT RADIAL; LPM/O2% 4L; PT. ON O2? YES; TYPE OF O2 N/C
[2016-07-17] MEDS ORDERED: PT OWN MED DRAWER 7, Y5N ONE ×2 (09:11→18:13)
[2016-07-17] MEDS: MULTIVITAMINS (DAILY MVI) TABLET (FP) PO SCH (09:54)
[2016-07-17] MEDS: RANITIDINE HCL 150 MG TABLET (FP) PO SCH ×2 (09:55→21:12)
[2016-07-17] MEDS: FUROSEMIDE 40 MG/4 ML INJECTABLE VIAL IVPUSH SCH ×2 (09:55→15:00)
[2016-07-17] MEDS: HEPARIN - 25,000 UNIT in SODIUM CHLORIDE 495 ML IV SCH (09:55)
[2016-07-17] MEDS: ENALAPRIL MALEATE 10 MG TABLET (FP) PO SCH (09:55)
[2016-07-17] MEDS: CHOLECALCIFEROL (VITAMIN D3) 1,000 UNIT TABLET (FP) PO SCH (09:55)
[2016-07-17] MEDS: MOMETASONE FUROATE 220 MCG/IH INHALER IH SCH (09:56)
--- NOTE | 2016-07-17 10:30 | PN ---
Progress Note, Physician History of Present Illness: Lethargic, extubated on 40% VM, rate-controlled afib on cardizem gtt and lopressor. - Current Medication List Current Medications: Active Medications Acetaminophen (Tylenol -) 650 mg PO Q4H PRN PRN Reason: FEVER OR PAIN Last Admin: 07/08/16 16:21 Dose: 650 mg Al Hydroxide/Mg Hydroxide (Mylanta Oral Suspension -) 30 ml PO Q12H PRN PRN Reason: DYSPEPSIA Last Admin: 07/13/16 10:08 Dose: 30 ml Albuterol Sulfate (Ventolin 0.083% Nebulizer Soln -) 1 amp NEB Q4H PRN PRN Reason: SHORT OF BREATH/WHEEZING Last Admin: 07/13/16 15:45 Dose: 1 amp Albuterol/Ipratropium (Duoneb -) 1 amp NEB QIDR [facility] Last Admin: 07/17/16 06:11 Dose: 1 amp Atorvastatin Calcium (Lipitor -) [address] [facility] Last Admin: 07/16/16 22:26 Dose: 10 mg Cholecalciferol (Vitamin D3 -) 1,[address] [facility] Last Admin: 07/17/16 09:55 Dose: 1,000 unit Diltiazem HCl (Cardizem Injection -) 10 mg IVPUSH Q4H PRN PRN Reason: TACHYCARDIA Enalapril Maleate (Vasotec -) [address] [facility] Last Admin: 07/17/16 09:55 Dose: 20 mg Furosemide (Lasix Injection -) [address] [facility] Last Admin: 07/17/16 09:55 Dose: 40 mg Guaifenesin (Diabetic Tussin Dm -) 5 ml PO Q6H PRN PRN Reason: COUGH Last Admin: 07/09/16 16:33 Dose: 5 unit Heparin Sodium (Porcine) (Heparin -) 1,000 unit IVPUSH PRN PRN PRN Reason: Heparin Heparin Sodium (Porcine) (Heparin -) 5,000 unit IVPUSH PRN PRN PRN Reason: Heparin Diltiazem HCl 125 mg/ Dextrose 125 mls @ 5 mls/hr IVPB TITR [facility]; 5 MG/HR PRN Reason: Protocol Last Admin: 07/16/16 15:48 Dose: 10 mls/hr Aztreonam 1 gm/ Dextrose 50 mls @ 100 mls/hr IVPB Q8H-IV [facility] PRN Reason: Protocol Last Admin: 07/17/16 09:54 Dose: 100 mls/hr Heparin Sodium (Porcine) 25, (000 unit/ Sodium Chloride) 500 mls @ 16 mls/hr IV TITR [facility]; 800 UNIT/HR PRN Reason: Protocol Last Admin: 07/17/16 09:55 Dose: 16 mls/hr Insulin Aspart (Novolog Vial Sliding Scale -) 1 vial SQ ACHS [facility] PRN Reason: Protocol Last Admin: 07/17/16 06:08 Dose: 4 units Methylprednisolone Sodium Succinate (Solu-Medrol -) 40 [address] IVPB Q8H-IV [facility] Last Admin: 07/17/16 09:52 Dose: 40 mg Metoprolol Tartrate (Lopressor -) [address] [facility] Last Admin: 07/17/16 06:09 Dose: 50 mg Mometasone Furoate (Asmanex 220mcg -) [address] [facility] Last Admin: 07/17/16 09:56 Dose: 1 puff Multivitamins/Minerals/Vitamin C (Tab-A-Vit -) [address] [facility] Last Admin: 07/17/16 09:54 Dose: 1 tab Ranitidine HCl (Zantac -) [address] [facility] Last Admin: 07/17/16 09:55 Dose: 150 mg Warfarin Sodium (Coumadin -) 5 mg PO DAILY@1800 [facility] Last Admin: 07/16/16 18:44 Dose: 5 mg - Objective Vital Signs: Vital Signs Temperature 98.3 F 07/17/16 06:00 Pulse Rate 100 H 07/17/16 08:00 Respiratory Rate 20 07/17/16 08:44 Blood Pressure 141/67 07/17/16 08:00 O2 Sat by Pulse Oximetry (%) 96 07/16/16 21:00 Constitutional: Yes: No Distress, Calm, Thin Cardiovascular: Yes: Pulse Irregular, Murmur (2/6 SM), Other ([place] mechanical valve sounds) Respiratory: Yes: Regular, Diminished, On Venti-Mask Gastrointestinal: Yes: Normal Bowel Sounds, Soft Edema: No Labs: CBC, BMP 07/17/16 05:00 07/17/16 05:00 INR, PTT INR 2.35 (0.82-1.09) H D 07/17/16 05:00 - ....Imaging Chest X-ray: Report Reviewed (Increasing pleural effusions) Problem List - Problems (1) Atrial fibrillation with rapid ventricular response Code(s): I48.91 - UNSPECIFIED ATRIAL FIBRILLATION (2) Diabetes mellitus Code(s): E11.9 - TYPE 2 DIABETES MELLITUS WITHOUT COMPLICATIONS Qualifiers: Diabetes mellitus type: type 2 Diabetes mellitus complication status: without complication Diabetes mellitus long term care administrator insulin use: without mcfp use Qualified Code(s): E11.9 - Type 2 diabetes mellitus without complications (3) History of mitral valve replacement with mechanical valve Code(s): Z95.2 - PRESENCE OF PROSTHETIC HEART VALVE (4) Hypercholesteremia Code(s): E78.0 - PURE HYPERCHOLESTEROLEMIA * DO NOT USE * (5) Hypertension Code(s): I10 - ESSENTIAL (PRIMARY) HYPERTENSION Qualifiers: Hypertension type: essential hypertension Qualified Code(s): I10 - Essential (primary) hypertension (6) Premature ventricular contraction Code(s): I49.3 - VENTRICULAR PREMATURE DEPOLARIZATION (7) Acute on chronic diastolic (congestive) heart failure Code(s): I50.33 - ACUTE ON CHRONIC DIASTOLIC (CONGESTIVE) HEART FAILURE (8) Influenza A Code(s): J10.1 - FLU DUE TO OTH IDENT INFLUENZA VIRUS W OTH RESP MANIFEST (9) Pneumonia and influenza Code(s): J11.00 - FLU DUE TO UNIDENTIFIED FLU VIRUS W UNSP TYPE OF PNEUMONIA Assessment/Plan 05/23/2016 Echo: Normal LV size with mildly decreased LV fxn, mech MV replacement, mild TR RVSP 30-40 mmHg, AV not well seen Repeat Echocardiography performed 07/07/16 revealed Normal LV size and function, mechanical MV replacement, mild to moderate TR with RVSP 30-40 mmHg, aortic valve not assessed 1. Acute on chronic hypoxic and hypercapneic respiratory failure referable to 2. Influenza A, RLL hospitalized acquired PNA 3. Acute on chronic diastolic failure 4. Permanent atrial fibrillation with RVR on A/C therapy, subtherapeutic INR 5. Post mechanical MVR 6. Probable significant aortic valve stenosis cannot be excluded 7. DM 8. Hyperlipidemia 9. Anemia & Thrombocytopenia PLAN: 1. Agree Lopressor 50 tid, wean Cardizem gtt as tolerated 2. Continue Vasotec 20 qd 3. Continue Lipitor 10 qhs 4. Continue Lasix 40 qd as needed with monitor diuretic response, renal fxn and electrolytes 5. Continue Coumadin as per INR maintain 3.0-3.5, with caution considering the above noted Anemia and Thrombocytopenia, continue Heparin gtt until INR>3.0 6. Vent FIO2 as tolerated, antibiotics course to cover HCAP, Tamiflu, IV steroids and bronchodilators as per ID and pulmonary teams 7. Enteral feeds, GI prophylaxis
--- NOTE | 2016-07-17 10:56 | PN ---
Progress Note, ANIMAL PATHOLOGIST - Note Progress Note: Extubated. Quite weak. Sleepy. On full liquid diet. Suggest nectar thick liquids. Ensure compact if MD agrees.
[2016-07-17] MEDS: VANCOMYCIN 750 MG in DEXTROSE 5%-WATER - 250 ML IVPB SCH (12:04)
--- NOTE | 2016-07-17 12:09 | PN ---
Physical Exam: SUBJECTIVE: Patient seen and examined. On BIPAP. Received morphine overnight. OBJECTIVE: Vital Signs Period Temp Pulse Resp BP Sys/Gold Pulse Ox Last 24 Hr 98 F-98.3 F 83-122 17-34 102-148/53-82 96-100 GENERAL: The patient is lethargic. Opens eyes to voice. On BIPAP. HEAD: Normal with no signs of trauma. EYES: PERRL, extraocular movements intact, sclera anicteric, conjunctiva clear. No ptosis. LUNGS: Poor air movement, rhonchi. HEART: Irregular. + murmur ABDOMEN: Soft, nontender, nondistended, normoactive bowel sounds, no guarding, no rebound EXTREMITIES: 2+ pulses, warm, well-perfused, no edema. NEUROLOGICAL: Cranial nerves II through XII grossly intact. Laboratory Results - last 24 hr 07/16/16 07/16/16 07/16/16 12:18 16:45 22:14 WBC RBC Hgb Hct MCV MCHC RDW Plt Count MPV INR Puncture Site ABG pH ABG pCO2 at Pt Temp ABG pO2 at Pt Temp ABG HCO3 ABG O2 Sat (Measured) ABG O2 Content ABG Base Excess Raciel Test O2 Delivery Device Oxygen Flow Rate PEEP Sodium Potassium Chloride Carbon Dioxide Anion Gap BUN Creatinine Creat Clearance w eGFR POC Glucometer [phone] Random Glucose Calcium Phosphorus Magnesium Total Bilirubin AST ALT Alkaline Phosphatase Total Protein Albumin Vancomycin Trough 07/17/16 07/17/16 07/17/16 05:00 05:00 05:00 WBC 22.9 H D RBC 3.85 Hgb 10.0 L Hct 30.7 L MCV 79.7 L MCHC 32.6 RDW 16.1 H Plt Count 344 D MPV 8.5 INR 2.35 H D Puncture Site ABG pH ABG pCO2 at Pt Temp ABG pO2 at Pt Temp ABG HCO3 ABG O2 Sat (Measured) ABG O2 Content ABG Base Excess Raciel Test O2 Delivery Device Oxygen Flow Rate PEEP Sodium 139 Potassium 4.2 Chloride 95 L Carbon Dioxide 36 H Anion Gap 8 BUN 33 H D Creatinine 0.5 L D Creat Clearance w eGFR > 60 POC Glucometer Random Glucose 185 H Calcium 8.7 Phosphorus 4.0 D Magnesium 2.3 Total Bilirubin 1.3 H AST 39 H ALT 54 D Alkaline Phosphatase 102 D Total Protein 5.9 L Albumin 2.9 L D Vancomycin Trough 07/17/16 07/17/16 07/17/16 05:33 07:35 09:24 WBC RBC Hgb Hct MCV MCHC RDW Plt Count MPV INR Puncture Site Left radial ABG pH 7.34 L D ABG pCO2 at Pt Temp 68.5 H* D ABG pO2 at Pt Temp 71.6 D ABG HCO3 35.9 H ABG O2 Sat (Measured) 92.0 ABG O2 Content 13.1 L ABG Base Excess 8.7 H Raciel Test Positive O2 Delivery Device N/c Oxygen Flow Rate 4l PEEP 0.0 Sodium Potassium Chloride Carbon Dioxide Anion Gap BUN Creatinine Creat Clearance w eGFR POC Glucometer [phone] Random Glucose Calcium Phosphorus Magnesium Total Bilirubin AST ALT Alkaline Phosphatase Total Protein Albumin Vancomycin Trough 8.552 Active Medications Generic Name Dose Route Start Last Admin Trade Name Freq PRN Reason Stop Dose Admin Acetaminophen 650 mg 07/07/16 17:15 07/08/16 16:21 Tylenol - PO 650 mg Q4H PRN Administration FEVER OR PAIN Al Hydroxide/Mg Hydroxide 30 ml 07/09/16 20:39 07/13/16 10:08 Mylanta Oral Suspension - PO 30 ml Q12H PRN Administration DYSPEPSIA Albuterol Sulfate 1 amp 07/13/16 14:51 07/13/16 15:45 Ventolin 0.083% Nebulizer Soln - NEB 1 amp Q4H PRN Administration SHORT OF BREATH/WHEEZING Albuterol/Ipratropium 1 amp 07/13/16 18:00 07/17/16 11:14 Duoneb - NEB 1 amp QIDR DARWIN Administration Atorvastatin Calcium 10 mg 07/07/16 22:00 07/16/16 22:26 Lipitor - PO 10 mg HS DARWIN Administration Cholecalciferol 1,000 unit 07/07/16 10:00 07/17/16 09:55 Vitamin D3 - PO 1,000 unit DAILY DARWIN Administration Diltiazem HCl 10 mg 07/13/16 19:01 Cardizem Injection - IVPUSH Q4H PRN TACHYCARDIA Enalapril Maleate 20 mg 07/07/16 14:30 07/17/16 09:55 Vasotec - PO 20 mg DAILY DARWIN Administration Furosemide 40 mg 07/17/16 14:00 Lasix Injection - IVPUSH BIDLASIX DARWIN Guaifenesin 5 ml 07/08/16 13:17 07/09/16 16:33 Diabetic Tussin Dm - PO 5 unit Q6H PRN Administration COUGH Heparin Sodium (Porcine) 1,000 unit 07/15/16 10:21 Heparin - IVPUSH PRN PRN Heparin Heparin Sodium (Porcine) 5,000 unit 07/15/16 10:21 Heparin - IVPUSH PRN PRN Heparin Diltiazem HCl 125 mg/ Dextrose 125 mls @ 5 mls/hr 07/13/16 13:30 07/16/16 15:48 IVPB 10 mls/hr TITR DARWIN Administration Protocol 5 MG/HR Aztreonam 1 gm/ Dextrose 50 mls @ 100 mls/hr 07/13/16 18:00 07/17/16 09:54 IVPB 100 mls/hr Q8H-IV DARWIN Administration Protocol Heparin Sodium (Porcine) 25, 500 mls @ 16 mls/hr 07/15/16 10:30 07/17/16 09:55 000 unit/ Sodium Chloride IV 16 mls/hr TITR DARWIN Administration Protocol 800 UNIT/HR Insulin Aspart 1 vial 07/13/16 16:30 07/17/16 06:08 Novolog Vial Sliding Scale - SQ 4 units ACHS DARWIN Administration Protocol Methylprednisolone Sodium Succinate 40 mg 07/18/16 10:00 Solu-Medrol - IVPB DAILY DARWIN Metoprolol Tartrate 50 mg 07/16/16 14:00 07/17/16 06:09 Lopressor - PO 50 mg TID DARWIN Administration Mometasone Furoate 1 puff 07/08/16 10:00 07/17/16 09:56 Asmanex 220mcg - IH 1 puff DAILY DARWIN Administration Multivitamins/Minerals/Vitamin C 1 tab 07/07/16 10:00 07/17/16 09:54 Tab-A-Vit - PO 1 tab DAILY DARWIN Administration Ranitidine HCl 150 mg 07/12/16 22:00 07/17/16 09:55 Zantac - PO 150 mg BID DARWIN Administration Warfarin Sodium 5 mg 07/16/16 18:00 07/16/16 18:44 Coumadin - PO 5 mg DAILY@1800 DARWIN Administration Imagin05/23/2016 Echo: Normal LV size with mildly decreased LV fxn, mech MV replacement, mild TR, RVSP 30-40 mmHg, AV not well seen 07/07/2016 Echo: Normal LV size and function, mechanical MV replacement, mild to moderate TR, RSVP 30-40mmHg, aortic valve not assessed ASSESSMENT/PLAN: 81 year-old female with a PMH of HTN, permanent A fib, rheumatic heart disease, aortic valve stenosis, mechanical MV replacement, CVA, DM II, asthma, vertigo, inner ear nerve degeneration, and basal cell carcinoma (left nares) admitted for afib with RVR and found to have Influenza A. Hospital course complicated by acute hypoxic and hypercapnic respiratory failure requiring intubation and HAP. Acute hypoxic and hypercapnic respiratory failure --intubated 07/13 --extubated 07/15 --worsening congestion on CXR today and worsening hypercapnea --on BIPAP --increase lasix IV 40 BID Influenza A --completed course of Tamiflu Citrobacter Freundii pneumonia --continue aztreonam (day #5); vanc stopped after 4 doses --ID following Afib with RVR Mechanical MV --rate to low 120s --continue lopressor, wean diltiazem drip as tolerated --INR 2.35, goal 3-3.5, dose coumadin 5mg tonight; continue heparin drip Diastolic heart failure --continue enalapril, cardizem, lasix Asthma --continue nebs, inhalers --per pulm, tapering solumedrol 40mg daily Lactic acidosis, resolved NIDDM --insulin sliding scale coverage Oral thrush, resolved Severe malnutrition in the context of chronic illness --prolonged inadequate nutrient intake, as evidenced by 60% low end DBW --observed clavicular muscle wasting --temporal muscle wasting --prominent brow with hollow/sunken eyes F/E/N Fluids: PO intake adequate Electrolytes: replete as indicated Nutrition: full liquids diabetic DVT Prophylaxis: INR still subtherapeutic, heparin drip; bridging to coumadin Rehab PT eval Daily PT Dispo: continues to require inpatient care. Full Code. Visit type - Emergency Visit Emergency Visit: Yes ED Registration Date: 07/09/16 Care time: The patient presented to the Emergency Department on the above date and was hospitalized for further evaluation of their emergent condition. - New Patient This patient is new to me today: No - Critical Care Critical Care patient: Yes Total Critical Care Time (in minutes): 35 Critical Care Statement: The care of this patient involved high complexity decision making to prevent further life threatening deterioration of the patient 's condition and/or to evalute & treat vital organ system(s) failure or risk of failure.
--- NOTE | 2016-07-17 12:27 | PN ---
Progress Note (short form) - Note Progress Note: Patient seen and examined in the ICU. Remains extubated. Very drowsy today. Apparently received Morphine and Xanax this AM. Congested cough. Rapid AFib. CXR: Increased bilateral congestive changes. Intake & Output 07/14/16 07/15/16 07/16/16 07/17/16 23:59 23:59 23:59 23:59 Intake Total 765 1155 1307 462 Output Total 850 1400 1200 Balance -85 -245 107 462 Weight 69 lb 6 oz 69 lb 8 oz 70 lb 2 oz 70 lb 7 oz Last Vital Signs Temp Pulse Resp BP Pulse Ox 98.3 F 89 20 141/67 100 07/17/16 06:00 07/17/16 11:10 07/17/16 08:44 07/17/16 08:00 07/17/16 11:10 Active Medications Acetaminophen (Tylenol -) 650 mg PO Q4H PRN PRN Reason: FEVER OR PAIN Last Admin: 07/08/16 16:21 Dose: 650 mg Al Hydroxide/Mg Hydroxide (Mylanta Oral Suspension -) 30 ml PO Q12H PRN PRN Reason: DYSPEPSIA Last Admin: 07/13/16 10:08 Dose: 30 ml Albuterol Sulfate (Ventolin 0.083% Nebulizer Soln -) 1 amp NEB Q4H PRN PRN Reason: SHORT OF BREATH/WHEEZING Last Admin: 07/13/16 15:45 Dose: 1 amp Albuterol/Ipratropium (Duoneb -) 1 amp NEB QIDR [facility] Last Admin: 07/17/16 11:14 Dose: 1 amp Atorvastatin Calcium (Lipitor -) 10 mg PO HS [facility] Last Admin: 07/16/16 22:26 Dose: 10 mg Cholecalciferol (Vitamin D3 -) 1,000 unit PO DAILY [facility] Last Admin: 07/17/16 09:55 Dose: 1,000 unit Diltiazem HCl (Cardizem Injection -) 10 mg IVPUSH Q4H PRN PRN Reason: TACHYCARDIA Enalapril Maleate (Vasotec -) 20 mg PO DAILY [facility] Last Admin: 07/17/16 09:55 Dose: 20 mg Furosemide (Lasix Injection -) 40 mg IVPUSH BIDLASIX [facility] Guaifenesin (Diabetic Tussin Dm -) 5 ml PO Q6H PRN PRN Reason: COUGH Last Admin: 07/09/16 16:33 Dose: 5 unit Heparin Sodium (Porcine) (Heparin -) 1,000 unit IVPUSH PRN PRN PRN Reason: Heparin Heparin Sodium (Porcine) (Heparin -) 5,000 unit IVPUSH PRN PRN PRN Reason: Heparin Diltiazem HCl 125 mg/ Dextrose 125 mls @ 5 mls/hr IVPB TITR DARWIN; 5 MG/HR PRN Reason: Protocol Last Admin: 07/16/16 15:48 Dose: 10 mls/hr Aztreonam 1 gm/ Dextrose 50 mls @ 100 mls/hr IVPB Q8H-IV DARWIN PRN Reason: Protocol Last Admin: 07/17/16 09:54 Dose: 100 mls/hr Heparin Sodium (Porcine) 25, (000 unit/ Sodium Chloride) 500 mls @ 16 mls/hr IV TITR DARWIN; 800 UNIT/HR PRN Reason: Protocol Last Admin: 07/17/16 09:55 Dose: 16 mls/hr Insulin Aspart (Novolog Vial Sliding Scale -) 1 vial SQ ACHS DARWIN PRN Reason: Protocol Last Admin: 07/17/16 06:08 Dose: 4 units Methylprednisolone Sodium Succinate (Solu-Medrol -) 40 mg IVPB DAILY [facility] Metoprolol Tartrate (Lopressor -) 50 mg PO TID [facility] Last Admin: 07/17/16 06:09 Dose: 50 mg Mometasone Furoate (Asmanex 220mcg -) 1 puff IH DAILY [facility] Last Admin: 07/17/16 09:56 Dose: 1 puff Multivitamins/Minerals/Vitamin C (Tab-A-Vit -) 1 tab PO DAILY [facility] Last Admin: 07/17/16 09:54 Dose: 1 tab Ranitidine HCl (Zantac -) 150 mg PO BID [facility] Last Admin: 07/17/16 09:55 Dose: 150 mg Warfarin Sodium (Coumadin -) 5 mg PO DAILY@1800 [facility] Last Admin: 07/16/16 18:44 Dose: 5 mg Gen: Lethargic but arousable Heart: tachycardic, irregular, mech click at base Lung: Basilar rales / bronchial breath sounds Abd: soft, nontender Ext: no edema Laboratory Results - last 24 hr 07/16/16 07/16/1617 12:18 16:45 22:14 WBC RBC Hgb Hct MCV MCHC RDW Plt Count MPV INR Puncture Site ABG pH ABG pCO2 at Pt Temp ABG pO2 at Pt Temp ABG HCO3 ABG O2 Sat (Measured) ABG O2 Content ABG Base Excess Raciel Test O2 Delivery Device Oxygen Flow Rate PEEP Sodium Potassium Chloride Carbon Dioxide Anion Gap BUN Creatinine Creat Clearance w eGFR POC Glucometer 242.52467 287.57682 231.66189 Random Glucose Calcium Phosphorus Magnesium Total Bilirubin AST ALT Alkaline Phosphatase Total Protein Albumin Vancomycin Trough 07/17/16 07/17/16 07/17/16 05:00 05:00 05:00 WBC 22.9 H D RBC 3.85 Hgb 10.0 L Hct 30.7 L MCV 79.7 L MCHC 32.6 RDW 16.1 H Plt Count 344 D MPV 8.5 INR 2.35 H D Puncture Site ABG pH ABG pCO2 at Pt Temp ABG pO2 at Pt Temp ABG HCO3 ABG O2 Sat (Measured) ABG O2 Content ABG Base Excess Raciel Test O2 Delivery Device Oxygen Flow Rate PEEP Sodium 139 Potassium 4.2 Chloride 95 L Carbon Dioxide 36 H Anion Gap 8 BUN 33 H D Creatinine 0.5 L D Creat Clearance w eGFR > 60 POC Glucometer Random Glucose 185 H Calcium 8.7 Phosphorus 4.0 D Magnesium 2.3 Total Bilirubin 1.3 H AST 39 H ALT 54 D Alkaline Phosphatase 102 D Total Protein 5.9 L Albumin 2.9 L D Vancomycin Trough 07/17/16 07/17/16 07/17/16 05:33 07:35 09:24 WBC RBC Hgb Hct MCV MCHC RDW Plt Count MPV INR Puncture Site Left radial ABG pH 7.34 L D ABG pCO2 at Pt Temp 68.5 H* D ABG pO2 at Pt Temp 71.6 D ABG HCO3 35.9 H ABG O2 Sat (Measured) 92.0 ABG O2 Content 13.1 L ABG Base Excess 8.7 H Raciel Test Positive O2 Delivery Device N/c Oxygen Flow Rate 4l PEEP 0.0 Sodium Potassium Chloride Carbon Dioxide Anion Gap BUN Creatinine Creat Clearance w eGFR POC Glucometer 222.59645 Random Glucose Calcium Phosphorus Magnesium Total Bilirubin AST ALT Alkaline Phosphatase Total Protein Albumin Vancomycin Trough 8.552 ASSESSMENT AND PLAN: Acute on Chronic Hypoxic and Hypercapneic Respiratory Failure Acute on Chronic LV Diastolic Heart Failure Influenza A Pneumonia Atrial Fibr[facility] Aortic Stenosis Pulmonary HTN Acute COPD Exacerbation - O2 as needed Alternating with NIPPV - ABX per ID - completed tamiflu - IV medrol taper - inhaled bronchodilators - O2 to keep SpO2 >90% - Rate control per Cardiology - IV Heparin - IV Lasix BID - DVT/GI prophylaxis - Monitor in ICU due to tenuous respiratory status Dr Alegria CCTime 35"
[2016-07-17] MEDS ORDERED: SUCCINYLCHOLINE CHLORIDE 200 MG/10 ML VIAL ONE (14:43)
[2016-07-17 14:52] LABS: ARTERIAL BLD GAS O2 SATURATION 91.6 % (90-98.9); ARTERIAL BLOOD GAS BASE EXCESS 3.8 meq/l (-2-2); ARTERIAL BLOOD GAS HCO3 36.1 meq/L (22-26); ARTERIAL BLOOD GAS PO2 86.5 mmHg (68-100); ARTERIAL BLOOD GAS pH 7.09 (7.35-7.45)
[2016-07-17 14:55] LABS: ALLENS TEST POSITIVE; ART PUNCT SITE RIGHT RADIAL; LPM/O2% 100%; MECH. VENT. BIPAP; PT. ON O2? YES; TYPE OF O2 BIPAP; VENT RATE 16
[2016-07-17] MEDS ORDERED: SODIUM CHLORIDE 500 ML IV STA (15:01)
--- NOTE | 2016-07-17 15:01 | HOSP ---
Subjective - Review of Symptoms Events since last encounter: Called to patient's bedside for rapid response. Patient lying supine, on BIPAP, unresponsive. Not following commands. PERRL 3mm. Dr. Herr running the response. Anesthesia present. ABG done: 7.08/125/86.5/36/91% on 100% FiO2. Decision made to intubate. ETT#7.5 CXR pending. BP dropped post-intubation, giving 500mL bolus NS. . Physical Examination Vital Signs: Vital Signs Temperature 98.3 F 07/17/16 06:00 Pulse Rate 74 07/17/16 14:53 Respiratory Rate 16 07/17/16 14:53 Blood Pressure 141/67 07/17/16 08:00 O2 Sat by Pulse Oximetry (%) 100 07/17/16 14:53 Labs: CBC, BMP 07/17/16 05:00 07/17/16 05:00
--- NOTE | 2016-07-17 15:07 | PN ---
Progress Note (short form) - Note Progress Note: AT 14;35 was called to ICU stat. Found pat, unresponsive, spont. ventilation on BIPAP, VSS, Sat:99-100%. Pupills equal responsive to light bilat, ABG showed Co2 above 100. Intubated the pat after preoxygenation and assisted ventilation by AMBU.Tolerated the intubation well,no medication given . CO2 X2 positive. Bilat BS, Coarse BS left side, ETT#7.5 Secured. XCR, pending. Pat on CV.
[2016-07-17] MEDS: DILTIAZEM INJECTION 125 MG in DEXTROSE 5%-WATER - 100 ML IVPB SCH (15:30)
[2016-07-17 16:28] LABS: ARTERIAL BLD GAS O2 SATURATION 90.5 % (90-98.9); ARTERIAL BLOOD GAS BASE EXCESS 9.5 meq/l (-2-2); ARTERIAL BLOOD GAS HCO3 33.6 meq/L (22-26); ARTERIAL BLOOD GAS PO2 54.4 mmHg (68-100); ARTERIAL BLOOD GAS pH 7.49 (7.35-7.45)
[2016-07-17 16:29] LABS: ALLENS TEST POSITIVE; ART PUNCT SITE RIGHT RADIAL; LPM/O2% 60%; MECH. VENT. Y; PT. ON O2? YES; TYPE OF O2 VENT; VENT RATE 16; VT/PRESS 350
[2016-07-17] MEDS ORDERED: SODIUM CHLORIDE 500 ML IV SCH (17:30)
[2016-07-17] MEDS: WARFARIN NA 5 MG TABLET (UD) PO SCH (18:14)
[2016-07-17] MEDS: ATORVASTATIN CA 10 MG TABLET (FP) PO SCH (21:12)
[2016-07-18] MEDS: AZTREONAM 1 GM in DEXTROSE 5%-WATER - 50 ML IVPB SCH ×3 (01:31→19:18)
[2016-07-18 05:49] LABS: MCH 25.4 pg (25.7-33.7); MCHC 31.8 g/dl (32.0-36.0); MEAN CELL VOLUME 79.9 fl (80-96); MEAN PLT VOLUME 8.7 fl (7.5-11.1); PLATELET COUNT 176 K/MM3 (134-434); RDW 16.4 % (11.6-15.6); WHITE BLOOD COUNT 22.4 K/mm3 (4.0-10.0)
[2016-07-18] MEDS: ALBUTEROL SO4 2.5/IPRATROPIUM 0.5 INH SOL 3 ML VIAL.NEB. NEB SCH ×3 (06:12→19:19)
[2016-07-18 06:17] LABS: ANION GAP 11 (8-16); BILIRUBIN,TOTAL 1.4 mg/dL (0.2-1.0); CALCIUM 7.9 mg/dL (8.5-10.1); CO2 32 mmol/L (21-32); CREATININE 0.5 mg/dL (0.55-1.02); GLUCOSE,RANDOM 153 mg/dL (74-106); MAGNESIUM 1.9 mg/dL (1.8-2.4); PHOSPHOROUS 2.7 mg/dL (2.5-4.9); SGOT/AST 22 U/L (15-37); SGPT/ALT 33 U/L (12-78); TOT PROT 4.4 g/dl (6.4-8.2)
[2016-07-18 06:18] LABS: ALK PHOS 64 U/L (45-117)
[2016-07-18] MEDS: METOPROLOL TARTRATE 50 MG TABLET (FP) PO SCH ×3 (06:21→22:08)
[2016-07-18] MEDS: INSULIN SLIDING SCALE (NOVOLOG) 1 VIAL SQ SCH ×4 (06:21→22:11)
[2016-07-18] MEDS: FUROSEMIDE 40 MG/4 ML INJECTABLE VIAL IVPUSH SCH ×2 (06:23→14:55)
[2016-07-18 07:29] LABS: ALLENS TEST POSITIVE; ART PUNCT SITE RIGHT RADIAL; ARTERIAL BLOOD GAS BASE EXCESS 6.6 meq/l (-2-2); LPM/O2% 45; MECH. VENT. YES; PT. ON O2? YES; TYPE OF O2 VENT; VENT RATE 16; VT/PRESS 300
[2016-07-18 07:30] LABS: ARTERIAL BLOOD GAS PO2 66.8 mmHg (68-100)
--- NOTE | 2016-07-18 07:42 | PN ---
Physical Exam: SUBJECTIVE: Patient seen and examined at bedside in ICU, OBJECTIVE: Vital Signs Period Temp Pulse Resp BP Sys/Gold Pulse Ox Last 24 Hr 98.5 F-99.1 F 72-102 16-32 78-148/40-67 92-100 GENERAL: The patient is awake. Intubated. Nodding appropriately to questions, writing questions on paper. Appears very tired. Frail. Cachectic. HEAD: Normal with no signs of trauma. EYES: PERRL, extraocular movements intact, sclera anicteric, conjunctiva clear. No ptosis. LUNGS: Poor air movement, rhonchi. HEART: Irregular. + murmur ABDOMEN: Soft, nontender, nondistended, normoactive bowel sounds, no guarding, no rebound EXTREMITIES: 2+ pulses, warm, well-perfused, no edema. NEUROLOGICAL: Cranial nerves II through XII grossly intact. Laboratory Results - last 24 hr 07/17/16 07/17/16 07/17/16 07:35 09:24 12:45 WBC RBC Hgb Hct MCV MCHC RDW Plt Count MPV Neutrophils % Lymphocytes % Monocytes % Differential Comment Puncture Site Left radial ABG pH 7.34 L D ABG pCO2 at Pt Temp 68.5 H* D ABG pO2 at Pt Temp 71.6 D ABG HCO3 35.9 H ABG O2 Sat (Measured) 92.0 ABG O2 Content 13.1 L ABG Base Excess 8.7 H Raciel Test Positive O2 Delivery Device N/c Oxygen Flow Rate 4l Vent Mode Vent Rate Mechanical Rate PEEP 0.0 Pressure Support Vent Sodium Potassium Chloride Carbon Dioxide Anion Gap BUN Creatinine Creat Clearance w eGFR POC Glucometer [phone] Random Glucose Calcium Phosphorus Magnesium Total Bilirubin AST ALT Alkaline Phosphatase Total Protein Albumin Vancomycin Trough 8.552 07/17/16 07/17/16 07/17/16 14:25 16:25 18:10 WBC RBC Hgb Hct MCV MCHC RDW Plt Count MPV Neutrophils % Lymphocytes % Monocytes % Differential Comment Puncture Site Right radial Right radial ABG pH 7.09 L* D 7.49 H D ABG pCO2 at Pt Temp 125.0 H* D 44.2 D ABG pO2 at Pt Temp 86.5 D 54.4 L D ABG HCO3 36.1 H 33.6 H ABG O2 Sat (Measured) 91.6 90.5 ABG O2 Content 11.9 L 10.3 L ABG Base Excess 3.8 H 9.5 H Raciel Test Positive Positive O2 Delivery Device Bipap Vent Oxygen Flow Rate 100% 60% Vent Mode S/t A/c Vent Rate 16 16 Mechanical Rate Bipap Y PEEP 0.0 5.0 Pressure Support Vent 10/5 350 Sodium Potassium Chloride Carbon Dioxide Anion Gap BUN Creatinine Creat Clearance w eGFR POC Glucometer [phone] Random Glucose Calcium Phosphorus Magnesium Total Bilirubin AST ALT Alkaline Phosphatase Total Protein Albumin Vancomycin Trough 07/17/16 07/18/16 07/18/16 21:34 05:00 05:00 WBC 22.4 H RBC 3.27 L Hgb 8.3 L D Hct 26.2 L MCV 79.9 L MCHC 31.8 L RDW 16.4 H Plt Count 176 D MPV 8.7 Neutrophils % 94.0 H Lymphocytes % 4.0 L D Monocytes % 2.0 L D Differential Comment Manual diff done Puncture Site ABG pH ABG pCO2 at Pt Temp ABG pO2 at Pt Temp ABG HCO3 ABG O2 Sat (Measured) ABG O2 Content ABG Base Excess Raciel Test O2 Delivery Device Oxygen Flow Rate Vent Mode Vent Rate Mechanical Rate PEEP Pressure Support Vent Sodium 143 Potassium 3.4 L Chloride 100 Carbon Dioxide 32 Anion Gap 11 BUN 35 H Creatinine 0.5 L Creat Clearance w eGFR > 60 POC Glucometer 143.36490 Random Glucose 153 H Calcium 7.9 L Phosphorus 2.7 D Magnesium 1.9 Total Bilirubin 1.4 H AST 22 D ALT 33 D Alkaline Phosphatase 64 D Total Protein 4.4 L D Albumin 2.0 L D Vancomycin Trough 07/18/16 07/18/16 05:17 07:10 WBC RBC Hgb Hct MCV MCHC RDW Plt Count MPV Neutrophils % Lymphocytes % Monocytes % Differential Comment Puncture Site Right radial ABG pH 7.50 H ABG pCO2 at Pt Temp 38.6 ABG pO2 at Pt Temp 66.8 L D ABG HCO3 30.0 H ABG O2 Sat (Measured) 94.0 ABG O2 Content 12.1 L ABG Base Excess 6.6 H Raciel Test Positive O2 Delivery Device Vent Oxygen Flow Rate 45 Vent Mode A/c Vent Rate 16 Mechanical Rate Yes PEEP 5.0 Pressure Support Vent 300 Sodium Potassium Chloride Carbon Dioxide Anion Gap BUN Creatinine Creat Clearance w eGFR POC Glucometer [phone] Random Glucose Calcium Phosphorus Magnesium Total Bilirubin AST ALT Alkaline Phosphatase Total Protein Albumin Vancomycin Trough Active Medications Generic Name Dose Route Start Last Admin Trade Name Freq PRN Reason Stop Dose Admin Acetaminophen 650 mg 07/07/16 17:15 07/08/16 16:21 Tylenol - PO 650 mg Q4H PRN Administration FEVER OR PAIN Al Hydroxide/Mg Hydroxide 30 ml 07/09/16 20:39 07/13/16 10:08 Mylanta Oral Suspension - PO 30 ml Q12H PRN Administration DYSPEPSIA Albuterol Sulfate 1 amp 07/13/16 14:51 07/13/16 15:45 Ventolin 0.083% Nebulizer Soln - NEB 1 amp Q4H PRN Administration SHORT OF BREATH/WHEEZING Albuterol/Ipratropium 1 amp 07/13/16 18:00 07/18/16 06:12 Duoneb - NEB 1 amp QIDR DARWIN Administration Atorvastatin Calcium 10 mg 07/07/16 22:00 07/17/16 21:12 Lipitor - PO Not Given HS [facility] Cholecalciferol 1,000 unit 07/07/16 10:00 07/17/16 09:55 Vitamin D3 - PO 1,000 unit DAILY [facility] Administration Diltiazem HCl 10 mg 07/13/16 19:01 Cardizem Injection - IVPUSH Q4H PRN TACHYCARDIA Enalapril Maleate 20 mg 07/07/16 14:30 07/17/16 09:55 Vasotec - PO 20 mg DAILY D[facility]WIN Administration Furosemide 40 mg 07/17/16 14:00 07/18/16 06:23 Lasix Injection - IVPUSH 40 mg BIDLASIX [facility] Administration Guaifenesin 5 ml 07/08/16 13:17 07/09/16 16:33 Diabetic Tussin Dm - PO 5 unit Q6H PRN Administration COUGH Heparin Sodium (Porcine) 1,000 unit 07/15/16 10:21 Heparin - IVPUSH PRN PRN Heparin Heparin Sodium (Porcine) 5,000 unit 07/15/16 10:21 Heparin - IVPUSH PRN PRN Heparin Diltiazem HCl 125 mg/ Dextrose 125 mls @ 5 mls/hr 07/13/16 13:30 07/17/16 15:30 IVPB Not Given TITR [facility] Protocol 5 MG/HR Aztreonam 1 gm/ Dextrose 50 mls @ 100 mls/hr 07/13/16 18:00 07/18/16 01:31 IVPB 100 mls/hr Q8H-IV [facility]ARWIN Administration Protocol Heparin Sodium (Porcine) 25, 500 mls @ 16 mls/hr 07/15/16 10:30 07/17/16 09:55 000 unit/ Sodium Chloride IV 16 mls/hr TITR DARWIN Administration Protocol 800 UNIT/HR Sodium Chloride 500 mls @ 75 mls/hr 07/17/16 17:30 07/17/16 17:30 Normal Saline - IV 75 mls/hr ASDIR DARWIN Administration Insulin Aspart 1 vial 07/13/16 16:30 07/18/16 06:21 Novolog Vial Sliding Scale - SQ 2 units ACHS [facility] Administration Protocol Methylprednisolone Sodium Succinate 40 mg 07/18/16 10:00 Solu-Medrol - IVPB DAILY [facility] Metoprolol Tartrate 50 mg 07/16/16 14:00 07/18/16 06:21 Lopressor - PO Not Given TID [facility] Mometasone Furoate 1 puff 07/08/16 10:00 07/17/16 09:56 Asmanex 220mcg - IH 1 puff DAILY DARWIN Administration Multivitamins/Minerals/Vitamin C 1 tab 07/07/16 10:00 07/17/16 09:54 Tab-A-Vit - PO 1 tab DAILY [facility]ARWIN Administration Ranitidine HCl 150 mg 07/12/16 22:00 07/17/16 21:12 Zantac - PO Not Given BID [facility] Warfarin Sodium 5 mg 07/16/16 18:00 07/17/16 18:14 Coumadin - PO Not Given DAILY@1800 [facility] ASSESSMENT/PLAN: Imagin05/23/2016 Echo: Normal LV size with mildly decreased LV fxn, mech MV replacement, mild TR, RVSP 30-40 mmHg, AV not well seen 07/07/2016 Echo: Normal LV size and function, mechanical MV replacement, mild to moderate TR, RSVP 30-40mmHg, aortic valve not assessed 81 year-old female with a PMH of HTN, permanent A fib, rheumatic heart disease, aortic valve stenosis, mechanical MV replacement, CVA, DM II, asthma, vertigo, inner ear nerve degeneration, and basal cell carcinoma (left nares) admitted for afib with RVR and found to have Influenza A. Hospital course complicated by acute hypoxic and hypercapnic respiratory failure requiring intubation 07/13, extubation 07/15, and reintubation 07/07. Acute hypoxic and hypercapnic respiratory failure --intubated 07/13 --extubated 07/15 --reintubated 07/17 --weaning trials Influenza A --completed course of Tamiflu Citrobacter Freundii pneumonia --rising WBC --continue aztreonam (day #6) --ID following Afib with RVR Mechanical MV --rate to low 120s --continue lopressor, titrate diltiazem drip as tolerated --INR 2.35, goal 3-3.5, dose coumadin 5mg tonight; continue heparin drip Diastolic heart failure --continue enalapril, cardizem, lasix IV 40mg BID Asthma --continue nebs, inhalers --solumedrol 40mg daily, tapering Lactic acidosis, resolved NIDDM --insulin sliding scale coverage Oral thrush, resolved Severe malnutrition in the context of chronic illness --prolonged inadequate nutrient intake, as evidenced by 60% low end DBW --observed clavicular muscle wasting --temporal muscle wasting --prominent brow with hollow/sunken eyes F/E/N Fluids: PO intake adequate Electrolytes: replete as indicated Nutrition: full liquids diabetic DVT Prophylaxis: INR still subtherapeutic, heparin drip; bridging to coumadin Rehab PT eval Daily PT Dispo: continues to require inpatient care. Full Code. Visit type - Emergency Visit Emergency Visit: Yes ED Registration Date: 07/09/16 Care time: The patient presented to the Emergency Department on the above date and was hospitalized for further evaluation of their emergent condition. - New Patient This patient is new to me today: No - Critical Care Critical Care patient: Yes Total Critical Care Time (in minutes): 45 Critical Care Statement: The care of this patient involved high complexity decision making to prevent further life threatening deterioration of the patient 's condition and/or to evalute & treat vital organ system(s) failure or risk of failure.
[2016-07-18] MEDS ORDERED: dilTIAZem HCL 125 MG/25 ML - 5 ML VIAL ONE ×2 (08:58→19:45)
[2016-07-18] MEDS: DILTIAZEM INJECTION 125 MG in DEXTROSE 5%-WATER - 100 ML IVPB SCH ×2 (09:09→11:00)
--- NOTE | 2016-07-18 09:16 | PN ---
Progress Note, Physician Chief Complaint: Events noted Re-intubated due to respiratory distress AF rapid ventricular response History of Present Illness: Patient was seen and examined. Awake and alert. AF with rapid ventricular response. Currently off Cardizem drip. Chart was reviewed. Re-intubated on mechanical ventilator - Current Medication List Current Medications: Active Medications Acetaminophen (Tylenol -) 650 mg PO Q4H PRN PRN Reason: FEVER OR PAIN Last Admin: 07/08/16 16:21 Dose: 650 mg Al Hydroxide/Mg Hydroxide (Mylanta Oral Suspension -) 30 ml PO Q12H PRN PRN Reason: DYSPEPSIA Last Admin: 07/13/16 10:08 Dose: 30 ml Albuterol Sulfate (Ventolin 0.083% Nebulizer Soln -) 1 amp NEB Q4H PRN PRN Reason: SHORT OF BREATH/WHEEZING Last Admin: 07/13/16 15:45 Dose: 1 amp Albuterol/Ipratropium (Duoneb -) 1 amp NEB QIDR DARWIN Last Admin: 07/18/16 06:12 Dose: 1 amp Atorvastatin Calcium (Lipitor -) 10 mg PO HS [facility] Last Admin: 07/17/16 21:12 Dose: Not Given Cholecalciferol (Vitamin D3 -) 1,000 unit PO DAILY DARWIN Last Admin: 07/17/16 09:55 Dose: 1,000 unit Diltiazem HCl (Cardizem Injection -) 10 mg IVPUSH Q4H PRN PRN Reason: TACHYCARDIA Enalapril Maleate (Vasotec -) 20 mg PO DAILY DARWIN Last Admin: 07/17/16 09:55 Dose: 20 mg Furosemide (Lasix Injection -) 40 mg IVPUSH BIDLASIX DARWIN Last Admin: 07/18/16 06:23 Dose: 40 mg Guaifenesin (Diabetic Tussin Dm -) 5 ml PO Q6H PRN PRN Reason: COUGH Last Admin: 07/09/16 16:33 Dose: 5 unit Heparin Sodium (Porcine) (Heparin -) 1,000 unit IVPUSH PRN PRN PRN Reason: Heparin Heparin Sodium (Porcine) (Heparin -) 5,000 unit IVPUSH PRN PRN PRN Reason: Heparin Diltiazem HCl 125 mg/ Dextrose 125 mls @ 5 mls/hr IVPB TITR DARWIN; 5 MG/HR PRN Reason: Protocol Last Admin: 07/18/16 09:09 Dose: 5 mls/hr Aztreonam 1 gm/ Dextrose 50 mls @ 100 mls/hr IVPB Q8H-IV DARWIN PRN Reason: Protocol Last Admin: 07/18/16 01:31 Dose: 100 mls/hr Heparin Sodium (Porcine) 25, (000 unit/ Sodium Chloride) 500 mls @ 16 mls/hr IV TITR DARWIN; 800 UNIT/HR PRN Reason: Protocol Last Admin: 07/17/16 09:55 Dose: 16 mls/hr Sodium Chloride (Normal Saline -) 500 mls @ 75 mls/hr IV ASDIR [facility] Last Admin: 07/17/16 17:30 Dose: 75 mls/hr Insulin Aspart (Novolog Vial Sliding Scale -) 1 vial SQ ACHS [facility] PRN Reason: Protocol Last Admin: 07/18/16 06:21 Dose: 2 units Methylprednisolone Sodium Succinate (Solu-Medrol -) 40 mg IVPB DAILY [facility] Metoprolol Tartrate (Lopressor -) 50 mg PO TID [facility] Last Admin: 07/18/16 06:21 Dose: Not Given Mometasone Furoate (Asmanex 220mcg -) 1 puff IH DAILY [facility] Last Admin: 07/17/16 09:56 Dose: 1 puff Multivitamins/Minerals/Vitamin C (Tab-A-Vit -) 1 tab PO DAILY [facility] Last Admin: 07/17/16 09:54 Dose: 1 tab Ranitidine HCl (Zantac -) 150 mg PO BID [facility] Last Admin: 07/17/16 21:12 Dose: Not Given Warfarin Sodium (Coumadin -) 5 mg PO DAILY@1800 [facility] Last Admin: 07/17/16 18:14 Dose: Not Given - Objective Vital Signs: Vital Signs Temperature 99.2 F 07/18/16 07:59 Pulse Rate 130 H 07/18/16 09:09 Respiratory Rate 16 07/18/16 08:09 Blood Pressure 122/57 07/18/16 09:09 O2 Sat by Pulse Oximetry (%) 93 L 07/18/16 08:00 Neck: Yes: Supple Cardiovascular: Yes: Tachycardia, Pulse Irregular, Murmur (SM and crisp mechanical click), S1, S2 Respiratory: Yes: Diminished, Mechanically Ventilated Gastrointestinal: Yes: Normal Bowel Sounds, Soft. No: Tenderness Edema: No Labs: CBC, BMP 07/18/16 05:00 07/18/16 05:00 INR, PTT INR 2.35 (0.82-1.09) H D 07/17/16 05:00 Problem List - Problems (1) Acute on chronic diastolic (congestive) heart failure Code(s): I50.33 - ACUTE ON CHRONIC DIASTOLIC (CONGESTIVE) HEART FAILURE (2) Atrial fibrillation with rapid ventricular response Code(s): I48.91 - UNSPECIFIED ATRIAL FIBRILLATION (3) Influenza A Code(s): J10.1 - FLU DUE TO OTH IDENT INFLUENZA VIRUS W OTH RESP MANIFEST (4) Pneumonia and influenza Code(s): J11.00 - FLU DUE TO UNIDENTIFIED FLU VIRUS W UNSP TYPE OF PNEUMONIA (5) Respiratory failure Code(s): J96.90 - RESPIRATORY FAILURE, UNSP, UNSP W HYPOXIA OR HYPERCAPNIA Qualifiers: Chronicity: acute Respiratory failure complication: hypoxia and hypercapnia Qualified Code(s): J96.01 - Acute respiratory failure with hypoxia (6) Diabetes mellitus Code(s): E11.9 - TYPE 2 DIABETES MELLITUS WITHOUT COMPLICATIONS Qualifiers: Diabetes mellitus type: type 2 Diabetes mellitus complication status: without complication Diabetes mellitus exterminator insulin use: without usp use Qualified Code(s): E11.9 - Type 2 diabetes mellitus without complications (7) History of mitral valve replacement with mechanical valve Code(s): Z95.2 - PRESENCE OF PROSTHETIC HEART VALVE (8) Hypercholesteremia Code(s): E78.0 - PURE HYPERCHOLESTEROLEMIA * DO NOT USE * (9) Hypertension Code(s): I10 - ESSENTIAL (PRIMARY) HYPERTENSION Qualifiers: Hypertension type: essential hypertension Qualified Code(s): I10 - Essential (primary) hypertension Assessment/Plan 1. Acute on chronic hypoxic and hypercapneic respiratory failure now re- intubated 2. Influenza A and RLL hospital acquired pneumonia 3. Acute on chronic diastolic failure 4. Permanent atrial fibrillation with RVR 5. Post mechanical MVR 6. Aortic valve disease - probable severe 7. DM 8. Hyperlipidemia 9. Anemia & thrombocytopenia PLAN: 1. Cardizem drip restarted for rate control in addition to Metoprolol (titrate dose) 2. Continue Vasotec 3. Continue Lipitor 4. Continue Lasix as needed with monitoring renal function and electrolytes 5. Continue Coumadin as per INR maintain 3.0-3.5, with caution considering the above noted anemia and thrombocytopenia. Heparin drip if INR is less than 2.5 6. Continue antibiotics course, Tamiflu, IV steroids and bronchodilators as tolerated. Vent management as per critical care team 7. GI prophylaxis Further plans are to follow Leon Esquivel MD
[2016-07-18] MEDS: CHOLECALCIFEROL (VITAMIN D3) 1,000 UNIT TABLET (FP) PO SCH (10:02)
[2016-07-18] MEDS: ENALAPRIL MALEATE 10 MG TABLET (FP) PO SCH (10:02)
[2016-07-18] MEDS: MULTIVITAMINS (DAILY MVI) TABLET (FP) PO SCH (10:02)
[2016-07-18] MEDS: MOMETASONE FUROATE 220 MCG/IH INHALER IH SCH (10:02)
[2016-07-18] MEDS: RANITIDINE HCL 150 MG TABLET (FP) PO SCH ×2 (10:03→22:08)
[2016-07-18] MEDS: methylPREDNISolone NA SUCC 40 MG/1 ML VIAL IVPB SCH (10:05)
--- NOTE | 2016-07-18 10:26 | PN ---
Progress Note (short form) - Note Progress Note: awake and alert chart reviewed reintubated yesterday due to hypercapneia now alert, nad Vital Signs Period Temp Pulse Resp BP Sys/Gold Pulse Ox Last 24 Hr 98.5 F-99.2 F 72-130 16-28 78-122/40-74 92-100 cor-rrr lungs decreased bs bases right greater then left abd soft,nt ext no edema CBC, BMP 07/18/16 05:00 07/18/16 05:00 Microbiology 07/13/16 17:00 Blood - Peripheral Venous Blood Culture - Preliminary NO GROWTH OBTAINED AFTER 96 HOURS, INCUBATION TO CONTINUE FOR 1 DAYS. 07/13/16 17:00 Blood - Peripheral Venous Blood Culture - Preliminary NO GROWTH OBTAINED AFTER 96 HOURS, INCUBATION TO CONTINUE FOR 1 DAYS. 07/15/16 09:40 Sputum - Endotrachea Suction/Ventilator Gram Stain - Final 07/15/16 09:40 Sputum - Endotrachea Suction/Ventilator Sputum Culture - Final Citrobacter Freundii Complex 07/14/16 22:00 Sputum - Endotrachea Suction/Ventilator Gram Stain - Final 07/14/16 22:00 Sputum - Endotrachea Suction/Ventilator Sputum Culture - Final Citrobacter Freundii Complex cxray right perihilar infiltrate Current Medications Acetaminophen (Tylenol -) 650 mg PO Q4H PRN PRN Reason: FEVER OR PAIN Last Admin: 07/08/16 16:21 Dose: 650 mg Al Hydroxide/Mg Hydroxide (Mylanta Oral Suspension -) 30 ml PO Q12H PRN PRN Reason: DYSPEPSIA Last Admin: 07/13/16 10:08 Dose: 30 ml Albuterol Sulfate (Ventolin 0.083% Nebulizer Soln -) 1 amp NEB Q4H PRN PRN Reason: SHORT OF BREATH/WHEEZING Last Admin: 07/13/16 15:45 Dose: 1 amp Albuterol/Ipratropium (Duoneb -) 1 amp NEB QIDR DARWIN Last Admin: 07/18/16 06:12 Dose: 1 amp Atorvastatin Calcium (Lipitor -) 10 mg PO HS [facility] Last Admin: 07/17/16 21:12 Dose: Not Given Cholecalciferol (Vitamin D3 -) 1,000 unit PO DAILY [facility] Last Admin: 07/18/16 10:02 Dose: Not Given Diltiazem HCl (Cardizem Injection -) 10 mg IVPUSH Q4H PRN PRN Reason: TACHYCARDIA Enalapril Maleate (Vasotec -) 20 mg PO DAILY [facility] [place] Last Admin: 07/18/16 10:02 Dose: Not Given Furosemide (Lasix Injection -) 40 mg IVPUSH BIDLASIX DARWIN Last Admin: 07/18/16 06:23 Dose: 40 mg Guaifenesin (Diabetic Tussin Dm -) 5 ml PO Q6H PRN PRN Reason: COUGH Last Admin: 07/09/16 16:33 Dose: 5 unit Heparin Sodium (Porcine) (Heparin -) 1,000 unit IVPUSH PRN PRN PRN Reason: Heparin Heparin Sodium (Porcine) (Heparin -) 5,000 unit IVPUSH PRN PRN PRN Reason: Heparin Diltiazem HCl 125 mg/ Dextrose 125 mls @ 5 mls/hr IVPB TITR DARWIN; 5 MG/HR PRN Reason: Protocol Last Admin: 07/18/16 09:09 Dose: 5 mls/hr Aztreonam 1 gm/ Dextrose 50 mls @ 100 mls/hr IVPB Q8H-IV DARWIN PRN Reason: Protocol Last Admin: 07/18/16 10:01 Dose: 100 mls/hr Heparin Sodium (Porcine) 25, (000 unit/ Sodium Chloride) 500 mls @ 16 mls/hr IV TITR DARWIN; 800 UNIT/HR PRN Reason: Protocol Last Admin: 07/17/16 09:55 Dose: 16 mls/hr Sodium Chloride (Normal Saline -) 500 mls @ 75 mls/hr IV ASDIR [facility] [place] Last Admin: 07/17/16 17:30 Dose: 75 mls/hr Vancomycin HCl 1,000 mg/ (Dextrose) 250 mls @ 250 mls/hr IVPB ONCE ONE PRN Reason: Protocol Stop: 07/18/16 11:29 Insulin Aspart (Novolog Vial Sliding Scale -) 1 vial SQ ACHS DARWIN PRN Reason: Protocol Last Admin: 07/18/16 06:21 Dose: 2 units Methylprednisolone Sodium Succinate (Solu-Medrol -) 40 mg IVPB DAILY [facility] [place] Last Admin: 07/18/16 10:05 Dose: 40 mg Metoprolol Tartrate (Lopressor -) 50 mg PO TID [facility] [place] Last Admin: 07/18/16 06:21 Dose: Not Given Mometasone Furoate (Asmanex 220mcg -) 1 puff IH DAILY [facility] [place] Last Admin: 07/18/16 10:02 Dose: Not Given Multivitamins/Minerals/Vitamin C (Tab-A-Vit -) 1 tab PO DAILY [facility] [place] Last Admin: 07/18/16 10:02 Dose: Not Given Ranitidine HCl (Zantac -) 150 mg PO BID [facility] [place] Last Admin: 07/18/16 10:03 Dose: Not Given Warfarin Sodium (Coumadin -) 5 mg PO DAILY@1800 [facility] [place] Last Admin: 07/17/16 18:14 Dose: Not Given a/p acute respiratory failure-reintubated yesterday pneumonia-citrobacter -on azactam s/p influenza MVR afib multiple antibiotic allergies noted leukocytosis- suspect multifactorial but will reculture, vanco one dose after cultures
[2016-07-18] MEDS: HEPARIN - 25,000 UNIT in SODIUM CHLORIDE 495 ML IV SCH (10:30)
[2016-07-18] MEDS ORDERED: VANCOMYCIN 1 GRAM (PRE-DOCKED) 250 ML IVPB ONE (10:45)
--- NOTE | 2016-07-18 12:46 | PN ---
Physical Exam: SUBJECTIVE: Patient seen and examined at bedside in ICU. AAO and communicates with pen & paper effectively. Explained plans to extubate patient once HR is better controlled & she agrees with plan. Afebrile overnight with no new complaints or acute events noted. OBJECTIVE: Vital Signs Period Temp Pulse Resp BP Sys/Gold Pulse Ox Last 24 Hr 98.5 F-99.2 F 72-130 16-21 78-122/40-74 92-100 GENERAL: Intubated but not sedated. Resting comfortably in bed. Cachectic HEENT: Atraumatic, EOMI, PERRLA, No lymphadenopathy noted. Dry mucous membranes. LUNGS: Crackles noted at bilateral lung bases. No wheezing or stridor noted. HEART: Irregular, tachycardic to 130, Grade 3/6 systolic murmur. Notable MV "Click". ABDOMEN: Soft, nontender, not distended, normoactive bowel sounds EXTREMITIES: 2+ pulses, warm, well-perfused. No peripheral edema. Moderate upper and lower extremity muscle atrophy. PSYCHIATRIC: Cooperative. Good eye contact. Appropriate mood and affect. SKIN: Warm, dry, normal turgor, no rashes or lesions noted. Laboratory Results - last 24 hr 07/17/16 07/17/16 07/17/16 12:45 14:25 16:25 WBC RBC Hgb Hct MCV MCHC RDW Plt Count MPV Neutrophils % Lymphocytes % Monocytes % Differential Comment PTT (Actin FS) Puncture Site Right radial Right radial ABG pH 7.09 L* D 7.49 H D ABG pCO2 at Pt Temp 125.0 H* D 44.2 D ABG pO2 at Pt Temp 86.5 D 54.4 L D ABG HCO3 36.1 H 33.6 H ABG O2 Sat (Measured) 91.6 90.5 ABG O2 Content 11.9 L 10.3 L ABG Base Excess 3.8 H 9.5 H Raciel Test Positive Positive O2 Delivery Device Bipap Vent Oxygen Flow Rate 100% 60% Vent Mode S/t A/c Vent Rate 16 16 Mechanical Rate Bipap Y PEEP 0.0 5.0 Pressure Support Vent 10/5 350 Sodium Potassium Chloride Carbon Dioxide Anion Gap BUN Creatinine Creat Clearance w eGFR POC Glucometer [phone] Random Glucose Calcium Phosphorus Magnesium Total Bilirubin AST ALT Alkaline Phosphatase Total Protein Albumin 02/07/17/16 07/18/16 18:10 21:34 05:00 WBC 22.4 H RBC 3.27 L Hgb 8.3 L D Hct 26.2 L MCV 79.9 L MCHC 31.8 L RDW 16.4 H Plt Count 176 D MPV 8.7 Neutrophils % 94.0 H Lymphocytes % 4.0 L D Monocytes % 2.0 L D Differential Comment Manual diff done PTT (Actin FS) Puncture Site ABG pH ABG pCO2 at Pt Temp ABG pO2 at Pt Temp ABG HCO3 ABG O2 Sat (Measured) ABG O2 Content ABG Base Excess Raciel Test O2 Delivery Device Oxygen Flow Rate Vent Mode Vent Rate Mechanical Rate PEEP Pressure Support Vent Sodium Potassium Chloride Carbon Dioxide Anion Gap BUN Creatinine Creat Clearance w eGFR POC Glucometer 170.84731 143.60389 Random Glucose Calcium Phosphorus Magnesium Total Bilirubin AST ALT Alkaline Phosphatase Total Protein Albumin 07/18/16 07/18/16 07/18/16 05:00 05:17 07:10 WBC RBC Hgb Hct MCV MCHC RDW Plt Count MPV Neutrophils % Lymphocytes % Monocytes % Differential Comment PTT (Actin FS) Puncture Site Right radial ABG pH 7.50 H ABG pCO2 at Pt Temp 38.6 ABG pO2 at Pt Temp 66.8 L D ABG HCO3 30.0 H ABG O2 Sat (Measured) 94.0 ABG O2 Content 12.1 L ABG Base Excess 6.6 H Raciel Test Positive O2 Delivery Device Vent Oxygen Flow Rate 45 Vent Mode A/c Vent Rate 16 Mechanical Rate Yes PEEP 5.0 Pressure Support Vent 300 Sodium 143 Potassium 3.4 L Chloride 100 Carbon Dioxide 32 Anion Gap 11 BUN 35 H Creatinine 0.5 L Creat Clearance w eGFR > 60 POC Glucometer [phone] Random Glucose 153 H Calcium 7.9 L Phosphorus 2.7 D Magnesium 1.9 Total Bilirubin 1.4 H AST 22 D ALT 33 D Alkaline Phosphatase 64 D Total Protein 4.4 L D Albumin 2.0 L D 07/18/16 07:30 WBC RBC Hgb Hct MCV MCHC RDW Plt Count MPV Neutrophils % Lymphocytes % Monocytes % Differential Comment PTT (Actin FS) 192.5 H D Puncture Site ABG pH ABG pCO2 at Pt Temp ABG pO2 at Pt Temp ABG HCO3 ABG O2 Sat (Measured) ABG O2 Content ABG Base Excess Raciel Test O2 Delivery Device Oxygen Flow Rate Vent Mode Vent Rate Mechanical Rate PEEP Pressure Support Vent Sodium Potassium Chloride Carbon Dioxide Anion Gap BUN Creatinine Creat Clearance w eGFR POC Glucometer Random Glucose Calcium Phosphorus Magnesium Total Bilirubin AST ALT Alkaline Phosphatase Total Protein Albumin Active Medications Generic Name Dose Route Start Last Admin Trade Name Freq PRN Reason Stop Dose Admin Acetaminophen 650 mg 07/07/16 17:15 07/08/16 16:21 Tylenol - PO 650 mg Q4H PRN Administration FEVER OR PAIN Al Hydroxide/Mg Hydroxide 30 ml 07/09/16 20:39 07/13/16 10:08 Mylanta Oral Suspension - PO 30 ml Q12H PRN Administration DYSPEPSIA Albuterol Sulfate 1 amp 07/13/16 14:51 07/13/16 15:45 Ventolin 0.083% Nebulizer Soln - NEB 1 amp Q4H PRN Administration SHORT OF BREATH/WHEEZING Albuterol/Ipratropium 1 amp 07/13/16 18:00 07/18/16 12:20 Duoneb - NEB 1 amp QIDR DARWIN Administration Atorvastatin Calcium 10 mg 07/07/16 22:00 07/17/16 21:12 Lipitor - PO Not Given HS DARWIN Cholecalciferol 1,000 unit 07/07/16 10:00 07/18/16 10:02 Vitamin D3 - PO Not Given DAILY DARWIN Diltiazem HCl 10 mg 07/13/16 19:01 Cardizem Injection - IVPUSH Q4H PRN TACHYCARDIA Enalapril Maleate 20 mg 07/07/16 14:30 07/18/16 10:02 Vasotec - PO Not Given DAILY DARWIN Furosemide 40 mg 07/17/16 14:00 07/18/16 06:23 Lasix Injection - IVPUSH 40 mg BIDLASIX DARWIN Administration Guaifenesin 5 ml 07/08/16 13:17 07/09/16 16:33 Diabetic Tussin Dm - PO 5 unit Q6H PRN Administration COUGH Heparin Sodium (Porcine) 1,000 unit 07/15/16 10:21 Heparin - IVPUSH PRN PRN Heparin Heparin Sodium (Porcine) 5,000 unit 07/15/16 10:21 Heparin - IVPUSH PRN PRN Heparin Diltiazem HCl 125 mg/ Dextrose 125 mls @ 5 mls/hr 07/13/16 13:30 07/18/16 09:09 IVPB 5 mls/hr TITR DARWIN Administration Protocol 5 MG/HR Aztreonam 1 gm/ Dextrose 50 mls @ 100 mls/hr 07/13/16 18:00 07/18/16 10:01 IVPB 100 mls/hr Q8H-IV DARWIN Administration Protocol Heparin Sodium (Porcine) 25, 500 mls @ 16 mls/hr 07/15/16 10:30 07/17/16 09:55 000 unit/ Sodium Chloride IV 16 mls/hr TITR DARWIN Administration Protocol 800 UNIT/HR Sodium Chloride 500 mls @ 75 mls/hr 07/17/16 17:30 07/17/16 17:30 Normal Saline - IV 75 mls/hr ASDIR DARWIN Administration Insulin Aspart 1 vial 07/13/16 16:30 07/18/16 06:21 Novolog Vial Sliding Scale - SQ 2 units ACHS DARWIN Administration Protocol Methylprednisolone Sodium Succinate 40 mg 07/18/16 10:00 07/18/16 10:05 Solu-Medrol - IVPB 40 mg DAILY DARWIN Administration Metoprolol Tartrate 50 mg 07/16/16 14:00 07/18/16 06:21 Lopressor - PO Not Given TID [facility] Mometasone Furoate 1 puff 07/08/16 10:00 07/18/16 10:02 Asmanex 220mcg - IH Not Given DAILY [facility] Multivitamins/Minerals/Vitamin C 1 tab 07/07/16 10:00 07/18/16 10:02 Tab-A-Vit - PO Not Given DAILY [facility] Ranitidine HCl 150 mg 07/12/16 22:00 07/18/16 10:03 Zantac - PO Not Given BID [facility] Warfarin Sodium 5 mg 07/16/16 18:00 07/17/16 18:14 Coumadin - PO Not Given DAILY@1800 [facility] ASSESSMENT/PLAN: 81 year old female with significant PMH of A-Fib, HTN, Rheumatic HD, Aortic stenosis, MV replacement, CVA, COPD who was admitted for A-Fib with RVR. Presented to ICU for acute hypoxic respiratory failure requiring intubation. #Acute Hyperneic respiratory failure, secondary to poor respiration overnight -intubated but not sedated, will attempt to wean once HR improves (130's) -Continue Spiriva, Asmanex, Robitussin, Duonebs, Albuterol -Solumedrol 40mg daily -vancomycin/aztreonam for RLL Pneumonia (post-influenza strep?) -ID following -Pulmonary following #Acute on Chronic Diastolic Heart Failure -Continue Enalapril 20qd, Lasix 40BID -strict I & O -daily weights -CXR in AM #Atrial Fibrillation, with RVR -continue Lopressor 50mg TID -Cardizem drip currently at 10 mls/hr, can downtitrate as needed -continuous cardiac monitoring #Malnutrition -patient would benefit from tubefeeding for a short course -discussed options with Combat Control Manager Eunice and discussed with patient, who is amenable to plan #Supratherapeutic INR, post-mechanical MV -on Coumadin with Heparin bridge -ideally maintain 3.0-3.5 -INR subtherapeutic at present, will trend #Diabetes -Insulin sliding scale -BGM ACHS FEN/Prophylaxis -SCD, Zantac -Holding IVF, Will monitor electrolytes, NPO Visit type - Emergency Visit Emergency Visit: Yes ED Registration Date: 07/09/16 Care time: The patient presented to the Emergency Department on the above date and was hospitalized for further evaluation of their emergent condition. - New Patient This patient is new to me today: No - Critical Care Critical Care patient: Yes Total Critical Care Time (in minutes): 40 Critical Care Statement: The care of this patient involved high complexity decision making to prevent further life threatening deterioration of the patient 's condition and/or to evalute & treat vital organ system(s) failure or risk of failure.
--- NOTE | 2016-07-18 14:00 | PN ---
Progress Note, Physician History of Present Illness: Pt. awake and alert on respirator. NAD. - Current Medication List Current Medications: Active Medications Acetaminophen (Tylenol -) 650 mg PO Q4H PRN PRN Reason: FEVER OR PAIN Last Admin: 07/08/16 16:21 Dose: 650 mg Al Hydroxide/Mg Hydroxide (Mylanta Oral Suspension -) 30 ml PO Q12H PRN PRN Reason: DYSPEPSIA Last Admin: 07/13/16 10:08 Dose: 30 ml Albuterol Sulfate (Ventolin 0.083% Nebulizer Soln -) 1 amp NEB Q4H PRN PRN Reason: SHORT OF BREATH/WHEEZING Last Admin: 07/13/16 15:45 Dose: 1 amp Albuterol/Ipratropium (Duoneb -) 1 amp NEB QIDR DARWIN Last Admin: 07/18/16 12:20 Dose: 1 amp Atorvastatin Calcium (Lipitor -) 10 mg PO HS [facility] Last Admin: 07/17/16 21:12 Dose: Not Given Cholecalciferol (Vitamin D3 -) 1,000 unit PO DAILY [facility] Last Admin: 07/18/16 10:02 Dose: Not Given Diltiazem HCl (Cardizem Injection -) 10 mg IVPUSH Q4H PRN PRN Reason: TACHYCARDIA Enalapril Maleate (Vasotec -) 20 mg PO DAILY [facility] Last Admin: 07/18/16 10:02 Dose: Not Given Furosemide (Lasix Injection -) 40 mg IVPUSH BIDLASIX [facility] Last Admin: 07/18/16 06:23 Dose: 40 mg Guaifenesin (Diabetic Tussin Dm -) 5 ml PO Q6H PRN PRN Reason: COUGH Last Admin: 07/09/16 16:33 Dose: 5 unit Heparin Sodium (Porcine) (Heparin -) 1,000 unit IVPUSH PRN PRN PRN Reason: Heparin Heparin Sodium (Porcine) (Heparin -) 5,000 unit IVPUSH PRN PRN PRN Reason: Heparin Diltiazem HCl 125 mg/ Dextrose 125 mls @ 5 mls/hr IVPB TITR DARWIN; 5 MG/HR PRN Reason: Protocol Last Admin: 07/18/16 09:09 Dose: 5 mls/hr Aztreonam 1 gm/ Dextrose 50 mls @ 100 mls/hr IVPB Q8H-IV DARWIN PRN Reason: Protocol Last Admin: 07/18/16 10:01 Dose: 100 mls/hr Heparin Sodium (Porcine) 25, (000 unit/ Sodium Chloride) 500 mls @ 16 mls/hr IV TITR DARWIN; 800 UNIT/HR PRN Reason: Protocol Last Admin: 07/17/16 09:55 Dose: 16 mls/hr Sodium Chloride (Normal Saline -) 500 mls @ 75 mls/hr IV ASDIR [facility] Last Admin: 07/17/16 17:30 Dose: 75 mls/hr Insulin Aspart (Novolog Vial Sliding Scale -) 1 vial SQ ACHS DARWIN PRN Reason: Protocol Last Admin: 07/18/16 06:21 Dose: 2 units Methylprednisolone Sodium Succinate (Solu-Medrol -) 40 mg IVPB DAILY [facility] Last Admin: 07/18/16 10:05 Dose: 40 mg Metoprolol Tartrate (Lopressor -) 50 mg PO TID [facility] Last Admin: 07/18/16 06:21 Dose: Not Given Mometasone Furoate (Asmanex 220mcg -) 1 puff IH DAILY [facility] Last Admin: 07/18/16 10:02 Dose: Not Given Multivitamins/Minerals/Vitamin C (Tab-A-Vit -) 1 tab PO DAILY [facility] Last Admin: 07/18/16 10:02 Dose: Not Given Ranitidine HCl (Zantac -) 150 mg PO BID [facility] Last Admin: 07/18/16 10:03 Dose: Not Given Warfarin Sodium (Coumadin -) 5 mg PO DAILY@1800 [facility] Last Admin: 07/17/16 18:14 Dose: Not Given - Objective Vital Signs: Vital Signs Temperature 99.2 F 07/18/16 07:59 Pulse Rate 112 H 07/18/16 13:10 Respiratory Rate 18 07/18/16 13:10 Blood Pressure 102/49 07/18/16 13:10 O2 Sat by Pulse Oximetry (%) 93 L 07/18/16 08:00 Constitutional: Yes: No Distress Eyes: Yes: Sclera Icterus HENT: Yes: Atraumatic, Normocephalic Neck: Yes: Supple, Trachea Midline Cardiovascular: Yes: Pulse Irregular Respiratory: Yes: Rhonchi (scattered bilateral) Gastrointestinal: Yes: Soft. No: Tenderness Extremities: No: Calf Tenderness Edema: No Neurological: Yes: Alert, Oriented Labs: CBC, BMP 07/18/16 05:00 07/18/16 05:00 INR, PTT INR 2.35 (0.82-1.09) H D 07/17/16 05:00 - ....Imaging Chest X-ray: Report Reviewed, Image Reviewed (Right upper and lower lung field infiltrates. Right pleural effusion.) Problem List - Problems (1) Respiratory failure Code(s): J96.90 - RESPIRATORY FAILURE, UNSP, UNSP W HYPOXIA OR HYPERCAPNIA Qualifiers: Chronicity: acute Respiratory failure complication: hypoxia and hypercapnia Qualified Code(s): J96.01 - Acute respiratory failure with hypoxia (2) Pneumonia and influenza Code(s): J11.00 - FLU DUE TO UNIDENTIFIED FLU VIRUS W UNSP TYPE OF PNEUMONIA (3) Atrial fibrillation with rapid ventricular response Code(s): I48.91 - UNSPECIFIED ATRIAL FIBRILLATION (4) Bronchial asthma Code(s): J45.909 - UNSPECIFIED ASTHMA, UNCOMPLICATED Qualifiers: Asthma severity: mild intermittent (5) History of mitral valve replacement with mechanical valve Code(s): Z95.2 - PRESENCE OF PROSTHETIC HEART VALVE (6) Aortic stenosis Code(s): I35.0 - NONRHEUMATIC AORTIC (VALVE) STENOSIS Qualifiers: (7) Diabetes mellitus Code(s): E11.9 - TYPE 2 DIABETES MELLITUS WITHOUT COMPLICATIONS Qualifiers: Diabetes mellitus type: type 2 Diabetes mellitus complication status: without complication Diabetes mellitus buttermaker helper insulin use: without penitentiary use Qualified Code(s): E11.9 - Type 2 diabetes mellitus without complications Assessment/Plan Respiratory Failure: Awake and alert in NAD on respirator currently. Pt reintubated yesterday-improved today and may be able to be weaned form respirator in the next 24 hours Pnuemonia Influenza A-completed Tamiflu CHF-appears improved Chronic Atrial fibrillation-still rapid ventricular rate Bronchial Asthma-stable Mechanical MVR Aortic Stenosis NIDDM- Suggest: Respirator support-attempts at weaning planned Antibiotics per ID Solumedrol being tapered Inhaled bronchodilators O2 to maintain SaO2>90 Metoprolol and Cardizem per cardiology to contril ventricular rate Furosemide PRN
[2016-07-18] MEDS ORDERED: PT OWN MED DRAWER 7, Y5N ONE ×2 (14:59→18:12)
[2016-07-18] MEDS: WARFARIN NA 5 MG TABLET (UD) PO SCH (19:18)
[2016-07-18] MEDS: ATORVASTATIN CA 10 MG TABLET (FP) PO SCH (22:08)
[2016-07-19] MEDS: AZTREONAM 1 GM in DEXTROSE 5%-WATER - 50 ML IVPB SCH ×3 (02:23→18:11)
[2016-07-19] MEDS: METOPROLOL TARTRATE 50 MG TABLET (FP) PO SCH ×4 (06:21→22:11)
[2016-07-19] MEDS: FUROSEMIDE 40 MG/4 ML INJECTABLE VIAL IVPUSH SCH ×2 (06:25→16:02)
[2016-07-19] MEDS: INSULIN SLIDING SCALE (NOVOLOG) 1 VIAL SQ SCH ×4 (06:26→22:18)
[2016-07-19] MEDS: ALBUTEROL SO4 2.5/IPRATROPIUM 0.5 INH SOL 3 ML VIAL.NEB. NEB SCH ×5 (06:30→23:50)
[2016-07-19 06:44] LABS: MCH 25.9 pg (25.7-33.7); MCHC 32.7 g/dl (32.0-36.0); MEAN CELL VOLUME 79.1 fl (80-96); MEAN PLT VOLUME 9.2 fl (7.5-11.1); PLATELET COUNT 170 K/MM3 (134-434); RDW 16.1 % (11.6-15.6); WHITE BLOOD COUNT 19.3 K/mm3 (4.0-10.0)
[2016-07-19 06:58] LABS: INR 3.79 (0.82-1.09); PROTHROMBIN TIME (PATIENT) 42.8 SEC (9.98-11.88)
--- NOTE | 2016-07-19 07:21 | PN ---
Progress Note, Physician Chief Complaint: ID Alert on the vent after reintubation Aztreonam for gram neg ashley PNA Dose of Vanco given - Current Medication List Current Medications: Active Medications Acetaminophen (Tylenol -) 650 mg PO Q4H PRN PRN Reason: FEVER OR PAIN Last Admin: 07/08/16 16:21 Dose: 650 mg Al Hydroxide/Mg Hydroxide (Mylanta Oral Suspension -) 30 ml PO Q12H PRN PRN Reason: DYSPEPSIA Last Admin: 07/13/16 10:08 Dose: 30 ml Albuterol/Ipratropium (Duoneb -) 1 amp NEB QIDR DARWIN Last Admin: 07/19/16 00:00 Dose: 1 amp Atorvastatin Calcium (Lipitor -) 10 mg PO HS [facility] Last Admin: 07/18/16 22:08 Dose: Not Given Cholecalciferol (Vitamin D3 -) 1,000 unit PO DAILY [facility] Last Admin: 07/18/16 10:02 Dose: Not Given Enalapril Maleate (Vasotec -) 20 mg PO DAILY [facility] Last Admin: 07/18/16 10:02 Dose: Not Given Furosemide (Lasix Injection -) 40 mg IVPUSH BIDLASIX [facility]AR[facility] Last Admin: 07/19/16 06:25 Dose: 40 mg Guaifenesin (Diabetic Tussin Dm -) 5 ml PO Q6H PRN PRN Reason: COUGH Last Admin: 07/09/16 16:33 Dose: 5 unit Heparin Sodium (Porcine) (Heparin -) 1,000 unit IVPUSH PRN PRN PRN Reason: Heparin Heparin Sodium (Porcine) (Heparin -) 5,000 unit IVPUSH PRN PRN PRN Reason: Heparin Diltiazem HCl 125 mg/ Dextrose 125 mls @ 5 mls/hr IVPB TITR DARWIN; 5 MG/HR PRN Reason: Protocol Last Titration: 07/18/16 15:44 Dose: 15 mg/hr Aztreonam 1 gm/ Dextrose 50 mls @ 100 mls/hr IVPB Q8H-IV DARWIN PRN Reason: Protocol Last Admin: 07/19/16 02:23 Dose: 100 mls/hr Heparin Sodium (Porcine) 25, (000 unit/ Sodium Chloride) 500 mls @ 16 mls/hr IV TITR DARWIN; 800 UNIT/HR PRN Reason: Protocol Last Admin: 07/18/16 10:30 Dose: 10 mls/hr Insulin Aspart (Novolog Vial Sliding Scale -) 1 vial SQ ACHS [facility] PRN Reason: Protocol Last Admin: 07/19/16 06:26 Dose: 2 units Methylprednisolone Sodium Succinate (Solu-Medrol -) 40 mg IVPB DAILY [facility] Last Admin: 07/18/16 10:05 Dose: 40 mg Metoprolol Tartrate (Lopressor -) 50 mg PO TID [facility] Last Admin: 07/19/16 06:21 Dose: Not Given Mometasone Furoate (Asmanex 220mcg -) 1 puff IH DAILY [facility] Last Admin: 07/18/16 10:02 Dose: Not Given Multivitamins/Minerals/Vitamin C (Tab-A-Vit -) 1 tab PO DAILY [facility] Last Admin: 07/18/16 10:02 Dose: Not Given Ranitidine HCl (Zantac -) 150 mg PO BID [facility] Last Admin: 07/18/16 22:08 Dose: Not Given Warfarin Sodium (Coumadin -) 5 mg PO DAILY@1800 [facility] Last Admin: 07/18/16 19:18 Dose: Not Given - Objective Vital Signs: Vital Signs Temperature 97.4 F L 07/19/16 06:00 Pulse Rate 96 H 07/19/16 06:00 Respiratory Rate 18 07/19/16 06:00 Blood Pressure 103/45 07/19/16 06:00 O2 Sat by Pulse Oximetry (%) 100 07/18/16 20:19 Constitutional: Yes: Other (Intubated) Neck: Yes: WNL, Supple Cardiovascular: Yes: Murmur, S1, S2 Respiratory: Yes: WNL, Regular, CTA Bilaterally. No: Rhonchi Gastrointestinal: Yes: WNL, Normal Bowel Sounds, Soft. No: Tenderness Edema: No Labs: CBC, BMP 07/19/16 05:20 INR, PTT INR 2.35 (0.82-1.09) H D 07/17/16 05:00 Problem List - Problems (1) Atrial fibrillation with rapid ventricular response Code(s): I48.91 - UNSPECIFIED ATRIAL FIBRILLATION (2) Pneumonia due to virus Code(s): J12.9 - VIRAL PNEUMONIA, UNSPECIFIED (3) Influenza A Code(s): J10.1 - FLU DUE TO OTH IDENT INFLUENZA VIRUS W OTH RESP MANIFEST (4) H/O mitral valve replacement Code(s): Z95.2 - PRESENCE OF PROSTHETIC HEART VALVE Assessment/Plan Microbiology 07/15/16 09:40 Sputum - Endotrachea Suction/Ventilator Gram Stain - Final 07/15/16 09:40 Sputum - Endotrachea Suction/Ventilator Sputum Culture - Final Citrobacter Freundii Complex 07/14/16 22:00 Sputum - Endotrachea Suction/Ventilator Gram Stain - Final 07/14/16 22:00 Sputum - Endotrachea Suction/Ventilator Sputum Culture - Final Citrobacter Freundii Complex Laboratory Tests 07/18/16 07/19/16 05:00 05:20 WBC 19.3 H Hgb 8.1 L Hct 24.6 L Plt Count 170 BUN 35 H Creatinine 0.5 L Assessment Respiratory failure Citrobacter PNA Recent Influenza illness Aortic stenosis Mechanical valve Elevated WBC on steroids Plan Continue Aztreonam as ordered in light of multiple drug allergies day 6 Rx [facility]
[2016-07-19 07:34] LABS: ALBUMIN 2.1 g/dl (3.4-5.0); ANION GAP 9 (8-16); BILIRUBIN,TOTAL 1.3 mg/dL (0.2-1.0); CALCIUM 7.9 mg/dL (8.5-10.1); CO2 34 mmol/L (21-32); CREATININE 0.4 mg/dL (0.55-1.02); GLUCOSE,RANDOM 152 mg/dL (74-106); PHOSPHOROUS 2.4 mg/dL (2.5-4.9); SGOT/AST 21 U/L (15-37); SGPT/ALT 31 U/L (12-78); TOT PROT 4.6 g/dl (6.4-8.2)
[2016-07-19 07:35] LABS: ALK PHOS 71 U/L (45-117)
[2016-07-19 07:45] LABS: ALLENS TEST POSITIVE; ARTERIAL BLD GAS O2 SATURATION 94.5 % (90-98.9); ARTERIAL BLOOD GAS BASE EXCESS 10.3 meq/l (-2-2); ARTERIAL BLOOD GAS HCO3 33.8 meq/L (22-26); ARTERIAL BLOOD GAS pH 7.54 (7.35-7.45)
[2016-07-19 07:46] LABS: ART PUNCT SITE LEFT RADIAL; LPM/O2% 40%; MECH. VENT. YES; PT. ON O2? YES; TYPE OF O2 VENT; VENT RATE 16; VT/PRESS 300
[2016-07-19 07:47] LABS: ARTERIAL BLOOD GAS PO2 67.2 mmHg (68-100)
[2016-07-19] MEDS ORDERED: PT OWN MED DRAWER 7, Y5N ONE ×2 (09:44→18:10)
[2016-07-19 10:09] LABS: ACANTHOCYTES 1+; HYPOCHROMIA 1+; OVALOCYTES 1+; POIKILOCYTOSIS 4+; SCHISTOCYTES 1+
[2016-07-19 10:10] LABS: BURR CELLS 4+
[2016-07-19] MEDS ORDERED: dilTIAZem HCL 125 MG/25 ML - 5 ML VIAL ONE ×2 (11:22→19:49)
--- NOTE | 2016-07-19 11:25 | PN ---
Physical Exam: SUBJECTIVE: Patient seen and examined at bedside in ICU. AAO and communicates by head nodding or writing with pen/paper. Tachycardic overnight but afebrile & states she feels well. Explained plans to bring down heart rate before attempting to wean off ventilator. Patient acknowledges understanding and agrees with proposed course. OBJECTIVE: Vital Signs Period Temp Pulse Resp BP Sys/Gold Pulse Ox Last 24 Hr 96.9 F-99 F 88-116 16-27 92-121/45-69 94-100 GENERAL: Intubated but not sedated. Resting comfortably in bed. Cachectic HEENT: Atraumatic, EOMI, PERRLA, No lymphadenopathy noted. Dry mucous membranes. LUNGS: Crackles noted at bilateral lung bases. No wheezing or stridor noted. HEART: Irregular, tachycardic to 130, Grade 3/6 systolic murmur. Notable MV "Click". ABDOMEN: Soft, nontender, not distended, normoactive bowel sounds EXTREMITIES: 2+ pulses, warm, well-perfused. No peripheral edema. Moderate upper and lower extremity muscle atrophy. PSYCHIATRIC: Cooperative. Good eye contact. Appropriate mood and affect. SKIN: Warm, dry, normal turgor, no rashes or lesions noted. Laboratory Results - last 24 hr 07/18/16 07/19/16 07/19/16 16:00 05:20 05:20 WBC RBC Hgb Hct MCV MCHC RDW Plt Count MPV Neutrophils % Lymphocytes % Monocytes % Differential Comment Hypochromic-Microcytic Poikilocytosis Ovalocytes Kelli Cells Acanthocytes (Spur) Schistocytes Morphology Comment INR 3.79 H D PTT (Actin FS) 64.4 H D 71.0 H Puncture Site ABG pH ABG pCO2 at Pt Temp ABG pO2 at Pt Temp ABG HCO3 ABG O2 Sat (Measured) ABG O2 Content ABG Base Excess Raciel Test O2 Delivery Device Oxygen Flow Rate Vent Mode Vent Rate Mechanical Rate PEEP Pressure Support Vent Sodium 144 Potassium 3.1 L Chloride 101 Carbon Dioxide 34 H Anion Gap 9 BUN 30 H Creatinine 0.4 L Creat Clearance w eGFR > 60 Random Glucose 152 H Calcium 7.9 L Phosphorus 2.4 L Magnesium 2.0 Total Bilirubin 1.3 H AST 21 ALT 31 Alkaline Phosphatase 71 Total Protein 4.6 L Albumin 2.1 L 07/19/16 07/19/16 05:20 07:30 WBC 19.3 H RBC 3.11 L Hgb 8.1 L Hct 24.6 L MCV 79.1 L MCHC 32.7 RDW 16.1 H Plt Count 170 MPV 9.2 Neutrophils % 97.0 H Lymphocytes % 1.0 L D Monocytes % 2.0 L Differential Comment Manual diff done Hypochromic-Microcytic 1+ Poikilocytosis 4+ Ovalocytes 1+ Kelli Cells 4+ Acanthocytes (Spur) 1+ Schistocytes 1+ Morphology Comment Slide scanned INR PTT (Actin FS) Puncture Site Left radial ABG pH 7.54 H ABG pCO2 at Pt Temp 39.5 ABG pO2 at Pt Temp 67.2 L ABG HCO3 33.8 H ABG O2 Sat (Measured) 94.5 ABG O2 Content 11.2 L ABG Base Excess 10.3 H Raciel Test Positive O2 Delivery Device Vent Oxygen Flow Rate 40% Vent Mode A/c Vent Rate 16 Mechanical Rate Yes PEEP 5.0 Pressure Support Vent 300 Sodium Potassium Chloride Carbon Dioxide Anion Gap BUN Creatinine Creat Clearance w eGFR Random Glucose Calcium Phosphorus Magnesium Total Bilirubin AST ALT Alkaline Phosphatase Total Protein Albumin Active Medications Generic Name Dose Route Start Last Admin Trade Name Freq PRN Reason Stop Dose Admin Acetaminophen 650 mg 07/07/16 17:15 07/08/16 16:21 Tylenol - PO 650 mg Q4H PRN Administration FEVER OR PAIN Al Hydroxide/Mg Hydroxide 30 ml 07/09/16 20:39 07/13/16 10:08 Mylanta Oral Suspension - PO 30 ml Q12H PRN Administration DYSPEPSIA Albuterol/Ipratropium 1 amp 07/13/16 18:00 07/19/16 06:30 Duoneb - NEB 1 amp QIDR [facility] Administration Atorvastatin Calcium 10 mg 07/07/16 22:00 07/18/16 22:08 Lipitor - PO Not Given HS [facility] Cholecalciferol 1,000 unit 07/07/16 10:00 07/18/16 10:02 Vitamin D3 - PO Not Given DAILY [facility] Enalapril Maleate 20 mg 07/07/16 14:30 07/18/16 10:02 Vasotec - PO Not Given DAILY [facility] Furosemide 40 mg 07/17/16 14:00 07/19/16 06:25 Lasix Injection - IVPUSH 40 mg BIDLASIX [facility] Administration Guaifenesin 5 ml 07/08/16 13:17 07/09/16 16:33 Diabetic Tussin Dm - PO 5 unit Q6H PRN Administration COUGH Diltiazem HCl 125 mg/ Dextrose 125 mls @ 5 mls/hr 07/13/16 13:30 07/18/16 15:44 IVPB 15 mg/hr TITR [facility] Titration Protocol 5 MG/HR Aztreonam 1 gm/ Dextrose 50 mls @ 100 mls/hr 07/13/16 18:00 07/19/16 02:23 IVPB 100 mls/hr Q8H-IV [facility] Administration Protocol Insulin Aspart 1 vial 07/13/16 16:30 07/19/16 06:26 Novolog Vial Sliding Scale - SQ 2 units ACHS [facility] Administration Protocol Methylprednisolone Sodium Succinate 40 mg 07/18/16 10:00 07/18/16 10:05 Solu-Medrol - IVPB 40 mg DAILY [facility] Administration Metoprolol Tartrate 50 mg 07/16/16 14:00 07/19/16 06:21 Lopressor - PO Not Given TID [facility] Metoprolol Tartrate 5 mg 07/19/16 11:30 Lopressor Injection - IVPUSH 07/19/16 11:31 ONCE ONE Mometasone Furoate 1 puff 07/08/16 10:00 07/18/16 10:02 Asmanex 220mcg - IH Not Given DAILY [facility] Multivitamins/Minerals/Vitamin C 1 tab 07/07/16 10:00 07/18/16 10:02 Tab-A-Vit - PO Not Given DAILY [facility] Ranitidine HCl 150 mg 07/12/16 22:00 07/18/16 22:08 Zantac - PO Not Given BID [facility] Warfarin Sodium 5 mg 07/16/16 18:00 07/18/16 19:18 Coumadin - PO Not Given DAILY@1800 [facility] ASSESSMENT/PLAN: 81 year old female with significant PMH of A-Fib, HTN, Rheumatic HD, Aortic stenosis, MV replacement, CVA, COPD who was admitted for A-Fib with RVR. Presented to ICU for acute hypoxic respiratory failure requiring intubation. #Acute Hyperneic respiratory failure, secondary to poor respiration overnight -intubated but not sedated, will attempt to wean once HR improves (given lopressor IVPUSH this morning) -Continue Spiriva, Asmanex, Robitussin, Duonebs, Albuterol -Solumedrol 40mg daily -aztreonam for RLL Pneumonia, day 6 -ID following -Pulmonary following #Acute on Chronic Diastolic Heart Failure -Continue Enalapril 20qd, Lasix 40BID -strict I & O -daily weights -CXR in AM #Atrial Fibrillation, with RVR -given Lopressor 5mg IVPUSH this morning, will continue on PO Lopressor TID once extubated -Cardizem drip currently at 15 mls/hr, can downtitrate as needed -continuous cardiac monitoring #Malnutrition -if unable to extubate today, will start on tube feeds as per closing supervisor #Supratherapeutic INR, post-mechanical MV -on Coumadin, INR 3.79 today -ideally maintain 3.0-3.5, trend #Diabetes -Insulin sliding scale -BGM ACHS FEN/Prophylaxis -Coumadin, Zantac -Holding IVF, Will replete potassium & phosphorus once NG tube is placed or she is extubated, NPO for now Visit type - Emergency Visit Emergency Visit: Yes ED Registration Date: 07/09/16 Care time: The patient presented to the Emergency Department on the above date and was hospitalized for further evaluation of their emergent condition. - New Patient This patient is new to me today: No - Critical Care Critical Care patient: Yes Total Critical Care Time (in minutes): 45 Critical Care Statement: The care of this patient involved high complexity decision making to prevent further life threatening deterioration of the patient 's condition and/or to evalute & treat vital organ system(s) failure or risk of failure.
[2016-07-19] MEDS ORDERED: METOPROLOL TARTRATE 5 MG/5 ML VIAL IVPUSH ONE (11:30)
[2016-07-19] MEDS: DILTIAZEM INJECTION 125 MG in DEXTROSE 5%-WATER - 100 ML IVPB SCH ×2 (11:36→14:21)
[2016-07-19] MEDS: MULTIVITAMINS (DAILY MVI) TABLET (FP) PO SCH (11:43)
[2016-07-19] MEDS: ENALAPRIL MALEATE 10 MG TABLET (FP) PO SCH (11:43)
[2016-07-19] MEDS: CHOLECALCIFEROL (VITAMIN D3) 1,000 UNIT TABLET (FP) PO SCH (11:44)
[2016-07-19] MEDS: RANITIDINE HCL 150 MG TABLET (FP) PO SCH (11:44)
[2016-07-19] MEDS: MOMETASONE FUROATE 220 MCG/IH INHALER IH SCH (11:44)
[2016-07-19] MEDS: methylPREDNISolone NA SUCC 40 MG/1 ML VIAL IVPB SCH ×2 (11:44→18:11)
--- NOTE | 2016-07-19 12:22 | PN ---
Teaching Attending Note Name of Resident: Josh Singh ATTENDING PHYSICIAN STATEMENT I saw and evaluated the patient. I reviewed the resident's note and discussed the case with the resident. I agree with the resident's findings and plan as documented. SUBJECTIVE: Pt seen and examined in the ICU. Remains intubated, awake. In rapid atrial fibrillation today. Denies chest pain or palpitations. Reports some dyspnea on CPAP/PS 03/01. Remains on cardizem gtt. OBJECTIVE: Last Vital Signs Temp Pulse Resp BP Pulse Ox 97.8 F 111 H 28 H 121/69 95 07/19/16 08:00 07/19/16 11:36 07/19/16 11:36 07/19/16 11:36 07/19/16 09:45 Intake & Output 07/16/16 07/17/16 07/18/16 07/19/16 23:59 23:59 23:59 23:59 Intake Total 1307 1712 1227 350 Output Total 5220 135 0745 200 Balance 107 762 177 150 Weight 70 lb 2 oz 70 lb 7 oz 73 lb 5 oz 72 lb 3 oz Gen: intubated, awake Heart: irregular, tachycardic, +systolic murmur at base Lung: distant breath sounds, scattered basilar rales Abd: soft, nontender Ext: no edema CBC, BMP 07/19/16 05:20 07/19/16 05:20 Active Medications Acetaminophen (Tylenol -) 650 mg PO Q4H PRN PRN Reason: FEVER OR PAIN Last Admin: 07/08/16 16:21 Dose: 650 mg Al Hydroxide/Mg Hydroxide (Mylanta Oral Suspension -) 30 ml PO Q12H PRN PRN Reason: DYSPEPSIA Last Admin: 07/13/16 10:08 Dose: 30 ml Albuterol/Ipratropium (Duoneb -) 1 amp NEB QIDR [facility] Last Admin: 07/19/16 11:35 Dose: 1 amp Atorvastatin Calcium (Lipitor -) 10 mg PO HS [facility] Last Admin: 07/18/16 22:08 Dose: Not Given Cholecalciferol (Vitamin D3 -) 1,000 unit PO DAILY [facility] Last Admin: 07/19/16 11:44 Dose: Not Given Enalapril Maleate (Vasotec -) 20 mg PO DAILY [facility] Last Admin: 07/19/16 11:43 Dose: Not Given Furosemide (Lasix Injection -) 40 mg IVPUSH BIDLASIX [facility] Last Admin: 07/19/16 06:25 Dose: 40 mg Guaifenesin (Diabetic Tussin Dm -) 5 ml PO Q6H PRN PRN Reason: COUGH Last Admin: 07/09/16 16:33 Dose: 5 unit Diltiazem HCl 125 mg/ Dextrose 125 mls @ 5 mls/hr IVPB TITR DARWIN; 5 MG/HR PRN Reason: Protocol Last Admin: 07/19/16 11:36 Dose: 15 mls/hr Aztreonam 1 gm/ Dextrose 50 mls @ 100 mls/hr IVPB Q8H-IV DARWIN PRN Reason: Protocol Last Admin: 07/19/16 11:35 Dose: 100 mls/hr Famotidine/Sodium Chloride (Pepcid 20 Mg Premixed Ivpb -) 50 mls @ 100 mls/hr IVPB BID [facility] Insulin Aspart (Novolog Vial Sliding Scale -) 1 vial SQ ACHS [facility] PRN Reason: Protocol Last Admin: 07/19/16 06:26 Dose: 2 units Methylprednisolone Sodium Succinate (Solu-Medrol -) 40 mg IVPB DAILY [facility] Last Admin: 07/19/16 11:44 Dose: 40 mg Metoprolol Tartrate (Lopressor -) 50 mg PO TID [facility] Last Admin: 07/19/16 06:21 Dose: Not Given Mometasone Furoate (Asmanex 220mcg -) 1 puff IH DAILY [facility] Last Admin: 07/19/16 11:44 Dose: Not Given Multivitamins/Minerals/Vitamin C (Tab-A-Vit -) 1 tab PO DAILY [facility] Last Admin: 07/19/16 11:43 Dose: Not Given Warfarin Sodium (Coumadin -) 5 mg PO DAILY@1800 [facility] Last Admin: 07/18/16 19:18 Dose: Not Given ASSESSMENT AND PLAN: Acute on Chronic Hypoxic and Hypercapneic Respiratory Failure Acute on Chronic LV Diastolic Heart Failure Influenza A Pneumonia Atrial Fibrillation with RVR s/p mech MVR Aortic Stenosis Pulmonary HTN Acute COPD Exacerbation - continue antibiotics - continue medrol - inhaled bronchodilators - rate control - continue anticoagulation to keep INR 2-3 - place NGT for meds and feeds - O2 to keep spO2 >90% - spontaneous breathing trials as tolerated - DVT/GI prophylaxis - continue ICU monitoring
--- NOTE | 2016-07-19 12:35 | PN ---
Progress Note, Physician History of Present Illness: Awake on vent, rate-controlled afib on cardizem gtt and lopressor. - Current Medication List Current Medications: Active Medications Acetaminophen (Tylenol -) 650 mg PO Q4H PRN PRN Reason: FEVER OR PAIN Last Admin: 07/08/16 16:21 Dose: 650 mg Al Hydroxide/Mg Hydroxide (Mylanta Oral Suspension -) 30 ml PO Q12H PRN PRN Reason: DYSPEPSIA Last Admin: 07/13/16 10:08 Dose: 30 ml Albuterol/Ipratropium (Duoneb -) 1 amp NEB QIDR [facility] Last Admin: 07/19/16 11:35 Dose: 1 amp Atorvastatin Calcium (Lipitor -) 10 mg PO HS [facility] Last Admin: 07/18/16 22:08 Dose: Not Given Cholecalciferol (Vitamin D3 -) 1,000 unit PO DAILY [facility] Last Admin: 07/19/16 11:44 Dose: Not Given Enalapril Maleate (Vasotec -) 20 mg PO DAILY [facility] Last Admin: 07/19/16 11:43 Dose: Not Given Furosemide (Lasix Injection -) 40 mg IVPUSH BIDLASIX [facility] Last Admin: 07/19/16 06:25 Dose: 40 mg Guaifenesin (Diabetic Tussin Dm -) 5 ml PO Q6H PRN PRN Reason: COUGH Last Admin: 07/09/16 16:33 Dose: 5 unit Diltiazem HCl 125 mg/ Dextrose 125 mls @ 5 mls/hr IVPB TITR [facility]ARWIN; 5 MG/HR PRN Reason: Protocol Last Admin: 07/19/16 11:36 Dose: 15 mls/hr Aztreonam 1 gm/ Dextrose 50 mls @ 100 mls/hr IVPB Q8H-IV [facility] PRN Reason: Protocol Last Admin: 07/19/16 11:35 Dose: 100 mls/hr Famotidine/Sodium Chloride (Pepcid 20 Mg Premixed Ivpb -) 50 mls @ 100 mls/hr IVPB BID [facility] Insulin Aspart (Novolog Vial Sliding Scale -) 1 vial SQ ACHS [facility] PRN Reason: Protocol Last Admin: 07/19/16 06:26 Dose: 2 units Methylprednisolone Sodium Succinate (Solu-Medrol -) 40 mg IVPB Q8H [facility] Metoprolol Tartrate (Lopressor -) 50 mg PO TID [facility] Last Admin: 07/19/16 06:21 Dose: Not Given Mometasone Furoate (Asmanex 220mcg -) 1 puff IH DAILY [facility] Last Admin: 07/19/16 11:44 Dose: Not Given Multivitamins/Minerals/Vitamin C (Tab-A-Vit -) 1 tab PO DAILY [facility] Last Admin: 07/19/16 11:43 Dose: Not Given Warfarin Sodium (Coumadin -) 5 mg PO DAILY@1800 [facility] Last Admin: 07/18/16 19:18 Dose: Not Given - Objective Vital Signs: Vital Signs Temperature 97.8 F 07/19/16 08:00 Pulse Rate 106 H 07/19/16 12:00 Respiratory Rate 22 07/19/16 12:00 Blood Pressure 109/53 07/19/16 12:00 O2 Sat by Pulse Oximetry (%) 95 07/19/16 09:45 Constitutional: Yes: No Distress, Calm, Thin Neck: Yes: Supple Cardiovascular: Yes: Tachycardia, Pulse Irregular, Other ([place] mechanical valve sounds) Respiratory: Yes: Regular, Diminished Gastrointestinal: Yes: Normal Bowel Sounds, Soft Edema: No Labs: CBC, BMP 07/19/16 05:20 07/19/16 05:20 INR, PTT INR 3.79 (0.82-1.09) H D 07/19/16 05:20 - ....Imaging Chest X-ray: Report Reviewed (RLL infiltrates improved) Problem List - Problems (1) Atrial fibrillation with rapid ventricular response Code(s): I48.91 - UNSPECIFIED ATRIAL FIBRILLATION (2) Diabetes mellitus Code(s): E11.9 - TYPE 2 DIABETES MELLITUS WITHOUT COMPLICATIONS Qualifiers: Diabetes mellitus type: type 2 Diabetes mellitus complication status: without complication Diabetes mellitus mcfp insulin use: without meterman use Qualified Code(s): E11.9 - Type 2 diabetes mellitus without complications (3) History of mitral valve replacement with mechanical valve Code(s): Z95.2 - PRESENCE OF PROSTHETIC HEART VALVE (4) Hypercholesteremia Code(s): E78.0 - PURE HYPERCHOLESTEROLEMIA * DO NOT USE * (5) Hypertension Code(s): I10 - ESSENTIAL (PRIMARY) HYPERTENSION Qualifiers: Hypertension type: essential hypertension Qualified Code(s): I10 - Essential (primary) hypertension (6) Premature ventricular contraction Code(s): I49.3 - VENTRICULAR PREMATURE DEPOLARIZATION (7) Acute on chronic diastolic (congestive) heart failure Code(s): I50.33 - ACUTE ON CHRONIC DIASTOLIC (CONGESTIVE) HEART FAILURE (8) Influenza A Code(s): J10.1 - FLU DUE TO OTH IDENT INFLUENZA VIRUS W OTH RESP MANIFEST (9) Pneumonia and influenza Code(s): J11.00 - FLU DUE TO UNIDENTIFIED FLU VIRUS W UNSP TYPE OF PNEUMONIA Assessment/Plan 05/23/2016 Echo: Normal LV size with mildly decreased LV fxn, mech MV replacement, mild TR RVSP 30-40 mmHg, AV not well seen Repeat Echocardiography performed 07/07/16 revealed Normal LV size and function, mechanical MV replacement, mild to moderate TR with RVSP 30-40 mmHg, aortic valve not assessed 1. Acute on chronic hypoxic and hypercapneic respiratory failure referable to 2. Influenza A, RLL hospitalized acquired PNA 3. Acute on chronic diastolic failure 4. Permanent atrial fibrillation with RVR on A/C therapy, subtherapeutic INR 5. Post mechanical MVR 6. Probable significant aortic valve stenosis cannot be excluded 7. DM 8. Hyperlipidemia 9. Anemia & Thrombocytopenia PLAN: 1. Agree Lopressor 50 tid, wean Cardizem gtt as tolerated 2. Continue Vasotec 20 qd 3. Continue Lipitor 10 qhs 4. Continue Lasix 40 IV bid with monitor diuretic response, renal fxn and electrolytes, replete K 5. Continue Coumadin as per INR maintain 3.0-3.5, with caution considering the above noted Anemia and Thrombocytopenia. 6. Vent wean FIO2 as tolerated, antibiotics course to cover HCAP, Tamiflu, IV steroids and bronchodilators as per ID and pulmonary teams 7. Enteral feeds, GI prophylaxis
[2016-07-19] MEDS ORDERED: POTASSIUM CHLORIDE 40 MEQ/30 ML UNIT DOSE CUP NGT ONE (14:00)
[2016-07-19] MEDS ORDERED: POTASSIUM CHLORIDE 40 MEQ/30 ML UNIT DOSE CUP PO ONE (15:15)
--- NOTE | 2016-07-19 15:50 | PN ---
Progress Note, Physician History of Present Illness: Pt. awake and alert on respirator. NAD. - Current Medication List Current Medications: Active Medications Acetaminophen (Tylenol -) 650 mg PO Q4H PRN PRN Reason: FEVER OR PAIN Last Admin: 07/08/16 16:21 Dose: 650 mg Al Hydroxide/Mg Hydroxide (Mylanta Oral Suspension -) 30 ml PO Q12H PRN PRN Reason: DYSPEPSIA Last Admin: 07/13/16 10:08 Dose: 30 ml Albuterol/Ipratropium (Duoneb -) 1 amp NEB QIDR [facility] Last Admin: 07/19/16 11:35 Dose: 1 amp Atorvastatin Calcium (Lipitor -) 10 mg PO HS [facility] Last Admin: 07/18/16 22:08 Dose: Not Given Cholecalciferol (Vitamin D3 -) 1,000 unit PO DAILY [facility] Last Admin: 07/19/16 11:44 Dose: Not Given Enalapril Maleate (Vasotec -) 20 mg PO DAILY [facility] Last Admin: 07/19/16 11:43 Dose: Not Given Furosemide (Lasix Injection -) 40 mg IVPUSH BIDLASIX [facility] Last Admin: 07/19/16 06:25 Dose: 40 mg Guaifenesin (Diabetic Tussin Dm -) 5 ml PO Q6H PRN PRN Reason: COUGH Last Admin: 07/09/16 16:33 Dose: 5 unit Diltiazem HCl 125 mg/ Dextrose 125 mls @ 5 mls/hr IVPB TITR DARWIN; 5 MG/HR PRN Reason: Protocol Last Admin: 07/19/16 14:21 Dose: Not Given Aztreonam 1 gm/ Dextrose 50 mls @ 100 mls/hr IVPB Q8H-IV [facility] PRN Reason: Protocol Last Admin: 07/19/16 11:35 Dose: 100 mls/hr Famotidine/Sodium Chloride (Pepcid 20 Mg Premixed Ivpb -) 50 mls @ 100 mls/hr IVPB BID [facility] Insulin Aspart (Novolog Vial Sliding Scale -) 1 vial SQ ACHS [facility] PRN Reason: Protocol Last Admin: 07/19/16 12:50 Dose: 4 units Methylprednisolone Sodium Succinate (Solu-Medrol -) 40 mg IVPB Q8H-IV [facility] Metoprolol Tartrate (Lopressor -) 50 mg PO TID [facility] Last Admin: 07/19/16 06:21 Dose: Not Given Mometasone Furoate (Asmanex 220mcg -) 1 puff IH DAILY [facility] Last Admin: 07/19/16 11:44 Dose: Not Given Multivitamins/Minerals/Vitamin C (Tab-A-Vit -) 1 tab PO DAILY [facility] Last Admin: 07/19/16 11:43 Dose: Not Given Potassium Phos/Sodium Phos (Phos-Nak Packet -) 1 packet PO TID [facility] Stop: 07/20/16 06:01 Warfarin Sodium (Coumadin -) 5 mg PO DAILY@1800 [facility] Last Admin: 07/18/16 19:18 Dose: Not Given - Objective Vital Signs: Vital Signs Temperature 98.7 F 07/19/16 14:00 Pulse Rate 110 H 07/19/16 14:00 Respiratory Rate 22 07/19/16 14:00 Blood Pressure 97/53 07/19/16 14:00 O2 Sat by Pulse Oximetry (%) 95 07/19/16 09:45 Labs: CBC, BMP 07/19/16 05:20 07/19/16 05:20 INR, PTT INR 3.79 (0.82-1.09) H D 07/19/16 05:20 Problem List - Problems (1) Respiratory failure Code(s): J96.90 - RESPIRATORY FAILURE, UNSP, UNSP W HYPOXIA OR HYPERCAPNIA Qualifiers: Chronicity: acute Respiratory failure complication: hypoxia and hypercapnia Qualified Code(s): J96.01 - Acute respiratory failure with hypoxia (2) Pneumonia and influenza Code(s): J11.00 - FLU DUE TO UNIDENTIFIED FLU VIRUS W UNSP TYPE OF PNEUMONIA (3) Atrial fibrillation with rapid ventricular response Code(s): I48.91 - UNSPECIFIED ATRIAL FIBRILLATION (4) Bronchial asthma Code(s): J45.909 - UNSPECIFIED ASTHMA, UNCOMPLICATED Qualifiers: Asthma severity: mild intermittent (5) History of mitral valve replacement with mechanical valve Code(s): Z95.2 - PRESENCE OF PROSTHETIC HEART VALVE (6) Aortic stenosis Code(s): I35.0 - NONRHEUMATIC AORTIC (VALVE) STENOSIS Qualifiers: (7) Diabetes mellitus Code(s): E11.9 - TYPE 2 DIABETES MELLITUS WITHOUT COMPLICATIONS Qualifiers: Diabetes mellitus type: type 2 Diabetes mellitus complication status: without complication Diabetes mellitus watermaster insulin use: without long-term use Qualified Code(s): E11.9 - Type 2 diabetes mellitus without complications
--- NOTE | 2016-07-19 15:51 | PN ---
Progress Note, Physician History of Present Illness: Pt. awake and alert on respirator. NAD. - Current Medication List Current Medications: Active Medications Acetaminophen (Tylenol -) 650 mg PO Q4H PRN PRN Reason: FEVER OR PAIN Last Admin: 07/08/16 16:21 Dose: 650 mg Al Hydroxide/Mg Hydroxide (Mylanta Oral Suspension -) 30 ml PO Q12H PRN PRN Reason: DYSPEPSIA Last Admin: 07/13/16 10:08 Dose: 30 ml Albuterol/Ipratropium (Duoneb -) 1 amp NEB QIDR [facility] Last Admin: 07/19/16 11:35 Dose: 1 amp Atorvastatin Calcium (Lipitor -) 10 mg PO HS [facility] Last Admin: 07/18/16 22:08 Dose: Not Given Cholecalciferol (Vitamin D3 -) 1,000 unit PO DAILY [facility] Last Admin: 07/19/16 11:44 Dose: Not Given Enalapril Maleate (Vasotec -) 20 mg PO DAILY [facility] Last Admin: 07/19/16 11:43 Dose: Not Given Furosemide (Lasix Injection -) 40 mg IVPUSH BIDLASIX [facility] Last Admin: 07/19/16 06:25 Dose: 40 mg Guaifenesin (Diabetic Tussin Dm -) 5 ml PO Q6H PRN PRN Reason: COUGH Last Admin: 07/09/16 16:33 Dose: 5 unit Diltiazem HCl 125 mg/ Dextrose 125 mls @ 5 mls/hr IVPB TITR DARWIN; 5 MG/HR PRN Reason: Protocol Last Admin: 07/19/16 14:21 Dose: Not Given Aztreonam 1 gm/ Dextrose 50 mls @ 100 mls/hr IVPB Q8H-IV [facility] PRN Reason: Protocol Last Admin: 07/19/16 11:35 Dose: 100 mls/hr Famotidine/Sodium Chloride (Pepcid 20 Mg Premixed Ivpb -) 50 mls @ 100 mls/hr IVPB BID [facility] Insulin Aspart (Novolog Vial Sliding Scale -) 1 vial SQ ACHS [facility]ARWIN PRN Reason: Protocol Last Admin: 07/19/16 12:50 Dose: 4 units Methylprednisolone Sodium Succinate (Solu-Medrol -) 40 mg IVPB Q8H-IV [facility] Metoprolol Tartrate (Lopressor -) 50 mg PO TID [facility] Last Admin: 07/19/16 06:21 Dose: Not Given Mometasone Furoate (Asmanex 220mcg -) 1 puff IH DAILY [facility] Last Admin: 07/19/16 11:44 Dose: Not Given Multivitamins/Minerals/Vitamin C (Tab-A-Vit -) 1 tab PO DAILY [facility] Last Admin: 07/19/16 11:43 Dose: Not Given Potassium Phos/Sodium Phos (Phos-Nak Packet -) 1 packet PO TID [facility] Stop: 07/20/16 06:01 Warfarin Sodium (Coumadin -) 5 mg PO DAILY@1800 [facility] Last Admin: 07/18/16 19:18 Dose: Not Given - Objective Vital Signs: Vital Signs Temperature 98.7 F 07/19/16 14:00 Pulse Rate 110 H 07/19/16 14:00 Respiratory Rate 22 07/19/16 14:00 Blood Pressure 97/53 07/19/16 14:00 O2 Sat by Pulse Oximetry (%) 95 07/19/16 09:45 Constitutional: Yes: No Distress Eyes: No: Sclera Icterus HENT: Yes: Atraumatic, Normocephalic Neck: Yes: Supple, Trachea Midline Cardiovascular: Yes: Pulse Irregular. No: JVD Respiratory: Yes: Diminished Gastrointestinal: Yes: Soft. No: Tenderness Extremities: No: Calf Tenderness Edema: No Neurological: Yes: Alert, Oriented Labs: CBC, BMP 07/19/16 05:20 07/19/16 05:20 INR, PTT INR 3.79 (0.82-1.09) H D 07/19/16 05:20 - ....Imaging Chest X-ray: Report Reviewed, Image Reviewed Problem List - Problems (1) Respiratory failure Code(s): J96.90 - RESPIRATORY FAILURE, UNSP, UNSP W HYPOXIA OR HYPERCAPNIA Qualifiers: Chronicity: acute Respiratory failure complication: hypoxia and hypercapnia Qualified Code(s): J96.01 - Acute respiratory failure with hypoxia (2) Pneumonia and influenza Code(s): J11.00 - FLU DUE TO UNIDENTIFIED FLU VIRUS W UNSP TYPE OF PNEUMONIA (3) Atrial fibrillation with rapid ventricular response Code(s): I48.91 - UNSPECIFIED ATRIAL FIBRILLATION (4) Bronchial asthma Code(s): J45.909 - UNSPECIFIED ASTHMA, UNCOMPLICATED Qualifiers: Asthma severity: mild intermittent (5) History of mitral valve replacement with mechanical valve Code(s): Z95.2 - PRESENCE OF PROSTHETIC HEART VALVE (6) Aortic stenosis Code(s): I35.0 - NONRHEUMATIC AORTIC (VALVE) STENOSIS Qualifiers: (7) Diabetes mellitus Code(s): E11.9 - TYPE 2 DIABETES MELLITUS WITHOUT COMPLICATIONS Qualifiers: Diabetes mellitus type: type 2 Diabetes mellitus complication status: without complication Diabetes mellitus terminal press operator insulin use: without fci use Qualified Code(s): E11.9 - Type 2 diabetes mellitus without complications Assessment/Plan Respiratory Failure: Awake and alert in NAD on respirator. Pnuemonia-on antibiotics Influenza A-completed Tamiflu CHF-appears improved Chronic Atrial fibrillation Bronchial Asthma-stable Mechanical MVR Aortic Stenosis NIDDM- Suggest: Respirator support-attempts at weaning planned for tomorrow Antibiotics per ID Solumedrol being tapered Inhaled bronchodilators O2 to maintain SaO2>90 Metoprolol and Cardizem per cardiology to contril ventricular rate Furosemide PRN
[2016-07-19] MEDS: NAPH,MB-DB/K PH,MBDB POWDER PACKET PO SCH ×2 (16:02→22:09)
[2016-07-19] MEDS: FAMOTIDINE 20 MG/50 ML IVPB 50 ML IVPB SCH ×2 (16:13→22:09)
--- NOTE | 2016-07-19 17:38 | PN ---
Physical Exam: SUBJECTIVE: Patient seen and examined in ICU at bedside. OBJECTIVE: Vital Signs Period Temp Pulse Resp BP Sys/Gold Pulse Ox Last 24 Hr 96.9 F-98.9 F 88-122 16-28 92-121/45-69 94-100 GENERAL: Intubated. No sedation. Fully awake. Communicates with head nods and writing. HEAD: Normal with no signs of trauma. EYES: PERRL, extraocular movements intact, sclera anicteric, conjunctiva clear. No ptosis. LUNGS: Poor air movement, rhonchi. HEART: Irregular. + murmur ABDOMEN: Soft, nontender, nondistended, normoactive bowel sounds, no guarding, no rebound EXTREMITIES: 2+ pulses, warm, well-perfused, no edema. NEUROLOGICAL: Cranial nerves II through XII grossly intact. Laboratory Results - last 24 hr 07/18/16 07/19/16 07/19/16 16:00 05:20 05:20 WBC RBC Hgb Hct MCV MCHC RDW Plt Count MPV Neutrophils % Lymphocytes % Monocytes % Differential Comment Hypochromic-Microcytic Poikilocytosis Ovalocytes Kelli Cells Acanthocytes (Spur) Schistocytes Morphology Comment INR 3.79 H D PTT (Actin FS) 64.4 H D 71.0 H Puncture Site ABG pH ABG pCO2 at Pt Temp ABG pO2 at Pt Temp ABG HCO3 ABG O2 Sat (Measured) ABG O2 Content ABG Base Excess Raciel Test O2 Delivery Device Oxygen Flow Rate Vent Mode Vent Rate Mechanical Rate PEEP Pressure Support Vent Sodium 144 Potassium 3.1 L Chloride 101 Carbon Dioxide 34 H Anion Gap 9 BUN 30 H Creatinine 0.4 L Creat Clearance w eGFR > 60 Random Glucose 152 H Calcium 7.9 L Phosphorus 2.4 L Magnesium 2.0 Total Bilirubin 1.3 H AST 21 ALT 31 Alkaline Phosphatase 71 Total Protein 4.6 L Albumin 2.1 L 07/19/16 07/19/16 05:20 07:30 WBC 19.3 H RBC 3.11 L Hgb 8.1 L Hct 24.6 L MCV 79.1 L MCHC 32.7 RDW 16.1 H Plt Count 170 MPV 9.2 Neutrophils % 97.0 H Lymphocytes % 1.0 L D Monocytes % 2.0 L Differential Comment Manual diff done Hypochromic-Microcytic 1+ Poikilocytosis 4+ Ovalocytes 1+ Kelli Cells 4+ Acanthocytes (Spur) 1+ Schistocytes 1+ Morphology Comment Slide scanned INR PTT (Actin FS) Puncture Site Left radial ABG pH 7.54 H ABG pCO2 at Pt Temp 39.5 ABG pO2 at Pt Temp 67.2 L ABG HCO3 33.8 H ABG O2 Sat (Measured) 94.5 ABG O2 Content 11.2 L ABG Base Excess 10.3 H Raciel Test Positive O2 Delivery Device Vent Oxygen Flow Rate 40% Vent Mode A/c Vent Rate 16 Mechanical Rate Yes PEEP 5.0 Pressure Support Vent 300 Sodium Potassium Chloride Carbon Dioxide Anion Gap BUN Creatinine Creat Clearance w eGFR Random Glucose Calcium Phosphorus Magnesium Total Bilirubin AST ALT Alkaline Phosphatase Total Protein Albumin Active Medications Generic Name Dose Route Start Last Admin Trade Name Freq PRN Reason Stop Dose Admin Acetaminophen 650 mg 07/07/16 17:15 07/08/16 16:21 Tylenol - PO 650 mg Q4H PRN Administration FEVER OR PAIN Al Hydroxide/Mg Hydroxide 30 ml 07/09/16 20:39 07/13/16 10:08 Mylanta Oral Suspension - PO 30 ml Q12H PRN Administration DYSPEPSIA Albuterol/Ipratropium 1 amp 07/13/16 18:00 07/19/16 11:35 Duoneb - NEB 1 amp QIDR [facility]ARWIN Administration Atorvastatin Calcium 10 mg 07/07/16 22:00 07/18/16 22:08 Lipitor - PO Not Given HS [facility] Cholecalciferol 1,000 unit 07/07/16 10:00 07/19/16 11:44 Vitamin D3 - PO Not Given DAILY [facility] Enalapril Maleate 20 mg 07/07/16 14:30 07/19/16 11:43 Vasotec - PO Not Given DAILY [facility] Furosemide 40 mg 07/17/16 14:00 07/19/16 16:02 Lasix Injection - IVPUSH 40 mg BIDLASIX DARWIN Administration Guaifenesin 5 ml 07/08/16 13:17 07/09/16 16:33 Diabetic Tussin Dm - PO 5 unit Q6H PRN Administration COUGH Diltiazem HCl 125 mg/ Dextrose 125 mls @ 5 mls/hr 07/13/16 13:30 07/19/16 14:21 IVPB Not Given TITR [facility]ARWIN Protocol 5 MG/HR Aztreonam 1 gm/ Dextrose 50 mls @ 100 mls/hr 07/13/16 18:00 07/19/16 11:35 IVPB 100 mls/hr Q8H-IV [facility]AR[facility] Administration Protocol Famotidine/Sodium Chloride 50 mls @ 100 mls/hr 07/19/16 12:00 07/19/16 16:13 Pepcid 20 Mg Premixed Ivpb - IVPB 100 mls/hr BID [facility]ARWIN Administration Insulin Aspart 1 vial 07/13/16 16:30 07/19/16 12:50 Novolog Vial Sliding Scale - SQ 4 units ACHS DARWIN Administration Protocol Methylprednisolone Sodium Succinate 40 mg 07/19/16 18:00 Solu-Medrol - IVPB Q8H-IV [facility] Metoprolol Tartrate 50 mg 07/16/16 14:00 07/19/16 16:01 Lopressor - PO 50 mg TID [facility] Administration Mometasone Furoate 1 puff 07/08/16 10:00 07/19/16 11:44 Asmanex 220mcg - IH Not Given DAILY [facility] Multivitamins/Minerals/Vitamin C 1 tab 07/07/16 10:00 07/19/16 11:43 Tab-A-Vit - PO Not Given DAILY [facility] Potassium Phos/Sodium Phos 1 packet 07/19/16 14:00 07/19/16 16:02 Phos-Nak Packet - PO 07/20/16 06:01 1 packet TID [facility] Administration Warfarin Sodium 5 mg 07/16/16 18:00 07/18/16 19:18 Coumadin - PO Not Given DAILY@1800 [facility] Imagin05/23/2016 Echo: Normal LV size with mildly decreased LV fxn, mech MV replacement, mild TR, RVSP 30-40 mmHg, AV not well seen 07/07/2016 Echo: Normal LV size and function, mechanical MV replacement, mild to moderate TR, RSVP 30-40mmHg, aortic valve not assessed ASSESSMENT/PLAN: 81 year-old female with a significant PMH of HTN, afib, severe , mechanical MV replacement, CVA, DM II, and asthma, admitted for afib with RVR and found to have Influenza A. Hospital course complicated by acute hypoxic and hypercapnic respiratory failure requiring intubation x 2. Acute hypoxic and hypercapnic respiratory failure --intubated 07/13 --extubated 07/15 --reintubated 07/17 --weaning trials started 07/18 Influenza A --completed course of Tamiflu Citrobacter Freundii pneumonia --afebrile, leukocytosis --continue aztreonam (day #6) --ID following Afib with RVR Mechanical MV --rate to low 100's on cardizem drip @ 15mg/hr --continue lopressor --INR 3.79 (<--2.35); heparin drip stopped; hold coumadin tonight Diastolic heart failure --continue enalapril, cardizem, lasix IV 40mg BID Asthma --continue nebs, inhalers --solumedrol 40mg daily, tapering Lactic acidosis, resolved NIDDM --insulin sliding scale coverage Oral thrush, resolved Severe malnutrition in the context of chronic illness --prolonged inadequate nutrient intake, as evidenced by 60% low end DBW --observed clavicular muscle wasting --temporal muscle wasting --prominent brow with hollow/sunken eyes F/E/N Electrolytes: replete as indicated Nutrition: Vital 1.2 start 20cc/hr, titrate to goal 40cc DVT Prophylaxis: INR now supratherapeutic; hold coumadin tonight; heparin drip dc'd Rehab PT eval Daily PT Dispo: continues to require inpatient care. Full Code. Visit type - Emergency Visit Emergency Visit: Yes ED Registration Date: 07/09/16 Care time: The patient presented to the Emergency Department on the above date and was hospitalized for further evaluation of their emergent condition. - New Patient This patient is new to me today: No - Critical Care Critical Care patient: Yes Total Critical Care Time (in minutes): 40 Critical Care Statement: The care of this patient involved high complexity decision making to prevent further life threatening deterioration of the patient 's condition and/or to evalute & treat vital organ system(s) failure or risk of failure.
[2016-07-19] MEDS: ATORVASTATIN CA 10 MG TABLET (FP) PO SCH (22:10)
[2016-07-20] MEDS ORDERED: PT OWN MED DRAWER 7, Y5N ONE ×3 (02:10→16:34)
[2016-07-20] MEDS: AZTREONAM 1 GM in DEXTROSE 5%-WATER - 50 ML IVPB SCH ×3 (02:15→17:01)
[2016-07-20] MEDS: methylPREDNISolone NA SUCC 40 MG/1 ML VIAL IVPB SCH ×3 (02:15→17:02)
[2016-07-20] MEDS: ALBUTEROL SO4 2.5/IPRATROPIUM 0.5 INH SOL 3 ML VIAL.NEB. NEB SCH ×3 (06:00→19:00)
[2016-07-20] MEDS ORDERED: dilTIAZem HCL 125 MG/25 ML - 5 ML VIAL ONE ×3 (06:19→23:15)
[2016-07-20] MEDS: FUROSEMIDE 40 MG/4 ML INJECTABLE VIAL IVPUSH SCH ×2 (06:35→10:17)
[2016-07-20] MEDS: NAPH,MB-DB/K PH,MBDB POWDER PACKET PO SCH (06:36)
[2016-07-20] MEDS: DILTIAZEM INJECTION 125 MG in DEXTROSE 5%-WATER - 100 ML IVPB SCH ×3 (06:36→23:26)
[2016-07-20] MEDS: METOPROLOL TARTRATE 50 MG TABLET (FP) PO SCH ×3 (06:36→17:07)
[2016-07-20] MEDS: INSULIN SLIDING SCALE (NOVOLOG) 1 VIAL SQ SCH ×4 (06:37→21:19)
[2016-07-20 06:39] LABS: BASOPHIL 0.1 % (0-2.0); MCH 25.5 pg (25.7-33.7); MEAN CELL VOLUME 79.5 fl (80-96); MEAN PLT VOLUME 9.2 fl (7.5-11.1); NEUTROPHILS 95.4 % (42.8-82.8); PLATELET COUNT 148 K/MM3 (134-434); RDW 16.3 % (11.6-15.6); WHITE BLOOD COUNT 15.7 K/mm3 (4.0-10.0)
[2016-07-20 06:54] LABS: INR 3.99 (0.82-1.09); PROTHROMBIN TIME (PATIENT) 45.1 SEC (9.98-11.88)
[2016-07-20 07:11] LABS: ANION GAP 8 (8-16); CALCIUM 7.9 mg/dL (8.5-10.1); CO2 33 mmol/L (21-32); CREATININE 0.5 mg/dL (0.55-1.02); GLUCOSE,RANDOM 251 mg/dL (74-106); PHOSPHOROUS 2.3 mg/dL (2.5-4.9); SGOT/AST 22 U/L (15-37); SGPT/ALT 31 U/L (12-78)
[2016-07-20 07:13] LABS: ALK PHOS 81 U/L (45-117); TOT PROT 4.4 g/dl (6.4-8.2)
[2016-07-20 07:51] LABS: ARTERIAL BLD GAS O2 SATURATION 96.7 % (90-98.9); ARTERIAL BLOOD GAS BASE EXCESS 9.5 meq/l (-2-2); ARTERIAL BLOOD GAS HCO3 33.3 meq/L (22-26)
[2016-07-20 07:53] LABS: ALLENS TEST POSITIVE; ART PUNCT SITE LEFT RADIAL; LPM/O2% 40%; PT. ON O2? YES; TYPE OF O2 MEC.VENT
[2016-07-20 07:54] LABS: MECH. VENT. YES; VENT RATE 16; VT/PRESS 300
[2016-07-20 07:56] LABS: ARTERIAL BLOOD GAS pH 7.51 (7.35-7.45)
--- NOTE | 2016-07-20 08:45 | PN ---
Progress Note, Physician Chief Complaint: ID Looks amazingly well given vent dependent and weight of 75lbs!! Aztreonam day 7 therapy - Current Medication List Current Medications: Active Medications Acetaminophen (Tylenol -) 650 mg PO Q4H PRN PRN Reason: FEVER OR PAIN Last Admin: 07/08/16 16:21 Dose: 650 mg Al Hydroxide/Mg Hydroxide (Mylanta Oral Suspension -) 30 ml PO Q12H PRN PRN Reason: DYSPEPSIA Last Admin: 07/13/16 10:08 Dose: 30 ml Albuterol/Ipratropium (Duoneb -) 1 amp NEB QIDR [facility]ARWIN Last Admin: 07/20/16 06:00 Dose: 1 amp Atorvastatin Calcium (Lipitor -) 10 mg PO HS [facility] Last Admin: 07/19/16 22:10 Dose: 10 mg Cholecalciferol (Vitamin D3 -) 1,000 unit PO DAILY [facility] Last Admin: 07/19/16 11:44 Dose: Not Given Enalapril Maleate (Vasotec -) 20 mg PO DAILY [facility] Last Admin: 07/19/16 11:43 Dose: Not Given Furosemide (Lasix Injection -) 40 mg IVPUSH BIDLASIX [facility]WIN Last Admin: 07/20/16 06:35 Dose: 40 mg Guaifenesin (Diabetic Tussin Dm -) 5 ml PO Q6H PRN PRN Reason: COUGH Last Admin: 07/09/16 16:33 Dose: 5 unit Diltiazem HCl 125 mg/ Dextrose 125 mls @ 5 mls/hr IVPB TITR DARWIN; 5 MG/HR PRN Reason: Protocol Last Admin: 07/20/16 06:36 Dose: 15 mls/hr Aztreonam 1 gm/ Dextrose 50 mls @ 100 mls/hr IVPB Q8H-IV [facility]WIN PRN Reason: Protocol Last Admin: 07/20/16 02:15 Dose: 100 mls/hr Famotidine/Sodium Chloride (Pepcid 20 Mg Premixed Ivpb -) 50 mls @ 100 mls/hr IVPB BID [facility] Last Admin: 07/19/16 22:09 Dose: 100 mls/hr Insulin Aspart (Novolog Vial Sliding Scale -) 1 vial SQ ACHS DARWIN PRN Reason: Protocol Last Admin: 07/20/16 06:37 Dose: 8 units Methylprednisolone Sodium Succinate (Solu-Medrol -) 40 mg IVPB Q8H-IV [facility] Last Admin: 07/20/16 02:15 Dose: 40 mg Metoprolol Tartrate (Lopressor -) 50 mg PO TID [facility] Last Admin: 07/20/16 06:36 Dose: 50 mg Mometasone Furoate (Asmanex 220mcg -) 1 puff IH DAILY [facility] Last Admin: 07/19/16 11:44 Dose: Not Given Multivitamins/Minerals/Vitamin C (Tab-A-Vit -) 1 tab PO DAILY [facility] Last Admin: 07/19/16 11:43 Dose: Not Given - Objective Vital Signs: Vital Signs Temperature 98.9 F 07/20/16 08:00 Pulse Rate 89 07/20/16 08:00 Respiratory Rate 17 07/20/16 08:00 Blood Pressure 113/56 07/20/16 08:00 O2 Sat by Pulse Oximetry (%) 100 07/19/16 21:00 Constitutional: Yes: No Distress, Thin Cardiovascular: Yes: Murmur, S1, S2 Respiratory: Yes: WNL, Regular, CTA Bilaterally Gastrointestinal: Yes: WNL, Normal Bowel Sounds, Soft Edema: No Labs: CBC, BMP 07/20/16 05:10 07/20/16 05:10 INR, PTT INR 3.99 (0.82-1.09) H 07/20/16 05:10 Problem List - Problems (1) Atrial fibrillation with rapid ventricular response Code(s): I48.91 - UNSPECIFIED ATRIAL FIBRILLATION (2) Pneumonia due to virus Code(s): J12.9 - VIRAL PNEUMONIA, UNSPECIFIED (3) Influenza A Code(s): J10.1 - FLU DUE TO OTH IDENT INFLUENZA VIRUS W OTH RESP MANIFEST (4) H/O mitral valve replacement Code(s): Z95.2 - PRESENCE OF PROSTHETIC HEART VALVE Assessment/Plan Laboratory Tests 07/20/16 05:10 WBC 15.7 H Hgb 7.7 L Plt Count 148 Assessment Respirator failure PNA Mechanical valve replacement Aortic stenosis Plan Nearing end of treatment Aztreonam another day Weaning effort Clarisa [facility]
--- NOTE | 2016-07-20 09:41 | PN ---
Progress Note, Physician History of Present Illness: Awake on vent, rate-controlled afib on cardizem gtt and lopressor. - Current Medication List Current Medications: Active Medications Acetaminophen (Tylenol -) 650 mg PO Q4H PRN PRN Reason: FEVER OR PAIN Last Admin: 07/08/16 16:21 Dose: 650 mg Al Hydroxide/Mg Hydroxide (Mylanta Oral Suspension -) 30 ml PO Q12H PRN PRN Reason: DYSPEPSIA Last Admin: 07/13/16 10:08 Dose: 30 ml Albuterol/Ipratropium (Duoneb -) 1 amp NEB QIDR [facility]WIN Last Admin: 07/20/16 06:00 Dose: 1 amp Atorvastatin Calcium (Lipitor -) 10 mg PO HS [facility] Last Admin: 07/19/16 22:10 Dose: 10 mg Cholecalciferol (Vitamin D3 -) 1,000 unit PO DAILY [facility] Last Admin: 07/19/16 11:44 Dose: Not Given Enalapril Maleate (Vasotec -) 20 mg PO DAILY [facility] Last Admin: 07/19/16 11:43 Dose: Not Given Furosemide (Lasix Injection -) 40 mg IVPUSH BIDLASIX [facility] Last Admin: 07/20/16 06:35 Dose: 40 mg Guaifenesin (Diabetic Tussin Dm -) 5 ml PO Q6H PRN PRN Reason: COUGH Last Admin: 07/09/16 16:33 Dose: 5 unit Diltiazem HCl 125 mg/ Dextrose 125 mls @ 5 mls/hr IVPB TITR DARWIN; 5 MG/HR PRN Reason: Protocol Last Admin: 07/20/16 06:36 Dose: 15 mls/hr Aztreonam 1 gm/ Dextrose 50 mls @ 100 mls/hr IVPB Q8H-IV [facility] PRN Reason: Protocol Last Admin: 07/20/16 02:15 Dose: 100 mls/hr Famotidine/Sodium Chloride (Pepcid 20 Mg Premixed Ivpb -) 50 mls @ 100 mls/hr IVPB BID [facility] Last Admin: 07/19/16 22:09 Dose: 100 mls/hr Insulin Aspart (Novolog Vial Sliding Scale -) 1 vial SQ ACHS D[facility]WIN PRN Reason: Protocol Last Admin: 07/20/16 06:37 Dose: 8 units Methylprednisolone Sodium Succinate (Solu-Medrol -) 40 mg IVPB Q8H-IV [facility] Last Admin: 07/20/16 02:15 Dose: 40 mg Metoprolol Tartrate (Lopressor -) 50 mg PO TID [facility] Last Admin: 07/20/16 06:36 Dose: 50 mg Mometasone Furoate (Asmanex 220mcg -) 1 puff IH DAILY [facility] Last Admin: 07/19/16 11:44 Dose: Not Given Multivitamins/Minerals/Vitamin C (Tab-A-Vit -) 1 tab PO DAILY [facility] Last Admin: 07/19/16 11:43 Dose: Not Given - Objective Vital Signs: Vital Signs Temperature 98.9 F 07/20/16 08:00 Pulse Rate 89 07/20/16 08:00 Respiratory Rate 17 07/20/16 08:00 Blood Pressure 113/56 07/20/16 08:00 O2 Sat by Pulse Oximetry (%) 100 07/19/16 21:00 Constitutional: Yes: No Distress, Calm, Thin Cardiovascular: Yes: Pulse Irregular, Other ([place] mechanical valve sounds) Respiratory: Yes: Regular, Diminished, Intubated, Mechanically Ventilated Gastrointestinal: Yes: Normal Bowel Sounds, Soft Edema: No Labs: CBC, BMP 07/20/16 05:10 07/20/16 05:10 INR, PTT INR 3.99 (0.82-1.09) H 07/20/16 05:10 - ....Imaging Chest X-ray: Report Reviewed (Rt base effusion) Problem List - Problems (1) Atrial fibrillation with rapid ventricular response Code(s): I48.91 - UNSPECIFIED ATRIAL FIBRILLATION (2) Diabetes mellitus Code(s): E11.9 - TYPE 2 DIABETES MELLITUS WITHOUT COMPLICATIONS Qualifiers: Diabetes mellitus type: type 2 Diabetes mellitus complication status: without complication Diabetes mellitus director long term care insulin use: without director long term care use Qualified Code(s): E11.9 - Type 2 diabetes mellitus without complications (3) History of mitral valve replacement with mechanical valve Code(s): Z95.2 - PRESENCE OF PROSTHETIC HEART VALVE (4) Hypercholesteremia Code(s): E78.0 - PURE HYPERCHOLESTEROLEMIA * DO NOT USE * (5) Hypertension Code(s): I10 - ESSENTIAL (PRIMARY) HYPERTENSION Qualifiers: Hypertension type: essential hypertension Qualified Code(s): I10 - Essential (primary) hypertension (6) Premature ventricular contraction Code(s): I49.3 - VENTRICULAR PREMATURE DEPOLARIZATION (7) Acute on chronic diastolic (congestive) heart failure Code(s): I50.33 - ACUTE ON CHRONIC DIASTOLIC (CONGESTIVE) HEART FAILURE (8) Influenza A Code(s): J10.1 - FLU DUE TO OTH IDENT INFLUENZA VIRUS W OTH RESP MANIFEST (9) Pneumonia and influenza Code(s): J11.00 - FLU DUE TO UNIDENTIFIED FLU VIRUS W UNSP TYPE OF PNEUMONIA Assessment/Plan 05/23/2016 Echo: Normal LV size with mildly decreased LV fxn, mech MV replacement, mild TR RVSP 30-40 mmHg, AV not well seen Repeat Echocardiography performed 07/07/16 revealed Normal LV size and function, mechanical MV replacement, mild to moderate TR with RVSP 30-40 mmHg, aortic valve not assessed 1. Acute on chronic hypoxic and hypercapneic respiratory failure referable to 2. Influenza A, RLL hospitalized acquired PNA improving 3. Acute on chronic diastolic failure improving 4. Permanent atrial fibrillation with RVR on A/C therapy, supratherapeutic INR 5. Post mechanical MVR 6. Probable significant aortic valve stenosis cannot be excluded 7. DM 8. Hyperlipidemia 9. Anemia & Thrombocytopenia PLAN: 1. Increase Lopressor 50 qid, wean Cardizem gtt as tolerated 2. Continue Vasotec 20 qd 3. Continue Lipitor 10 qhs 4. Decrease Lasix 40 IV qd with monitor diuretic response, renal fxn and electrolytes, 5. Dose Coumadin as per INR maintain 3.0-3.5, with caution considering the above noted Anemia and Thrombocytopenia. Transfuse to maintain Hgb>8.0 6. Vent wean to extubate, antibiotics course to cover HCAP, post Tamiflu course , IV steroid taper and bronchodilators as per ID and pulmonary teams 7. GI prophylaxis
--- NOTE | 2016-07-20 09:45 | PN ---
Physical Exam: SUBJECTIVE: Patient seen and examined at bedside this AM. AAO and responds to questions via pen/paper. Slept well overnight, afebrile with improved heart rate control on Lopressor PO. Extubated this morning and tolerating well on ventimask. OBJECTIVE: Vital Signs Period Temp Pulse Resp BP Sys/Gold Pulse Ox Last 24 Hr 98.4 F-98.9 F 88-122 16-28 80-121/42-73 100-100 GENERAL: Ventimask @ 40%. Resting comfortably in bed. Cachectic HEENT: Atraumatic, EOMI, PERRLA, No lymphadenopathy noted. Moist mucous membranes. LUNGS: Mild Crackles noted at bilateral lung bases. No wheezing or stridor noted. HEART: Irregular, rate 90-100, Grade 3/6 systolic murmur. Notable MV "Click". ABDOMEN: Soft, nontender, not distended, normoactive bowel sounds EXTREMITIES: 2+ pulses, warm, well-perfused. No peripheral edema. Moderate upper and lower extremity muscle atrophy. PSYCHIATRIC: Cooperative. Good eye contact. Appropriate mood and affect. SKIN: Warm, dry, normal turgor, no rashes or lesions noted. Laboratory Results - last 24 hr 07/19/16 07/19/16 07/20/16 17:44 22:17 05:10 WBC 15.7 H RBC 3.01 L Hgb 7.7 L Hct 24.0 L MCV 79.5 L MCHC 32.0 RDW 16.3 H Plt Count 148 MPV 9.2 Neutrophils % 95.4 H Lymphocytes % 1.3 L D Monocytes % 3.2 L Eosinophils % 0.0 Basophils % 0.1 D Differential Comment Hypochromic-Microcytic Poikilocytosis Ovalocytes Kelli Cells Acanthocytes (Spur) Schistocytes Morphology Comment INR Puncture Site ABG pH ABG pCO2 at Pt Temp ABG pO2 at Pt Temp ABG HCO3 ABG O2 Sat (Measured) ABG O2 Content ABG Base Excess Raciel Test O2 Delivery Device Oxygen Flow Rate Vent Mode Vent Rate Mechanical Rate PEEP Pressure Support Vent Sodium Potassium Chloride Carbon Dioxide Anion Gap BUN Creatinine Creat Clearance w eGFR POC Glucometer 155.39027 251.12726 Random Glucose Calcium Phosphorus Magnesium Total Bilirubin AST ALT Alkaline Phosphatase Total Protein Albumin 07/20/16 07/20/16 07/20/16 05:10 05:10 06:25 WBC RBC Hgb Hct MCV MCHC RDW Plt Count MPV Neutrophils % Lymphocytes % Monocytes % Eosinophils % Basophils % Differential Comment Hypochromic-Microcytic Poikilocytosis Ovalocytes Kelli Cells Acanthocytes (Spur) Schistocytes Morphology Comment INR 3.99 H Puncture Site ABG pH ABG pCO2 at Pt Temp ABG pO2 at Pt Temp ABG HCO3 ABG O2 Sat (Measured) ABG O2 Content ABG Base Excess Raciel Test O2 Delivery Device Oxygen Flow Rate Vent Mode Vent Rate Mechanical Rate PEEP Pressure Support Vent Sodium 146 H Potassium 3.8 D Chloride 105 Carbon Dioxide 33 H Anion Gap 8 BUN 41 H D Creatinine 0.5 L D Creat Clearance w eGFR > 60 POC Glucometer 316.29269 Random Glucose 251 H D Calcium 7.9 L Phosphorus 2.3 L Magnesium 2.0 Total Bilirubin 1.0 D AST 22 ALT 31 Alkaline Phosphatase 81 Total Protein 4.4 L Albumin 2.0 L 07/20/16 07:10 WBC RBC Hgb Hct MCV MCHC RDW Plt Count MPV Neutrophils % Lymphocytes % Monocytes % Eosinophils % Basophils % Differential Comment Hypochromic-Microcytic Poikilocytosis Ovalocytes [place] Cells Acanthocytes (Spur) Schistocytes Morphology Comment INR Puncture Site Left radial ABG pH 7.51 H ABG pCO2 at Pt Temp 42.0 ABG pO2 at Pt Temp 81.0 D ABG HCO3 33.3 H ABG O2 Sat (Measured) 96.7 ABG O2 Content 10.1 L ABG Base Excess 9.5 H Raciel Test Positive O2 Delivery Device Mec.vent Oxygen Flow Rate 40% Vent Mode A/c Vent Rate 16 Mechanical Rate Yes PEEP 5.0 Pressure Support Vent 300 Sodium Potassium Chloride Carbon Dioxide Anion Gap BUN Creatinine Creat Clearance w eGFR POC Glucometer Random Glucose Calcium Phosphorus Magnesium Total Bilirubin AST ALT Alkaline Phosphatase Total Protein Albumin Active Medications Generic Name Dose Route Start Last Admin Trade Name Freq PRN Reason Stop Dose Admin Acetaminophen 650 mg 07/07/16 17:15 07/08/16 16:21 Tylenol - PO 650 mg Q4H PRN Administration FEVER OR PAIN Al Hydroxide/Mg Hydroxide 30 ml 07/09/16 20:39 07/13/16 10:08 Mylanta Oral Suspension - PO 30 ml Q12H PRN Administration DYSPEPSIA Albuterol/Ipratropium 1 amp 07/13/16 18:00 07/20/16 06:00 Duoneb - NEB 1 amp QIDR DARWIN Administration Atorvastatin Calcium 10 mg 07/07/16 22:00 07/19/16 22:10 Lipitor - PO 10 mg HS DARWIN Administration Cholecalciferol 1,000 unit 07/07/16 10:00 07/19/16 11:44 Vitamin D3 - PO Not Given DAILY DARWIN Enalapril Maleate 20 mg 07/07/16 14:30 07/19/16 11:43 Vasotec - PO Not Given DAILY DARWIN Furosemide 40 mg 07/17/16 14:00 07/20/16 06:35 Lasix Injection - IVPUSH 40 mg BIDLASIX DARWIN Administration Guaifenesin 5 ml 07/08/16 13:17 07/09/16 16:33 Diabetic Tussin Dm - PO 5 unit Q6H PRN Administration COUGH Diltiazem HCl 125 mg/ Dextrose 125 mls @ 5 mls/hr 07/13/16 13:30 07/20/16 06:36 IVPB 15 mls/hr TITR DARWIN Administration Protocol 5 MG/HR Aztreonam 1 gm/ Dextrose 50 mls @ 100 mls/hr 07/13/16 18:00 07/20/16 02:15 IVPB 100 mls/hr Q8H-IV DARWIN Administration Protocol Famotidine/Sodium Chloride 50 mls @ 100 mls/hr 07/19/16 12:00 07/19/16 22:09 Pepcid 20 Mg Premixed Ivpb - IVPB 100 mls/hr BID DARWIN Administration Insulin Aspart 1 vial 07/13/16 16:30 07/20/16 06:37 Novolog Vial Sliding Scale - SQ 8 units ACHS DARWIN Administration Protocol Methylprednisolone Sodium Succinate 40 mg 07/19/16 18:00 07/20/16 02:15 Solu-Medrol - IVPB 40 mg Q8H-IV DARWIN Administration Metoprolol Tartrate 50 mg 07/16/16 14:00 07/20/16 06:36 Lopressor - PO 50 mg TID DARWIN Administration Mometasone Furoate 1 puff 07/08/16 10:00 07/19/16 11:44 Asmanex 220mcg - IH Not Given DAILY [facility] Multivitamins/Minerals/Vitamin C 1 tab 07/07/16 10:00 07/19/16 11:43 Tab-A-Vit - PO Not Given DAILY DARWIN ASSESSMENT/PLAN: 81 year old female with significant PMH of A-Fib, HTN, Rheumatic HD, Aortic stenosis, MV replacement, CVA, COPD who was admitted for A-Fib with RVR. Presented to ICU for acute hypoxic respiratory failure requiring intubation. #Acute Hyperneic respiratory failure, secondary to poor respiration overnight -extubated this morning -Continue Spiriva, Asmanex, Robitussin, Duonebs, Albuterol -Solumedrol 40mg q8h -aztreonam for RLL Pneumonia, day 7 (will stop tomorrow) -ID following -Pulmonary following #Acute on Chronic Diastolic Heart Failure -Continue Enalapril 20qd, Lasix 40daily -strict I & O -daily weights -CXR in AM #Atrial Fibrillation, with RVR -increased Lopressor to q6h for rate control -Cardizem drip currently at 15 mls/hr, will downtitrate -continuous cardiac monitoring #Malnutrition -OG tube removed during extubation -will start full liquid diet -if patient is eating poorly, may consider placing NG tube for further feeds #Supratherapeutic INR, post-mechanical MV -on Coumadin, INR 3.99 today -ideally maintain 3.0-3.5, trend #Diabetes -Insulin sliding scale -BGM ACHS FEN/Prophylaxis -Coumadin, Zantac -Holding IVF, monitor electrolytes, full liquid diet diabetic Visit type - Emergency Visit Emergency Visit: Yes ED Registration Date: 07/09/16 Care time: The patient presented to the Emergency Department on the above date and was hospitalized for further evaluation of their emergent condition. - New Patient This patient is new to me today: No - Critical Care Critical Care patient: Yes Total Critical Care Time (in minutes): 45 Critical Care Statement: The care of this patient involved high complexity decision making to prevent further life threatening deterioration of the patient 's condition and/or to evalute & treat vital organ system(s) failure or risk of failure.
[2016-07-20] MEDS: MOMETASONE FUROATE 220 MCG/IH INHALER IH SCH (09:47)
[2016-07-20] MEDS: FAMOTIDINE 20 MG/50 ML IVPB 50 ML IVPB SCH ×2 (09:52→21:22)
[2016-07-20] MEDS: MULTIVITAMINS (DAILY MVI) TABLET (FP) PO SCH (09:53)
[2016-07-20] MEDS: ENALAPRIL MALEATE 10 MG TABLET (FP) PO SCH (09:53)
[2016-07-20] MEDS: CHOLECALCIFEROL (VITAMIN D3) 1,000 UNIT TABLET (FP) PO SCH (09:53)
--- NOTE | 2016-07-20 14:33 | PN ---
Physical Exam: SUBJECTIVE: Patient seen and examined. Just extubated. Throat is sore. OBJECTIVE: Vital Signs Period Temp Pulse Resp BP Sys/Gold Pulse Ox Last 24 Hr 98.4 F-99.1 F 88-115 16-37 80-131/42-73 94-100 GENERAL: Extubated. A&Ox3. HEAD: Normal with no signs of trauma. EYES: PERRL, extraocular movements intact, sclera anicteric, conjunctiva clear. No ptosis. LUNGS: Poor air movement, rhonchi. HEART: Irregular. + murmur ABDOMEN: Soft, nontender, nondistended, normoactive bowel sounds, no guarding, no rebound EXTREMITIES: 2+ pulses, warm, well-perfused, no edema. NEUROLOGICAL: Cranial nerves II through XII grossly intact. Laboratory Results - last 24 hr 07/18/16 07/18/16 07/18/16 12:39 18:31 22:09 WBC RBC Hgb Hct MCV MCHC RDW Plt Count MPV Neutrophils % Lymphocytes % Monocytes % Eosinophils % Basophils % INR Puncture Site ABG pH ABG pCO2 at Pt Temp ABG pO2 at Pt Temp ABG HCO3 ABG O2 Sat (Measured) ABG O2 Content ABG Base Excess Raciel Test O2 Delivery Device Oxygen Flow Rate Vent Mode Vent Rate Mechanical Rate PEEP Pressure Support Vent Sodium Potassium Chloride Carbon Dioxide Anion Gap BUN Creatinine Creat Clearance w eGFR POC Glucometer 135.39876 286.24491 240.88474 Random Glucose Calcium Phosphorus Magnesium Total Bilirubin AST ALT Alkaline Phosphatase Total Protein Albumin Blood Type Antibody Screen Crossmatch 07/19/16 07/19/16 07/19/16 05:41 11:58 17:44 WBC RBC Hgb Hct MCV MCHC RDW Plt Count MPV Neutrophils % Lymphocytes % Monocytes % Eosinophils % Basophils % INR Puncture Site ABG pH ABG pCO2 at Pt Temp ABG pO2 at Pt Temp ABG HCO3 ABG O2 Sat (Measured) ABG O2 Content ABG Base Excess Raciel Test O2 Delivery Device Oxygen Flow Rate Vent Mode Vent Rate Mechanical Rate PEEP Pressure Support Vent Sodium Potassium Chloride Carbon Dioxide Anion Gap BUN Creatinine Creat Clearance w eGFR POC Glucometer 194.46470 201.14033 155.49593 Random Glucose Calcium Phosphorus Magnesium Total Bilirubin AST ALT Alkaline Phosphatase Total Protein Albumin Blood Type Antibody Screen Crossmatch 07/19/16 07/20/16 07/20/16 22:17 05:10 05:10 WBC 15.7 H RBC 3.01 L Hgb 7.7 L Hct 24.0 L MCV 79.5 L MCHC 32.0 RDW 16.3 H Plt Count 148 MPV 9.2 Neutrophils % 95.4 H Lymphocytes % 1.3 L D Monocytes % 3.2 L Eosinophils % 0.0 Basophils % 0.1 D INR 3.99 H Puncture Site ABG pH ABG pCO2 at Pt Temp ABG pO2 at Pt Temp ABG HCO3 ABG O2 Sat (Measured) ABG O2 Content ABG Base Excess Raciel Test O2 Delivery Device Oxygen Flow Rate Vent Mode Vent Rate Mechanical Rate PEEP Pressure Support Vent Sodium Potassium Chloride Carbon Dioxide Anion Gap BUN Creatinine Creat Clearance w eGFR POC Glucometer 251.98367 Random Glucose Calcium Phosphorus Magnesium Total Bilirubin AST ALT Alkaline Phosphatase Total Protein Albumin Blood Type Antibody Screen Crossmatch 07/20/16 07/20/16 07/20/16 05:10 06:25 07:10 WBC RBC Hgb Hct MCV MCHC RDW Plt Count MPV Neutrophils % Lymphocytes % Monocytes % Eosinophils % Basophils % INR Puncture Site Left radial ABG pH 7.51 H ABG pCO2 at Pt Temp 42.0 ABG pO2 at Pt Temp 81.0 D ABG HCO3 33.3 H ABG O2 Sat (Measured) 96.7 ABG O2 Content 10.1 L ABG Base Excess 9.5 H Raciel Test Positive O2 Delivery Device Mec.vent Oxygen Flow Rate 40% Vent Mode A/c Vent Rate 16 Mechanical Rate Yes PEEP 5.0 Pressure Support Vent 300 Sodium 146 H Potassium 3.8 D Chloride 105 Carbon Dioxide 33 H Anion Gap 8 BUN 41 H D Creatinine 0.5 L D Creat Clearance w eGFR > 60 POC Glucometer 316.47438 Random Glucose 251 H D Calcium 7.9 L Phosphorus 2.3 L Magnesium 2.0 Total Bilirubin 1.0 D AST 22 ALT 31 Alkaline Phosphatase 81 Total Protein 4.4 L Albumin 2.0 L Blood Type Antibody Screen Crossmatch 07/20/16 10:35 WBC RBC Hgb Hct MCV MCHC RDW Plt Count MPV Neutrophils % Lymphocytes % Monocytes % Eosinophils % Basophils % INR Puncture Site ABG pH ABG pCO2 at Pt Temp ABG pO2 at Pt Temp ABG HCO3 ABG O2 Sat (Measured) ABG O2 Content ABG Base Excess Raciel Test O2 Delivery Device Oxygen Flow Rate Vent Mode Vent Rate Mechanical Rate PEEP Pressure Support Vent Sodium Potassium Chloride Carbon Dioxide Anion Gap BUN Creatinine Creat Clearance w eGFR POC Glucometer Random Glucose Calcium Phosphorus Magnesium Total Bilirubin AST ALT Alkaline Phosphatase Total Protein Albumin Blood Type A POSITIVE Antibody Screen Negative Crossmatch See Detail Active Medications Generic Name Dose Route Start Last Admin Trade Name Freq PRN Reason Stop Dose Admin Acetaminophen 650 mg 07/07/16 17:15 07/08/16 16:21 Tylenol - PO 650 mg Q4H PRN Administration FEVER OR PAIN Al Hydroxide/Mg Hydroxide 30 ml 07/09/16 20:39 07/13/16 10:08 Mylanta Oral Suspension - PO 30 ml Q12H PRN Administration DYSPEPSIA Albuterol/Ipratropium 1 amp 07/13/16 18:00 07/20/16 11:20 Duoneb - NEB 1 amp QIDR DARWIN Administration Atorvastatin Calcium 10 mg 07/07/16 22:00 07/19/16 22:10 Lipitor - PO 10 mg HS DARWIN Administration Cholecalciferol 1,000 unit 07/07/16 10:00 07/20/16 09:53 Vitamin D3 - PO 1,000 unit DAILY DARWIN Administration Enalapril Maleate 20 mg 07/07/16 14:30 07/20/16 09:53 Vasotec - PO 20 mg DAILY DARWIN Administration Furosemide 40 mg 07/20/16 10:00 07/20/16 10:17 Lasix Injection - IVPUSH 40 mg DAILY DARWIN Administration Guaifenesin 5 ml 07/08/16 13:17 07/09/16 16:33 Diabetic Tussin Dm - PO 5 unit Q6H PRN Administration COUGH Diltiazem HCl 125 mg/ Dextrose 125 mls @ 5 mls/hr 07/13/16 13:30 07/20/16 13:30 IVPB 15 mls/hr TITR DARWIN Administration Protocol 5 MG/HR Aztreonam 1 gm/ Dextrose 50 mls @ 100 mls/hr 07/13/16 18:00 07/20/16 09:52 IVPB 100 mls/hr Q8H-IV DARWIN Administration Protocol Famotidine/Sodium Chloride 50 mls @ 100 mls/hr 07/19/16 12:00 07/20/16 09:52 Pepcid 20 Mg Premixed Ivpb - IVPB 100 mls/hr BID DARWIN Administration Insulin Aspart 1 vial 07/13/16 16:30 07/20/16 11:55 Novolog Vial Sliding Scale - SQ 6 units ACHS DARWIN Administration Protocol Methylprednisolone Sodium Succinate 40 mg 07/19/16 18:00 07/20/16 09:53 Solu-Medrol - IVPB 40 mg Q8H-IV DARWIN Administration Metoprolol Tartrate 50 mg 07/20/16 12:00 07/20/16 12:45 Lopressor - PO 50 mg Q6HPO DARWIN Administration Mometasone Furoate 1 puff 07/08/16 10:00 07/20/16 09:47 Asmanex 220mcg - IH Not Given DAILY DARWIN Multivitamins/Minerals/Vitamin C 1 tab 07/07/16 10:00 07/20/16 09:53 Tab-A-Vit - PO 1 tab DAILY DARWIN Administration ASSESSMENT/PLAN: Imagin05/23/2016 Echo: Normal LV size with mildly decreased LV fxn, mech MV replacement, mild TR, RVSP 30-40 mmHg, AV not well seen 07/07/2016 Echo: Normal LV size and function, mechanical MV replacement, mild to moderate TR, RSVP 30-40mmHg, aortic valve not assessed ASSESSMENT/PLAN: 81 year-old female with a significant PMH of HTN, afib, severe , mechanical MV replacement, CVA, DM II, and asthma, admitted for afib with RVR and found to have Influenza A. Hospital course complicated by acute hypoxic and hypercapnic respiratory failure requiring intubation x 2. Acute hypoxic and hypercapnic respiratory failure --intubated 07/13, extubated 07/15 --reintubated 07/17, extubated 07/20 Influenza A --completed course of Tamiflu Citrobacter Freundii pneumonia --afebrile, leukocytosis --continue aztreonam (day #7) --ID following Acute on chronic diastolic heart failure --increase enalapril, increase lopressor, wean cardizem drip, lasix IV 40mg daily Afib with RVR Mechanical MV --rate in low 100's --INR 3.99; hold coumadin tonight; goal INR 3.0-->3.5 Asthma --continue nebs, inhalers --solumedrol Lactic acidosis, resolved NIDDM --insulin sliding scale coverage Oral thrush, resolved Severe malnutrition in the context of chronic illness --prolonged inadequate nutrient intake, as evidenced by 60% low end DBW --observed clavicular muscle wasting --temporal muscle wasting --prominent brow with hollow/sunken eyes F/E/N Electrolytes: replete as indicated Nutrition: full liquids diabetic, nectar thick, Ensure TID DVT Prophylaxis: INR supratherapeutic; hold coumadin tonight Rehab PT eval Daily PT Dispo: continues to require inpatient care. Full Code. Visit type - Emergency Visit Emergency Visit: Yes ED Registration Date: 07/09/16 Care time: The patient presented to the Emergency Department on the above date and was hospitalized for further evaluation of their emergent condition. - New Patient This patient is new to me today: No - Critical Care Critical Care patient: Yes Total Critical Care Time (in minutes): 45 Critical Care Statement: The care of this patient involved high complexity decision making to prevent further life threatening deterioration of the patient 's condition and/or to evalute & treat vital organ system(s) failure or risk of failure.
--- NOTE | 2016-07-20 14:36 | PN ---
Teaching Attending Note Name of Resident: Josh Singh ATTENDING PHYSICIAN STATEMENT I saw and evaluated the patient. I reviewed the resident's note and discussed the case with the resident. I agree with the resident's findings and plan as documented. SUBJECTIVE: Patient seen and examined in the ICU. Remains intubated. Awake and interactive. AC mode of vent 40% FiO2. Remains in AFib on IV Cardizem. CXR: ETT in position / Less Vascular congestion Gen: Intubated, awake and alert Heart: tachycardic, irregular, mech click at base Lung: Basilar rales / bronchial breath sounds Abd: soft, nontender Ext: no edema Laboratory Results - last 24 hr 07/18/16 07/18/16 07/18/16 12:39 18:31 22:09 WBC RBC Hgb Hct MCV MCHC RDW Plt Count MPV Neutrophils % Lymphocytes % Monocytes % Eosinophils % Basophils % INR Puncture Site ABG pH ABG pCO2 at Pt Temp ABG pO2 at Pt Temp ABG HCO3 ABG O2 Sat (Measured) ABG O2 Content ABG Base Excess Raciel Test O2 Delivery Device Oxygen Flow Rate Vent Mode Vent Rate Mechanical Rate PEEP Pressure Support Vent Sodium Potassium Chloride Carbon Dioxide Anion Gap BUN Creatinine Creat Clearance w eGFR POC Glucometer 135.05943 286.09182 240.90144 Random Glucose Calcium Phosphorus Magnesium Total Bilirubin AST ALT Alkaline Phosphatase Total Protein Albumin Blood Type Antibody Screen Crossmatch 07/19/16 07/19/16 07/19/16 05:41 11:58 17:44 WBC RBC Hgb Hct MCV MCHC RDW Plt Count MPV Neutrophils % Lymphocytes % Monocytes % Eosinophils % Basophils % INR Puncture Site ABG pH ABG pCO2 at Pt Temp ABG pO2 at Pt Temp ABG HCO3 ABG O2 Sat (Measured) ABG O2 Content ABG Base Excess Raciel Test O2 Delivery Device Oxygen Flow Rate Vent Mode Vent Rate Mechanical Rate PEEP Pressure Support Vent Sodium Potassium Chloride Carbon Dioxide Anion Gap BUN Creatinine Creat Clearance w eGFR POC Glucometer 194.74772 201.27833 155.44511 Random Glucose Calcium Phosphorus Magnesium Total Bilirubin AST ALT Alkaline Phosphatase Total Protein Albumin Blood Type Antibody Screen Crossmatch 07/19/16 07/20/16 07/20/16 22:17 05:10 05:10 WBC 15.7 H RBC 3.01 L Hgb 7.7 L Hct 24.0 L MCV 79.5 L MCHC 32.0 RDW 16.3 H Plt Count 148 MPV 9.2 Neutrophils % 95.4 H Lymphocytes % 1.3 L D Monocytes % 3.2 L Eosinophils % 0.0 Basophils % 0.1 D INR 3.99 H Puncture Site ABG pH ABG pCO2 at Pt Temp ABG pO2 at Pt Temp ABG HCO3 ABG O2 Sat (Measured) ABG O2 Content ABG Base Excess Raciel Test O2 Delivery Device Oxygen Flow Rate Vent Mode Vent Rate Mechanical Rate PEEP Pressure Support Vent Sodium Potassium Chloride Carbon Dioxide Anion Gap BUN Creatinine Creat Clearance w eGFR POC Glucometer 251.65920 Random Glucose Calcium Phosphorus Magnesium Total Bilirubin AST ALT Alkaline Phosphatase Total Protein Albumin Blood Type Antibody Screen Crossmatch 07/20/16 07/20/16 07/20/16 05:10 06:25 07:10 WBC RBC Hgb Hct MCV MCHC RDW Plt Count MPV Neutrophils % Lymphocytes % Monocytes % Eosinophils % Basophils % INR Puncture Site Left radial ABG pH 7.51 H ABG pCO2 at Pt Temp 42.0 ABG pO2 at Pt Temp 81.0 D ABG HCO3 33.3 H ABG O2 Sat (Measured) 96.7 ABG O2 Content 10.1 L ABG Base Excess 9.5 H Raciel Test Positive O2 Delivery Device Mec.vent Oxygen Flow Rate 40% Vent Mode A/c Vent Rate 16 Mechanical Rate Yes PEEP 5.0 Pressure Support Vent 300 Sodium 146 H Potassium 3.8 D Chloride 105 Carbon Dioxide 33 H Anion Gap 8 BUN 41 H D Creatinine 0.5 L D Creat Clearance w eGFR > 60 POC Glucometer 316.07672 Random Glucose 251 H D Calcium 7.9 L Phosphorus 2.3 L Magnesium 2.0 Total Bilirubin 1.0 D AST 22 ALT 31 Alkaline Phosphatase 81 Total Protein 4.4 L Albumin 2.0 L Blood Type Antibody Screen Crossmatch 07/20/16 10:35 WBC RBC Hgb Hct MCV MCHC RDW Plt Count MPV Neutrophils % Lymphocytes % Monocytes % Eosinophils % Basophils % INR Puncture Site ABG pH ABG pCO2 at Pt Temp ABG pO2 at Pt Temp ABG HCO3 ABG O2 Sat (Measured) ABG O2 Content ABG Base Excess Raciel Test O2 Delivery Device Oxygen Flow Rate Vent Mode Vent Rate Mechanical Rate PEEP Pressure Support Vent Sodium Potassium Chloride Carbon Dioxide Anion Gap BUN Creatinine Creat Clearance w eGFR POC Glucometer Random Glucose Calcium Phosphorus Magnesium Total Bilirubin AST ALT Alkaline Phosphatase Total Protein Albumin Blood Type A POSITIVE Antibody Screen Negative Crossmatch See Detail ASSESSMENT AND PLAN: Acute on Chronic Hypoxic and Hypercapneic Respiratory Failure Acute on Chronic LV Diastolic Heart Failure Influenza A Pneumonia Atrial Fibrillation with RVR s/p [facility] MVR Aortic Stenosis Pulmonary HTN Acute COPD Exacerbation - Wean as tolerated -> Trial of extubation today - ABX per ID - completed tamiflu - IV medrol taper - inhaled bronchodilators - Rate control per Cardiology - IV Heparin - IV Lasix - DVT/GI prophylaxis Dr Alegria CCTime 35"
--- NOTE | 2016-07-20 18:22 | PN ---
[id number] exertion. - Current Medication List Current Medications: Active Medications Acetaminophen (Tylenol -) 650 mg PO Q4H PRN PRN Reason: FEVER OR PAIN Last Admin: 07/08/16 16:21 Dose: 650 mg Al Hydroxide/Mg Hydroxide (Mylanta Oral Suspension -) 30 ml PO Q12H PRN PRN Reason: DYSPEPSIA Last Admin: 07/13/16 10:08 Dose: 30 ml Albuterol/Ipratropium (Duoneb -) 1 amp NEB QIDR [facility]ARWIN Last Admin: 07/20/16 11:20 Dose: 1 amp Atorvastatin Calcium (Lipitor -) 10 mg PO HS DARWIN Last Admin: 07/19/16 22:10 Dose: 10 mg Cholecalciferol (Vitamin D3 -) 1,000 unit PO DAILY DARWIN Last Admin: 07/20/16 09:53 Dose: 1,000 unit Enalapril Maleate (Vasotec -) 20 mg PO DAILY [facility] Last Admin: 07/20/16 09:53 Dose: 20 mg Furosemide (Lasix Injection -) 40 mg IVPUSH DAILY [facility] Last Admin: 07/20/16 10:17 Dose: 40 mg Guaifenesin (Diabetic Tussin Dm -) 5 ml PO Q6H PRN PRN Reason: COUGH Last Admin: 07/09/16 16:33 Dose: 5 unit Diltiazem HCl 125 mg/ Dextrose 125 mls @ 5 mls/hr IVPB TITR DARWIN; 5 MG/HR PRN Reason: Protocol Last Admin: 07/20/16 13:30 Dose: 15 mls/hr Famotidine/Sodium Chloride (Pepcid 20 Mg Premixed Ivpb -) 50 mls @ 100 mls/hr IVPB BID DARWIN Last Admin: 07/20/16 09:52 Dose: 100 mls/hr Insulin Aspart (Novolog Vial Sliding Scale -) 1 vial SQ ACHS DARWIN PRN Reason: Protocol Last Admin: 07/20/16 16:44 Dose: 2 units Methylprednisolone Sodium Succinate (Solu-Medrol -) 40 mg IVPB Q8H-IV DARWIN Last Admin: 07/20/16 17:02 Dose: 40 mg Metoprolol Tartrate (Lopressor -) 50 mg PO Q6HPO DARWIN Last Admin: 07/20/16 17:07 Dose: 50 mg Mometasone Furoate (Asmanex 220mcg -) 1 puff IH DAILY [facility] Last Admin: 07/20/16 09:47 Dose: Not Given Multivitamins/Minerals/Vitamin C (Tab-A-Vit -) 1 tab PO DAILY [facility] Last Admin: 07/20/16 09:53 Dose: 1 tab - Objective Vital Signs: Vital Signs Temperature 97.2 F L 07/20/16 18:00 Pulse Rate 89 07/20/16 18:00 Respiratory Rate 22 07/20/16 18:00 Blood Pressure 123/74 07/20/16 18:00 O2 Sat by Pulse Oximetry (%) 95 07/20/16 16:34 HENT: Yes: Atraumatic, Normocephalic Neck: Yes: Supple, Trachea Midline Cardiovascular: Yes: Pulse Irregular, Murmur (3/6 HETAL; mechanical hearft sounds ). No: JVD Respiratory: Yes: Rhonchi (scattered rhonchi) Gastrointestinal: Yes: Soft. No: Tenderness Extremities: No: Calf Tenderness Edema: No Neurological: Yes: Alert, Oriented Labs: CBC, BMP 07/20/16 05:10 07/20/16 05:10 INR, PTT INR 3.99 (0.82-1.09) H 07/20/16 05:10 SaO2 currently 92 on 40% V/M - ....Imaging Chest X-ray: Report Reviewed, Image Reviewed (effusions, increase in rll infiltrate) Problem List - Problems (1) Respiratory failure Code(s): J96.90 - RESPIRATORY FAILURE, UNSP, UNSP W HYPOXIA OR HYPERCAPNIA Qualifiers: Chronicity: acute Respiratory failure complication: hypoxia and hypercapnia Qualified Code(s): J96.01 - Acute respiratory failure with hypoxia (2) Pneumonia and influenza Code(s): J11.00 - FLU DUE TO UNIDENTIFIED FLU VIRUS W UNSP TYPE OF PNEUMONIA (3) Atrial fibrillation with rapid ventricular response Code(s): I48.91 - UNSPECIFIED ATRIAL FIBRILLATION (4) Bronchial asthma Code(s): J45.909 - UNSPECIFIED ASTHMA, UNCOMPLICATED Qualifiers: Asthma severity: mild intermittent (5) History of mitral valve replacement with mechanical valve Code(s): Z95.2 - PRESENCE OF PROSTHETIC HEART VALVE (6) Aortic stenosis Code(s): I35.0 - NONRHEUMATIC AORTIC (VALVE) STENOSIS Qualifiers: (7) Diabetes mellitus Code(s): E11.9 - TYPE 2 DIABETES MELLITUS WITHOUT COMPLICATIONS Qualifiers: Diabetes mellitus type: type 2 Diabetes mellitus complication status: without complication Diabetes mellitus ad terminal makeup operator insulin use: without ad terminal makeup operator use Qualified Code(s): E11.9 - Type 2 diabetes mellitus without complications Assessment/Plan Respiratory Failure: Awake and alert. Extubated Pnuemonia-on antibiotics Influenza A-completed Tamiflu CHF-still significant Chronic Atrial fibrillation Bronchial Asthma-stable Mechanical MVR Aortic Stenosis-how severe? NIDDM- Suggest: Antibiotics per ID Solumedrol being tapered Inhaled bronchodilators O2 to maintain SaO2>90 Metoprolol and Cardizem per cardiology to control ventricular rate Furosemide PRN Cadiology evaluation re aortic stenosis
--- NOTE | 2016-07-20 19:30 | HOSP ---
Subjective - Review of Symptoms Events since last encounter: Pt is 81 F with Acute on Chronic Hypoxic and Hypercapneic Respiratory Failure, Acute on Chronic LV Diastolic Heart Failure, Influenza A, Pneumonia, Atrial Fibrillation with RVR, [facility], Aortic Stenosis, Pulmonary HTN, Acute COPD Exacerbation Patient seen and examined. Patient is oriented and was understanding the commands. Patient was gasping on ventuary mask at 15L oxygen. Patient ws unable to maintain saturation. Spo2 69-70% Patient under stand that she need s to be intubated again and she agreed for that. Patient also agreed for trcheostomy if needed in future. On exam BP 90/53 AR 99- 102 RR 30- 32 spo2 69- 70% ANS oriented, answer questions by moving her head. cvs s1s2 normal chest b/l minimal air entry, patient using accessory muscle, unable to maintain saturation. Patient was intubated by anathesiologist vent setting TV 300, RR 16, Fio2 40, Peep 5 Post intubation vitals Bp 90/46, spo2 81, hr 83, spo2 91 Advise : to keep MAP over 65 maintain spo2 > 90 get stat CXR post intubation Get stat ABG Ua for hematuria monitor vitals. monitor I/o Family was notified by hospitalist peg, Patient is full code. Physical Examination Vital Signs: Vital Signs Temperature 97.2 F L 07/20/16 18:00 Pulse Rate 89 07/20/16 18:00 Respiratory Rate 22 07/20/16 18:00 Blood Pressure 123/74 07/20/16 18:00 O2 Sat by Pulse Oximetry (%) 95 07/20/16 16:34 Labs: CBC, BMP 07/20/16 05:10 07/20/16 05:10 Visit type - Emergency Visit Emergency Visit: Yes ED Registration Date: 07/09/16 Care time: The patient presented to the Emergency Department on the above date and was hospitalized for further evaluation of their emergent condition. - New Patient This patient is new to me today: Yes Date on this admission: 07/20/16 - Critical Care Critical Care patient: Yes Total Critical Care Time (in minutes): 45 Critical Care Statement: The care of this patient involved high complexity decision making to prevent further life threatening deterioration of the patient 's condition and/or to evalute & treat vital organ system(s) failure or risk of failure.
[2016-07-20 20:06] LABS: ALLENS TEST POSITIVE; ART PUNCT SITE RIGHT RADIAL; ARTERIAL BLD GAS O2 SATURATION 85.9 % (90-98.9); ARTERIAL BLOOD GAS BASE EXCESS 10.1 meq/l (-2-2); ARTERIAL BLOOD GAS HCO3 35.1 meq/L (22-26); ARTERIAL BLOOD GAS pH 7.46 (7.35-7.45); LPM/O2% 40%; MECH. VENT. Y; PT. ON O2? YES; TYPE OF O2 VENT
[2016-07-20 20:07] LABS: ARTERIAL BLOOD GAS PO2 50.8 mmHg (68-100); VENT RATE 16; VT/PRESS 300
[2016-07-20] MEDS: ATORVASTATIN CA 10 MG TABLET (FP) PO SCH (21:19)
[2016-07-20] MEDS ORDERED: FAMOTIDINE 20 MG/50 ML IVPB 50 ML IVPB ONE (21:21)
[2016-07-20 22:28] LABS: INR 2.85 (0.82-1.09)
[2016-07-21] MEDS: ALBUTEROL SO4 2.5/IPRATROPIUM 0.5 INH SOL 3 ML VIAL.NEB. NEB SCH ×4 (00:10→17:10)
[2016-07-21] MEDS: METOPROLOL TARTRATE 50 MG TABLET (FP) PO SCH ×5 (01:12→23:06)
[2016-07-21] MEDS: methylPREDNISolone NA SUCC 40 MG/1 ML VIAL IVPB SCH ×4 (01:25→17:25)
[2016-07-21] MEDS ORDERED: dilTIAZem HCL 125 MG/25 ML - 5 ML VIAL ONE (06:46)
[2016-07-21] MEDS: INSULIN SLIDING SCALE (NOVOLOG) 1 VIAL SQ SCH ×4 (07:39→21:43)
[2016-07-21 08:44] LABS: MCH 26.1 pg (25.7-33.7); MCHC 32.2 g/dl (32.0-36.0); MEAN CELL VOLUME 80.9 fl (80-96); MEAN PLT VOLUME 8.8 fl (7.5-11.1); PLATELET COUNT 147 K/MM3 (134-434); RDW 16.1 % (11.6-15.6); WHITE BLOOD COUNT 23.3 K/mm3 (4.0-10.0)
[2016-07-21 09:00] LABS: ALLENS TEST POSITIVE; ART PUNCT SITE RIGHT RADIAL; ARTERIAL BLD GAS O2 SATURATION 97.8 % (90-98.9); ARTERIAL BLOOD GAS BASE EXCESS 9.9 meq/l (-2-2); ARTERIAL BLOOD GAS HCO3 33.6 meq/L (22-26); ARTERIAL BLOOD GAS PO2 93.6 mmHg (68-100); ARTERIAL BLOOD GAS pH 7.52 (7.35-7.45)
[2016-07-21 09:01] LABS: LPM/O2% 60%; MECH. VENT. MECH VENT; PT. ON O2? YES; TYPE OF O2 MECH VENT; VENT RATE 16; VT/PRESS 300
[2016-07-21 09:12] LABS: ALBUMIN 2.1 g/dl (3.4-5.0); ANION GAP 9 (8-16); BILIRUBIN,TOTAL 1.8 mg/dL (0.2-1.0); CALCIUM 8.1 mg/dL (8.5-10.1); CO2 34 mmol/L (21-32); CREATININE 0.4 mg/dL (0.55-1.02); GLUCOSE,RANDOM 169 mg/dL (74-106); SGOT/AST 42 U/L (15-37); SGPT/ALT 43 U/L (12-78); TOT PROT 4.7 g/dl (6.4-8.2)
[2016-07-21 09:12] LABS: URINE APPEARANCE SLCLOUDY; URINE BILIRUBIN NEGATIVE (NEGATIVE); URINE BLOOD 3+ (NEGATIVE); URINE COLOR DKYELLOW; URINE GLUCOSE (UA) 1+ (NEGATIVE); URINE KETONE NEGATIVE (NEGATIVE); URINE LEUK ESTERASE 2+ (NEGATIVE); URINE NITRITE NEGATIVE (NEGATIVE); URINE PROTEIN 1+ (NEGATIVE); URINE UROBILINOGEN 2.0 E.U/dl E.U./dl (0.2-1.0)
[2016-07-21 09:13] LABS: ALK PHOS 106 U/L (45-117)
[2016-07-21 09:15] LABS: URINE RBC 783 /hpf (0-3); URINE WBC 101 /hpf (3-5); YEAST FEW
[2016-07-21] MEDS: MOMETASONE FUROATE 220 MCG/IH INHALER IH SCH ×2 (09:22→11:06)
[2016-07-21 09:43] LABS: PLATELET ESTIMATE ADEQUATE (NORMAL); TOXIC GRANULATION 2+
[2016-07-21] MEDS: FUROSEMIDE 40 MG/4 ML INJECTABLE VIAL IVPUSH SCH ×2 (10:00→11:10)
[2016-07-21] MEDS: ENALAPRIL MALEATE 10 MG TABLET (FP) PO SCH ×2 (10:00→11:11)
[2016-07-21] MEDS: FAMOTIDINE 20 MG/50 ML IVPB 50 ML IVPB SCH ×3 (10:00→21:38)
[2016-07-21] MEDS: CHOLECALCIFEROL (VITAMIN D3) 1,000 UNIT TABLET (FP) PO SCH ×2 (10:00→11:11)
[2016-07-21] MEDS: MULTIVITAMINS (DAILY MVI) TABLET (FP) PO SCH ×2 (10:00→11:11)
--- NOTE | 2016-07-21 10:03 | PN ---
Progress Note (short form) - Note Progress Note: S: 81 year old female, history of rheumatic heart disease, s/p mechanical mitral valve prosthesis, critical aortic stenosis, permanent atrial fibrillation , recurring left ventricular failure, history of recent influenza. Patient has been intubated with acute left ventricular failure. She is awake and alert. Echocardiogram revealed an aortic valve area of 0.3 cm squared. Patient continues to have rapid ventricular response while on beta blockers and IV diltiazem. Active Medications Generic Name Dose Route Start Last Admin Trade Name Freq PRN Reason Stop Dose Admin Acetaminophen 650 mg 07/07/16 17:15 07/08/16 16:21 Tylenol - PO 650 mg Q4H PRN Administration FEVER OR PAIN Al Hydroxide/Mg Hydroxide 30 ml 07/09/16 20:39 07/13/16 10:08 Mylanta Oral Suspension - PO 30 ml Q12H PRN Administration DYSPEPSIA Albuterol/Ipratropium 1 amp 07/13/16 18:00 07/21/16 06:49 Duoneb - NEB 1 amp QIDR DARWIN Administration Atorvastatin Calcium 10 mg 07/07/16 22:00 07/20/16 21:19 Lipitor - PO Not Given HS DARWIN Cholecalciferol 1,000 unit 07/07/16 10:00 07/20/16 09:53 Vitamin D3 - PO 1,000 unit DAILY [facility] Administration Enalapril Maleate 20 mg 07/07/16 14:30 07/20/16 09:53 Vasotec - PO 20 mg DAILY [facility] Administration Furosemide 40 mg 07/20/16 10:00 07/20/16 10:17 Lasix Injection - IVPUSH 40 mg DAILY [facility] Administration Guaifenesin 5 ml 07/08/16 13:17 07/09/16 16:33 Diabetic Tussin Dm - PO 5 unit Q6H PRN Administration COUGH Diltiazem HCl 125 mg/ Dextrose 125 mls @ 5 mls/hr 07/13/16 13:30 07/20/16 23:26 IVPB 15 mls/hr TITR DARWIN Administration Protocol 5 MG/HR Famotidine/Sodium Chloride 50 mls @ 100 mls/hr 07/19/16 12:00 07/20/16 21:22 Pepcid 20 Mg Premixed Ivpb - IVPB 100 mls/hr BID [facility]ARWIN Administration Insulin Aspart 1 vial 07/13/16 16:30 07/21/16 07:39 Novolog Vial Sliding Scale - SQ Not Given ACHS [facility] Protocol Methylprednisolone Sodium Succinate 40 mg 07/19/16 18:00 07/21/16 01:25 Solu-Medrol - IVPB 40 mg Q8H-IV DARWIN Administration Metoprolol Tartrate 50 mg 07/20/16 12:00 07/21/16 01:12 Lopressor - PO Not Given Q6HPO DARWIN Mometasone Furoate 1 puff 07/08/16 10:00 07/21/16 09:22 Asmanex 220mcg - IH Not Given DAILY [facility] Multivitamins/Minerals/Vitamin C 1 tab 07/07/16 10:00 07/20/16 09:53 Tab-A-Vit - PO 1 tab DAILY [facility] Administration O: 81 year old female was in no acute distress, no pallor, cyanosis, clubbing, or jaundice. Last Vital Signs Temp Pulse Resp BP Pulse Ox 98.6 F 91 H 18 97/61 100 07/21/16 08:00 07/21/16 08:00 07/21/16 08:00 07/21/16 08:00 07/21/16 08:00 Neck: Supple, JVD 3-4 cm at 30 degrees. Pulsatile neck veins and positive HJR, carotids were equal and upstrokes were normal, faint radiation of murmur vs bruits both carotids. No thyromegaly appreciated. Heart: PMI was in the 5th intercoastal space, apical and left parasternal heave , no thrills. [place] prosthetic sounds heard at the apex and left sternal border. Ejection systolic murmur heard at the second right intercoastal space and along the left sternal border ending in late systole. Systolic murmur was also heard at the apex. Lungs: Clear on auscultation bilaterally. Abdomen: Soft, nontender, no hepatosplenomegaly appreciated, and no palpable masses were felt. Extremities: No calf tenderness or dependent edema. Pulses are normal. CBC, BMP 07/21/16 08:36 07/21/16 08:36 Laboratory Results - last 24 hr 07/20/16 07/20/16 07/20/16 10:35 11:45 16:33 WBC RBC Hgb Hct MCV MCHC RDW Plt Count MPV Neutrophils % Lymphocytes % Monocytes % Band Neutrophils Differential Comment Toxic Granulation Platelet Estimate INR Puncture Site ABG pH ABG pCO2 at Pt Temp ABG pO2 at Pt Temp ABG HCO3 ABG O2 Sat (Measured) ABG O2 Content ABG Base Excess Raciel Test O2 Delivery Device Oxygen Flow Rate Vent Mode Vent Rate Mechanical Rate PEEP Pressure Support Vent Sodium Potassium Chloride Carbon Dioxide Anion Gap BUN Creatinine Creat Clearance w eGFR POC Glucometer [phone] Random Glucose Calcium Total Bilirubin AST ALT Alkaline Phosphatase Total Protein Albumin Urine Color Urine Appearance Urine pH Ur Specific [place] Urine Protein Urine Glucose (UA) Urine Ketones Urine Blood Urine Nitrite Urine Bilirubin Urine Urobilinogen Ur Leukocyte Esterase Urine RBC Urine WBC Urine Yeast Blood Type A POSITIVE Antibody Screen Negative Crossmatch See Detail 07/20/16 07/20/16 07/20/16 20:00 20:28 21:45 WBC RBC Hgb Hct MCV MCHC RDW Plt Count MPV Neutrophils % Lymphocytes % Monocytes % Band Neutrophils Differential Comment Toxic Granulation Platelet Estimate INR 2.85 H Puncture Site Right radial ABG pH 7.46 H ABG pCO2 at Pt Temp 50.4 H ABG pO2 at Pt Temp 50.8 L D ABG HCO3 35.1 H ABG O2 Sat (Measured) 85.9 L ABG O2 Content 11.7 L ABG Base Excess 10.1 H Raciel Test Positive O2 Delivery Device Vent Oxygen Flow Rate 40% Vent Mode Ac Vent Rate 16 Mechanical Rate Y PEEP 5.0 Pressure Support Vent 300 Sodium Potassium Chloride Carbon Dioxide Anion Gap BUN Creatinine Creat Clearance w eGFR POC Glucometer [phone] Random Glucose Calcium Total Bilirubin AST ALT Alkaline Phosphatase Total Protein Albumin Urine Color Urine Appearance Urine pH Ur Specific [place] Urine Protein Urine Glucose (UA) Urine Ketones Urine Blood Urine Nitrite Urine Bilirubin Urine Urobilinogen Ur Leukocyte Esterase Urine RBC Urine WBC Urine Yeast Blood Type Antibody Screen Crossmatch 07/21/16 07/21/16 07/21/16 07:00 08:36 08:36 WBC 23.3 H D RBC 3.82 D Hgb 10.0 L D Hct 30.9 L D MCV 80.9 MCHC 32.2 RDW 16.1 H Plt Count 147 MPV 8.8 Neutrophils % 96.0 H Lymphocytes % 1.0 L D Monocytes % 2.0 L Band Neutrophils 1.0 Differential Comment Manual diff done Toxic Granulation 2+ Platelet Estimate Adequate INR Puncture Site ABG pH ABG pCO2 at Pt Temp ABG pO2 at Pt Temp ABG HCO3 ABG O2 Sat (Measured) ABG O2 Content ABG Base Excess Raciel Test O2 Delivery Device Oxygen Flow Rate Vent Mode Vent Rate Mechanical Rate PEEP Pressure Support Vent Sodium 148 H Potassium 3.6 Chloride 105 Carbon Dioxide 34 H Anion Gap 9 BUN 37 H Creatinine 0.4 L Creat Clearance w eGFR > 60 POC Glucometer Random Glucose 169 H D Calcium 8.1 L Total Bilirubin 1.8 H D AST 42 H D ALT 43 D Alkaline Phosphatase 106 D Total Protein 4.7 L Albumin 2.1 L Urine Color Dkyellow Urine Appearance Slcloudy Urine pH 5.0 Ur Specific [place] 1.020 Urine Protein 1+ H Urine Glucose (UA) 1+ H D Urine Ketones Negative Urine Blood 3+ H Urine Nitrite Negative Urine Bilirubin Negative Urine Urobilinogen 2.0 e.u/dl H Ur Leukocyte Esterase 2+ H Urine RBC 783 Urine WBC 101 Urine Yeast Few Blood Type Antibody Screen Crossmatch 07/21/16 08:50 WBC RBC Hgb Hct MCV MCHC RDW Plt Count MPV Neutrophils % Lymphocytes % Monocytes % Band Neutrophils Differential Comment Toxic Granulation Platelet Estimate INR Puncture Site Right radial ABG pH 7.52 H ABG pCO2 at Pt Temp 41.4 ABG pO2 at Pt Temp 93.6 D ABG HCO3 33.6 H ABG O2 Sat (Measured) 97.8 ABG O2 Content 13.1 L ABG Base Excess 9.9 H Raciel Test Positive O2 Delivery Device Mech vent Oxygen Flow Rate 60% Vent Mode A/c Vent Rate 16 Mechanical Rate Mech vent PEEP 8.0 Pressure Support Vent 300 Sodium Potassium Chloride Carbon Dioxide Anion Gap BUN Creatinine Creat Clearance w eGFR POC Glucometer Random Glucose Calcium Total Bilirubin AST ALT Alkaline Phosphatase Total Protein Albumin Urine Color Urine Appearance Urine pH Ur Specific [place] Urine Protein Urine Glucose (UA) Urine Ketones Urine Blood Urine Nitrite Urine Bilirubin Urine Urobilinogen Ur Leukocyte Esterase Urine RBC Urine WBC Urine Yeast Blood Type Antibody Screen Crossmatch Impression: (1) Aortic valvular disease with critical aortic stenosis. Code(s): I35.0 - NONRHEUMATIC AORTIC (VALVE) STENOSIS Qualifiers: (2) Recurring left ventricular failure Code(s): I50.33 - ACUTE ON CHRONIC (CONGESTIVE) HEART FAILURE (3) Atrial fibrillation with rapid ventricular response Code(s): I48.91 - UNSPECIFIED ATRIAL FIBRILLATION (4) Rheumatic heart disease, s/p mechanical mitral valve replacement Code(s): Z95.2 - PRESENCE OF PROSTHETIC HEART VALVE (5) Tricuspid regurgitation probably moderate to severe Code(s): I07.1 - RHEUMATIC TRICUSPID INSUFFICIENCY (6) Cachexia, etiology: a. Hyperthyroidism needs to be excluded. b. Cardiac cachexia. Code(s): R64 - CACHEXIA (7) Diabetes mellitus Code(s): E11.9 - TYPE 2 DIABETES MELLITUS WITHOUT COMPLICATIONS Qualifiers: Diabetes mellitus type: type 2 Diabetes mellitus complication status: without complication Diabetes mellitus usp insulin use: without usp use Qualified Code(s): E11.9 - Type 2 diabetes mellitus without complications (8) Hypercholesteremia Code(s): E78.0 - PURE HYPERCHOLESTEROLEMIA * DO NOT USE * (9) Hypertension Code(s): I10 - ESSENTIAL (PRIMARY) HYPERTENSION Qualifiers: Hypertension type: essential hypertension Qualified Code(s): I10 - Essential (primary) hypertension (10) History of recent Influenza A Code(s): J10.1 - FLU DUE TO OTH IDENT INFLUENZA VIRUS W OTH RESP MANIFEST (11) Pneumonia and influenza Code(s): J11.00 - FLU DUE TO UNIDENTIFIED FLU VIRUS W UNSP TYPE OF PNEUMONIA (12) Anemia Code(s): D64.9 - ANEMIA, UNSPECIFIED Recommendations: 1. In view of recuring episodes of left ventricular failure in the presence of critical aortic stenosis, need to consider transfer to a medical center for transcatheter aortic valve replacement (TAVR). 2. Patient was spoken to along with Dr. Alegria regarding a possible transfer and she would first like to speak to her son. 3. Control of heart rate has been challenging especially in the presence of blood pressure, while being on a combination of diltiazem and beta blockers. Question of adding a small dose of Digoxin was discussed and patient states that she has had digoxin toxicity in the past. 4. T3, T4, TSH Prognosis: Critical Attestation: Documentation prepared by Danilo Breen, acting as medical office secretary for Morris Murray MD.
[2016-07-21] MEDS ORDERED: guaiFENesin/D-M SUGAR-FREE/ACLHOL-FREE 118 ML BOTTLE PO PRN (10:28)
[2016-07-21] MEDS ORDERED: MAG HYDROX/AL HYDROX/SIMETH 30 ML UNIT-DOSE CUP PO PRN (10:31)
[2016-07-21] MEDS ORDERED: ACETAMINOPHEN 325 MG TABLET (FP) PO PRN (10:34)
[2016-07-21] MEDS ORDERED: DILTIAZEM INJECTION 125 MG in DEXTROSE 5%-WATER - 100 ML IVPB SCH (10:45)
--- NOTE | 2016-07-21 11:04 | PN ---
Addendum entered and electronically signed by Jose Manuel Muñoz RES 07/21/16 11:29: will also send blood cultures since WBC count increased and patient has a mechanical valve Original Note: Progress Note, Physician History of Present Illness: patient seen and examined at bedside in the ICU was extubated yesterday but had to be reintubated for hypoxemia and desaturation remains awake and alert despite being on the ventilator - Current Medication List Current Medications: Active Medications Acetaminophen (Tylenol -) 650 mg PO Q6H PRN PRN Reason: FEVER OR PAIN Al Hydroxide/Mg Hydroxide (Mylanta Oral Suspension -) 30 ml PO Q12H PRN PRN Reason: DYSPEPSIA Albuterol/Ipratropium (Duoneb -) 1 amp NEB QIDR DARWIN Atorvastatin Calcium (Lipitor -) 10 mg PO HS D[facility]WIN Cholecalciferol (Vitamin D3 -) 1,000 unit PO DAILY [facility] Enalapril Maleate (Vasotec -) 20 mg PO DAILY [facility] Furosemide (Lasix Injection -) 40 mg IVPUSH DAILY [facility] Guaifenesin (Diabetic Tussin Dm -) 5 ml PO Q6H PRN PRN Reason: COUGH Famotidine/Sodium Chloride (Pepcid 20 Mg Premixed Ivpb -) 50 mls @ 100 mls/hr IVPB BID DARWIN Diltiazem HCl 125 mg/ Dextrose 125 mls @ 5 mls/hr IVPB TITR DARWIN; 5 MG/HR PRN Reason: Protocol Gentamicin Sulfate 60 mg/ (Dextrose) 251.5 mls @ 250 mls/hr IVPB ONCE DARWIN Stop: 07/22/16 10:59 Insulin Aspart (Novolog Vial Sliding Scale -) 1 vial SQ ACHS DARWIN PRN Reason: Protocol Methylprednisolone Sodium Succinate (Solu-Medrol -) 40 mg IVPB Q8H-IV [facility] Metoprolol Tartrate (Lopressor -) 50 mg PO Q6HPO DARWIN Mometasone Furoate (Asmanex 220mcg -) 1 puff IH DAILY [facility] Multivitamins/Minerals/Vitamin C (Tab-A-Vit -) 1 tab PO DAILY [facility] - Objective Vital Signs: Vital Signs Temperature 98.3 F 07/21/16 10:00 Pulse Rate 101 H 07/21/16 10:29 Respiratory Rate 20 07/21/16 10:00 Blood Pressure 95/50 07/21/16 10:00 O2 Sat by Pulse Oximetry (%) 99 07/21/16 10:29 Constitutional: Yes: Cachectic, Thin Eyes: Yes: Conjunctiva Clear Neck: Yes: Supple Cardiovascular: Yes: Tachycardia, Pulse Irregular Respiratory: Yes: Intubated, Mechanically Ventilated, Poor Air Entry Gastrointestinal: Yes: Soft Extremities: Yes: WNL Edema: No Neurological: Yes: Alert Labs: CBC, BMP 07/21/16 08:36 07/21/16 08:36 INR, PTT INR 2.85 (0.82-1.09) H 07/20/16 21:45 - ....Imaging Chest X-ray: Report Reviewed, Image Reviewed Problem List - Problems (1) Acute on chronic diastolic (congestive) heart failure Code(s): I50.33 - ACUTE ON CHRONIC DIASTOLIC (CONGESTIVE) HEART FAILURE (2) Atrial fibrillation with rapid ventricular response Code(s): I48.91 - UNSPECIFIED ATRIAL FIBRILLATION (3) Congestive heart failure Code(s): I50.9 - HEART FAILURE, UNSPECIFIED (4) Respiratory failure Code(s): J96.90 - RESPIRATORY FAILURE, UNSP, UNSP W HYPOXIA OR HYPERCAPNIA Qualifiers: Chronicity: acute Respiratory failure complication: hypoxia and hypercapnia Qualified Code(s): J96.01 - Acute respiratory failure with hypoxia (5) Atrial fibrillation Code(s): I48.91 - UNSPECIFIED ATRIAL FIBRILLATION (6) Pneumonia Code(s): J18.9 - PNEUMONIA, UNSPECIFIED ORGANISM Assessment/Plan 81F presents to the ICU with acute hypoxemic respiratory failure secondary to pneumonia congestive heart failure atrial fibrillation with rapid ventricular response patient has completed a 7 day course of aztreonam observe off antibiotics from a pneumonia standpoint however the patient's urinalysis came back positive this morning consistent with pyuria will send a urine culture then give 60mg of gentamicin while awaiting culture results spike in WBC count likely from a combination of steroids and urinary tract infection Discontinue buckley catheter lasix per ICU team rate control with cardizem gtt and wean to PO meds-cardiology on board trend CBC continue ventilatory support patient may be a good candidate for tracheostomy CXR steroids ICU care
[2016-07-21] MEDS ORDERED: DIGOXIN 0.5 MG/2 ML AMPUL IVPUSH ONE (11:15)
[2016-07-21] MEDS ORDERED: GENTAMICIN IVPB ONE (11:30)
[2016-07-21] MEDS ORDERED: DEXTROSE 5% IVPB ONE (11:30)
[2016-07-21] MEDS ORDERED: WATER IVPB ONE (11:30)
--- NOTE | 2016-07-21 11:34 | PN ---
Teaching Attending Note Name of Resident: Jose Manuel Muñoz ATTENDING PHYSICIAN STATEMENT I saw and evaluated the patient. I reviewed the resident's note and discussed the case with the resident. I agree with the resident's findings and plan as documented. SUBJECTIVE: reintubated again! remains on steroids and diuresis awake buckley reinserted on the weekend rapid afib OBJECTIVE: Vital Signs Period Temp Pulse Resp BP Sys/Gold Pulse Ox Last 24 Hr 97.2 F-99.0 F 77-115 16-26 90-132/47-74 93-100 cor-rrr lungs decreased bs at bases abd soft,nt ext no edema CBC, BMP 07/21/16 08:36 07/21/16 08:36 Laboratory Tests 07/21/16 07:00 Ur Leukocyte Esterase 2+ H Urine RBC 783 Urine WBC 101 cxray unchanged ASSESSMENT AND PLAN: respiratory failure chf/afib s/p 7 days azactam prosthetic MVR doubt pneumonia at this point leukocytosis- multifactorial- reintubation, steroids ?buckley UTI check urine/blood culture gent one dose after cultures [facility]
[2016-07-21 11:55] LABS: THYROID STIMULATING HORMONE 0.02 uIU/ml (0.358-3.74)
--- NOTE | 2016-07-21 12:14 | PN ---
Teaching Attending Note Name of Resident: Josh Singh ATTENDING PHYSICIAN STATEMENT I saw and evaluated the patient. I reviewed the resident's note and discussed the case with the resident. I agree with the resident's findings and plan as documented. SUBJECTIVE: Patient seen and examined in the ICU. Required reintubation last night. Awake and interactive. AC mode of vent 60% FiO2. Remains in AFib on IV Cardizem. CXR: ETT in position / Vascular congestion Intake & Output 07/18/16 07/19/16 07/20/16 07/21/16 23:59 23:59 23:59 23:59 Intake Total 9678 220 5668 280 Output Total 1050 1200 1500 Balance 177 -434 40 280 Weight 73 lb 5 oz 72 lb 3 oz 75 lb 11.2 oz 71 lb 6 oz Last Vital Signs Temp Pulse Resp BP Pulse Ox 98.3 F 105 H 16 91/50 99 07/21/16 10:00 07/21/16 10:45 07/21/16 11:53 07/21/16 10:45 07/21/16 10:29 Active Medications Acetaminophen (Tylenol -) 650 mg PO Q6H PRN PRN Reason: FEVER OR PAIN Al Hydroxide/Mg Hydroxide (Mylanta Oral Suspension -) 30 ml PO Q12H PRN PRN Reason: DYSPEPSIA Albuterol/Ipratropium (Duoneb -) 1 amp NEB QIDR [facility] Last Admin: 07/21/16 11:05 Dose: 1 amp Atorvastatin Calcium (Lipitor -) 10 mg PO [facility] Cholecalciferol (Vitamin D3 -) 1,000 unit PO DAILY [facility] Last Admin: 07/21/16 11:11 Dose: 1,000 unit Enalapril Maleate (Vasotec -) 20 mg PO DAILY [facility] Last Admin: 07/21/16 11:11 Dose: 20 mg Furosemide (Lasix Injection -) 40 mg IVPUSH DAILY [facility] Last Admin: 07/21/16 11:10 Dose: 40 mg Guaifenesin (Diabetic Tussin Dm -) 5 ml PO Q6H PRN PRN Reason: COUGH Famotidine/Sodium Chloride (Pepcid 20 Mg Premixed Ivpb -) 50 mls @ 100 mls/hr IVPB BID [facility] Last Admin: 07/21/16 11:10 Dose: 100 mls/hr Diltiazem HCl 125 mg/ Dextrose 125 mls @ 5 mls/hr IVPB TITR DARWIN; 5 MG/HR PRN Reason: Protocol Last Admin: 07/21/16 10:45 Dose: 5 mls/hr Gentamicin Sulfate 60 mg/ (Dextrose) 101.5 mls @ 101.5 mls/hr IVPB ONCE ONE Stop: 07/21/16 12:29 Insulin Aspart (Novolog Vial Sliding Scale -) 1 vial SQ ACHS D[facility]WIN PRN Reason: Protocol Last Admin: 07/21/16 11:34 Dose: 6 units Methylprednisolone Sodium Succinate (Solu-Medrol -) 40 mg IVPB Q8H-IV [facility] Last Admin: 07/21/16 11:10 Dose: 40 mg Metoprolol Tartrate (Lopressor -) 50 mg PO Q6HPO [facility] Last Admin: 07/21/16 11:11 Dose: 50 mg Mometasone Furoate (Asmanex 220mcg -) 1 puff IH DAILY [facility] Last Admin: 07/21/16 11:06 Dose: Not Given Multivitamins/Minerals/Vitamin C (Tab-A-Vit -) 1 tab PO DAILY [facility] Last Admin: 07/21/16 11:11 Dose: 1 tab Gen: Intubated, awake and alert Heart: tachycardic, irregular, mech click at base Lung: Basilar rales / bronchial breath sounds Abd: soft, nontender Ext: no edema Laboratory Results - last 24 hr 07/20/16 07/20/16 07/20/16 10:35 11:45 16:33 WBC RBC Hgb Hct MCV MCHC RDW Plt Count MPV Neutrophils % Lymphocytes % Monocytes % Band Neutrophils Differential Comment Toxic Granulation Platelet Estimate INR Puncture Site ABG pH ABG pCO2 at Pt Temp ABG pO2 at Pt Temp ABG HCO3 ABG O2 Sat (Measured) ABG O2 Content ABG Base Excess Raciel Test O2 Delivery Device Oxygen Flow Rate Vent Mode Vent Rate Mechanical Rate PEEP Pressure Support Vent Sodium Potassium Chloride Carbon Dioxide Anion Gap BUN Creatinine Creat Clearance w eGFR POC Glucometer [phone] Random Glucose Calcium Total Bilirubin AST ALT Alkaline Phosphatase Total Protein Albumin TSH Urine Color Urine Appearance Urine pH Ur Specific [place] Urine Protein Urine Glucose (UA) Urine Ketones Urine Blood Urine Nitrite Urine Bilirubin Urine Urobilinogen Ur Leukocyte Esterase Urine RBC Urine WBC Urine Yeast Blood Type A POSITIVE Antibody Screen Negative Crossmatch See Detail 07/20/16 07/20/16 07/20/16 20:00 20:28 21:45 WBC RBC Hgb Hct MCV MCHC RDW Plt Count MPV Neutrophils % Lymphocytes % Monocytes % Band Neutrophils Differential Comment Toxic Granulation Platelet Estimate INR 2.85 H Puncture Site Right radial ABG pH 7.46 H ABG pCO2 at Pt Temp 50.4 H ABG pO2 at Pt Temp 50.8 L D ABG HCO3 35.1 H ABG O2 Sat (Measured) 85.9 L ABG O2 Content 11.7 L ABG Base Excess 10.1 H Raciel Test Positive O2 Delivery Device Vent Oxygen Flow Rate 40% Vent Mode Ac Vent Rate 16 Mechanical Rate Y PEEP 5.0 Pressure Support Vent 300 Sodium Potassium Chloride Carbon Dioxide Anion Gap BUN Creatinine Creat Clearance w eGFR POC Glucometer [phone] Random Glucose Calcium Total Bilirubin AST ALT Alkaline Phosphatase Total Protein Albumin TSH Urine Color Urine Appearance Urine pH Ur Specific [place] Urine Protein Urine Glucose (UA) Urine Ketones Urine Blood Urine Nitrite Urine Bilirubin Urine Urobilinogen Ur Leukocyte Esterase Urine RBC Urine WBC Urine Yeast Blood Type Antibody Screen Crossmatch 07/21/16 07/21/16 07/21/16 07:00 08:36 08:36 WBC 23.3 H D RBC 3.82 D Hgb 10.0 L D Hct 30.9 L D MCV 80.9 MCHC 32.2 RDW 16.1 H Plt Count 147 MPV 8.8 Neutrophils % 96.0 H Lymphocytes % 1.0 L D Monocytes % 2.0 L Band Neutrophils 1.0 Differential Comment Manual diff done Toxic Granulation 2+ Platelet Estimate Adequate INR Puncture Site ABG pH ABG pCO2 at Pt Temp ABG pO2 at Pt Temp ABG HCO3 ABG O2 Sat (Measured) ABG O2 Content ABG Base Excess Raciel Test O2 Delivery Device Oxygen Flow Rate Vent Mode Vent Rate Mechanical Rate PEEP Pressure Support Vent Sodium 148 H Potassium 3.6 Chloride 105 Carbon Dioxide 34 H Anion Gap 9 BUN 37 H Creatinine 0.4 L Creat Clearance w eGFR > 60 POC Glucometer Random Glucose 169 H D Calcium 8.1 L Total Bilirubin 1.8 H D AST 42 H D ALT 43 D Alkaline Phosphatase 106 D Total Protein 4.7 L Albumin 2.1 L TSH 0.02 L D Urine Color Dkyellow Urine Appearance Slcloudy Urine pH 5.0 Ur Specific [place] 1.020 Urine Protein 1+ H Urine Glucose (UA) 1+ H D Urine Ketones Negative Urine Blood 3+ H Urine Nitrite Negative Urine Bilirubin Negative Urine Urobilinogen 2.0 e.u/dl H Ur Leukocyte Esterase 2+ H Urine RBC 783 Urine WBC 101 Urine Yeast Few Blood Type Antibody Screen Crossmatch 07/21/16 07/21/16 08:36 08:50 WBC RBC Hgb Hct MCV MCHC RDW Plt Count MPV Neutrophils % Lymphocytes % Monocytes % Band Neutrophils Differential Comment Toxic Granulation Platelet Estimate INR Puncture Site Right radial ABG pH 7.52 H ABG pCO2 at Pt Temp 41.4 ABG pO2 at Pt Temp 93.6 D ABG HCO3 33.6 H ABG O2 Sat (Measured) 97.8 ABG O2 Content 13.1 L ABG Base Excess 9.9 H Raciel Test Positive O2 Delivery Device Mech vent Oxygen Flow Rate 60% Vent Mode A/c Vent Rate 16 Mechanical Rate Mech vent PEEP 8.0 Pressure Support Vent 300 Sodium Potassium Chloride Carbon Dioxide Anion Gap BUN Creatinine Creat Clearance w eGFR POC Glucometer Random Glucose Calcium Total Bilirubin AST ALT Alkaline Phosphatase Total Protein Albumin TSH Cancelled Urine Color Urine Appearance Urine pH Ur Specific [place] Urine Protein Urine Glucose (UA) Urine Ketones Urine Blood Urine Nitrite Urine Bilirubin Urine Urobilinogen Ur Leukocyte Esterase Urine RBC Urine WBC Urine Yeast Blood Type Antibody Screen Crossmatch ASSESSMENT AND PLAN: Acute on Chronic Hypoxic and Hypercapneic Respiratory Failure Acute on Chronic LV Diastolic Heart Failure Influenza A Pneumonia Atrial Fibrillation with RVR s/p mech MVR Aortic Stenosis Pulmonary HTN Acute COPD Exacerbation - D/W Cardiology -> suspect recurrent flash Pulmonary edema due to Critical -> Will evaluate possible transfer to tertiary care for intervention - ABX per ID - completed tamiflu - IV medrol taper - inhaled bronchodilators - Rate control per Cardiology - IV Heparin - IV Lasix - DVT/GI prophylaxis Dr Alegria CCTime 35"
[2016-07-21 13:04] LABS: INR 2.6 (0.82-1.09); PROTHROMBIN TIME (PATIENT) 29.2 SEC (9.98-11.88)
--- NOTE | 2016-07-21 13:06 | PN ---
Physical Exam: SUBJECTIVE: Patient seen and examined pt at the bedside , Resting comfortably in bed, remains intubated. OBJECTIVE: Vital Signs Period Temp Pulse Resp BP Sys/Gold Pulse Ox Last 24 Hr 97.2 F-99.2 F 77-115 16-24 90-132/47-74 93-100 GENERAL: The patient is awake, alert, and fully oriented, in no acute distress. HEAD: Normal with no signs of trauma. EYES: PERRL, extraocular movements intact, sclera anicteric, conjunctiva clear. No ptosis. ENT: Ears normal, nares patent, oropharynx clear without exudates, moist mucous membranes. NECK: Trachea midline, full range of motion, supple. LUNGS: Breath sounds equal, clear to auscultation bilaterally, no wheezes, no crackles, no accessory muscle use., remains intubated, NGT in place HEART: Irregular, + murmur, no rub or gallop. ABDOMEN: Soft, nontender, nondistended, normoactive bowel sounds, no guarding, no rebound, no hepatosplenomegaly, no masses. EXTREMITIES: 2+ pulses, warm, well-perfused, mild pitting edema , to lower ext , Lt> Rt NEUROLOGICAL: Cranial nerves II through XII grossly intact. Normal speech, gait not observed. - Magana draining hector urine PSYCH: Normal mood, normal affect. SKIN: Warm, dry, normal turgor, no rashes or lesions noted Laboratory Results - last 24 hr 07/20/16 07/20/16 07/20/16 11:45 16:33 20:00 WBC RBC Hgb Hct MCV MCHC RDW Plt Count MPV Neutrophils % Lymphocytes % Monocytes % Band Neutrophils Differential Comment Toxic Granulation Platelet Estimate INR Puncture Site Right radial ABG pH 7.46 H ABG pCO2 at Pt Temp 50.4 H ABG pO2 at Pt Temp 50.8 L D ABG HCO3 35.1 H ABG O2 Sat (Measured) 85.9 L ABG O2 Content 11.7 L ABG Base Excess 10.1 H Raciel Test Positive O2 Delivery Device Vent Oxygen Flow Rate 40% Vent Mode Ac Vent Rate 16 Mechanical Rate Y PEEP 5.0 Pressure Support Vent 300 Sodium Potassium Chloride Carbon Dioxide Anion Gap BUN Creatinine Creat Clearance w eGFR POC Glucometer [phone] Random Glucose Calcium Total Bilirubin AST ALT Alkaline Phosphatase Total Protein Albumin TSH Urine Color Urine Appearance Urine pH Ur Specific [place] Urine Protein Urine Glucose (UA) Urine Ketones Urine Blood Urine Nitrite Urine Bilirubin Urine Urobilinogen Ur Leukocyte Esterase Urine RBC Urine WBC Urine Yeast 07/20/16 07/20/16 07/21/16 20:28 21:45 07:00 WBC RBC Hgb Hct MCV MCHC RDW Plt Count MPV Neutrophils % Lymphocytes % Monocytes % Band Neutrophils Differential Comment Toxic Granulation Platelet Estimate INR 2.85 H Puncture Site ABG pH ABG pCO2 at Pt Temp ABG pO2 at Pt Temp ABG HCO3 ABG O2 Sat (Measured) ABG O2 Content ABG Base Excess Raciel Test O2 Delivery Device Oxygen Flow Rate Vent Mode Vent Rate Mechanical Rate PEEP Pressure Support Vent Sodium Potassium Chloride Carbon Dioxide Anion Gap BUN Creatinine Creat Clearance w eGFR POC Glucometer [phone] Random Glucose Calcium Total Bilirubin AST ALT Alkaline Phosphatase Total Protein Albumin TSH Urine Color Dkyellow Urine Appearance Slcloudy Urine pH 5.0 Ur Specific [place] 1.020 Urine Protein 1+ H Urine Glucose (UA) 1+ H D Urine Ketones Negative Urine Blood 3+ H Urine Nitrite Negative Urine Bilirubin Negative Urine Urobilinogen 2.0 e.u/dl H Ur Leukocyte Esterase 2+ H Urine RBC 783 Urine WBC 101 Urine Yeast Few 07/21/16 07/21/16 07/21/16 08:36 08:36 08:36 WBC 23.3 H D RBC 3.82 D Hgb 10.0 L D Hct 30.9 L D MCV 80.9 MCHC 32.2 RDW 16.1 H Plt Count 147 MPV 8.8 Neutrophils % 96.0 H Lymphocytes % 1.0 L D Monocytes % 2.0 L Band Neutrophils 1.0 Differential Comment Manual diff done Toxic Granulation 2+ Platelet Estimate Adequate INR Puncture Site ABG pH ABG pCO2 at Pt Temp ABG pO2 at Pt Temp ABG HCO3 ABG O2 Sat (Measured) ABG O2 Content ABG Base Excess Raciel Test O2 Delivery Device Oxygen Flow Rate Vent Mode Vent Rate Mechanical Rate PEEP Pressure Support Vent Sodium 148 H Potassium 3.6 Chloride 105 Carbon Dioxide 34 H Anion Gap 9 BUN 37 H Creatinine 0.4 L Creat Clearance w eGFR > 60 POC Glucometer Random Glucose 169 H D Calcium 8.1 L Total Bilirubin 1.8 H D AST 42 H D ALT 43 D Alkaline Phosphatase 106 D Total Protein 4.7 L Albumin 2.1 L TSH 0.02 L D Cancelled Urine Color Urine Appearance Urine pH Ur Specific [place] Urine Protein Urine Glucose (UA) Urine Ketones Urine Blood Urine Nitrite Urine Bilirubin Urine Urobilinogen Ur Leukocyte Esterase Urine RBC Urine WBC Urine Yeast 07/21/16 08:50 WBC RBC Hgb Hct MCV MCHC RDW Plt Count MPV Neutrophils % Lymphocytes % Monocytes % Band Neutrophils Differential Comment Toxic Granulation Platelet Estimate INR Puncture Site Right radial ABG pH 7.52 H ABG pCO2 at Pt Temp 41.4 ABG pO2 at Pt Temp 93.6 D ABG HCO3 33.6 H ABG O2 Sat (Measured) 97.8 ABG O2 Content 13.1 L ABG Base Excess 9.9 H Raciel Test Positive O2 Delivery Device Mech vent Oxygen Flow Rate 60% Vent Mode A/c Vent Rate 16 Mechanical Rate Mech vent PEEP 8.0 Pressure Support Vent 300 Sodium Potassium Chloride Carbon Dioxide Anion Gap BUN Creatinine Creat Clearance w eGFR POC Glucometer Random Glucose Calcium Total Bilirubin AST ALT Alkaline Phosphatase Total Protein Albumin TSH Urine Color Urine Appearance Urine pH Ur Specific [place] Urine Protein Urine Glucose (UA) Urine Ketones Urine Blood Urine Nitrite Urine Bilirubin Urine Urobilinogen Ur Leukocyte Esterase Urine RBC Urine WBC Urine Yeast Active Medications Generic Name Dose Route Start Last Admin Trade Name Freq PRN Reason Stop Dose Admin Acetaminophen 650 mg 07/21/16 10:34 Tylenol - PO Q6H PRN FEVER OR PAIN Al Hydroxide/Mg Hydroxide 30 ml 07/21/16 10:31 Mylanta Oral Suspension - PO Q12H PRN DYSPEPSIA Albuterol/Ipratropium 1 amp 07/21/16 12:00 07/21/16 11:05 Duoneb - NEB 1 amp QIDR [facility]WIN Administration Atorvastatin Calcium 10 mg 07/21/16 22:00 Lipitor - PO HS DARWIN Cholecalciferol 1,000 unit 07/21/16 10:45 07/21/16 11:11 Vitamin D3 - PO 1,000 unit DAILY [facility]WIN Administration Enalapril Maleate 20 mg 07/21/16 10:45 07/21/16 11:11 Vasotec - PO 20 mg DAILY [facility] Administration Furosemide 40 mg 07/21/16 10:30 07/21/16 11:10 Lasix Injection - IVPUSH 40 mg DAILY [facility]WIN Administration Guaifenesin 5 ml 07/21/16 10:28 Diabetic Tussin Dm - PO Q6H PRN COUGH Famotidine/Sodium Chloride 50 mls @ 100 mls/hr 07/21/16 10:45 07/21/16 11:10 Pepcid 20 Mg Premixed Ivpb - IVPB 100 mls/hr BID [facility]WIN Administration Diltiazem HCl 125 mg/ Dextrose 125 mls @ 5 mls/hr 07/21/16 10:45 07/21/16 10:45 IVPB 5 mls/hr TITR [facility]WIN Administration Protocol 5 MG/HR Insulin Aspart 1 vial 07/21/16 11:00 07/21/16 11:34 Novolog Vial Sliding Scale - SQ 6 units ACHS DARWIN Administration Protocol Methylprednisolone Sodium Succinate 40 mg 07/21/16 10:30 07/21/16 11:10 Solu-Medrol - IVPB 40 mg Q8H-IV [facility]WIN Administration Metoprolol Tartrate 50 mg 07/21/16 10:30 07/21/16 11:11 Lopressor - PO 50 mg Q6HPO [facility]WIN Administration Mometasone Furoate 1 puff 07/21/16 10:30 07/21/16 11:06 Asmanex 220mcg - IH Not Given DAILY [facility] Multivitamins/Minerals/Vitamin C 1 tab 07/21/16 10:45 07/21/16 11:11 Tab-A-Vit - PO 1 tab DAILY [facility] Administration Imagin05/23/2016 Echo: Normal LV size with mildly decreased LV fxn, mech MV replacement, mild TR, RVSP 30-40 mmHg, AV not well seen 07/07/2016 Echo: Normal LV size and function, mechanical MV replacement, mild to moderate TR, RSVP 30-40mmHg, aortic valve not assessed CxR- Reviewed, showed improvement ASSESSMENT/PLAN: This is an 81 year-old female with a significant PMH of HTN, afib, severe , mechanical MV replacement, CVA, DM II, and asthma, admitted for afib with RVR and found to have Influenza A. Hospital course complicated by acute hypoxic and hypercapnic respiratory failure requiring intubation x 2. *Acute hypoxic and hypercapnic respiratory failure -extubated 07/20 and reintubated 07/20 - remains stable *Influenza A -completed course of Tamiflu *Citrobacter Freundii pneumonia - WBC trending up from 15.7>23.3 -afebrile - Repeat cultures drawn - ID following , added one dose of Gentamycin - s/p Aztreonam, tx completed *Acute on chronic diastolic heart failure will continue on increased dose of enalapril,Lopressor, and Lasix IV - cardiology following, in the presence of critical aortic stenosis, plans examiner discussed with pt the need to consider transfer to a medical center for transcatheter aortic valve replacement (TAVR) pt is not ready to make the decision yet,waiting to speak with her son *Afib with RVR,Mechanical Valve - HR improved 80-90's now - tapering off Cardizem drip - will f/u on INR 2.60 today , will give Coumadin 5 mg today and will recheck INR in am - goal INR 3.0-->3.5 - pt refusing Digoxin, reports hx of Dig toxicity in the past *Asthma -continue nebs, inhalers and Solumedrol Lactic acidosis, resolved *NIDDM -insulin sliding scale coverage *Severe malnutrition in the context of chronic illness -prolonged inadequate nutrient intake, as evidenced by 60% low end DBW - on NGT feeding - PT eval *F/E/N: NGT Electrolytes: replete as indicated *DVT Prophylaxis: Coumadin Dispo: continues to require inpatient care. Full Code. Visit type - Emergency Visit Emergency Visit: Yes ED Registration Date: 07/09/16 Care time: The patient presented to the Emergency Department on the above date and was hospitalized for further evaluation of their emergent condition. - New Patient This patient is new to me today: Yes Date on this admission: 07/21/16 - Critical Care Critical Care patient: Yes Total Critical Care Time (in minutes): 35 Critical Care Statement: The care of this patient involved high complexity decision making to prevent further life threatening deterioration of the patient 's condition and/or to evalute & treat vital organ system(s) failure or risk of failure.
[2016-07-21] MEDS ORDERED: WARFARIN NA 5 MG TABLET (UD) PO ONE (13:30)
--- NOTE | 2016-07-21 13:53 | PN ---
Physical Exam: SUBJECTIVE: Patient seen and examined at bedside in ICU. Re-intubated last night after O2 saturation rapidly declined to ~70% and patient was exhibiting signs of respiratory distress such as accessory muscle use. Afebrile & states she feels fine. Discussed treatment options with patient alongside Dr Murray & Dr Alegria. Will discuss with patient's son, as per her request. OBJECTIVE: Vital Signs Period Temp Pulse Resp BP Sys/Gold Pulse Ox Last 24 Hr 97.2 F-99.2 F 77-110 16-24 90-132/47-74 93-100 GENERAL: Intubated but not sedated. Resting comfortably in bed. Cachectic HEENT: Atraumatic, EOMI, PERRLA, No lymphadenopathy noted. Moist mucous membranes. LUNGS: Very mild Crackles noted at bilateral lung bases. No wheezing or stridor noted. HEART: Irregular, rate 90-100, Grade 3/6 systolic murmur. Notable MV "Click". ABDOMEN: Soft, nontender, not distended, normoactive bowel sounds EXTREMITIES: 2+ pulses, warm, well-perfused. No peripheral edema. Moderate upper and lower extremity muscle atrophy. PSYCHIATRIC: Cooperative. Good eye contact. Appropriate mood and affect. SKIN: Warm, dry, normal turgor, no rashes or lesions noted. Laboratory Results - last 24 hr 07/20/16 07/20/16 07/20/16 11:45 16:33 20:00 WBC RBC Hgb Hct MCV MCHC RDW Plt Count MPV Neutrophils % Lymphocytes % Monocytes % Band Neutrophils Differential Comment Toxic Granulation Platelet Estimate INR Puncture Site Right radial ABG pH 7.46 H ABG pCO2 at Pt Temp 50.4 H ABG pO2 at Pt Temp 50.8 L D ABG HCO3 35.1 H ABG O2 Sat (Measured) 85.9 L ABG O2 Content 11.7 L ABG Base Excess 10.1 H Raciel Test Positive O2 Delivery Device Vent Oxygen Flow Rate 40% Vent Mode Ac Vent Rate 16 Mechanical Rate Y PEEP 5.0 Pressure Support Vent 300 Sodium Potassium Chloride Carbon Dioxide Anion Gap BUN Creatinine Creat Clearance w eGFR POC Glucometer [phone] Random Glucose Calcium Total Bilirubin AST ALT Alkaline Phosphatase Total Protein Albumin TSH Urine Color Urine Appearance Urine pH Ur Specific [place] Urine Protein Urine Glucose (UA) Urine Ketones Urine Blood Urine Nitrite Urine Bilirubin Urine Urobilinogen Ur Leukocyte Esterase Urine RBC Urine WBC Urine Yeast Digoxin 07/20/16 07/20/16 07/21/16 20:28 21:45 07:00 WBC RBC Hgb Hct MCV MCHC RDW Plt Count MPV Neutrophils % Lymphocytes % Monocytes % Band Neutrophils Differential Comment Toxic Granulation Platelet Estimate INR 2.85 H Puncture Site ABG pH ABG pCO2 at Pt Temp ABG pO2 at Pt Temp ABG HCO3 ABG O2 Sat (Measured) ABG O2 Content ABG Base Excess Raciel Test O2 Delivery Device Oxygen Flow Rate Vent Mode Vent Rate Mechanical Rate PEEP Pressure Support Vent Sodium Potassium Chloride Carbon Dioxide Anion Gap BUN Creatinine Creat Clearance w eGFR POC Glucometer [phone] Random Glucose Calcium Total Bilirubin AST ALT Alkaline Phosphatase Total Protein Albumin TSH Urine Color Dkyellow Urine Appearance Slcloudy Urine pH 5.0 Ur Specific [place] 1.020 Urine Protein 1+ H Urine Glucose (UA) 1+ H D Urine Ketones Negative Urine Blood 3+ H Urine Nitrite Negative Urine Bilirubin Negative Urine Urobilinogen 2.0 e.u/dl H Ur Leukocyte Esterase 2+ H Urine RBC 783 Urine WBC 101 Urine Yeast Few Digoxin 07/21/16 07/21/16 07/21/16 08:36 08:36 08:36 WBC 23.3 H D RBC 3.82 D Hgb 10.0 L D Hct 30.9 L D MCV 80.9 MCHC 32.2 RDW 16.1 H Plt Count 147 MPV 8.8 Neutrophils % 96.0 H Lymphocytes % 1.0 L D Monocytes % 2.0 L Band Neutrophils 1.0 Differential Comment Manual diff done Toxic Granulation 2+ Platelet Estimate Adequate INR Puncture Site ABG pH ABG pCO2 at Pt Temp ABG pO2 at Pt Temp ABG HCO3 ABG O2 Sat (Measured) ABG O2 Content ABG Base Excess Raciel Test O2 Delivery Device Oxygen Flow Rate Vent Mode Vent Rate Mechanical Rate PEEP Pressure Support Vent Sodium 148 H Potassium 3.6 Chloride 105 Carbon Dioxide 34 H Anion Gap 9 BUN 37 H Creatinine 0.4 L Creat Clearance w eGFR > 60 POC Glucometer Random Glucose 169 H D Calcium 8.1 L Total Bilirubin 1.8 H D AST 42 H D ALT 43 D Alkaline Phosphatase 106 D Total Protein 4.7 L Albumin 2.1 L TSH 0.02 L D Cancelled Urine Color Urine Appearance Urine pH Ur Specific [place] Urine Protein Urine Glucose (UA) Urine Ketones Urine Blood Urine Nitrite Urine Bilirubin Urine Urobilinogen Ur Leukocyte Esterase Urine RBC Urine WBC Urine Yeast Digoxin 07/21/16 07/21/16 07/21/16 08:50 11:33 12:15 WBC RBC Hgb Hct MCV MCHC RDW Plt Count MPV Neutrophils % Lymphocytes % Monocytes % Band Neutrophils Differential Comment Toxic Granulation Platelet Estimate INR Puncture Site Right radial ABG pH 7.52 H ABG pCO2 at Pt Temp 41.4 ABG pO2 at Pt Temp 93.6 D ABG HCO3 33.6 H ABG O2 Sat (Measured) 97.8 ABG O2 Content 13.1 L ABG Base Excess 9.9 H Raciel Test Positive O2 Delivery Device Mech vent Oxygen Flow Rate 60% Vent Mode A/c Vent Rate 16 Mechanical Rate Mech vent PEEP 8.0 Pressure Support Vent 300 Sodium Potassium Chloride Carbon Dioxide Anion Gap BUN Creatinine Creat Clearance w eGFR POC Glucometer [phone] Random Glucose Calcium Total Bilirubin AST ALT Alkaline Phosphatase Total Protein Albumin TSH Urine Color Urine Appearance Urine pH Ur Specific [place] Urine Protein Urine Glucose (UA) Urine Ketones Urine Blood Urine Nitrite Urine Bilirubin Urine Urobilinogen Ur Leukocyte Esterase Urine RBC Urine WBC Urine Yeast Digoxin 0.0730 L 07/21/16 12:35 WBC RBC Hgb Hct MCV MCHC RDW Plt Count MPV Neutrophils % Lymphocytes % Monocytes % Band Neutrophils Differential Comment Toxic Granulation Platelet Estimate INR 2.60 H Puncture Site ABG pH ABG pCO2 at Pt Temp ABG pO2 at Pt Temp ABG HCO3 ABG O2 Sat (Measured) ABG O2 Content ABG Base Excess Raciel Test O2 Delivery Device Oxygen Flow Rate Vent Mode Vent Rate Mechanical Rate PEEP Pressure Support Vent Sodium Potassium Chloride Carbon Dioxide Anion Gap BUN Creatinine Creat Clearance w eGFR POC Glucometer Random Glucose Calcium Total Bilirubin AST ALT Alkaline Phosphatase Total Protein Albumin TSH Urine Color Urine Appearance Urine pH Ur Specific [place] Urine Protein Urine Glucose (UA) Urine Ketones Urine Blood Urine Nitrite Urine Bilirubin Urine Urobilinogen Ur Leukocyte Esterase Urine RBC Urine WBC Urine Yeast Digoxin Active Medications Generic Name Dose Route Start Last Admin Trade Name Freq PRN Reason Stop Dose Admin Acetaminophen 650 mg 07/21/16 10:34 Tylenol - PO Q6H PRN FEVER OR PAIN Al Hydroxide/Mg Hydroxide 30 ml 07/21/16 10:31 Mylanta Oral Suspension - PO Q12H PRN DYSPEPSIA Albuterol/Ipratropium 1 amp 07/21/16 12:00 07/21/16 11:05 Duoneb - NEB 1 amp QIDR [facility]WIN Administration Atorvastatin Calcium 10 mg 07/21/16 22:00 Lipitor - PO HS DARWIN Cholecalciferol 1,000 unit 07/21/16 10:45 07/21/16 11:11 Vitamin D3 - PO 1,000 unit DAILY D[facility]WIN Administration Enalapril Maleate 20 mg 07/21/16 10:45 07/21/16 11:11 Vasotec - PO 20 mg DAILY [facility] Administration Furosemide 40 mg 07/21/16 10:30 07/21/16 11:10 Lasix Injection - IVPUSH 40 mg DAILY [facility]WIN Administration Guaifenesin 5 ml 07/21/16 10:28 Diabetic Tussin Dm - PO Q6H PRN COUGH Famotidine/Sodium Chloride 50 mls @ 100 mls/hr 07/21/16 10:45 07/21/16 11:10 Pepcid 20 Mg Premixed Ivpb - IVPB 100 mls/hr BID [facility]WIN Administration Diltiazem HCl 125 mg/ Dextrose 125 mls @ 5 mls/hr 07/21/16 10:45 07/21/16 10:45 IVPB 5 mls/hr TITR DARWIN Administration Protocol 5 MG/HR Insulin Aspart 1 vial 07/21/16 11:00 07/21/16 11:34 Novolog Vial Sliding Scale - SQ 6 units ACHS DARWIN Administration Protocol Methylprednisolone Sodium Succinate 40 mg 07/21/16 10:30 07/21/16 11:10 Solu-Medrol - IVPB 40 mg Q8H-IV DARWIN Administration Metoprolol Tartrate 50 mg 07/21/16 10:30 07/21/16 12:00 Lopressor - PO Not Given Q6HPO D[facility]WIN Mometasone Furoate 1 puff 07/21/16 10:30 07/21/16 11:06 Asmanex 220mcg - IH Not Given DAILY D[facility]WIN Multivitamins/Minerals/Vitamin C 1 tab 07/21/16 10:45 07/21/16 11:11 Tab-A-Vit - PO 1 tab DAILY D[facility]WIN Administration ASSESSMENT/PLAN: 81 year old female with significant PMH of A-Fib, HTN, Rheumatic HD, Aortic stenosis, MV replacement, CVA, COPD who was admitted for A-Fib with RVR. Presented to ICU for acute hypoxic respiratory failure requiring intubation. #Acute Hyperneic respiratory failure, secondary to poor respiration overnight -intubated & saturating well on 60% FiO2. -Continue Spiriva, Asmanex, Robitussin, Duonebs, Albuterol -Solumedrol 40mg q8h -Pulmonary following #Acute UTI -Cultures ordered & sent -given Gentamicin x1 dose -removed buckley -ID Following #Acute on Chronic Diastolic Heart Failure -as per cardiology, patient may require TAVR to help ease left ventricular failure (d/t presence of aortic stenosis) -Continue Enalapril 20qd, Lasix 40daily -strict I & O -daily weights -CXR in AM #Atrial Fibrillation, with RVR -Lopressor 50mg q6h for rate control -downtitrating Cardizem drip -continuous cardiac monitoring #Malnutrition -NG Tube placed & started on tube feeds #Supratherapeutic INR, post-mechanical MV -on Coumadin, INR 2.60 -ideally maintain 3.0-3.5, trend #Diabetes -Insulin sliding scale -BGM ACHS #Hyperthyroidism -TSH .02 this morning -needs work up FEN/Prophylaxis -Coumadin, Zantac -Holding IVF, monitor electrolytes, Vital 1.2 @20cc/hr Dispo: need to discuss treatment/transfer options with son Visit type - Emergency Visit Emergency Visit: Yes ED Registration Date: 07/09/16 Care time: The patient presented to the Emergency Department on the above date and was hospitalized for further evaluation of their emergent condition. - New Patient This patient is new to me today: No - Critical Care Critical Care patient: Yes Total Critical Care Time (in minutes): 45 Critical Care Statement: The care of this patient involved high complexity decision making to prevent further life threatening deterioration of the patient 's condition and/or to evalute & treat vital organ system(s) failure or risk of failure.
--- NOTE | 2016-07-21 16:11 | PN ---
Progress Note, Physician History of Present Illness: Pt. reintubated last night. Oriented and alert on respirator - Current Medication List Current Medications: Active Medications Acetaminophen (Tylenol -) 650 mg PO Q6H PRN PRN Reason: FEVER OR PAIN Al Hydroxide/Mg Hydroxide (Mylanta Oral Suspension -) 30 ml PO Q12H PRN PRN Reason: DYSPEPSIA Albuterol/Ipratropium (Duoneb -) 1 amp NEB QIDR [facility] Last Admin: 07/21/16 11:05 Dose: 1 amp Atorvastatin Calcium (Lipitor -) 10 mg PO HS DARWIN Cholecalciferol (Vitamin D3 -) 1,000 unit PO DAILY [facility] Last Admin: 07/21/16 11:11 Dose: 1,000 unit Enalapril Maleate (Vasotec -) 20 mg PO DAILY [facility] Last Admin: 07/21/16 11:11 Dose: 20 mg Furosemide (Lasix Injection -) 40 mg IVPUSH DAILY [facility] Last Admin: 07/21/16 11:10 Dose: 40 mg Guaifenesin (Diabetic Tussin Dm -) 5 ml PO Q6H PRN PRN Reason: COUGH Famotidine/Sodium Chloride (Pepcid 20 Mg Premixed Ivpb -) 50 mls @ 100 mls/hr IVPB BID [facility] Last Admin: 07/21/16 11:10 Dose: 100 mls/hr Diltiazem HCl 125 mg/ Dextrose 125 mls @ 5 mls/hr IVPB TITR DARWIN; 5 MG/HR PRN Reason: Protocol Last Admin: 07/21/16 10:45 Dose: 5 mls/hr Insulin Aspart (Novolog Vial Sliding Scale -) 1 vial SQ ACHS DARWIN PRN Reason: Protocol Last Admin: 07/21/16 11:34 Dose: 6 units Methylprednisolone Sodium Succinate (Solu-Medrol -) 40 mg IVPB Q8H-IV [facility]ARWIN Last Admin: 07/21/16 11:10 Dose: 40 mg Metoprolol Tartrate (Lopressor -) 50 mg PO Q6HPO [facility] Last Admin: 07/21/16 12:00 Dose: Not Given Mometasone Furoate (Asmanex 220mcg -) 1 puff IH DAILY [facility] Last Admin: 07/21/16 11:06 Dose: Not Given Multivitamins/Minerals/Vitamin C (Tab-A-Vit -) 1 tab PO DAILY [facility] Last Admin: 07/21/16 11:11 Dose: 1 tab - Objective Vital Signs: Vital Signs Temperature 99.3 F 07/21/16 16:00 Pulse Rate 97 H 07/21/16 16:00 Respiratory Rate 16 07/21/16 16:00 Blood Pressure 114/50 07/21/16 16:00 O2 Sat by Pulse Oximetry (%) 99 07/21/16 10:29 Constitutional: Yes: No Distress Eyes: No: Sclera Icterus HENT: Yes: Atraumatic, Normocephalic Neck: Yes: Supple, Trachea Midline Cardiovascular: Yes: Pulse Irregular. No: JVD Respiratory: Yes: Diminished (bilateral) Gastrointestinal: Yes: Soft. No: Tenderness Extremities: No: Calf Tenderness Edema: No Neurological: Yes: Alert, Oriented Labs: CBC, BMP 07/21/16 08:36 07/21/16 08:36 INR, PTT INR 2.60 (0.82-1.09) H 07/21/16 12:35 - ....Imaging Chest X-ray: Report Reviewed, Image Reviewed (blunted right cp angle and right lower lobe infiltrate) Problem List - Problems (1) Respiratory failure Code(s): J96.90 - RESPIRATORY FAILURE, UNSP, UNSP W HYPOXIA OR HYPERCAPNIA Qualifiers: Chronicity: acute Respiratory failure complication: hypoxia and hypercapnia Qualified Code(s): J96.01 - Acute respiratory failure with hypoxia (2) Pneumonia and influenza Code(s): J11.00 - FLU DUE TO UNIDENTIFIED FLU VIRUS W UNSP TYPE OF PNEUMONIA (3) Atrial fibrillation with rapid ventricular response Code(s): I48.91 - UNSPECIFIED ATRIAL FIBRILLATION (4) Bronchial asthma Code(s): J45.909 - UNSPECIFIED ASTHMA, UNCOMPLICATED Qualifiers: Asthma severity: mild intermittent (5) History of mitral valve replacement with mechanical valve Code(s): Z95.2 - PRESENCE OF PROSTHETIC HEART VALVE (6) Aortic stenosis Code(s): I35.0 - NONRHEUMATIC AORTIC (VALVE) STENOSIS Qualifiers: (7) Diabetes mellitus Code(s): E11.9 - TYPE 2 DIABETES MELLITUS WITHOUT COMPLICATIONS Qualifiers: Diabetes mellitus type: type 2 Diabetes mellitus complication status: without complication Diabetes mellitus long term care phlebotomist insulin use: without long term care phlebotomist use Qualified Code(s): E11.9 - Type 2 diabetes mellitus without complications Assessment/Plan Respiratory Failure: Awake and alert on respirator Influenza A-completed Tamiflu CHF-still significant Chronic Atrial fibrillation Bronchial Asthma-stable Mechanical MVR Aortic Stenosis NIDDM Case discussed with Dr. Murray (cardiology), Dr. Alegria (critical care), patient and her son Giovani. Pt has Aortic Stenosis, A Fib with rapid vent response, CHF, MVR. Transfer to a tertiary center for possible valve surgery is being arranged. Suggest: Antibiotics per ID Solumedrol being tapered Inhaled bronchodilators O2 to maintain SaO2>90 Metoprolol and Cardizem per cardiology to control ventricular rate Furosemide PRN
[2016-07-21] MEDS: CHLORHEXIDINE GLUCONATE 0.12% 15ML CUP MM SCH (21:37)
[2016-07-21] MEDS: ATORVASTATIN CA 10 MG TABLET (FP) PO SCH (21:38)
[2016-07-22] MEDS: ALBUTEROL SO4 2.5/IPRATROPIUM 0.5 INH SOL 3 ML VIAL.NEB. NEB SCH ×4 (00:05→19:10)
[2016-07-22] MEDS: methylPREDNISolone NA SUCC 40 MG/1 ML VIAL IVPB SCH ×3 (02:50→21:19)
[2016-07-22 06:21] LABS: MCH 26.5 pg (25.7-33.7); MCHC 33.2 g/dl (32.0-36.0); MEAN CELL VOLUME 79.8 fl (80-96); MEAN PLT VOLUME 9.3 fl (7.5-11.1); NEUTROPHILS 95.3 % (42.8-82.8); PLATELET COUNT 160 K/MM3 (134-434); WHITE BLOOD COUNT 22.8 K/mm3 (4.0-10.0)
[2016-07-22 06:35] LABS: INR 3.28 (0.82-1.09)
[2016-07-22] MEDS: METOPROLOL TARTRATE 50 MG TABLET (FP) PO SCH ×4 (06:36→23:09)
[2016-07-22] MEDS: INSULIN SLIDING SCALE (NOVOLOG) 1 VIAL SQ SCH ×4 (06:36→21:28)
[2016-07-22 06:52] LABS: CALCIUM 8.3 mg/dL (8.5-10.1); CREATININE 0.6 mg/dL (0.55-1.02)
--- NOTE | 2016-07-22 07:12 | PN ---
Progress Note, Physician Chief Complaint: ID Remains afebrile off antibiotics Given dose of gentamicin yesterday Got Aztreonam full course of treatment before this Unable to extubated on 60% FIO2 - Current Medication List Current Medications: Active Medications Acetaminophen (Tylenol -) 650 mg PO Q6H PRN PRN Reason: FEVER OR PAIN Al Hydroxide/Mg Hydroxide (Mylanta Oral Suspension -) 30 ml PO Q12H PRN PRN Reason: DYSPEPSIA Albuterol/Ipratropium (Duoneb -) 1 amp NEB QIDR [facility] Last Admin: 07/22/16 06:31 Dose: 1 amp Atorvastatin Calcium (Lipitor -) 10 mg PO HS [facility] Last Admin: 07/21/16 21:38 Dose: 10 mg Chlorhexidine Gluconate (Peridex -) 15 ml MM BID [facility] Last Admin: 07/21/16 21:37 Dose: 15 ml Cholecalciferol (Vitamin D3 -) 1,000 unit PO DAILY [facility] Last Admin: 07/21/16 11:11 Dose: 1,000 unit Enalapril Maleate (Vasotec -) 20 mg PO DAILY [facility] Last Admin: 07/21/16 11:11 Dose: 20 mg Furosemide (Lasix Injection -) 40 mg IVPUSH DAILY [facility] Last Admin: 07/21/16 11:10 Dose: 40 mg Guaifenesin (Diabetic Tussin Dm -) 5 ml PO Q6H PRN PRN Reason: COUGH Famotidine/Sodium Chloride (Pepcid 20 Mg Premixed Ivpb -) 50 mls @ 100 mls/hr IVPB BID [facility] Last Admin: 07/21/16 21:38 Dose: 100 mls/hr Diltiazem HCl 125 mg/ Dextrose 125 mls @ 5 mls/hr IVPB TITR DARWIN; 5 MG/HR PRN Reason: Protocol Last Admin: 07/21/16 10:45 Dose: 5 mls/hr Insulin Aspart (Novolog Vial Sliding Scale -) 1 vial SQ ACHS DARWIN PRN Reason: Protocol Last Admin: 07/22/16 06:36 Dose: 4 units Methylprednisolone Sodium Succinate (Solu-Medrol -) 40 mg IVPB Q8H-IV [facility] Last Admin: 07/22/16 02:50 Dose: 40 mg Metoprolol Tartrate (Lopressor -) 50 mg PO Q6HPO [facility] Last Admin: 07/22/16 06:36 Dose: 50 mg Mometasone Furoate (Asmanex 220mcg -) 1 puff IH DAILY [facility] Last Admin: 07/21/16 11:06 Dose: Not Given Multivitamins/Minerals/Vitamin C (Tab-A-Vit -) 1 tab PO DAILY [facility] Last Admin: 07/21/16 11:11 Dose: 1 tab - Objective Vital Signs: Vital Signs Temperature 98.2 F 07/22/16 06:00 Pulse Rate 95 H 07/22/16 06:00 Respiratory Rate 16 07/22/16 06:00 Blood Pressure 121/69 07/22/16 06:00 O2 Sat by Pulse Oximetry (%) 98 07/21/16 21:00 Constitutional: Yes: Thin Cardiovascular: Yes: Murmur, S1, S2 Respiratory: Yes: WNL, Regular, CTA Bilaterally Gastrointestinal: Yes: WNL, Normal Bowel Sounds, Soft. No: Tenderness Edema: No Labs: CBC, BMP 07/22/16 05:20 INR, PTT INR 3.28 (0.82-1.09) H 07/22/16 05:20 Problem List - Problems (1) Atrial fibrillation with rapid ventricular response Code(s): I48.91 - UNSPECIFIED ATRIAL FIBRILLATION (2) Pneumonia due to virus Code(s): J12.9 - VIRAL PNEUMONIA, UNSPECIFIED (3) Influenza A Code(s): J10.1 - FLU DUE TO OTH IDENT INFLUENZA VIRUS W OTH RESP MANIFEST (4) H/O mitral valve replacement Code(s): Z95.2 - PRESENCE OF PROSTHETIC HEART VALVE (5) Atrial fibrillation with tachycardic ventricular rate Code(s): I48.91 - UNSPECIFIED ATRIAL FIBRILLATION Assessment/Plan Microbiology Laboratory Tests 07/21/16 07/21/16 07/22/16 08:36 08:50 05:20 WBC 22.8 H Hgb 10.0 L Hct 30.0 L INR ABG pO2 at Pt Temp 93.6 D Oxygen Flow Rate 60% Anion Gap BUN 37 H Creatinine 0.4 L 07/22/16 07/22/16 05:20 05:20 WBC Hgb Hct INR 3.28 H ABG pO2 at Pt Temp Oxygen Flow Rate Anion Gap Pending BUN Pending Creatinine Assessment Rapid atrial fibrillation S/P treatment for PNA Citrobacter Recent Influenza Mechanical valve replacement Severe Aortic stenosis Plan Observe off antibiotic Mention made of transfer to tertiary care facility Repeat cultures from yesterday pending [facility]
[2016-07-22 08:13] LABS: ARTERIAL BLOOD GAS pH 7.54 (7.35-7.45)
[2016-07-22 08:14] LABS: ALLENS TEST POSITIVE; ART PUNCT SITE RIGHT RADIAL; ARTERIAL BLD GAS O2 SATURATION 99.7 % (90-98.9); ARTERIAL BLOOD GAS BASE EXCESS 12.2 meq/l (-2-2); LPM/O2% 60; MECH. VENT. YES; PT. ON O2? YES; TYPE OF O2 MECH VENT; VT/PRESS 300
[2016-07-22 08:15] LABS: VENT RATE 16
--- NOTE | 2016-07-22 08:54 | PN ---
Progress Note (short form) - Note Progress Note: Review of previous thyroid tests: TSH levels- 07/21/2016: 0.02 07/07/2016: 0.25 05/24/2016: 1.23 T4 on 07/07/16: 1.34 Impression: Low TSH secondary to non-thyroid medical illness including use of high dose corticosteroids versus hyperthyroidism? Suggest:check Free T4, T3 Endocrine consult? Problem List - Problems (1) Respiratory failure Code(s): J96.90 - RESPIRATORY FAILURE, UNSP, UNSP W HYPOXIA OR HYPERCAPNIA Qualifiers: Qualified Code(s): J96.01 - Acute respiratory failure with hypoxia (2) Pneumonia and influenza Code(s): J11.00 - FLU DUE TO UNIDENTIFIED FLU VIRUS W UNSP TYPE OF PNEUMONIA (3) Atrial fibrillation with rapid ventricular response Code(s): I48.91 - UNSPECIFIED ATRIAL FIBRILLATION (4) Bronchial asthma Code(s): J45.909 - UNSPECIFIED ASTHMA, UNCOMPLICATED (5) History of mitral valve replacement with mechanical valve Code(s): Z95.2 - PRESENCE OF PROSTHETIC HEART VALVE (6) Aortic stenosis Code(s): I35.0 - NONRHEUMATIC AORTIC (VALVE) STENOSIS Qualifiers: (7) Diabetes mellitus Code(s): E11.9 - TYPE 2 DIABETES MELLITUS WITHOUT COMPLICATIONS Qualifiers: Qualified Code(s): E11.9 - Type 2 diabetes mellitus without complications
--- NOTE | 2016-07-22 09:54 | PN ---
Progress Note (short form) - Note Progress Note: Seen and examined in ICU Remains intubated Trial of PSV this AM did not tolerate 2/2 tachypnia Denies: CAMP/n/v/CP weaned of cardizem drip family discussions about possible transfer for TAVR Active Medications Acetaminophen (Tylenol -) 650 mg PO Q6H PRN PRN Reason: FEVER OR PAIN Al Hydroxide/Mg Hydroxide (Mylanta Oral Suspension -) 30 ml PO Q12H PRN PRN Reason: DYSPEPSIA Albuterol/Ipratropium (Duoneb -) 1 amp NEB QIDR [facility] Last Admin: 07/22/16 06:31 Dose: 1 amp Atorvastatin Calcium (Lipitor -) 10 mg PO HS [facility] Last Admin: 07/21/16 21:38 Dose: 10 mg Chlorhexidine Gluconate (Peridex -) 15 ml MM BID [facility] Last Admin: 07/21/16 21:37 Dose: 15 ml Cholecalciferol (Vitamin D3 -) 1,000 unit PO DAILY [facility] Last Admin: 07/21/16 11:11 Dose: 1,000 unit Enalapril Maleate (Vasotec -) 20 mg PO DAILY [facility] Last Admin: 07/21/16 11:11 Dose: 20 mg Furosemide (Lasix Injection -) 40 mg IVPUSH DAILY [facility] Last Admin: 07/21/16 11:10 Dose: 40 mg Guaifenesin (Diabetic Tussin Dm -) 5 ml PO Q6H PRN PRN Reason: COUGH Famotidine/Sodium Chloride (Pepcid 20 Mg Premixed Ivpb -) 50 mls @ 100 mls/hr IVPB BID [facility] Last Admin: 07/21/16 21:38 Dose: 100 mls/hr Insulin Aspart (Novolog Vial Sliding Scale -) 1 vial SQ ACHS [facility] PRN Reason: Protocol Last Admin: 07/22/16 06:36 Dose: 4 units Methylprednisolone Sodium Succinate (Solu-Medrol -) 40 mg IVPB Q12H [facility] Metoprolol Tartrate (Lopressor -) 50 mg PO Q6HPO [facility] Last Admin: 07/22/16 06:36 Dose: 50 mg Mometasone Furoate (Asmanex 220mcg -) 1 puff IH DAILY [facility] Last Admin: 07/21/16 11:06 Dose: Not Given Multivitamins/Minerals/Vitamin C (Tab-A-Vit -) 1 tab PO DAILY [facility] Last Admin: 07/21/16 11:11 Dose: 1 tab Vital Signs Period Temp Pulse Resp BP Sys/Gold Pulse Ox Last 24 Hr 98.0 F-99.5 F 84-105 16-22 91-134/50-69 98-100 Intake & Output 07/19/16 07/20/16 07/21/16 07/22/16 23:59 23:59 23:59 23:59 Intake Total 766 1540 1035 280 Output Total 1200 1500 1400 250 Balance -434 40 -365 30 Weight 32.744 kg 34.337 kg 32.375 kg 32.744 kg Exam: general: cachectic, no distress, intubated HEENT: PRERRL CV: irr, irr. SM Pulm: CTA Abd: SNTND Ext: WWP no edema Neuro: awake, alert following commands ABG Results ABG pH 7.54 (7.35-7.45) H 07/22/16 08:10 ABG pCO2 at Pt Temp 42.1 mmHg (35-45) 07/22/16 08:10 ABG pO2 at Pt Temp 165.0 mmHg (68-100) H* D 07/22/16 08:10 ABG HCO3 36.0 meq/L (22-26) H 07/22/16 08:10 ABG O2 Sat (Measured) 99.7 % (90-98.9) H* 07/22/16 08:10 ABG O2 Content 13.1 % vol (15-22) L 07/22/16 08:10 ABG Base Excess 12.2 meq/l (-2-2) H 07/22/16 08:10 CBCD WBC 22.8 K/mm3 (4.0-10.0) H 07/22/16 05:20 RBC 3.76 M/mm3 (3.60-5.2) 07/22/16 05:20 Hgb 10.0 GM/dL (10.7-15.3) L 07/22/16 05:20 Hct 30.0 % (32.4-45.2) L 07/22/16 05:20 MCV 79.8 fl (80-96) L 07/22/16 05:20 MCHC 33.2 g/dl (32.0-36.0) 07/22/16 05:20 RDW 16.0 % (11.6-15.6) H 07/22/16 05:20 Plt Count 160 K/MM3 (134-434) 07/22/16 05:20 MPV 9.3 fl (7.5-11.1) 07/22/16 05:20 CMP Sodium 148 mmol/L (136-145) H 07/22/16 05:20 Potassium 3.8 mmol/L (3.5-5.1) 07/22/16 05:20 Chloride 102 mmol/L (98-107) 07/22/16 05:20 Carbon Dioxide 39 mmol/L (21-32) H 07/22/16 05:20 Anion Gap 7 (8-16) L 07/22/16 05:20 BUN 38 mg/dL (7-18) H 07/22/16 05:20 Creatinine 0.6 mg/dL (0.55-1.02) D 07/22/16 05:20 Creat Clearance w eGFR > 60 (>60) 07/21/16 08:36 Random Glucose 184 mg/dL (74-106) H 07/22/16 05:20 Calcium 8.3 mg/dL (8.5-10.1) L 07/22/16 05:20 Total Bilirubin 1.8 mg/dL (0.2-1.0) H D 07/21/16 08:36 AST 42 U/L (15-37) H D 07/21/16 08:36 ALT 43 U/L (12-78) D 07/21/16 08:36 Alkaline Phosphatase 106 U/L (45-117) D 07/21/16 08:36 Total Protein 4.7 g/dl (6.4-8.2) L 07/21/16 08:36 Albumin 2.1 g/dl (3.4-5.0) L 07/21/16 08:36 Microbiology 07/18/16 12:05 Blood - Peripheral Venous Blood Culture - Preliminary NO GROWTH OBTAINED AFTER 72 HOURS, INCUBATION TO CONTINUE FOR 2 DAYS. 07/18/16 10:29 Blood - Peripheral Venous Blood Culture - Preliminary NO GROWTH OBTAINED AFTER 72 HOURS, INCUBATION TO CONTINUE FOR 2 DAYS. 07/08/16 17:00 Nasopharyngeal Swab Respiratory Virus Panel - Final 07/13/16 17:00 Blood - Peripheral Venous Blood Culture - Final NO GROWTH AFTER 5 DAYS INCUBATION 07/13/16 17:00 Blood - Peripheral Venous Blood Culture - Final NO GROWTH AFTER 5 DAYS INCUBATION 07/15/16 09:40 Sputum - Endotrachea Suction/Ventilator Gram Stain - Final 07/15/16 09:40 Sputum - Endotrachea Suction/Ventilator Sputum Culture - Final Citrobacter Freundii Complex 07/14/16 22:00 Sputum - Endotrachea Suction/Ventilator Gram Stain - Final 07/14/16 22:00 Sputum - Endotrachea Suction/Ventilator Sputum Culture - Final Citrobacter Freundii Complex 07/13/16 17:30 Urine For Antigen Detection Legionella Antigen - Final 07/13/16 17:30 Urine For Antigen Detection Streptococcus pneumoniae Antigen (M - Final 07/13/16 11:00 Urine - Urine Magana Urine Culture - Final NO GROWTH OBTAINED 07/08/16 17:10 Blood - Peripheral Venous Blood Culture - Final NO GROWTH AFTER 5 DAYS INCUBATION 07/08/16 17:10 Blood - Peripheral Venous Blood Culture - Final NO GROWTH AFTER 5 DAYS INCUBATION 07/07/16 17:30 Blood - Peripheral Venous Blood Culture - Final NO GROWTH AFTER 5 DAYS INCUBATION 07/07/16 17:30 Blood - Peripheral Venous Blood Culture - Final NO GROWTH AFTER 5 DAYS INCUBATION 07/08/16 12:00 Sputum - Expectorated Gram Stain - Final 07/08/16 12:00 Sputum - Expectorated Sputum Culture - Final NORMAL RESPIRATORY NOAH 07/08/16 10:45 Urine - Urine Clean Catch Urine Culture - Final NO GROWTH OBTAINED 07/08/16 17:00 Nasopharyngeal Swab Influenza Types A,B Antigen (WINNIE) - Final 07/08/16 17:00 Nasopharyngeal Swab - Final 07/06/16 21:33 Urine - Urine Clean Catch Urine Culture - Final Lactobacillus Species CXR: grossly unchanged: large lung pinon, RML/RLL infiltrate ASSESSMENT AND PLAN: Acute on Chronic Hypoxic and Hypercapneic Respiratory Failure Acute on Chronic LV Diastolic Heart Failure Influenza A Pneumonia Atrial Fibrillation with RVR s/p mech MVR Aortic Stenosis Pulmonary HTN Acute COPD Exacerbation - mechanical ventilation - dailt PSV as toelrated - wean Fio2, PEEP and RR today - possible transfer to tertiary care for TAVR given critical and flash pulm edema - ABX per ID: s/p tamiflu - IV medrol taper today - inhaled bronchodilators - Rate control per Cardiology, currently off cardizem drip - IV Heparin - IV Lasix - DVT/GI prophylaxis Peter GIBSONP Pulm/CCM CCT: 35m
[2016-07-22] MEDS: FUROSEMIDE 40 MG/4 ML INJECTABLE VIAL IVPUSH SCH (10:11)
[2016-07-22] MEDS: MOMETASONE FUROATE 220 MCG/IH INHALER IH SCH (10:11)
[2016-07-22] MEDS: CHLORHEXIDINE GLUCONATE 0.12% 15ML CUP MM SCH ×2 (10:12→21:19)
[2016-07-22] MEDS: MULTIVITAMINS (DAILY MVI) TABLET (FP) PO SCH (10:12)
[2016-07-22] MEDS: FAMOTIDINE 20 MG/50 ML IVPB 50 ML IVPB SCH ×2 (10:12→21:19)
[2016-07-22] MEDS: CHOLECALCIFEROL (VITAMIN D3) 1,000 UNIT TABLET (FP) PO SCH (10:12)
[2016-07-22] MEDS: ENALAPRIL MALEATE 10 MG TABLET (FP) PO SCH (10:12)
--- NOTE | 2016-07-22 16:48 | PN ---
Physical Exam: SUBJECTIVE: Patient seen and examined. She is laying in bed, in no acute distress. Remains intubated. OBJECTIVE: Vital Signs Period Temp Pulse Resp BP Sys/Gold Pulse Ox Last 24 Hr 98.0 F-999.3 F 84-112 14-22 97-139/50-69 98-100 GENERAL: The patient is awake, alert, and fully oriented, in no acute distress. HEAD: Normal with no signs of trauma. EYES: PERRL, extraocular movements intact, sclera anicteric, conjunctiva clear. No ptosis. ENT: Ears normal, nares patent, oropharynx clear without exudates, moist mucous membranes. NECK: Trachea midline, full range of motion, supple. LUNGS: Breath sounds equal, clear to auscultation bilaterally, no wheezes, no crackles, no accessory muscle use., remains intubated, NGT in place HEART: Irregular, + murmur, no rub or gallop. ABDOMEN: Soft, nontender, nondistended, normoactive bowel sounds, no guarding, no rebound, no hepatosplenomegaly, no masses. EXTREMITIES: 2+ pulses, warm, well-perfused, non pitting edema, bilateral lower ext. NEUROLOGICAL: Normal speech, gait not observed. PSYCH: Normal mood, normal affect. SKIN: Warm, dry, normal turgor, no rashes or lesions noted Laboratory Results - last 24 hr 07/21/16 07/21/16 07/22/16 17:15 21:41 05:20 WBC 22.8 H RBC 3.76 Hgb 10.0 L Hct 30.0 L MCV 79.8 L MCHC 33.2 RDW 16.0 H Plt Count 160 MPV 9.3 Neutrophils % 95.3 H Lymphocytes % 1.5 L D Monocytes % 3.2 L Eosinophils % 0.0 Basophils % 0.0 INR Anticoagulation Therapy Puncture Site ABG pH ABG pCO2 at Pt Temp ABG pO2 at Pt Temp ABG HCO3 ABG O2 Sat (Measured) ABG O2 Content ABG Base Excess Raciel Test O2 Delivery Device Oxygen Flow Rate Vent Mode Vent Rate Mechanical Rate PEEP Pressure Support Vent Sodium Potassium Chloride Carbon Dioxide Anion Gap BUN Creatinine POC Glucometer [phone] Random Glucose Calcium Gentamicin Trough 07/22/16 07/22/16 07/22/16 05:20 05:20 05:20 WBC RBC Hgb Hct MCV MCHC RDW Plt Count MPV Neutrophils % Lymphocytes % Monocytes % Eosinophils % Basophils % INR 3.28 H Anticoagulation Therapy Puncture Site ABG pH ABG pCO2 at Pt Temp ABG pO2 at Pt Temp ABG HCO3 ABG O2 Sat (Measured) ABG O2 Content ABG Base Excess Raciel Test O2 Delivery Device Oxygen Flow Rate Vent Mode Vent Rate Mechanical Rate PEEP Pressure Support Vent Sodium 148 H Potassium 3.8 Chloride 102 Carbon Dioxide 39 H Anion Gap 7 L BUN 38 H Creatinine 0.6 D POC Glucometer Random Glucose 184 H Calcium 8.3 L Gentamicin Trough 0.8 07/22/16 07/22/16 06:05 08:10 WBC RBC Hgb Hct MCV MCHC RDW Plt Count MPV Neutrophils % Lymphocytes % Monocytes % Eosinophils % Basophils % INR Anticoagulation Therapy Y Puncture Site Right radial ABG pH 7.54 H ABG pCO2 at Pt Temp 42.1 ABG pO2 at Pt Temp 165.0 H* D ABG HCO3 36.0 H ABG O2 Sat (Measured) 99.7 H* ABG O2 Content 13.1 L ABG Base Excess 12.2 H Raciel Test Positive O2 Delivery Device Mech vent Oxygen Flow Rate 60 Vent Mode A/c Vent Rate 16 Mechanical Rate Yes PEEP 8.0 Pressure Support Vent 300 Sodium Potassium Chloride Carbon Dioxide Anion Gap BUN Creatinine POC Glucometer [phone] Random Glucose Calcium Gentamicin Trough Active Medications Generic Name Dose Route Start Last Admin Trade Name Freq PRN Reason Stop Dose Admin Acetaminophen 650 mg 07/21/16 10:34 Tylenol - PO Q6H PRN FEVER OR PAIN Al Hydroxide/Mg Hydroxide 30 ml 07/21/16 10:31 Mylanta Oral Suspension - PO Q12H PRN DYSPEPSIA Albuterol/Ipratropium 1 amp 07/21/16 12:00 07/22/16 11:24 Duoneb - NEB 1 amp QIDR [facility] Administration Atorvastatin Calcium 10 mg 07/21/16 22:00 07/21/16 21:38 Lipitor - PO 10 mg HS [facility] Administration Chlorhexidine Gluconate 15 ml 07/21/16 22:00 07/22/16 10:12 Peridex - MM 15 ml BID [facility] Administration Cholecalciferol 1,000 unit 07/21/16 10:45 07/22/16 10:12 Vitamin D3 - PO 1,000 unit DAILY [facility] Administration Enalapril Maleate 20 mg 07/21/16 10:45 07/22/16 10:12 Vasotec - PO 20 mg DAILY [facility] Administration Furosemide 40 mg 07/21/16 10:30 07/22/16 10:11 Lasix Injection - IVPUSH 40 mg DAILY [facility] Administration Guaifenesin 5 ml 07/21/16 10:28 Diabetic Tussin Dm - PO Q6H PRN COUGH Famotidine/Sodium Chloride 50 mls @ 100 mls/hr 07/21/16 10:45 07/22/16 10:12 Pepcid 20 Mg Premixed Ivpb - IVPB 100 mls/hr BID [facility] Administration Insulin Aspart 1 vial 07/21/16 11:00 07/22/16 10:55 Novolog Vial Sliding Scale - SQ 6 units ACHS [facility] Administration Protocol Methylprednisolone Sodium Succinate 40 mg 07/22/16 22:00 07/22/16 10:00 Solu-Medrol - IVPB 40 mg Q12H [facility] Administration Metoprolol Tartrate 50 mg 07/21/16 10:30 07/22/16 12:46 Lopressor - PO 50 mg Q6HPO [facility] Administration Mometasone Furoate 1 puff 07/21/16 10:30 07/22/16 10:11 Asmanex 220mcg - IH Not Given DAILY [facility] Multivitamins/Minerals/Vitamin C 1 tab 07/21/16 10:45 07/22/16 10:12 Tab-A-Vit - PO 1 tab DAILY [facility] Administration Imagin05/23/2016 Echo: Normal LV size, mildly decreased LV, mech MV replacement, mild TR, RVSP 30-40 mmHg 07/07/2016 Echo: Normal LV size and fx, mech. MV replacement, mild to moderate TR, RSVP 30-40mmHg, aortic valve not assessed ASSESSMENT/PLAN: Patient is an 81 year-old female with a significant past medical history of hypertension, atrial fibrillation, severe , mechanical MV replacement, CVA, diabetes mellitus and asthma. She was admitted on 07/09/2016 atrial fib with RVR and also found to be + for Influenza A. Hospital course complicated by acute hypoxic and hypercapnic respiratory failure requiring intubation with attempts to extubate. Sepsis likely secondary to Pneumonia Assessment/Plan: Met sepsis criteria on admission Lactic acidosis 2.321, WBC 22.8, tachycardia Lactic acidosis resolved, WBC remains elevated blood cultures with no growth + influenza A Sputum with citrobacter freudii Given Gentamicin yesterday Observe off antibiotics s/p Aztreoman, treatment completed ID following WBC trending up from 15.7>22.8 Acute hypoxic and hypercapnic respiratory failure Assessment/Plan: Patient extubated on 07/20, and reintubated the same day Continues to be intubated ABGs today shows metabolic alkalosis with superimposed respiratory alkalosis Influenza A - resolved Assessment/Plan: completed course of Tamiflu Remains afebrile Cardiology: Acute on chronic diastolic heart failure Assessment/Plan: On Enalapril, Lopressor, and Lasix Cardiology following As per cardiology note, subsea engineer discussed with pt the possibility to transfer to a medical center for transcatheter aortic valve replacement (TAVR) Atrial fib with RVR - improving Assessment/Plan: Off cardizem drip On Metoprolol 50mg q6 Mechanical Valve INR today 3.28, will hold off Coumadin and check INR in a.m. Goal (3.0 to 3.5) Endocrine NIDDM - -insulin sliding scale coverage F.E.N. Feeds through NGT Electrolytes: replete as indicated DVT Prophylaxis: On Coumadin, INR 3.28 (goal INR 3.0 - 3.5) Therapeutic, will hold today's dose of Coumadin and check INR in a.m. Given Coumadin 5mg yesterday. Disposition: continues to require inpatient care. Full Code. Visit type - Emergency Visit Emergency Visit: Yes ED Registration Date: 07/09/16 Care time: The patient presented to the Emergency Department on the above date and was hospitalized for further evaluation of their emergent condition. - New Patient This patient is new to me today: Yes Date on this admission: 07/22/16 - Critical Care Critical Care patient: Yes Total Critical Care Time (in minutes): 60 Critical Care Statement: The care of this patient involved high complexity decision making to prevent further life threatening deterioration of the patient 's condition and/or to evalute & treat vital organ system(s) failure or risk of failure. - Discharge Referral Referred to [facility] Med P.C.: No
[2016-07-22] MEDS ORDERED: WARFARIN NA 5 MG TABLET (UD) PO ONE (20:26)
[2016-07-22] MEDS ORDERED: WARFARIN NA 2 MG TABLET (UD) PO ONE (20:47)
[2016-07-22] MEDS: ATORVASTATIN CA 10 MG TABLET (FP) PO SCH (21:18)
--- NOTE | 2016-07-22 22:52 | PN ---
Progress Note, Physician History of Present Illness: Awake on vent, rate-controlled afib on lopressor, weaned off Cardizem gtt. - Current Medication List Current Medications: Active Medications Acetaminophen (Tylenol -) 650 mg PO Q6H PRN PRN Reason: FEVER OR PAIN Al Hydroxide/Mg Hydroxide (Mylanta Oral Suspension -) 30 ml PO Q12H PRN PRN Reason: DYSPEPSIA Albuterol/Ipratropium (Duoneb -) 1 amp NEB QIDR [facility] Last Admin: 07/22/16 19:10 Dose: 1 amp Atorvastatin Calcium (Lipitor -) 10 mg PO HS [facility] Last Admin: 07/22/16 21:18 Dose: 10 mg Chlorhexidine Gluconate (Peridex -) 15 ml MM BID [facility] Last Admin: 07/22/16 21:19 Dose: 15 ml Cholecalciferol (Vitamin D3 -) 1,000 unit PO DAILY [facility] Last Admin: 07/22/16 10:12 Dose: 1,000 unit Enalapril Maleate (Vasotec -) 20 mg PO DAILY [facility] Last Admin: 07/22/16 10:12 Dose: 20 mg Furosemide (Lasix Injection -) 40 mg IVPUSH DAILY [facility] Last Admin: 07/22/16 10:11 Dose: 40 mg Guaifenesin (Diabetic Tussin Dm -) 5 ml PO Q6H PRN PRN Reason: COUGH Famotidine/Sodium Chloride (Pepcid 20 Mg Premixed Ivpb -) 50 mls @ 100 mls/hr IVPB BID [facility] Last Admin: 07/22/16 21:19 Dose: 100 mls/hr Insulin Aspart (Novolog Vial Sliding Scale -) 1 vial SQ ACHS [facility] PRN Reason: Protocol Last Admin: 07/22/16 21:28 Dose: 8 units Methylprednisolone Sodium Succinate (Solu-Medrol -) 40 mg IVPB Q12H [facility] Last Admin: 07/22/16 21:19 Dose: 40 mg Metoprolol Tartrate (Lopressor -) 50 mg PO Q6HPO [facility] Last Admin: 07/22/16 17:47 Dose: 50 mg Mometasone Furoate (Asmanex 220mcg -) 1 puff IH DAILY [facility] Last Admin: 07/22/16 10:11 Dose: Not Given Multivitamins/Minerals/Vitamin C (Tab-A-Vit -) 1 tab PO DAILY [facility] Last Admin: 07/22/16 10:12 Dose: 1 tab - Objective Vital Signs: Vital Signs Temperature 98.7 F 07/22/16 22:00 Pulse Rate 100 H 07/22/16 22:00 Respiratory Rate 17 07/22/16 22:00 Blood Pressure 113/53 07/22/16 22:00 O2 Sat by Pulse Oximetry (%) 98 07/22/16 21:00 Constitutional: Yes: Thin Cardiovascular: Yes: Pulse Irregular, Murmur (2/6 SM), S1, S2, Other ([place] mech valve sounds) Respiratory: Yes: Intubated, Mechanically Ventilated, Rhonchi Gastrointestinal: Yes: Normal Bowel Sounds, Soft Edema: No Labs: CBC, BMP 07/22/16 05:20 07/22/16 05:20 INR, PTT INR 3.28 (0.82-1.09) H 07/22/16 05:20 - ....Imaging Chest X-ray: Report Reviewed (Improved right base) Problem List - Problems (1) Atrial fibrillation with rapid ventricular response Code(s): I48.91 - UNSPECIFIED ATRIAL FIBRILLATION (2) Diabetes mellitus Code(s): E11.9 - TYPE 2 DIABETES MELLITUS WITHOUT COMPLICATIONS Qualifiers: Diabetes mellitus type: type 2 Diabetes mellitus complication status: without complication Diabetes mellitus longterm insulin use: without oysterman use Qualified Code(s): E11.9 - Type 2 diabetes mellitus without complications (3) History of mitral valve replacement with mechanical valve Code(s): Z95.2 - PRESENCE OF PROSTHETIC HEART VALVE (4) Hypercholesteremia Code(s): E78.0 - PURE HYPERCHOLESTEROLEMIA * DO NOT USE * (5) Hypertension Code(s): I10 - ESSENTIAL (PRIMARY) HYPERTENSION Qualifiers: Hypertension type: essential hypertension Qualified Code(s): I10 - Essential (primary) hypertension (6) Premature ventricular contraction Code(s): I49.3 - VENTRICULAR PREMATURE DEPOLARIZATION (7) Acute on chronic diastolic (congestive) heart failure Code(s): I50.33 - ACUTE ON CHRONIC DIASTOLIC (CONGESTIVE) HEART FAILURE (8) Influenza A Code(s): J10.1 - FLU DUE TO OTH IDENT INFLUENZA VIRUS W OTH RESP MANIFEST (9) Pneumonia and influenza Code(s): J11.00 - FLU DUE TO UNIDENTIFIED FLU VIRUS W UNSP TYPE OF PNEUMONIA (10) Aortic stenosis Code(s): I35.0 - NONRHEUMATIC AORTIC (VALVE) STENOSIS Qualifiers: 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 Acute on chronic hypoxic and hypercapneic respiratory failure referable to 2. Recurrent acute on chronic diastolic failure 3. Influenza A, RLL hospitalized acquired PNA improving 4. Permanent atrial fibrillation with RVR on A/C therapy with therapeutic INR 5. Post mechanical MVR 6. Critical aortic valve stenosis 7. DM 8. Hyperlipidemia 9. Anemia PLAN: 1. Continue Lopressor 50 qid 2. Continue Vasotec 20 qd 3. Continue Lipitor 10 qhs 4. Continue Lasix 40 IV qd with monitor diuretic response, renal fxn and electrolytes, 5. Hold Coumadin pre-procedure, start heparin gtt once INR<2.5. Transfuse to maintain Hgb>8.0, GI prophylaxis 6. Vent wean as tolerated, completed antibiotics course to cover HCAP, post Tamiflu course, IV steroid taper and bronchodilators as per ID and pulmonary teams 7. Plan for transfer to [facility] for palliative BAV and eventual TAVR once stable
[2016-07-23] MEDS: ALBUTEROL SO4 2.5/IPRATROPIUM 0.5 INH SOL 3 ML VIAL.NEB. NEB SCH ×5 (00:06→23:36)
[2016-07-23] MEDS ORDERED: HEMOQUE TEST 1 EACH EACH ONE (05:31)
[2016-07-23] MEDS: METOPROLOL TARTRATE 50 MG TABLET (FP) PO SCH ×3 (05:45→18:37)
[2016-07-23] MEDS: INSULIN SLIDING SCALE (NOVOLOG) 1 VIAL SQ SCH ×4 (06:11→22:55)
[2016-07-23 06:19] LABS: MCHC 33.8 g/dl (32.0-36.0); MEAN CELL VOLUME 79.9 fl (80-96); MEAN PLT VOLUME 9.3 fl (7.5-11.1); PLATELET COUNT 132 K/MM3 (134-434); RDW 16.4 % (11.6-15.6); WHITE BLOOD COUNT 22.6 K/mm3 (4.0-10.0)
[2016-07-23 06:29] LABS: INR 3.72 (0.82-1.09)
[2016-07-23 07:46] LABS: CALCIUM 7.8 mg/dL (8.5-10.1); MAGNESIUM 2.1 mg/dL (1.8-2.4)
[2016-07-23 07:47] LABS: CREATININE 0.4 mg/dL (0.55-1.02); PHOSPHOROUS 2.5 mg/dL (2.5-4.9)
[2016-07-23 07:51] LABS: ARTERIAL BLOOD GAS pH 7.56 (7.35-7.45)
[2016-07-23 07:52] LABS: ALLENS TEST POSITIVE; ART PUNCT SITE RIGHT RADIAL; ARTERIAL BLD GAS O2 SATURATION 96.2 % (90-98.9); ARTERIAL BLOOD GAS BASE EXCESS 15.6 meq/l (-2-2); ARTERIAL BLOOD GAS HCO3 39.8 meq/L (22-26); LPM/O2% 40; MECH. VENT. YES; PT. ON O2? YES; TYPE OF O2 MECH VENT
[2016-07-23 07:53] LABS: VENT RATE 14; VT/PRESS 300
[2016-07-23] MEDS ORDERED: POTASSIUM CHLORIDE 40 MEQ/30 ML UNIT DOSE CUP PO ONE (09:09)
--- NOTE | 2016-07-23 09:18 | PN ---
Progress Note (short form) - Note Progress Note: Seen and examined in the ICU Remains intubated c/o SOB with PSV trial family leaning towards [facility] for TAVR evaluation afebrile, HR stable off IV cardizem tapered steroids Current Medications Acetaminophen (Tylenol -) 650 mg PO Q6H PRN PRN Reason: FEVER OR PAIN Al Hydroxide/Mg Hydroxide (Mylanta Oral Suspension -) 30 ml PO Q12H PRN PRN Reason: DYSPEPSIA Albuterol/Ipratropium (Duoneb -) 1 amp NEB QIDR [facility] Last Admin: 07/23/16 06:30 Dose: 1 amp Atorvastatin Calcium (Lipitor -) 10 mg PO HS [facility] Last Admin: 07/22/16 21:18 Dose: 10 mg Chlorhexidine Gluconate (Peridex -) 15 ml MM BID [facility] Last Admin: 07/22/16 21:19 Dose: 15 ml Cholecalciferol (Vitamin D3 -) 1,000 unit PO DAILY [facility] Last Admin: 07/22/16 10:12 Dose: 1,000 unit Enalapril Maleate (Vasotec -) 20 mg PO DAILY [facility] Last Admin: 07/22/16 10:12 Dose: 20 mg Furosemide (Lasix Injection -) 40 mg IVPUSH DAILY [facility] Last Admin: 07/22/16 10:11 Dose: 40 mg Guaifenesin (Diabetic Tussin Dm -) 5 ml PO Q6H PRN PRN Reason: COUGH Famotidine/Sodium Chloride (Pepcid 20 Mg Premixed Ivpb -) 50 mls @ 100 mls/hr IVPB BID [facility] Last Admin: 07/22/16 21:19 Dose: 100 mls/hr Insulin Aspart (Novolog Vial Sliding Scale -) 1 vial SQ ACHS [facility] PRN Reason: Protocol Last Admin: 07/23/16 06:11 Dose: 8 units Methylprednisolone Sodium Succinate (Solu-Medrol -) 40 mg IVPB Q12H [facility] Last Admin: 07/22/16 21:19 Dose: 40 mg Metoprolol Tartrate (Lopressor -) 50 mg PO Q6HPO [facility] Last Admin: 07/23/16 05:45 Dose: 50 mg Mometasone Furoate (Asmanex 220mcg -) 1 puff IH DAILY [facility] Last Admin: 07/22/16 10:11 Dose: Not Given Multivitamins/Minerals/Vitamin C (Tab-A-Vit -) 1 tab PO DAILY [facility] Last Admin: 07/22/16 10:12 Dose: 1 tab Potassium Chloride (Kcl Oral Solution -) 40 meq PO ONCE ONE Stop: 07/23/16 09:10 Vital Signs Period Temp Pulse Resp BP Sys/Gold Pulse Ox Last 24 Hr 98.7 F-999.3 F 96-112 14-20 112-143/51-80 98-98 Intake & Output 07/20/16 07/21/16 07/22/16 07/23/16 23:59 23:59 23:59 23:59 Intake Total 1540 1035 1200 350 Output Total 1500 1400 450 Balance 40 -365 750 350 Weight 34.337 kg 32.375 kg 32.744 kg Exam: general: cachectic, no distress, intubated HEENT: PRERRL CV: irr, irr. SM Pulm: CTA Abd: SNTND Ext: WWP no edema Neuro: awake, alert following commands, writing questions on note pad ABG Results ABG pH 7.56 (7.35-7.45) H 07/23/16 07:50 ABG pCO2 at Pt Temp 43.9 mmHg (35-45) 07/23/16 07:50 ABG pO2 at Pt Temp 78.0 mmHg (68-100) D 07/23/16 07:50 ABG HCO3 39.8 meq/L (22-26) H 07/23/16 07:50 ABG O2 Sat (Measured) 96.2 % (90-98.9) 07/23/16 07:50 ABG O2 Content 11.8 % vol (15-22) L 07/23/16 07:50 ABG Base Excess 15.6 meq/l (-2-2) H* 07/23/16 07:50 CBCD WBC 22.6 K/mm3 (4.0-10.0) H 07/23/16 05:20 RBC 3.32 M/mm3 (3.60-5.2) L 07/23/16 05:20 Hgb 9.0 GM/dL (10.7-15.3) L 07/23/16 05:20 Hct 26.5 % (32.4-45.2) L 07/23/16 05:20 MCV 79.9 fl (80-96) L 07/23/16 05:20 MCHC 33.8 g/dl (32.0-36.0) 07/23/16 05:20 RDW 16.4 % (11.6-15.6) H 07/23/16 05:20 Plt Count 132 K/MM3 (134-434) L 07/23/16 05:20 MPV 9.3 fl (7.5-11.1) 07/23/16 05:20 CMP Sodium 148 mmol/L (136-145) H 07/23/16 05:20 Potassium 3.1 mmol/L (3.5-5.1) L 07/23/16 05:20 Chloride 101 mmol/L (98-107) 07/23/16 05:20 Carbon Dioxide 40 mmol/L (21-32) H 07/23/16 05:20 Anion Gap 7 (8-16) L 07/23/16 05:20 BUN 37 mg/dL (7-18) H 07/23/16 05:20 Creatinine 0.4 mg/dL (0.55-1.02) L D 07/23/16 05:20 Creat Clearance w eGFR > 60 (>60) 07/21/16 08:36 Random Glucose 267 mg/dL (74-106) H D 07/23/16 05:20 Calcium 7.8 mg/dL (8.5-10.1) L 07/23/16 05:20 Total Bilirubin 1.8 mg/dL (0.2-1.0) H D 07/21/16 08:36 AST 42 U/L (15-37) H D 07/21/16 08:36 ALT 43 U/L (12-78) D 07/21/16 08:36 Alkaline Phosphatase 106 U/L (45-117) D 07/21/16 08:36 Total Protein 4.7 g/dl (6.4-8.2) L 07/21/16 08:36 Albumin 2.1 g/dl (3.4-5.0) L 07/21/16 08:36 Microbiology 07/21/16 12:35 Blood - Peripheral Venous Blood Culture - Preliminary NO GROWTH OBTAINED AFTER 24 HOURS, INCUBATION TO CONTINUE FOR 4 DAYS. 07/18/16 12:05 Blood - Peripheral Venous Blood Culture - Preliminary NO GROWTH OBTAINED AFTER 96 HOURS, INCUBATION TO CONTINUE FOR 1 DAYS. 07/21/16 12:00 Blood - Peripheral Venous Blood Culture - Preliminary NO GROWTH OBTAINED AFTER 24 HOURS, INCUBATION TO CONTINUE FOR 4 DAYS. 07/18/16 10:29 Blood - Peripheral Venous Blood Culture - Preliminary NO GROWTH OBTAINED AFTER 96 HOURS, INCUBATION TO CONTINUE FOR 1 DAYS. 07/21/16 10:45 Urine - Urine - Catheterized Urine Culture - Final NO GROWTH OBTAINED 07/08/16 17:00 Nasopharyngeal Swab Respiratory Virus Panel - Final 07/13/16 17:00 Blood - Peripheral Venous Blood Culture - Final NO GROWTH AFTER 5 DAYS INCUBATION 07/13/16 17:00 Blood - Peripheral Venous Blood Culture - Final NO GROWTH AFTER 5 DAYS INCUBATION 07/15/16 09:40 Sputum - Endotrachea Suction/Ventilator Gram Stain - Final 07/15/16 09:40 Sputum - Endotrachea Suction/Ventilator Sputum Culture - Final Citrobacter Freundii Complex 07/14/16 22:00 Sputum - Endotrachea Suction/Ventilator Sputum Culture - Final Citrobacter Freundii Complex 07/08/16 17:00 Nasopharyngeal Swab Influenza Types A,B Antigen (WINNIE) - Final 07/08/16 17:00 Nasopharyngeal Swab - Final 07/06/16 21:33 Urine - Urine Clean Catch Urine Culture - Final Lactobacillus Species CXR: none today ASSESSMENT AND PLAN: Acute on Chronic Hypoxic and Hypercapneic Respiratory Failure Acute on Chronic LV Diastolic Heart Failure Influenza A Pneumonia Atrial Fibrillation with RVR s/p mech MVR Aortic Stenosis Pulmonary HTN Acute COPD Exacerbation - mechanical ventilation - dailty PSV as tolerated - possible transfer to tertiary care ([facility]) for TAVR given critical and recurrent flash pulm edema - ABX per ID: s/p tamiflu - IV medrol taper - inhaled bronchodilators - Rate control per Cardiology, currently off cardizem drip - IV Heparin - IV Lasix - DVT/GI prophylaxis Boerem ACNP Pulm/CCM CCT: 35m
[2016-07-23] MEDS: FUROSEMIDE 40 MG/4 ML INJECTABLE VIAL IVPUSH SCH (11:00)
[2016-07-23] MEDS: MOMETASONE FUROATE 220 MCG/IH INHALER IH SCH (11:00)
[2016-07-23] MEDS: FAMOTIDINE 20 MG/50 ML IVPB 50 ML IVPB SCH ×2 (11:00→21:33)
[2016-07-23] MEDS: methylPREDNISolone NA SUCC 40 MG/1 ML VIAL IVPB SCH (11:01)
[2016-07-23] MEDS: MULTIVITAMINS (DAILY MVI) TABLET (FP) PO SCH (11:01)
[2016-07-23] MEDS: ENALAPRIL MALEATE 10 MG TABLET (FP) PO SCH (11:01)
[2016-07-23] MEDS: CHOLECALCIFEROL (VITAMIN D3) 1,000 UNIT TABLET (FP) PO SCH (11:02)
[2016-07-23] MEDS: CHLORHEXIDINE GLUCONATE 0.12% 15ML CUP MM SCH ×2 (11:39→21:34)
--- NOTE | 2016-07-23 11:47 | PN ---
Progress Note, Physician History of Present Illness: Awake on vent, rate-controlled afib on lopressor, weaned off Cardizem gtt. - Current Medication List Current Medications: Active Medications Acetaminophen (Tylenol -) 650 mg PO Q6H PRN PRN Reason: FEVER OR PAIN Al Hydroxide/Mg Hydroxide (Mylanta Oral Suspension -) 30 ml PO Q12H PRN PRN Reason: DYSPEPSIA Albuterol/Ipratropium (Duoneb -) 1 amp NEB QIDR [facility] Last Admin: 07/23/16 06:30 Dose: 1 amp Atorvastatin Calcium (Lipitor -) 10 mg PO HS [facility] Last Admin: 07/22/16 21:18 Dose: 10 mg Chlorhexidine Gluconate (Peridex -) 15 ml MM BID [facility] Last Admin: 07/23/16 11:39 Dose: 15 ml Cholecalciferol (Vitamin D3 -) 1,000 unit PO DAILY [facility] Last Admin: 07/23/16 11:02 Dose: 1,000 unit Enalapril Maleate (Vasotec -) 20 mg PO DAILY [facility] Last Admin: 07/23/16 11:01 Dose: 20 mg Furosemide (Lasix Injection -) 40 mg IVPUSH DAILY [facility] Last Admin: 07/23/16 11:00 Dose: 40 mg Guaifenesin (Diabetic Tussin Dm -) 5 ml PO Q6H PRN PRN Reason: COUGH Famotidine/Sodium Chloride (Pepcid 20 Mg Premixed Ivpb -) 50 mls @ 100 mls/hr IVPB BID [facility] Last Admin: 07/23/16 11:00 Dose: 100 mls/hr Insulin Aspart (Novolog Vial Sliding Scale -) 1 vial SQ ACHS [facility] PRN Reason: Protocol Last Admin: 07/23/16 11:38 Dose: 6 units Methylprednisolone Sodium Succinate (Solu-Medrol -) 40 mg IVPB DAILY [facility] Last Admin: 07/23/16 11:01 Dose: 40 mg Metoprolol Tartrate (Lopressor -) 50 mg PO Q6HPO [facility] Last Admin: 07/23/16 11:02 Dose: 50 mg Mometasone Furoate (Asmanex 220mcg -) 1 puff IH DAILY [facility] Last Admin: 07/23/16 11:00 Dose: Not Given Multivitamins/Minerals/Vitamin C (Tab-A-Vit -) 1 tab PO DAILY [facility] Last Admin: 07/23/16 11:01 Dose: 1 tab - Objective Vital Signs: Vital Signs Temperature 99.4 F 07/23/16 10:00 Pulse Rate 113 H 07/23/16 10:00 Respiratory Rate 15 07/23/16 10:00 Blood Pressure 124/58 07/23/16 10:00 O2 Sat by Pulse Oximetry (%) 97 07/23/16 09:17 Constitutional: Yes: No Distress, Calm, Thin Cardiovascular: Yes: Tachycardia, Pulse Irregular, Murmur (2/6 SM) Respiratory: Yes: Intubated, Mechanically Ventilated, Rhonchi Gastrointestinal: Yes: Normal Bowel Sounds, Soft Edema: No Labs: CBC, BMP 07/23/16 05:20 07/23/16 05:20 INR, PTT INR 3.72 (0.82-1.09) H 07/23/16 05:20 Problem List - Problems (1) Atrial fibrillation with rapid ventricular response Code(s): I48.91 - UNSPECIFIED ATRIAL FIBRILLATION (2) Diabetes mellitus Code(s): E11.9 - TYPE 2 DIABETES MELLITUS WITHOUT COMPLICATIONS Qualifiers: Diabetes mellitus type: type 2 Diabetes mellitus complication status: without complication Diabetes mellitus sweat band sewer insulin use: without nursing home use Qualified Code(s): E11.9 - Type 2 diabetes mellitus without complications (3) History of mitral valve replacement with mechanical valve Code(s): Z95.2 - PRESENCE OF PROSTHETIC HEART VALVE (4) Hypercholesteremia Code(s): E78.0 - PURE HYPERCHOLESTEROLEMIA * DO NOT USE * (5) Hypertension Code(s): I10 - ESSENTIAL (PRIMARY) HYPERTENSION Qualifiers: Hypertension type: essential hypertension Qualified Code(s): I10 - Essential (primary) hypertension (6) Premature ventricular contraction Code(s): I49.3 - VENTRICULAR PREMATURE DEPOLARIZATION (7) Acute on chronic diastolic (congestive) heart failure Code(s): I50.33 - ACUTE ON CHRONIC DIASTOLIC (CONGESTIVE) HEART FAILURE (8) Influenza A Code(s): J10.1 - FLU DUE TO OTH IDENT INFLUENZA VIRUS W OTH RESP MANIFEST (9) Pneumonia and influenza Code(s): J11.00 - FLU DUE TO UNIDENTIFIED FLU VIRUS W UNSP TYPE OF PNEUMONIA (10) Aortic stenosis Code(s): I35.0 - NONRHEUMATIC AORTIC (VALVE) STENOSIS Qualifiers: 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 Acute on chronic hypoxic and hypercapneic respiratory failure referable to 2. Recurrent acute on chronic diastolic failure 3. Influenza A, RLL hospitalized acquired PNA improving 4. Permanent atrial fibrillation with RVR on A/C therapy with therapeutic INR 5. Post mechanical MVR 6. Critical aortic valve stenosis 7. DM 8. Hyperlipidemia 9. Anemia PLAN: 1. Continue Lopressor 50 qid 2. Continue Vasotec 20 qd 3. Continue Lipitor 10 qhs 4. Continue Lasix 40 IV qd with monitor diuretic response, renal fxn and electrolytes, replete K 5. Hold Coumadin pre-procedure, start heparin gtt once INR<2.5. Transfuse to maintain Hgb>8.0 6. Vent wean as tolerated, completed antibiotics course to cover HCAP, post Tamiflu course, IV steroid taper with GI protection and bronchodilators as per pulmonary teams 7. Plan for [place] [facility] and eventual TAVR once stable, plan of care d/w tanmay Mtz [phone]
--- NOTE | 2016-07-23 11:58 | PN ---
Progress Note, Physician History of Present Illness: Awake and alert on ventilator No acute distress Afebrile WBC elevated Urine c/s negative - Current Medication List Current Medications: Active Medications Acetaminophen (Tylenol -) 650 mg PO Q6H PRN PRN Reason: FEVER OR PAIN Al Hydroxide/Mg Hydroxide (Mylanta Oral Suspension -) 30 ml PO Q12H PRN PRN Reason: DYSPEPSIA Albuterol/Ipratropium (Duoneb -) 1 amp NEB QIDR [facility] Last Admin: 07/23/16 11:51 Dose: 1 amp Atorvastatin Calcium (Lipitor -) 10 mg PO HS [facility] Last Admin: 07/22/16 21:18 Dose: 10 mg Chlorhexidine Gluconate (Peridex -) 15 ml MM BID [facility] Last Admin: 07/23/16 11:39 Dose: 15 ml Cholecalciferol (Vitamin D3 -) 1,000 unit PO DAILY [facility] Last Admin: 07/23/16 11:02 Dose: 1,000 unit Enalapril Maleate (Vasotec -) 20 mg PO DAILY [facility] Last Admin: 07/23/16 11:01 Dose: 20 mg Furosemide (Lasix Injection -) 40 mg IVPUSH DAILY [facility] Last Admin: 07/23/16 11:00 Dose: 40 mg Guaifenesin (Diabetic Tussin Dm -) 5 ml PO Q6H PRN PRN Reason: COUGH Famotidine/Sodium Chloride (Pepcid 20 Mg Premixed Ivpb -) 50 mls @ 100 mls/hr IVPB BID [facility] Last Admin: 07/23/16 11:00 Dose: 100 mls/hr Insulin Aspart (Novolog Vial Sliding Scale -) 1 vial SQ ACHS [facility] PRN Reason: Protocol Last Admin: 07/23/16 11:38 Dose: 6 units Methylprednisolone Sodium Succinate (Solu-Medrol -) 40 mg IVPB DAILY [facility] Last Admin: 07/23/16 11:01 Dose: 40 mg Metoprolol Tartrate (Lopressor -) 50 mg PO Q6HPO [facility] Last Admin: 07/23/16 11:02 Dose: 50 mg Mometasone Furoate (Asmanex 220mcg -) 1 puff IH DAILY [facility] Last Admin: 07/23/16 11:00 Dose: Not Given Multivitamins/Minerals/Vitamin C (Tab-A-Vit -) 1 tab PO DAILY [facility] Last Admin: 07/23/16 11:01 Dose: 1 tab - Objective Vital Signs: Vital Signs Temperature 99.4 F 07/23/16 10:00 Pulse Rate 113 H 07/23/16 10:00 Respiratory Rate 19 07/23/16 11:50 Blood Pressure 124/58 07/23/16 10:00 O2 Sat by Pulse Oximetry (%) 97 07/23/16 09:17 Constitutional: Yes: No Distress, Cachectic Eyes: Yes: Conjunctiva Clear Cardiovascular: Yes: Regular Rate and Rhythm, S1, S2 Respiratory: Yes: Mechanically Ventilated Gastrointestinal: Yes: Normal Bowel Sounds. No: Tenderness Edema: No Labs: CBC, BMP 07/23/16 05:20 07/23/16 05:20 INR, PTT INR 3.72 (0.82-1.09) H 07/23/16 05:20 Assessment/Plan Respiratory failure Valvular heart disease Leukocytosis PCN allergy Urine c/s no growth Observe off antibiotics
--- NOTE | 2016-07-23 20:48 | PN ---
Physical Exam: SUBJECTIVE: Patient seen and examined at bedside in ICU. OBJECTIVE: Vital Signs Period Temp Pulse Resp BP Sys/Gold Pulse Ox Last 24 Hr 98.7 F-100.3 F 96-123 14-26 112-143/48-69 97-98 GENERAL: The patient is awake, alert. Intubated. HEAD: Normal with no signs of trauma. EYES: PERRL, extraocular movements intact, sclera anicteric, conjunctiva clear. No ptosis. LUNGS: Poor air movement, rhonchi. HEART: Irregular. + murmur ABDOMEN: Soft, nontender, nondistended, normoactive bowel sounds, no guarding, no rebound EXTREMITIES: 2+ pulses, warm, well-perfused, no edema. NEUROLOGICAL: Cranial nerves II through XII grossly intact. Laboratory Results - last 24 hr 07/20/16 07/22/16 07/22/16 10:35 10:54 16:29 WBC RBC Hgb Hct MCV MCHC RDW Plt Count MPV INR Anticoagulation Therapy Puncture Site ABG pH ABG pCO2 at Pt Temp ABG pO2 at Pt Temp ABG HCO3 ABG O2 Sat (Measured) ABG O2 Content ABG Base Excess Raciel Test O2 Delivery Device Oxygen Flow Rate Vent Mode Vent Rate Mechanical Rate PEEP Pressure Support Vent Sodium Potassium Chloride Carbon Dioxide Anion Gap BUN Creatinine POC Glucometer [phone] Random Glucose Calcium Phosphorus Magnesium Blood Type A POSITIVE Antibody Screen Negative Crossmatch See Detail 07/22/16 07/23/16 07/23/16 21:25 05:20 05:20 WBC 22.6 H RBC 3.32 L Hgb 9.0 L Hct 26.5 L MCV 79.9 L MCHC 33.8 RDW 16.4 H Plt Count 132 L MPV 9.3 INR Anticoagulation Therapy Puncture Site ABG pH ABG pCO2 at Pt Temp ABG pO2 at Pt Temp ABG HCO3 ABG O2 Sat (Measured) ABG O2 Content ABG Base Excess Raciel Test O2 Delivery Device Oxygen Flow Rate Vent Mode Vent Rate Mechanical Rate PEEP Pressure Support Vent Sodium 148 H Potassium 3.1 L Chloride 101 Carbon Dioxide 40 H Anion Gap 7 L BUN 37 H Creatinine 0.4 L D POC Glucometer [phone] Random Glucose 267 H D Calcium 7.8 L Phosphorus 2.5 Magnesium 2.1 Blood Type Antibody Screen Crossmatch 07/23/16 07/23/16 05:20 07:50 WBC RBC Hgb Hct MCV MCHC RDW Plt Count MPV INR 3.72 H Anticoagulation Therapy Y Puncture Site Right radial ABG pH 7.56 H ABG pCO2 at Pt Temp 43.9 ABG pO2 at Pt Temp 78.0 D ABG HCO3 39.8 H ABG O2 Sat (Measured) 96.2 ABG O2 Content 11.8 L ABG Base Excess 15.6 H* Raciel Test Positive O2 Delivery Device Mech vent Oxygen Flow Rate 40 Vent Mode A/c Vent Rate 14 Mechanical Rate Yes PEEP 5.0 Pressure Support Vent 300 Sodium Potassium Chloride Carbon Dioxide Anion Gap BUN Creatinine POC Glucometer Random Glucose Calcium Phosphorus Magnesium Blood Type Antibody Screen Crossmatch Active Medications Generic Name Dose Route Start Last Admin Trade Name Freq PRN Reason Stop Dose Admin Acetaminophen 650 mg 07/21/16 10:34 Tylenol - PO Q6H PRN FEVER OR PAIN Al Hydroxide/Mg Hydroxide 30 ml 07/21/16 10:31 Mylanta Oral Suspension - PO Q12H PRN DYSPEPSIA Albuterol/Ipratropium 1 amp 07/21/16 12:00 07/23/16 17:58 Duoneb - NEB 1 amp QIDR [facility] Administration Atorvastatin Calcium 10 mg 07/21/16 22:00 07/22/16 21:18 Lipitor - PO 10 mg HS [facility] Administration Chlorhexidine Gluconate 15 ml 07/21/16 22:00 07/23/16 11:39 Peridex - MM 15 ml BID [facility] Administration Cholecalciferol 1,000 unit 07/21/16 10:45 07/23/16 11:02 Vitamin D3 - PO 1,000 unit DAILY [facility] Administration Enalapril Maleate 20 mg 07/21/16 10:45 07/23/16 11:01 Vasotec - PO 20 mg DAILY [facility] Administration Furosemide 40 mg 07/21/16 10:30 07/23/16 11:00 Lasix Injection - IVPUSH 40 mg DAILY [facility] Administration Guaifenesin 5 ml 07/21/16 10:28 Diabetic Tussin Dm - PO Q6H PRN COUGH Famotidine/Sodium Chloride 50 mls @ 100 mls/hr 07/21/16 10:45 07/23/16 11:00 Pepcid 20 Mg Premixed Ivpb - IVPB 100 mls/hr BID [facility] Administration Insulin Aspart 1 vial 07/21/16 11:00 07/23/16 18:37 Novolog Vial Sliding Scale - SQ 8 units ACHS [facility] Administration Protocol Methylprednisolone Sodium Succinate 40 mg 07/23/16 10:00 07/23/16 11:01 Solu-Medrol - IVPB 40 mg DAILY [facility] Administration Metoprolol Tartrate 50 mg 07/21/16 10:30 07/23/16 18:37 Lopressor - PO 50 mg Q6HPO [facility] Administration Mometasone Furoate 1 puff 07/21/16 10:30 07/23/16 11:00 Asmanex 220mcg - IH Not Given DAILY [facility] Multivitamins/Minerals/Vitamin C 1 tab 07/21/16 10:45 07/23/16 11:01 Tab-A-Vit - PO 1 tab DAILY [facility] Administration ASSESSMENT/PLAN: 81 year-old female with a significant PMH of HTN, afib, severe , mechanical MV replacement, CVA, DM II, and asthma, admitted for afib with RVR and found to have Influenza A. Hospital course complicated by acute hypoxic and hypercapnic respiratory failure requiring intubation x 3. Acute hypoxic and hypercapnic respiratory failure --intubated 07/13, extubated 07/15 --reintubated 07/17, extubated 07/20 --reintubated 07/20 Influenza A --completed course of Tamiflu Citrobacter Freundii pneumonia --low grade fever 100.3 --completed 7-day course of aztreonam --continue solumedrol --ID following, presently observing off antibiotics Acute on chronic diastolic heart failure --continue lopressor, enalapril, lasix IV 40 daily Afib with RVR Mechanical MV --rate in low 110's --INR 3.72; coumadin d/c'd; when INR drops <2.5, start heparin drip Severe aortic stenosis --plan to transfer to [facility] for palliative BAV and eventual TAVR Asthma --continue nebs, inhalers --solumedrol Lactic acidosis, resolved NIDDM --insulin sliding scale coverage Oral thrush, resolved Severe malnutrition in the context of chronic illness --prolonged inadequate nutrient intake, as evidenced by 60% low end DBW --observed clavicular muscle wasting --temporal muscle wasting --prominent brow with hollow/sunken eyes F/E/N Electrolytes: replete as indicated Nutrition: Vital 1.2 DVT Prophylaxis: INR supratherapeutic Rehab PT eval Daily PT Dispo: continues to require inpatient care. Full Code. Visit type - Emergency Visit Emergency Visit: Yes ED Registration Date: 07/09/16 Care time: The patient presented to the Emergency Department on the above date and was hospitalized for further evaluation of their emergent condition. - New Patient This patient is new to me today: No - Critical Care Critical Care patient: Yes Total Critical Care Time (in minutes): 35 Critical Care Statement: The care of this patient involved high complexity decision making to prevent further life threatening deterioration of the patient 's condition and/or to evalute & treat vital organ system(s) failure or risk of failure.
[2016-07-23] MEDS: ATORVASTATIN CA 10 MG TABLET (FP) PO SCH (21:34)
[2016-07-24] MEDS: METOPROLOL TARTRATE 50 MG TABLET (FP) PO SCH ×4 (00:32→18:08)
[2016-07-24 06:06] LABS: MCH 26.5 pg (25.7-33.7); MCHC 32.6 g/dl (32.0-36.0); MEAN CELL VOLUME 81.1 fl (80-96); MEAN PLT VOLUME 9.7 fl (7.5-11.1); PLATELET COUNT 136 K/MM3 (134-434); RDW 16.8 % (11.6-15.6)
[2016-07-24] MEDS: ALBUTEROL SO4 2.5/IPRATROPIUM 0.5 INH SOL 3 ML VIAL.NEB. NEB SCH ×4 (06:11→23:21)
[2016-07-24 06:30] LABS: CALCIUM 8.5 mg/dL (8.5-10.1); CREATININE 0.4 mg/dL (0.55-1.02); MAGNESIUM 2.1 mg/dL (1.8-2.4); PHOSPHOROUS 1.9 mg/dL (2.5-4.9)
[2016-07-24] MEDS: INSULIN SLIDING SCALE (NOVOLOG) 1 VIAL SQ SCH ×4 (06:58→23:13)
[2016-07-24 07:21] LABS: ALLENS TEST POSITIVE; ART PUNCT SITE RIGHT RADIAL; ARTERIAL BLOOD GAS BASE EXCESS 17.1 meq/l (-2-2); ARTERIAL BLOOD GAS pH 7.55 (7.35-7.45); LPM/O2% 40%; MECH. VENT. YES; PT. ON O2? YES; TYPE OF O2 VENT; VENT RATE 14; VT/PRESS 300
[2016-07-24] MEDS: FAMOTIDINE 20 MG/50 ML IVPB 50 ML IVPB SCH ×2 (09:03→21:31)
[2016-07-24] MEDS: MULTIVITAMINS (DAILY MVI) TABLET (FP) PO SCH (09:03)
[2016-07-24] MEDS: FUROSEMIDE 40 MG/4 ML INJECTABLE VIAL IVPUSH SCH (09:03)
[2016-07-24] MEDS: CHOLECALCIFEROL (VITAMIN D3) 1,000 UNIT TABLET (FP) PO SCH (09:03)
[2016-07-24] MEDS: CHLORHEXIDINE GLUCONATE 0.12% 15ML CUP MM SCH ×2 (09:03→21:31)
[2016-07-24] MEDS: methylPREDNISolone NA SUCC 40 MG/1 ML VIAL IVPB SCH (09:04)
[2016-07-24] MEDS: ENALAPRIL MALEATE 10 MG TABLET (FP) PO SCH (09:04)
--- NOTE | 2016-07-24 10:19 | PN ---
Progress Note, Physician History of Present Illness: Awake on vent, rapid afib on lopressor. - Current Medication List Current Medications: Active Medications Acetaminophen (Tylenol -) 650 mg PO Q6H PRN PRN Reason: FEVER OR PAIN Al Hydroxide/Mg Hydroxide (Mylanta Oral Suspension -) 30 ml PO Q12H PRN PRN Reason: DYSPEPSIA Albuterol/Ipratropium (Duoneb -) 1 amp NEB QIDR [facility] Last Admin: 07/24/16 06:11 Dose: 1 amp Atorvastatin Calcium (Lipitor -) 10 mg PO HS [facility] Last Admin: 07/23/16 21:34 Dose: 10 mg Chlorhexidine Gluconate (Peridex -) 15 ml MM BID [facility] Last Admin: 07/24/16 09:03 Dose: 15 ml Cholecalciferol (Vitamin D3 -) 1,000 unit PO DAILY [facility] Last Admin: 07/24/16 09:03 Dose: 1,000 unit Enalapril Maleate (Vasotec -) 20 mg PO DAILY [facility] Last Admin: 07/24/16 09:04 Dose: 20 mg Furosemide (Lasix Injection -) 40 mg IVPUSH DAILY [facility] Last Admin: 07/24/16 09:03 Dose: 40 mg Guaifenesin (Diabetic Tussin Dm -) 5 ml PO Q6H PRN PRN Reason: COUGH Famotidine/Sodium Chloride (Pepcid 20 Mg Premixed Ivpb -) 50 mls @ 100 mls/hr IVPB BID [facility] Last Admin: 07/24/16 09:03 Dose: 100 mls/hr Insulin Aspart (Novolog Vial Sliding Scale -) 1 vial SQ ACHS [facility] PRN Reason: Protocol Last Admin: 07/24/16 06:58 Dose: Not Given Methylprednisolone Sodium Succinate (Solu-Medrol -) 40 mg IVPB DAILY [facility] Last Admin: 07/24/16 09:04 Dose: 40 mg Metoprolol Tartrate (Lopressor -) 50 mg PO Q6HPO [facility] Last Admin: 07/24/16 05:41 Dose: 50 mg Mometasone Furoate (Asmanex 220mcg -) 1 puff IH DAILY [facility] Last Admin: 07/23/16 11:00 Dose: Not Given Multivitamins/Minerals/Vitamin C (Tab-A-Vit -) 1 tab PO DAILY [facility] Last Admin: 07/24/16 09:03 Dose: 1 tab - Objective Vital Signs: Vital Signs Temperature 100.8 F H 07/24/16 08:00 Pulse Rate 116 H 07/24/16 09:53 Respiratory Rate 25 H 07/24/16 09:30 Blood Pressure 126/56 07/24/16 08:00 O2 Sat by Pulse Oximetry (%) 96 07/24/16 09:53 Constitutional: Yes: No Distress, Calm, Thin Cardiovascular: Yes: Tachycardia, Pulse Irregular Respiratory: Yes: Intubated, Mechanically Ventilated, Rhonchi Gastrointestinal: Yes: Normal Bowel Sounds, Soft Edema: No Labs: CBC, BMP 07/24/16 05:00 07/24/16 05:00 INR, PTT INR 3.72 (0.82-1.09) H 07/23/16 05:20 Problem List - Problems (1) Atrial fibrillation with rapid ventricular response Code(s): I48.91 - UNSPECIFIED ATRIAL FIBRILLATION (2) Diabetes mellitus Code(s): E11.9 - TYPE 2 DIABETES MELLITUS WITHOUT COMPLICATIONS Qualifiers: Diabetes mellitus type: type 2 Diabetes mellitus complication status: without complication Diabetes mellitus [facility] insulin use: without [facility] use Qualified Code(s): E11.9 - Type 2 diabetes mellitus without complications (3) History of mitral valve replacement with mechanical valve Code(s): Z95.2 - PRESENCE OF PROSTHETIC HEART VALVE (4) Hypercholesteremia Code(s): E78.0 - PURE HYPERCHOLESTEROLEMIA * DO NOT USE * (5) Hypertension Code(s): I10 - ESSENTIAL (PRIMARY) HYPERTENSION Qualifiers: Hypertension type: essential hypertension Qualified Code(s): I10 - Essential (primary) hypertension (6) Premature ventricular contraction Code(s): I49.3 - VENTRICULAR PREMATURE DEPOLARIZATION (7) Acute on chronic diastolic (congestive) heart failure Code(s): I50.33 - ACUTE ON CHRONIC DIASTOLIC (CONGESTIVE) HEART FAILURE (8) Influenza A Code(s): J10.1 - FLU DUE TO OTH IDENT INFLUENZA VIRUS W OTH RESP MANIFEST (9) Pneumonia and influenza Code(s): J11.00 - FLU DUE TO UNIDENTIFIED FLU VIRUS W UNSP TYPE OF PNEUMONIA (10) Aortic stenosis Code(s): I35.0 - NONRHEUMATIC AORTIC (VALVE) STENOSIS Qualifiers: 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 Acute on chronic hypoxic and hypercapneic respiratory failure referable to 2. Recurrent acute on chronic diastolic failure 3. Influenza A, RLL hospitalized acquired PNA improving 4. Permanent atrial fibrillation with RVR on A/C therapy with therapeutic INR 5. Post mechanical MVR 6. Critical aortic valve stenosis 7. DM 8. Hyperlipidemia 9. Leukocytosis, anemia 10. Hypernatremia PLAN: 1. Continue Lopressor 50 qid, add Cardizem 30 qid 2. Continue Vasotec 20 qd 3. Continue Lipitor 10 qhs 4. Change Lasix 40 NGT qd with monitor diuretic response, renal fxn and electrolytes, free water repletion 5. Hold Coumadin pre-procedure, start heparin gtt once INR<2.5. Transfuse to maintain Hgb>8.0 6. Vent wean as tolerated, completed antibiotics course to cover HCAP, post Tamiflu course, IV steroid taper with GI protection and bronchodilators as per pulmonary teams 7. Plan for transfer to [facility] for palliative BAV and eventual TAVR once stable, plan of care d/w son Clifford Mtz [phone]
[2016-07-24] MEDS: MOMETASONE FUROATE 220 MCG/IH INHALER IH SCH (10:39)
--- NOTE | 2016-07-24 11:43 | PN ---
Physical Exam: SUBJECTIVE: Patient seen and examined at bedside in ICU this morning. AAO and understands proposed course of treatment including transfer to [place] for possible TAVR. Mild fever last night 100.8 but states she feesl well. Saturating well on 40% FiO2. OBJECTIVE: Vital Signs Period Temp Pulse Resp BP Sys/Gold Pulse Ox Last 24 Hr 99.1 F-100.8 F 80-145 14-26 111-131/48-69 96-98 GENERAL: Intubated but not sedated. Resting comfortably in bed. Cachectic HEENT: Atraumatic, EOMI, PERRLA, No lymphadenopathy noted. Moist mucous membranes. LUNGS: Very mild Crackles noted at bilateral lung bases. No wheezing or stridor noted. HEART: Irregular, rate 90-100, Grade 3/6 systolic murmur. Notable MV "Click". ABDOMEN: Soft, nontender, not distended, normoactive bowel sounds EXTREMITIES: 2+ pulses, warm, well-perfused. No peripheral edema. Moderate upper and lower extremity muscle atrophy. PSYCHIATRIC: Cooperative. Good eye contact. Appropriate mood and affect. SKIN: Warm, dry, normal turgor, no rashes or lesions noted. Laboratory Results - last 24 hr 07/20/16 07/23/16 07/23/16 10:35 05:41 11:35 WBC RBC Hgb Hct MCV MCHC RDW Plt Count MPV Anticoagulation Therapy Puncture Site ABG pH ABG pCO2 at Pt Temp ABG pO2 at Pt Temp ABG HCO3 ABG O2 Sat (Measured) ABG O2 Content ABG Base Excess Raciel Test O2 Delivery Device Oxygen Flow Rate Vent Mode Vent Rate Mechanical Rate PEEP Pressure Support Vent Sodium Potassium Chloride Carbon Dioxide Anion Gap BUN Creatinine POC Glucometer 321.13060 [phone] Random Glucose Calcium Phosphorus Magnesium Blood Type A POSITIVE Antibody Screen Negative Crossmatch See Detail 07/23/16 07/23/16 07/23/16 12:13 18:04 22:50 WBC RBC Hgb Hct MCV MCHC RDW Plt Count MPV Anticoagulation Therapy Puncture Site ABG pH ABG pCO2 at Pt Temp ABG pO2 at Pt Temp ABG HCO3 ABG O2 Sat (Measured) ABG O2 Content ABG Base Excess Raciel Test O2 Delivery Device Oxygen Flow Rate Vent Mode Vent Rate Mechanical Rate PEEP Pressure Support Vent Sodium Potassium Chloride Carbon Dioxide Anion Gap BUN Creatinine POC Glucometer 184.19564 321.70190 [phone] Random Glucose Calcium Phosphorus Magnesium Blood Type Antibody Screen Crossmatch 07/24/16 07/24/16 07/24/16 05:00 05:00 07:10 WBC 27.0 H RBC 3.80 Hgb 10.1 L D Hct 30.8 L D MCV 81.1 MCHC 32.6 RDW 16.8 H Plt Count 136 MPV 9.7 Anticoagulation Therapy Y Puncture Site Right radial ABG pH 7.55 H ABG pCO2 at Pt Temp 48.6 H ABG pO2 at Pt Temp 65.0 L ABG HCO3 42.0 H* ABG O2 Sat (Measured) 93.0 ABG O2 Content 12.1 L ABG Base Excess 17.1 H* Raciel Test Positive O2 Delivery Device Vent Oxygen Flow Rate 40% Vent Mode A/c Vent Rate 14 Mechanical Rate Yes PEEP 5.0 Pressure Support Vent 300 Sodium 151 H Potassium 3.7 Chloride 102 Carbon Dioxide 44 H Anion Gap 5 L BUN 36 H Creatinine 0.4 L POC Glucometer Random Glucose 108 H D Calcium 8.5 Phosphorus 1.9 L D Magnesium 2.1 Blood Type Antibody Screen Crossmatch Active Medications Generic Name Dose Route Start Last Admin Trade Name Freq PRN Reason Stop Dose Admin Acetaminophen 650 mg 07/21/16 10:34 Tylenol - PO Q6H PRN FEVER OR PAIN Al Hydroxide/Mg Hydroxide 30 ml 07/21/16 10:31 Mylanta Oral Suspension - PO Q12H PRN DYSPEPSIA Albuterol/Ipratropium 1 amp 07/21/16 12:00 07/24/16 06:11 Duoneb - NEB 1 amp QIDR [facility] Administration Atorvastatin Calcium 10 mg 07/21/16 22:00 07/23/16 21:34 Lipitor - PO 10 mg HS [facility] Administration Chlorhexidine Gluconate 15 ml 07/21/16 22:00 07/24/16 09:03 Peridex - MM 15 ml BID [facility] Administration Cholecalciferol 1,000 unit 07/21/16 10:45 07/24/16 09:03 Vitamin D3 - PO 1,000 unit DAILY [facility] Administration Diltiazem HCl 30 mg 07/24/16 14:00 Cardizem - NGT QID [facility] Enalapril Maleate 20 mg 07/21/16 10:45 07/24/16 09:04 Vasotec - PO 20 mg DAILY [facility] Administration Furosemide 40 mg 07/25/16 10:00 Lasix Oral Solution - NGT DAILY [facility] Guaifenesin 5 ml 07/21/16 10:28 Diabetic Tussin Dm - PO Q6H PRN COUGH Famotidine/Sodium Chloride 50 mls @ 100 mls/hr 07/21/16 10:45 07/24/16 09:03 Pepcid 20 Mg Premixed Ivpb - IVPB 100 mls/hr BID [facility] Administration Insulin Aspart 1 vial 07/21/16 11:00 07/24/16 06:58 Novolog Vial Sliding Scale - SQ Not Given ACHS [facility] Protocol Methylprednisolone Sodium Succinate 40 mg 07/23/16 10:00 07/24/16 09:04 Solu-Medrol - IVPB 40 mg DAILY [facility] Administration Metoprolol Tartrate 50 mg 07/21/16 10:30 07/24/16 05:41 Lopressor - PO 50 mg Q6HPO [facility] Administration Mometasone Furoate 1 puff 07/21/16 10:30 07/24/16 10:39 Asmanex 220mcg - IH Not Given DAILY [facility] Multivitamins/Minerals/Vitamin C 1 tab 07/21/16 10:45 07/24/16 09:03 Tab-A-Vit - PO 1 tab DAILY [facility] Administration ASSESSMENT/PLAN: 81 year old female with significant PMH of A-Fib, HTN, Rheumatic HD, Aortic stenosis, MV replacement, CVA, COPD who was admitted for A-Fib with RVR. Presented to ICU for acute hypoxic respiratory failure requiring intubation. #Acute Hyperneic respiratory failure, secondary to poor respiration overnight -intubated & saturating well on 40% FiO2. -Continue Asmanex, Robitussin, Duonebs, Albuterol -Solumedrol 40mg daily -Pulmonary following #Acute on Chronic Diastolic Heart Failure -as per cardiology, patient may require TAVR to help ease left ventricular failure (d/t presence of aortic stenosis) -Continue Enalapril 20qd, Lasix 40daily -strict I & O -daily weights -CXR in AM #Atrial Fibrillation, with RVR -Lopressor 50mg q6h for rate control -added Cardizem 30mg -continuous cardiac monitoring #Malnutrition -NG Tube placed & started on tube feeds #Supratherapeutic INR, post-mechanical MV -on Coumadin -ideally maintain 3.0-3.5, trend #Diabetes -Insulin sliding scale -BGM ACHS #Hyperthyroidism -TSH .02 -needs work up FEN/Prophylaxis -Coumadin, Zantac -Holding IVF, monitor electrolytes, Vital 1.2 @20cc/hr Visit type - Emergency Visit Emergency Visit: Yes ED Registration Date: 07/09/16 Care time: The patient presented to the Emergency Department on the above date and was hospitalized for further evaluation of their emergent condition. - New Patient This patient is new to me today: No - Critical Care Critical Care patient: Yes Total Critical Care Time (in minutes): 40 Critical Care Statement: The care of this patient involved high complexity decision making to prevent further life threatening deterioration of the patient 's condition and/or to evalute & treat vital organ system(s) failure or risk of failure.
--- NOTE | 2016-07-24 11:49 | PN ---
Teaching Attending Note Name of Resident: Josh Singh ATTENDING PHYSICIAN STATEMENT I saw and evaluated the patient. I reviewed the resident's note and discussed the case with the resident. I agree with the resident's findings and plan as documented. SUBJECTIVE: Patient seen and examined in the ICU. Remains intubated. Awake and interactive. AC mode of vent 40% FiO2. Periods of Rapid AFib. Awaiting bed at [place] for possible TAVR. CXR: pending Intake & Output 07/21/16 07/22/16 07/23/16 07/24/16 23:59 23:59 23:59 23:59 Intake Total 1035 1200 600 375 Output Total 2991 083 5934 500 Balance -365 750 -500 -125 Weight 71 lb 6 oz 72 lb 3 oz 75 lb 1.6 oz Last Vital Signs Temp Pulse Resp BP Pulse Ox 100.8 F H 80 25 H 131/69 96 07/24/16 10:27 07/24/16 10:27 07/24/16 10:27 07/24/16 10:27 07/24/16 09:53 Active Medications Acetaminophen (Tylenol -) 650 mg PO Q6H PRN PRN Reason: FEVER OR PAIN Al Hydroxide/Mg Hydroxide (Mylanta Oral Suspension -) 30 ml PO Q12H PRN PRN Reason: DYSPEPSIA Albuterol/Ipratropium (Duoneb -) 1 amp NEB QIDR [facility] Last Admin: 07/24/16 06:11 Dose: 1 amp Atorvastatin Calcium (Lipitor -) 10 mg PO HS [facility] Last Admin: 07/23/16 21:34 Dose: 10 mg Chlorhexidine Gluconate (Peridex -) 15 ml MM BID [facility] Last Admin: 07/24/16 09:03 Dose: 15 ml Cholecalciferol (Vitamin D3 -) 1,000 unit PO DAILY [facility] Last Admin: 07/24/16 09:03 Dose: 1,000 unit Diltiazem HCl (Cardizem -) 30 mg NGT QID [facility] Enalapril Maleate (Vasotec -) 20 mg PO DAILY [facility] Last Admin: 07/24/16 09:04 Dose: 20 mg Furosemide (Lasix Oral Solution -) 40 mg NGT DAILY [facility] Guaifenesin (Diabetic Tussin Dm -) 5 ml PO Q6H PRN PRN Reason: COUGH Famotidine/Sodium Chloride (Pepcid 20 Mg Premixed Ivpb -) 50 mls @ 100 mls/hr IVPB BID [facility] Last Admin: 07/24/16 09:03 Dose: 100 mls/hr Insulin Aspart (Novolog Vial Sliding Scale -) 1 vial SQ ACHS [facility] PRN Reason: Protocol Last Admin: 07/24/16 06:58 Dose: Not Given Methylprednisolone Sodium Succinate (Solu-Medrol -) 40 mg IVPB DAILY [facility] Last Admin: 07/24/16 09:04 Dose: 40 mg Metoprolol Tartrate (Lopressor -) 50 mg PO Q6HPO [facility] Last Admin: 07/24/16 05:41 Dose: 50 mg Mometasone Furoate (Asmanex 220mcg -) 1 puff IH DAILY [facility] Last Admin: 07/24/16 10:39 Dose: Not Given Multivitamins/Minerals/Vitamin C (Tab-A-Vit -) 1 tab PO DAILY [facility] Last Admin: 07/24/16 09:03 Dose: 1 tab Gen: Intubated, awake and alert Heart: tachycardic, irregular, mech click at base Lung: Basilar rales / bronchial breath sounds Abd: soft, nontender Ext: no edema Laboratory Results - last 24 hr 07/20/16 07/23/16 07/23/16 10:35 05:41 11:35 WBC RBC Hgb Hct MCV MCHC RDW Plt Count MPV Anticoagulation Therapy Puncture Site ABG pH ABG pCO2 at Pt Temp ABG pO2 at Pt Temp ABG HCO3 ABG O2 Sat (Measured) ABG O2 Content ABG Base Excess Raciel Test O2 Delivery Device Oxygen Flow Rate Vent Mode Vent Rate Mechanical Rate PEEP Pressure Support Vent Sodium Potassium Chloride Carbon Dioxide Anion Gap BUN Creatinine POC Glucometer 321.89811 285.03615 Random Glucose Calcium Phosphorus Magnesium Blood Type A POSITIVE Antibody Screen Negative Crossmatch See Detail 07/23/16 07/23/16 07/23/16 12:13 18:04 22:50 WBC RBC Hgb Hct MCV MCHC RDW Plt Count MPV Anticoagulation Therapy Puncture Site ABG pH ABG pCO2 at Pt Temp ABG pO2 at Pt Temp ABG HCO3 ABG O2 Sat (Measured) ABG O2 Content ABG Base Excess Raciel Test O2 Delivery Device Oxygen Flow Rate Vent Mode Vent Rate Mechanical Rate PEEP Pressure Support Vent Sodium Potassium Chloride Carbon Dioxide Anion Gap BUN Creatinine POC Glucometer 184.39323 321.73985 238.94000 Random Glucose Calcium Phosphorus Magnesium Blood Type Antibody Screen Crossmatch 07/24/16 07/24/16 07/24/16 05:00 05:00 07:10 WBC 27.0 H RBC 3.80 Hgb 10.1 L D Hct 30.8 L D MCV 81.1 MCHC 32.6 RDW 16.8 H Plt Count 136 MPV 9.7 Anticoagulation Therapy Y Puncture Site Right radial ABG pH 7.55 H ABG pCO2 at Pt Temp 48.6 H ABG pO2 at Pt Temp 65.0 L ABG HCO3 42.0 H* ABG O2 Sat (Measured) 93.0 ABG O2 Content 12.1 L ABG Base Excess 17.1 H* Raciel Test Positive O2 Delivery Device Vent Oxygen Flow Rate 40% Vent Mode A/c Vent Rate 14 Mechanical Rate Yes PEEP 5.0 Pressure Support Vent 300 Sodium 151 H Potassium 3.7 Chloride 102 Carbon Dioxide 44 H Anion Gap 5 L BUN 36 H Creatinine 0.4 L POC Glucometer Random Glucose 108 H D Calcium 8.5 Phosphorus 1.9 L D Magnesium 2.1 Blood Type Antibody Screen Crossmatch ASSESSMENT AND PLAN: Acute on Chronic Hypoxic and Hypercapneic Respiratory Failure Acute on Chronic LV Diastolic Heart Failure Influenza A Pneumonia Atrial Fibrillation with RVR s/p mech MVR Aortic Stenosis Pulmonary HTN Acute COPD Exacerbation - D/W Cardiology -> suspect recurrent flash Pulmonary edema due to Critical -> Will evaluate possible transfer to tertiary care for intervention - ABX per ID - completed tamiflu - IV medrol taper - inhaled bronchodilators - Rate control per Cardiology - IV Heparin - Lasix - DVT/GI prophylaxis Dr Alegria CCTime 35"
[2016-07-24 11:52] LABS: PLATELET ESTIMATE SLT DECREASED (NORMAL)
[2016-07-24] MEDS ORDERED: PT OWN MED DRAWER 7, Y5N ONE (12:35)
[2016-07-24] MEDS ORDERED: dilTIAZem HCL 30 MG TABLET (FP) ONE (12:35)
[2016-07-24] MEDS: dilTIAZem HCL 30 MG TABLET (FP) NGT SCH ×4 (12:36→21:31)
--- NOTE | 2016-07-24 14:38 | PN ---
Physical Exam: SUBJECTIVE: Patient seen and examined OBJECTIVE: Vital Signs Period Temp Pulse Resp BP Sys/Gold Pulse Ox Last 24 Hr 99.1 F-100.8 F 65-145 14-25 103-131/48-69 96-98 GENERAL: The patient is awake, alert. Intubated. HEAD: Normal with no signs of trauma. EYES: PERRL, extraocular movements intact, sclera anicteric, conjunctiva clear. No ptosis. LUNGS: Poor air movement, rhonchi. HEART: Irregular. + murmur ABDOMEN: Soft, nontender, nondistended, normoactive bowel sounds, no guarding, no rebound EXTREMITIES: 2+ pulses, warm, well-perfused, no edema. NEUROLOGICAL: Cranial nerves II through XII grossly intact. Laboratory Results - last 24 hr 07/23/16 07/23/16 07/23/16 05:41 11:35 12:13 WBC RBC Hgb Hct MCV MCHC RDW Plt Count MPV Neutrophils % Lymphocytes % Monocytes % Differential Comment Platelet Estimate Anticoagulation Therapy Puncture Site ABG pH ABG pCO2 at Pt Temp ABG pO2 at Pt Temp ABG HCO3 ABG O2 Sat (Measured) ABG O2 Content ABG Base Excess Raciel Test O2 Delivery Device Oxygen Flow Rate Vent Mode Vent Rate Mechanical Rate PEEP Pressure Support Vent Sodium Potassium Chloride Carbon Dioxide Anion Gap BUN Creatinine POC Glucometer 321.35076 285.87873 184.62271 Random Glucose Calcium Phosphorus Magnesium 07/23/16 07/23/16 07/24/16 18:04 22:50 05:00 WBC 27.0 H RBC 3.80 Hgb 10.1 L D Hct 30.8 L D MCV 81.1 MCHC 32.6 RDW 16.8 H Plt Count 136 MPV 9.7 Neutrophils % 96.0 H Lymphocytes % 3.0 L D Monocytes % 1.0 L Differential Comment Manual diff done Platelet Estimate Slt decreased Anticoagulation Therapy Puncture Site ABG pH ABG pCO2 at Pt Temp ABG pO2 at Pt Temp ABG HCO3 ABG O2 Sat (Measured) ABG O2 Content ABG Base Excess Raciel Test O2 Delivery Device Oxygen Flow Rate Vent Mode Vent Rate Mechanical Rate PEEP Pressure Support Vent Sodium Potassium Chloride Carbon Dioxide Anion Gap BUN Creatinine POC Glucometer 321.53078 238.41277 Random Glucose Calcium Phosphorus Magnesium 07/24/16 07/24/16 05:00 07:10 WBC RBC Hgb Hct MCV MCHC RDW Plt Count MPV Neutrophils % Lymphocytes % Monocytes % Differential Comment Platelet Estimate Anticoagulation Therapy Y Puncture Site Right radial ABG pH 7.55 H ABG pCO2 at Pt Temp 48.6 H ABG pO2 at Pt Temp 65.0 L ABG HCO3 42.0 H* ABG O2 Sat (Measured) 93.0 ABG O2 Content 12.1 L ABG Base Excess 17.1 H* Raciel Test Positive O2 Delivery Device Vent Oxygen Flow Rate 40% Vent Mode A/c Vent Rate 14 Mechanical Rate Yes PEEP 5.0 Pressure Support Vent 300 Sodium 151 H Potassium 3.7 Chloride 102 Carbon Dioxide 44 H Anion Gap 5 L BUN 36 H Creatinine 0.4 L POC Glucometer Random Glucose 108 H D Calcium 8.5 Phosphorus 1.9 L D Magnesium 2.1 Active Medications Generic Name Dose Route Start Last Admin Trade Name Freq PRN Reason Stop Dose Admin Acetaminophen 650 mg 07/21/16 10:34 Tylenol - PO Q6H PRN FEVER OR PAIN Al Hydroxide/Mg Hydroxide 30 ml 07/21/16 10:31 Mylanta Oral Suspension - PO Q12H PRN DYSPEPSIA Albuterol/Ipratropium 1 amp 07/21/16 12:00 07/24/16 11:05 Duoneb - NEB 1 amp QIDR [facility] Administration Atorvastatin Calcium 10 mg 07/21/16 22:00 07/23/16 21:34 Lipitor - PO 10 mg HS [facility] Administration Chlorhexidine Gluconate 15 ml 07/21/16 22:00 07/24/16 09:03 Peridex - MM 15 ml BID [facility] Administration Cholecalciferol 1,000 unit 07/21/16 10:45 07/24/16 09:03 Vitamin D3 - PO 1,000 unit DAILY [facility] Administration Diltiazem HCl 30 mg 07/24/16 14:00 07/24/16 12:36 Cardizem - NGT 30 mg QID [facility] Administration Enalapril Maleate 20 mg 07/21/16 10:45 07/24/16 09:04 Vasotec - PO 20 mg DAILY [facility] Administration Furosemide 40 mg 07/25/16 10:00 Lasix Oral Solution - NGT DAILY [facility] Guaifenesin 5 ml 07/21/16 10:28 Diabetic Tussin Dm - PO Q6H PRN COUGH Famotidine/Sodium Chloride 50 mls @ 100 mls/hr 07/21/16 10:45 07/24/16 09:03 Pepcid 20 Mg Premixed Ivpb - IVPB 100 mls/hr BID [facility] Administration Insulin Aspart 1 vial 07/21/16 11:00 07/24/16 12:24 Novolog Vial Sliding Scale - SQ 6 units ACHS [facility] Administration Protocol Methylprednisolone Sodium Succinate 40 mg 07/23/16 10:00 07/24/16 09:04 Solu-Medrol - IVPB 40 mg DAILY [facility] Administration Metoprolol Tartrate 50 mg 07/21/16 10:30 07/24/16 12:36 Lopressor - PO 50 mg Q6HPO [facility] Administration Mometasone Furoate 1 puff 07/21/16 10:30 07/24/16 10:39 Asmanex 220mcg - IH Not Given DAILY [facility] Multivitamins/Minerals/Vitamin C 1 tab 07/21/16 10:45 07/24/16 09:03 Tab-A-Vit - PO 1 tab DAILY [facility] Administration ASSESSMENT/PLAN: 81 year-old female with a significant PMH of HTN, afib, severe , mechanical MV replacement, CVA, DM II, and asthma, admitted for afib with RVR and found to have Influenza A. Hospital course complicated by acute hypoxic and hypercapnic respiratory failure requiring intubation x 3. Acute hypoxic and hypercapnic respiratory failure --intubated 2, extubated 07/15; reintubated 07/17, extubated 07/20; reintubated 07/20 --satting 96% on 40%FiO2 Influenza A --completed course of Tamiflu Citrobacter Freundii pneumonia --fever to 100.8 --completed 7-day course of aztreonam --continue solumedrol --ID following, presently observing off antibiotics Acute on chronic diastolic heart failure --continue lopressor, enalapril, lasix 40mg NGT daily; add cardizem q6h Afib with RVR Mechanical MV --rate in low 110's --metoprolol q6h for rate control --INR 3.72; coumadin d/c'd; when INR drops <2.5, start heparin drip Severe aortic stenosis --plan to transfer to [facility] for palliative BAV and eventual TAVR Asthma --continue nebs, inhalers --solumedrol Lactic acidosis, resolved NIDDM --insulin sliding scale coverage Oral thrush, resolved Severe malnutrition in the context of chronic illness --prolonged inadequate nutrient intake, as evidenced by 60% low end DBW --observed clavicular muscle wasting --temporal muscle wasting --prominent brow with hollow/sunken eyes F/E/N Electrolytes: replete as indicated Nutrition: Vital 1.2 DVT Prophylaxis: INR supratherapeutic Rehab PT eval Daily PT Dispo: continues to require inpatient care. Full Code. Visit type - Emergency Visit Emergency Visit: Yes ED Registration Date: 07/09/16 Care time: The patient presented to the Emergency Department on the above date and was hospitalized for further evaluation of their emergent condition. - New Patient This patient is new to me today: Yes Date on this admission: 07/24/16 - Critical Care Critical Care patient: Yes Total Critical Care Time (in minutes): 35 Critical Care Statement: The care of this patient involved high complexity decision making to prevent further life threatening deterioration of the patient 's condition and/or to evalute & treat vital organ system(s) failure or risk of failure.
--- NOTE | 2016-07-24 19:23 | PN ---
Progress Note, Physician History of Present Illness: Oriented and alert on respirator.No distress - Current Medication List Current Medications: Active Medications Acetaminophen (Tylenol -) 650 mg PO Q6H PRN PRN Reason: FEVER OR PAIN Al Hydroxide/Mg Hydroxide (Mylanta Oral Suspension -) 30 ml PO Q12H PRN PRN Reason: DYSPEPSIA Albuterol/Ipratropium (Duoneb -) 1 amp NEB QIDR [facility] Last Admin: 07/24/16 16:59 Dose: 1 amp Atorvastatin Calcium (Lipitor -) 10 mg PO HS [facility] Last Admin: 07/23/16 21:34 Dose: 10 mg Chlorhexidine Gluconate (Peridex -) 15 ml MM BID [facility] Last Admin: 07/24/16 09:03 Dose: 15 ml Cholecalciferol (Vitamin D3 -) 1,000 unit PO DAILY [facility] Last Admin: 07/24/16 09:03 Dose: 1,000 unit Diltiazem HCl (Cardizem -) 30 mg NGT QID [facility] Last Admin: 07/24/16 18:10 Dose: 30 mg Enalapril Maleate (Vasotec -) 20 mg PO DAILY [facility] Last Admin: 07/24/16 09:04 Dose: 20 mg Furosemide (Lasix Oral Solution -) 40 mg NGT DAILY [facility] Guaifenesin (Diabetic Tussin Dm -) 5 ml PO Q6H PRN PRN Reason: COUGH Famotidine/Sodium Chloride (Pepcid 20 Mg Premixed Ivpb -) 50 mls @ 100 mls/hr IVPB BID [facility] Last Admin: 07/24/16 09:03 Dose: 100 mls/hr Insulin Aspart (Novolog Vial Sliding Scale -) 1 vial SQ ACHS [facility] PRN Reason: Protocol Last Admin: 07/24/16 18:08 Dose: 4 units Methylprednisolone Sodium Succinate (Solu-Medrol -) 40 mg IVPB DAILY [facility] Last Admin: 07/24/16 09:04 Dose: 40 mg Metoprolol Tartrate (Lopressor -) 50 mg PO Q6HPO [facility] Last Admin: 07/24/16 18:08 Dose: 50 mg Mometasone Furoate (Asmanex 220mcg -) 1 puff IH DAILY [facility] Last Admin: 07/24/16 10:39 Dose: Not Given Multivitamins/Minerals/Vitamin C (Tab-A-Vit -) 1 tab PO DAILY [facility] Last Admin: 07/24/16 09:03 Dose: 1 tab - Objective Vital Signs: Vital Signs Temperature 99.2 F 07/24/16 18:00 Pulse Rate 112 H 07/24/16 18:00 Respiratory Rate 22 07/24/16 18:00 Blood Pressure 99/59 07/24/16 18:00 O2 Sat by Pulse Oximetry (%) 96 07/24/16 09:53 Constitutional: Yes: No Distress Eyes: No: Sclera Icterus HENT: Yes: Atraumatic, Normocephalic Neck: Yes: Supple, Trachea Midline Cardiovascular: Yes: Pulse Irregular, Murmur (3/6 systolic) Respiratory: Yes: CTA Bilaterally Gastrointestinal: Yes: Soft. No: Tenderness Extremities: No: Calf Tenderness Edema: No Neurological: Yes: Alert, Oriented Labs: CBC, BMP 07/24/16 05:00 07/24/16 05:00 INR, PTT INR 3.72 (0.82-1.09) H 07/23/16 05:20 - ....Imaging Chest X-ray: Report Reviewed, Image Reviewed (Mild pulmonary congestion) Problem List - Problems (1) Respiratory failure Code(s): J96.90 - RESPIRATORY FAILURE, UNSP, UNSP W HYPOXIA OR HYPERCAPNIA Qualifiers: Chronicity: acute Respiratory failure complication: hypoxia and hypercapnia Qualified Code(s): J96.01 - Acute respiratory failure with hypoxia (2) Pneumonia and influenza Code(s): J11.00 - FLU DUE TO UNIDENTIFIED FLU VIRUS W UNSP TYPE OF PNEUMONIA (3) Atrial fibrillation with rapid ventricular response Code(s): I48.91 - UNSPECIFIED ATRIAL FIBRILLATION (4) Bronchial asthma Code(s): J45.909 - UNSPECIFIED ASTHMA, UNCOMPLICATED Qualifiers: Asthma severity: mild intermittent (5) History of mitral valve replacement with mechanical valve Code(s): Z95.2 - PRESENCE OF PROSTHETIC HEART VALVE (6) Aortic stenosis Code(s): I35.0 - NONRHEUMATIC AORTIC (VALVE) STENOSIS Qualifiers: 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 (7) Diabetes mellitus Code(s): E11.9 - TYPE 2 DIABETES MELLITUS WITHOUT COMPLICATIONS Qualifiers: Diabetes mellitus type: type 2 Diabetes mellitus complication status: without complication Diabetes mellitus regional intermodal truck driver insulin use: without regional intermodal truck driver use Qualified Code(s): E11.9 - Type 2 diabetes mellitus without complications Assessment/Plan Respiratory Failure: Awake and alert on respirator Influenza A-completed Tamiflu CHF-still significant Chronic Atrial fibrillation Bronchial Asthma-stable Mechanical MVR Aortic Stenosis NIDDM Critical Aortic Stenosis, A Fib with rapid vent response, CHF, MVR. Transfer to a tertiary center for possible valve surgery is being arranged. Suggest: Antibiotics per ID Solumedrol being tapered Inhaled bronchodilators O2 to maintain SaO2>90 Metoprolol and Cardizem per cardiology to control ventricular rate Furosemide PRN
[2016-07-24] MEDS: ATORVASTATIN CA 10 MG TABLET (FP) PO SCH (21:31)
[2016-07-24 23:52] VITALS: BP 119/57; PULSE 112; TEMP 99.5
[2016-07-25] MEDS ORDERED: FUROSEMIDE 40 MG/5 ML UNIT-DOSE CUP NGT SCH (10:00)
== END 2016-07-24 23:50 | disposition short-term general hospital (02) | DRG 207 ==
LOC: JER 17:25 → JERBED 20:17 → J4W 07-07 20:22 → OBSVTOIN 07-09 08:29 → J4W 07-09 09:54 → JICU 07-13 13:13 → UNDODISIN 07-20 19:10
PROVIDERS: ADMIT Internal Medicine; ATTEND Nurse Practitioner Acute Care
PROC: 0BH17EZ Insertion of Endotracheal Airway into Trachea, Via Natural or Artificial Opening (ICD-10-PCS; principal; 2016-07-13)
PROC: 5A1945Z Respiratory Ventilation, 24-96 Consecutive Hours (ICD-10-PCS; 2016-07-13)
PROC: 5A1955Z Respiratory Ventilation, Greater than 96 Consecutive Hours (ICD-10-PCS; 2016-07-17)
PROC: 0BH17EZ Insertion of Endotracheal Airway into Trachea, Via Natural or Artificial Opening (ICD-10-PCS; 2016-07-17)
PROC: 30233N1 Transfusion of Nonautologous Red Blood Cells into Peripheral Vein, Percutaneous Approach (ICD-10-PCS; 2016-07-20)
DX: J10.1 Influenza due to other identified influenza virus with other respiratory manifestations (principal); I50.33 Acute on chronic diastolic (congestive) heart failure; J96.01 Acute respiratory failure with hypoxia; E43 Unspecified severe protein-calorie malnutrition; R64 Cachexia; Z68.1 Body mass index [BMI] 19.9 or less, adult; J45.901 Unspecified asthma with (acute) exacerbation; B37.0 Candidal stomatitis; E87.2 Acidosis; J44.1 Chronic obstructive pulmonary disease with (acute) exacerbation; J12.9 Viral pneumonia, unspecified; I35.0 Nonrheumatic aortic (valve) stenosis; E11.9 Type 2 diabetes mellitus without complications; I10 Essential (primary) hypertension; Z95.2 Presence of prosthetic heart valve; I48.0 Paroxysmal atrial fibrillation; E87.6 Hypokalemia; J18.9 Pneumonia, unspecified organism; D64.9 Anemia, unspecified
CPT/HCPCS: 31500; 36415; 36430; 36600; 71010-TC; 71020-TC; 80048; 80053; 80162; 80170; 81003; 81015; 82550; 82803; 83605; 83735; 83880; 84100; 84439; 84443; 84481; 84484; 85025; 85027; 85610; 85651; 85730; 86140; 86850; 86900; 86901; 86922; 87040; 87070; 87086; 87186; 87205; 87254; 87804; 87899; 93005; 93010; 93306-TC; 94002; 94150; 94640; 94660; 94761; 97116-GP; 97161-GP; 99285-25; G0378; G0480; J1644; P9038; P9058